=== PATIENT | female | born 1960 | race Caucasian/White ===

== ENCOUNTER 2016-11-14 12:28 | Observation (INO) | payer OTHER ==
[~2016-11-14] VITALS: Ht 165.1 cm; Wt 108.5 kg
[~2016-11-14 12:28] MED LIST: FLX10 PO; GABA-112 PO; IBUP-1050 PO; LISI-461 PO
[2016-11-14] MEDS ORDERED: ASPIRIN 324 MG CHEW PO STA (12:51)
[2016-11-14 13:15] LABS: BASO % 0.6 %; BASO ABS # 0.04 K/uL (0-0.2); COMPLETE YES; HEMATOCRIT 43.3 % (37-47); IG% 0.1 %; LYMPH ABS # 2.21 K/uL (1.2-3.4); MEAN CELL VOLUME 92.5 fL (80-100); MEAN CORPUSCULAR HEMOGLOBIN 29.5 pg (25-34); MEAN CORPUSCULAR HGB CONC 31.9 g/dl (32-36); MEAN PLATELET VOLUME 9.6 fL (7.4-10.4); MONO % 6.4 %; NEUT % 59.9 %; PLATELET COUNT 243 K/uL (130-400); RED BLOOD COUNT 4.68 M/uL (4.2-5.4); WHITE BLOOD COUNT 7.14 K/uL (4.8-10.8)
[2016-11-14] MEDS ORDERED: GABA600T PO (13:27)
[2016-11-14] MEDS ORDERED: GABA1CAP5 PO (13:27)
[2016-11-14 13:29] LABS: INR 0.9 (0.9-1.1); PROTHROMBIN TIME (PATIENT) 10.1 SECONDS (9.0-12.0)
[2016-11-14 13:31] LABS: POINT OF CARE TROPONIN I < 0.030 ng/ml (0-0.045)
[2016-11-14 13:32] LABS: BUN/CREATININE RATIO 10.1 (10-20); CALCIUM 8.6 mg/dl (8.5-10.1); CREATININE 0.78 mg/dl (0.60-1.20); MAGNESIUM 2.2 mg/dl (1.8-2.4); POTASSIUM 3.7 mmol/L (3.5-5.1)
[2016-11-14 13:43] LABS: CKMB/CK RATIO 3.5 (0-3.0); THYROID STIMULATING HORMONE 0.845 uIu/ml (0.300-4.500)
--- NOTE | 2016-11-14 13:56 | DIAGNOSTIC IMAGING REPORT ---
CHEST ONE VIEW PORTABLE CLINICAL HISTORY: 55 years-old Female presenting with Chest pain. TECHNIQUE: Portable upright AP view of the chest was obtained. COMPARISON: 12/05/2015. FINDINGS: Mild tortuosity of the descending thoracic aorta. Cardiac silhouette normal in size. Lungs and pleural spaces clear. Osseous structures normal. Upper abdomen normal. IMPRESSION: 1. No acute cardiopulmonary disease. Electronically signed by: Campbell Hand M.D. 11/14/2016 1:55 PM Dictated Date/Time: 11/14/2016 1:54 PM
[2016-11-14] MEDS ORDERED: OPTIRAY 320 IV PRN (14:15)
[2016-11-14 14:25] LABS: LYME DISEASE AB IGG NEG (NEG); LYME DISEASE AB IGM NEG (NEG)
--- NOTE | 2016-11-14 14:41 | DIAGNOSTIC IMAGING REPORT ---
(CHEST FOR PE) ANGIO WITH CLINICAL HISTORY: 55 years-old Female presenting with left anterior chest pain radiating to the back, shortness of breath, dizziness. TECHNIQUE: Multidetector CT angiography of the chest was performed after administration of intravenous contrast. 3-D volumetric and/or maximum intensity projection (MIP) images were subsequently reconstructed for review. IV contrast: 94 mL of Optiray 320. A dose lowering technique was used consistent with the principles of ALARA (as low as reasonably achievable). COMPARISON: Chest x-ray performed the same day. CT DOSE (mGy.cm): The estimated cumulative dose is 545.32 mGy.cm. 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 Pulmonary vasculature: The study is adequate for assessment of the pulmonary vascular tree. No filling defect within the pulmonary arteries to suggest embolus. Main pulmonary artery is top normal in size. No flattening of the interventricular septum. No intracardiac intracardiac filling defect. No reflux of contrast into the hepatic veins. Remaining chest: On soft tissue windows, normal thyroid and thoracic inlet. No axillary, supraclavicular, hilar, or mediastinal lymphadenopathy. Normal aorta. Normal heart size. No pericardial or pleural effusion. Upper abdomen normal. On lung windows, minimal dependent changes likely atelectasis. Airways patent. On bone windows, degenerative changes of the spine. IMPRESSION: 1. No evidence of pulmonary embolus. No acute intrathoracic pathology. 2. Minimal bibasilar atelectasis. Electronically signed by: Campbell Hand M.D. 11/14/2016 2:40 PM Dictated Date/Time: 11/14/2016 2:36 PM
[2016-11-14] MEDS ORDERED: LISINOPRIL 10 MG TAB PO STA (14:54)
[2016-11-14] MEDS ORDERED: NITROGLYCERIN 0.4 MG SL PER TAB CHARGE SL STA (15:03)
[2016-11-14] MEDS ORDERED: MoRPHine SULFATE 4 MG/ML 1 ML CARP\\VIAL IV STA (15:06)
[2016-11-14] MEDS ORDERED: GABAPENTIN 600 MG TAB PO STA (15:06)
[2016-11-14] MEDS ORDERED: GABAPENTIN 400 MG CAP PO STA (15:14)
[2016-11-14 16:00] VITALS: BP 148/96; PULSE 64; TEMP 36.7; O2SAT 95; Ht 165.1 cm; Wt 108.5 kg
[2016-11-14] MEDS ORDERED: IV FLUIDS COMPLETED PRN (16:00)
[2016-11-14] MEDS ORDERED: OMEP20TA PO (17:55)
[2016-11-14] MEDS ORDERED: ALBINS/ INH (17:55)
[2016-11-14] MEDS ORDERED: MELA1TAB5 PO (17:55)
[2016-11-14] MEDS ORDERED: ONDANSETRON INJ 2 MG/ML 2 ML VIAL IV PRN (18:00)
[2016-11-14] MEDS ORDERED: GI COCKTAIL PO PRN (18:00)
[2016-11-14] MEDS ORDERED: NITROGLYCERIN 0.4 MG SL PER TAB CHARGE SL PRN (18:00)
[2016-11-14] MEDS ORDERED: MoRPHine SULFATE 2 MG/ML CARP IV PRN (18:00)
[2016-11-14] MEDS ORDERED: POLYETHYLENE (MIRALAX) 17 GM PACK PO PRN (18:00)
--- NOTE | 2016-11-14 18:05 | History and Physical ---
History & Physical Date & Time of Service: Nov 14, 2016 at 17:57 Chief Complaint: Chest Pain Primary Care Physician: Rosa SWIFT M.D. History of Present Illness Source: patient, clinic records, hospital records 55 yo nonsmoker with no family h/o CAD and no prior h/o chest pain who presents with chest pain that began this morning while she was cleaning up from breakfast around 1000. She noticed some diaphoresis and palpitations with this pain and states that it was in her L anterior chest with radiation to her back. She reports that pushing on her breast and holding it against her chest helped the pain subside. She has had a headache for the past week nonstop and states that she has been just "living with it". She has a houseful of people including her son and his children because of his divorce. She reports taking her blood pressure at the local [facility] and has seen it go up and down. She took lisinopril in the ER and states that it made her feel better, however, she also had some morphine which helped her to relax and allowed the pain to subside. She took nitro and states that it made her headache worse and made her feel bad. She is not sure if it helped the pain because it was given simultaneously with the morphine and the lisinopril. She states that she still feels an underlying "pressure" but the pain has gone away. She does have a h/o palpitations in the past but denies any h/o chest pain. She has a h/o GERD which is controlled on Omeprazole. She did report some functional dyspepsia with respect to sometimes feeling discomfort in her stomach after eating. Past Medical/Surgical History Medical Problems: (1) GERD (gastroesophageal reflux disease) Status: Chronic (2) HTN (hypertension) Status: Chronic (3) Obesity Status: Chronic Surgical Problems: (1) H/O excision of lamina of lumbar vertebra for decompression of spinal cord Status: Chronic (2) History of tubal ligation Status: Chronic Family History FH: diabetes mellitus FH: hypertension FH: lung disease Social History Smoking Status: Never Smoker Smokeless Tobacco Use: No Alcohol Use: none Drug Use: none Marital Status: Occupational Status: employed Immunizations History of Influenza Vaccine: Yes Influenza Vaccine Date: Nov 29, 2015 History of Tetanus Vaccine?: Yes Tetanus Immunization Date: Jun 18, 2016 History of Pneumococcal: No History of Hepatitis B Vaccine: No Multi-Drug Resistant Organisms History of MDRO: No Allergies Coded Allergies: Sulfa Drugs (Verified Allergy, Unknown, 11/14/16) Home Medications Scheduled Gabapentin (Neurontin), 400 MG PO DAILY Gabapentin (Neurontin), 600 MG PO HS Lisinopril (Zestril), 10 MG PO QPM Melatonin (Kp Melatonin), 1 TAB PO HS Omeprazole (Omeprazole), 20 TAB PO DAILY Scheduled PRN Albuterol Sulf (Proventil 0.083% 2.5MG/3ML), 2.5 MG INH QID PRN for Shortness of Breath Review of Systems At least ten systems were reviewed and negative except as indicated in HPI. Physical Exam Vital Signs Date Time Temp Pulse Resp B/P (MAP) Pulse Ox O2 Delivery O2 Flow Rate FiO2 11/14/16 16:00 36.7 64 18 148/96 (113) 95 Room Air 11/14/16 16:00 36.7 64 18 148/96 95 Room Air 11/14/16 15:41 80 18 145/95 96 Room Air 11/14/16 15:13 74 18 149/96 95 Room Air 11/14/16 15:04 81 18 157/94 96 Room Air 11/14/16 14:30 75 18 134/100 97 Room Air 11/14/16 14:04 77 18 149/106 94 Room Air 11/14/16 13:30 79 18 140/90 95 Room Air 11/14/16 13:11 84 11/14/16 13:08 95 Room Air 11/14/16 13:07 95 Room Air 11/14/16 12:38 37.5 83 20 185/105 96 Room Air General Appearance: no apparent distress, + obese Head: normocephalic, atraumatic Eyes: normal inspection, sclerae normal ENT: normal ENT inspection Neck: supple, no JVD, trachea midline Respiratory/Chest: + pertinent finding (chest tenderness to palpation along L sternal border) Cardiovascular: regular rate, rhythm, no edema, no gallop, no JVD, no murmur, normal peripheral pulses Abdomen/GI: normal bowel sounds, non tender, soft Back: normal inspection Extremities/Musculoskelatal: normal inspection, no pedal edema Neurologic/Psych: superintendent construction II-XII nml as tested, no motor/sensory deficits, alert, normal mood/affect, oriented x 3 Skin: normal color Diagnostics Laboratory Results 11/14/16 13:00 Red Blood Count 4.68, Mean Corpuscular Volume 92.5, Mean Corpuscular Hemoglobin 29.5, Mean Corpuscular Hemoglobin Concent 31.9, Mean Platelet Volume 9.6, Neutrophils (%) (Auto) 59.9, Lymphocytes (%) (Auto) 31.0, Monocytes (%) (Auto) 6.4, Eosinophils (%) (Auto) 2.0, Basophils (%) (Auto) 0.6, Neutrophils # (Auto) 4.28, Lymphocytes # (Auto) 2.21, Monocytes # (Auto) 0.46, Eosinophils # (Auto) 0.14, Basophils # (Auto) 0.04 11/14/16 13:00 Test 11/14/16 13:00 11/14/16 13:12 11/14/16 15:40 11/14/16 18:56 White Blood Count 7.14 K/uL (4.8-10.8) Red Blood Count 4.68 M/uL (4.2-5.4) Hemoglobin 13.8 g/dL (12.0-16.0) Hematocrit 43.3 % (37-47) Mean Corpuscular Volume 92.5 fL (80-100) Mean Corpuscular Hemoglobin 29.5 pg (25-34) Mean Corpuscular Hemoglobin Concent 31.9 g/dl (32-36) Platelet Count 243 K/uL (130-400) Mean Platelet Volume 9.6 fL (7.4-10.4) Neutrophils (%) (Auto) 59.9 % Lymphocytes (%) (Auto) 31.0 % Monocytes (%) (Auto) 6.4 % Eosinophils (%) (Auto) 2.0 % Basophils (%) (Auto) 0.6 % Neutrophils # (Auto) 4.28 K/uL (1.4-6.5) Lymphocytes # (Auto) 2.21 K/uL (1.2-3.4) Monocytes # (Auto) 0.46 K/uL (0.11-0.59) Eosinophils # (Auto) 0.14 K/uL (0-0.5) Basophils # (Auto) 0.04 K/uL (0-0.2) RDW Standard Deviation 47.9 fL (36.4-46.3) RDW Coefficient of Variation 14.2 % (11.5-14.5) Immature Granulocyte % (Auto) 0.1 % Immature Granulocyte # (Auto) 0.01 K/uL (0.00-0.02) Prothrombin Time 10.1 SECONDS (9.0-12.0) Prothromb Time International Ratio 0.9 (0.9-1.1) Activated Partial Thromboplast Time 27.1 SECONDS (21.0-31.0) Partial Thromboplastin Ratio 1.0 Anion Gap 4.0 mmol/L (3-11) Est Creatinine Clear Calc Drug Dose 97.9 ml/min Estimated GFR () 97.8 Estimated GFR (Non- 84.4 BUN/Creatinine Ratio 10.1 (10-20) Calcium Level 8.6 mg/dl (8.5-10.1) Magnesium Level 2.2 mg/dl (1.8-2.4) Total Bilirubin 0.2 mg/dl (0.2-1) Aspartate Amino Transf (AST/SGOT) 11 U/L (15-37) Alanine Aminotransferase (ALT/SGPT) 19 U/L (12-78) Alkaline Phosphatase 92 U/L (45-117) Total Protein 6.9 gm/dl (6.4-8.2) Albumin 3.4 gm/dl (3.4-5.0) Globulin 3.5 gm/dl (2.5-4.0) Albumin/Globulin Ratio 1.0 (0.9-2) Thyroid Stimulating Hormone (TSH) 0.845 uIu/ml (0.300-4.500) Lyme Disease IgG Antibody NEG (NEG) Lyme Disease IgM Antibody NEG (NEG) Bedside D-Dimer > 450 ng/mlFEU (0-450) Bedside Troponin I < 0.030 ng/ml (0-0.045) Total Creatine Kinase 55 U/L (26-192) Creatine Kinase MB 1.7 ng/ml (0.5-3.6) Creatine Kinase MB Ratio 3.1 (0-3.0) Troponin I < 0.015 ng/ml (0-0.045) Test 11/14/16 21:00 Urine Color YELLOW Urine Appearance CLEAR (CLEAR) Urine pH 6.0 (4.5-7.5) Urine Specific [place] 1.035 (1.000-1.030) Urine Protein NEG (NEG) Urine Glucose (UA) NEG (NEG) Urine Ketones NEG (NEG) Urine Occult Blood NEG (NEG) Urine Nitrite NEG (NEG) Urine Bilirubin NEG (NEG) Urine Urobilinogen NEG (NEG) Urine Leukocyte Esterase NEG (NEG) Results Past 24 Hours Test 11/14/16 13:00 11/14/16 13:12 11/14/16 15:40 Range/Units White Blood Count 7.14 4.8-10.8 K/uL Red Blood Count 4.68 4.2-5.4 M/uL Hemoglobin 13.8 12.0-16.0 g/dL Hematocrit 43.3 37-47 % Mean Corpuscular Volume 92.5 80-100 fL Mean Corpuscular Hemoglobin 29.5 25-34 pg Mean Corpuscular Hemoglobin Concent 31.9 32-36 g/dl Platelet Count 243 130-400 K/uL Mean Platelet Volume 9.6 7.4-10.4 fL Neutrophils (%) (Auto) 59.9 % Lymphocytes (%) (Auto) 31.0 % Monocytes (%) (Auto) 6.4 % Eosinophils (%) (Auto) 2.0 % Basophils (%) (Auto) 0.6 % Neutrophils # (Auto) 4.28 1.4-6.5 K/uL Lymphocytes # (Auto) 2.21 1.2-3.4 K/uL Monocytes # (Auto) 0.46 0.11-0.59 K/uL Eosinophils # (Auto) 0.14 0-0.5 K/uL Basophils # (Auto) 0.04 0-0.2 K/uL RDW Standard Deviation 47.9 36.4-46.3 fL RDW Coefficient of Variation 14.2 11.5-14.5 % Immature Granulocyte % (Auto) 0.1 % Immature Granulocyte # (Auto) 0.01 0.00-0.02 K/uL Prothrombin Time 10.1 9.0-12.0 SECONDS Prothromb Time International Ratio 0.9 0.9-1.1 Activated Partial Thromboplast Time 27.1 21.0-31.0 SECONDS Partial Thromboplastin Ratio 1.0 Sodium Level 143 136-145 mmol/L Potassium Level 3.7 3.5-5.1 mmol/L Chloride Level 109 98-107 mmol/L Carbon Dioxide Level 30 21-32 mmol/L Anion Gap 4.0 3-11 mmol/L Blood Urea Nitrogen 8 7-18 mg/dl Creatinine 0.78 0.60-1.20 mg/dl Est Creatinine Clear Calc Drug Dose 97.9 ml/min Estimated GFR () 97.8 Estimated GFR (Non- 84.4 BUN/Creatinine Ratio 10.1 10-20 Random Glucose 98 70-99 mg/dl Calcium Level 8.6 8.5-10.1 mg/dl Magnesium Level 2.2 1.8-2.4 mg/dl Total Bilirubin 0.2 0.2-1 mg/dl Aspartate Amino Transf (AST/SGOT) 11 15-37 U/L Alanine Aminotransferase (ALT/SGPT) 19 12-78 U/L Alkaline Phosphatase 92 45-117 U/L Total Creatine Kinase 66 26-192 U/L Creatine Kinase MB 2.3 0.5-3.6 ng/ml Creatine Kinase MB Ratio 3.5 0-3.0 Total Protein 6.9 6.4-8.2 gm/dl Albumin 3.4 3.4-5.0 gm/dl Globulin 3.5 2.5-4.0 gm/dl Albumin/Globulin Ratio 1.0 0.9-2 Thyroid Stimulating Hormone (TSH) 0.845 0.300-4.500 uIu/ml Lyme Disease IgG Antibody NEG NEG Lyme Disease IgM Antibody NEG NEG Bedside D-Dimer > 450 0-450 ng/mlFEU Bedside Troponin I < 0.030 < 0.030 0-0.045 ng/ml Diagnostic Radiology (CHEST FOR PE) ANGIO WITH CLINICAL HISTORY: 55 years-old Female presenting with left anterior chest pain radiating to the back, shortness of breath, dizziness. TECHNIQUE: Multidetector CT angiography of the chest was performed after administration of intravenous contrast. 3-D volumetric and/or maximum intensity projection (MIP) images were subsequently reconstructed for review. IV contrast: 94 mL of Optiray 320. A dose lowering technique was used consistent with the principles of ALARA (as low as reasonably achievable). COMPARISON: Chest x-ray performed the same day. CT DOSE (mGy.cm): The estimated cumulative dose is 545.32 mGy.cm. FINDINGS: Book Editor topogram: Unremarkable. Pulmonary vasculature: The study is adequate for assessment of the pulmonary vascular tree. No filling defect within the pulmonary arteries to suggest embolus. Main pulmonary artery is top normal in size. No flattening of the interventricular septum. No intracardiac intracardiac filling defect. No reflux of contrast into the hepatic veins. Remaining chest: On soft tissue windows, normal thyroid and thoracic inlet. No axillary, supraclavicular, hilar, or mediastinal lymphadenopathy. Normal aorta. Normal heart size. No pericardial or pleural effusion. Upper abdomen normal. On lung windows, minimal dependent changes likely atelectasis. Airways patent. On bone windows, degenerative changes of the spine. IMPRESSION: 1. No evidence of pulmonary embolus. No acute intrathoracic pathology. 2. Minimal bibasilar atelectasis. CHEST ONE VIEW PORTABLE CLINICAL HISTORY: 55 years-old Female presenting with Chest pain. TECHNIQUE: Portable upright AP view of the chest was obtained. COMPARISON: 12/05/2015. FINDINGS: Mild tortuosity of the descending thoracic aorta. Cardiac silhouette normal in size. Lungs and pleural spaces clear. Osseous structures normal. Upper abdomen normal. IMPRESSION: 1. No acute cardiopulmonary disease. Normal EKG Impression Assessment and Plan 55 yo F presents to the ER with acute chest pain 1. Chest pain- risk factors for ACS include HTN and obesity. No h/o CAD or chest pain symptoms in the past. Does have stress with house full of people and does report some high BPs on occasion. Stated that she felt better after taking her regular afternoon dose of lisinopril today in the ER. She does have GERD which is controlled on PPI but does also mention some functional dyspepsia. Also has some anterior chest wall tenderness to palpation indicating a muscular component. Will rule out ACS with serial cardiac enzymes overnight and consult cardiology in the morning for assistance with risk stratification. GI cocktail ordered PRN as well as nitro and morphine. H pylori ordered. 2. Chronic back pain-managed with gabapentin 3. HTN-controlled, cont lisinopril 4. Insomnia-takes melatonin 5. Obesity DVT proph-Lovenox FULL CODE Dispo[facility]tele[facility] Level [facility] Care Telemetry Advanced Directives Existing Living Will: No Existing Power of Flight Readiness Technician: No Resuscitation Status FULL RESUSCITATION VTE Prophylaxis VTE Risk Assessment Done? Y/N: Yes Risk Level: Moderate Given or contraindicated: Enoxaparin (Lovenox)SQ
[2016-11-14] MEDS ORDERED: ALUMINUM/MAGNESIUM SUSP 72 ML, LIDOCAINE HCL 2% VISCOUS SOLN 24 ML, BARCODE IDENTIFIER ... PO PRN ×2 (18:15)
[2016-11-14] MEDS ORDERED: ATORVASTATIN 40 MG TAB PO ONE (18:30)
[2016-11-14] MEDS: ACETAMINOPHEN 325 MG TAB PO PRN (19:21)
[2016-11-14 19:30] LABS: CKMB/CK RATIO 3.1 (0-3.0)
[2016-11-14 19:40] VITALS: BP 156/98; PULSE 65; TEMP 36.5; O2SAT 97
[2016-11-14] MEDS ORDERED: ENOXAPARIN 40 MG/0.4 ML SYR SC SCH (21:00)
[2016-11-14] MEDS ORDERED: GABAPENTIN 600 MG TAB PO SCH (21:00)
[2016-11-14] MEDS ORDERED: LISINOPRIL 10 MG TAB PO SCH (21:00)
[2016-11-14] MEDS ORDERED: PANTOprazole SOD 40 MG TAB PO SCH (21:00)
--- NOTE | 2016-11-14 21:36 | EMERGENCY ROOM VISIT NOTE ---
History First contact with patient: 12:42 Chief Complaint: CHEST PAIN Stated Complaint: CHEST PAIN Nursing Triage Summary: Patient reports pain in left chest area with pressure in her back since this morning. Patient was cleaning in the kitchen when the pain started. Patient denies shortness of breath, patient also c/o intemittent dizziness today. Patient denies any cardiac history. History of Present Illness The patient is a 55 year old female who presents to the Emergency Room via private vehicle accompanied by male with complaints of "chest pain". The patient states that this morning around 10 AM, she was in the kitchen and developed pain in her left anterior chest that radiated to her back. She states that it also may have radiated up into her left neck. She is unsure if it is worse with exertion. She has never had this before. She notes that she initially held her breast impressed the area where it hurt and it helped alleviate the pain, but it persists. She denies any shortness of breath. She does have a history of unilateral leg edema, but notes this is normal on his been going on for many years. She denies any history of heart problems, lung blood clots, shortness of breath. She does have history of hypertension, and borderline high cholesterol. Review of Systems A complete 10-point Review of Systems was discussed with the patient, with pertinent positives and negatives listed in the History of Present Illness. All remaining Review of Systems questions can be considered negative unless otherwise specified. Past Medical/Surgical History Medical Problems: (1) Asthma, Unspecified (2) Chest pain (3) Diverticulosis Colon (W/O Ment Of Hemorrhage) (4) Hypertension Nos (5) Int Hemrrhoid W Comp Nec (6) Lumbago (7) Lumbar Disc Displacement (8) Morbid Obesity (9) Pneumonia (10) Restless Legs Syndrome Surgical Problems: (1) History of laminectomy (2) History of tubal ligation Family History FH: diabetes mellitus FH: hypertension FH: lung disease Social History Smoking Status: Never Smoker Alcohol Use: none Marital Status: Occupation Status: employed Current/Historical Medications Scheduled Gabapentin (Neurontin), 400 MG PO DAILY Gabapentin (Neurontin), 600 MG PO HS Lisinopril (Zestril), 10 MG PO QPM Melatonin (Kp Melatonin), 1 TAB PO HS Omeprazole (Omeprazole), 20 TAB PO DAILY Scheduled PRN Albuterol Sulf (Proventil 0.083% 2.5MG/3ML), 2.5 MG INH QID PRN for Shortness of Breath Physical Exam Vital Signs Date Time Temp Pulse Resp B/P (MAP) Pulse Ox O2 Delivery O2 Flow Rate FiO2 11/14/16 15:13 74 18 149/96 95 Room Air 11/14/16 15:04 81 18 157/94 96 Room Air 11/14/16 14:30 75 18 134/100 97 Room Air 11/14/16 14:04 77 18 149/106 94 Room Air 11/14/16 13:30 79 18 140/90 95 Room Air 11/14/16 13:11 84 11/14/16 13:08 95 Room Air 11/14/16 13:07 95 Room Air 11/14/16 12:38 37.5 83 20 185/105 96 Room Air Pain Rating (0-10): 2.0 Physical Exam VITAL SIGNS - Vital signs and nursing notes were reviewed. Borderline febrile, hypertensive at 185/105, non-tachycardic and is saturating well on room air at 96%. GENERAL -55-year-old female appearing her stated age who is in no acute distress. Communicates well with provider and answers questions appropriately. SKIN - Without rashes. Skin is unremarkable. No petechial rashes. HEAD - NC/AT. EYES - PERRL with EOMI bilaterally. Sclera anicteric. No hyphema. EARS - No deformities of external structures noted on gross examination bilaterally. NOSE - Midline and without cyanosis. No epistaxis or purulent drainage noted. MOUTH/OROPHARYNX - Without perioral cyanosis. LUNGS - Chest wall symmetric without accessory muscle use, intercostals retractions, or central cyanosis. Normal vesicular breath sounds CTA B/L. No wheezes, rales, or rhonchi appreciated. CARDIAC - RRR with S1/S2. No murmur, rubs, or gallops appreciated. EXTREMITIES - No clubbing or peripheral cyanosis. No pretibial edema present. +5 /5 strength noted in UE/LE bilaterally. NEUROLOGIC - Cranial nerves II through XII grossly intact. Sensory intact to light touch throughout. Medical Decision & Procedures ER Provider Diagnostic Interpretation: CHEST ONE VIEW PORTABLE CLINICAL HISTORY: 55 years-old Female presenting with Chest pain. TECHNIQUE: Portable upright AP view of the chest was obtained. COMPARISON: 12/05/2015. FINDINGS: Mild tortuosity of the descending thoracic aorta. Cardiac silhouette normal in size. Lungs and pleural spaces clear. Osseous structures normal. Upper abdomen normal. IMPRESSION: 1. No acute cardiopulmonary disease. Electronically signed by: Campbell Hand M.D. 11/14/2016 1:55 PM Dictated Date/Time: 11/14/2016 1:54 PM (CHEST FOR PE) ANGIO WITH CLINICAL HISTORY: 55 years-old Female presenting with left anterior chest pain radiating to the back, shortness of breath, dizziness. TECHNIQUE: Multidetector CT angiography of the chest was performed after administration of intravenous contrast. 3-D volumetric and/or maximum intensity projection (MIP) images were subsequently reconstructed for review. IV contrast: 94 mL of Optiray 320. A dose lowering technique was used consistent with the principles of ALARA (as low as reasonably achievable). COMPARISON: Chest x-ray performed the same day. CT DOSE (mGy.cm): The estimated cumulative dose is 545.32 mGy.cm. FINDINGS: Book Salesman topogram: Unremarkable. Pulmonary vasculature: The study is adequate for assessment of the pulmonary vascular tree. No filling defect within the pulmonary arteries to suggest embolus. Main pulmonary artery is top normal in size. No flattening of the interventricular septum. No intracardiac intracardiac filling defect. No reflux of contrast into the hepatic veins. Remaining chest: On soft tissue windows, normal thyroid and thoracic inlet. No axillary, supraclavicular, hilar, or mediastinal lymphadenopathy. Normal aorta. Normal heart size. No pericardial or pleural effusion. Upper abdomen normal. On lung windows, minimal dependent changes likely atelectasis. Airways patent. On bone windows, degenerative changes of the spine. IMPRESSION: 1. No evidence of pulmonary embolus. No acute intrathoracic pathology. 2. Minimal bibasilar atelectasis. Electronically signed by: Campbell Hand M.D. 11/14/2016 2:40 PM Dictated Date/Time: 11/14/2016 2:36 PM Laboratory Results 11/14/16 13:00 Red Blood Count 4.68, Mean Corpuscular Volume 92.5, Mean Corpuscular Hemoglobin 29.5, Mean Corpuscular Hemoglobin Concent 31.9, Mean Platelet Volume 9.6, Neutrophils (%) (Auto) 59.9, Lymphocytes (%) (Auto) 31.0, Monocytes (%) (Auto) 6.4, Eosinophils (%) (Auto) 2.0, Basophils (%) (Auto) 0.6, Neutrophils # (Auto) 4.28, Lymphocytes # (Auto) 2.21, Monocytes # (Auto) 0.46, Eosinophils # (Auto) 0.14, Basophils # (Auto) 0.04 11/14/16 13:00 Test 11/14/16 13:00 11/14/16 13:12 White Blood Count 7.14 K/uL (4.8-10.8) Red Blood Count 4.68 M/uL (4.2-5.4) Hemoglobin 13.8 g/dL (12.0-16.0) Hematocrit 43.3 % (37-47) Mean Corpuscular Volume 92.5 fL (80-100) Mean Corpuscular Hemoglobin 29.5 pg (25-34) Mean Corpuscular Hemoglobin Concent 31.9 g/dl (32-36) Platelet Count 243 K/uL (130-400) Mean Platelet Volume 9.6 fL (7.4-10.4) Neutrophils (%) (Auto) 59.9 % Lymphocytes (%) (Auto) 31.0 % Monocytes (%) (Auto) 6.4 % Eosinophils (%) (Auto) 2.0 % Basophils (%) (Auto) 0.6 % Neutrophils # (Auto) 4.28 K/uL (1.4-6.5) Lymphocytes # (Auto) 2.21 K/uL (1.2-3.4) Monocytes # (Auto) 0.46 K/uL (0.11-0.59) Eosinophils # (Auto) 0.14 K/uL (0-0.5) Basophils # (Auto) 0.04 K/uL (0-0.2) RDW Standard Deviation 47.9 fL (36.4-46.3) RDW Coefficient of Variation 14.2 % (11.5-14.5) Immature Granulocyte % (Auto) 0.1 % Immature Granulocyte # (Auto) 0.01 K/uL (0.00-0.02) Prothrombin Time 10.1 SECONDS (9.0-12.0) Prothromb Time International Ratio 0.9 (0.9-1.1) Activated Partial Thromboplast Time 27.1 SECONDS (21.0-31.0) Partial Thromboplastin Ratio 1.0 Anion Gap 4.0 mmol/L (3-11) Est Creatinine Clear Calc Drug Dose 97.9 ml/min Estimated GFR () 97.8 Estimated GFR (Non- 84.4 BUN/Creatinine Ratio 10.1 (10-20) Calcium Level 8.6 mg/dl (8.5-10.1) Magnesium Level 2.2 mg/dl (1.8-2.4) Total Bilirubin 0.2 mg/dl (0.2-1) Aspartate Amino Transf (AST/SGOT) 11 U/L (15-37) Alanine Aminotransferase (ALT/SGPT) 19 U/L (12-78) Alkaline Phosphatase 92 U/L (45-117) Total Protein 6.9 gm/dl (6.4-8.2) Albumin 3.4 gm/dl (3.4-5.0) Globulin 3.5 gm/dl (2.5-4.0) Albumin/Globulin Ratio 1.0 (0.9-2) Thyroid Stimulating Hormone (TSH) 0.845 uIu/ml (0.300-4.500) Lyme Disease IgG Antibody NEG (NEG) Lyme Disease IgM Antibody NEG (NEG) Bedside D-Dimer > 450 ng/mlFEU (0-450) Medications Administered Medications (Trade) Dose Ordered Sig/Gokul Route Start Time Stop Time Status Last Admin Dose Admin Aspirin (Aspirin Chew) 324 mg NOW STAT PO 11/14/16 12:51 11/14/16 12:53 DC 11/14/16 13:05 324 MG Lisinopril (Zestril Tab) 10 mg NOW STAT PO 11/14/16 14:54 11/14/16 14:55 DC 11/14/16 15:05 10 MG Nitroglycerin (Nitrostat Tab) 0.4 mg Q5M STAT SL 11/14/16 15:03 11/14/16 15:04 DC 11/14/16 15:08 0.4 MG Morphine Sulfate (MoRPHine SULFATE INJ) 4 mg NOW STAT IV 11/14/16 15:06 11/14/16 15:07 DC 11/14/16 15:13 4 MG Gabapentin (Neurontin Cap) 400 mg NOW STAT PO 11/14/16 15:14 11/14/16 15:15 DC 11/14/16 15:26 400 MG Medical Decision Patient was seen and evaluated as above. She presents to us today with chest pain. Bedside EKG reveals normal sinus rhythm, without ectopy or ischemic change. IV access was initiated, and the above workup was performed. She declined pain medication. She was given 324 milligram of chewable aspirin. Chest x-ray is obtained with results as above. No acute process. D-dimer was found to be elevated therefore CTA of the chest was obtained and found to be negative for pulmonary embolism. Troponin is also negative. CBC reveals no leukocytosis or anemia. Coags unremarkable. Metabolic panel reveals chloride slightly high at 109, creatinine is appropriate, no evidence of liver failure. TSH unremarkable. Lyme testing is negative. At this time because the patient' s underlying risk factors of hypertension, borderline cholesterol, age, the BMI , as well as her classic presenting symptoms of KS I believe that further evaluation and management in the inpatient setting is appropriate for further cardiac assessment. The case was discussed with the hospitalist, Dr. Aragon. Please refer to further documentation regarding the patient's stay. She was given nitroglycerin and morphine prior to admission. In the evaluation treatment this patient following differential diagnoses were entertained: KS, PE, endocarditis, pericarditis, costochondritis, muscle strain , GERD, dissection, among others. Impression Primary Impression: Chest pain Departure Information Dispostion Still a Patient Condition GOOD Referrals Rosa SWIFT M.D. (PCP) Forms Call Back Authorization, HOME CARE DOCUMENTATION FORM, IMPORTANT VISIT INFORMATION [facility] Instructions [facility]
[2016-11-14 22:20] LABS: URINE APPEARANCE CLEAR (CLEAR); URINE BILIRUBIN NEG (NEG); URINE COLOR YELLOW; URINE NITRITE NEG (NEG); URINE SPECIFIC GRAVITY 1.035 (1.000-1.030); UROBILINOGEN NEG (NEG); ZZUR CULT IF INDIC CLEAN CATCH NO
[2016-11-14 22:23] LABS: MANUAL MICROSCOPIC REQUIRED? NO; REVIEW REQ? NO
[2016-11-14 23:49] VITALS: BP 146/83; PULSE 60; TEMP 36.4; O2SAT 97
[2016-11-15 01:20] LABS: CKMB/CK RATIO 4.3 (0-3.0)
[2016-11-15 03:55] VITALS: BP 150/91; PULSE 63; TEMP 36.5; O2SAT 96
[2016-11-15 05:55] LABS: MEAN CELL VOLUME 93.3 fL (80-100); MEAN CORPUSCULAR HEMOGLOBIN 29.1 pg (25-34); MEAN CORPUSCULAR HGB CONC 31.2 g/dl (32-36); MEAN PLATELET VOLUME 9.8 fL (7.4-10.4); PLATELET COUNT 233 K/uL (130-400); RED BLOOD COUNT 4.61 M/uL (4.2-5.4); WHITE BLOOD COUNT 7.46 K/uL (4.8-10.8)
[2016-11-15 06:32] LABS: CALCIUM 8.9 mg/dl (8.5-10.1); CREATININE 0.85 mg/dl (0.60-1.20); POTASSIUM 4.1 mmol/L (3.5-5.1)
[2016-11-15 06:36] LABS: CHOLESTEROL/HDL RATIO 5.4
[2016-11-15 07:24] VITALS: BP 151/96; PULSE 61; TEMP 36.6; O2SAT 95
[2016-11-15] MEDS: ACETAMINOPHEN 325 MG TAB PO PRN (07:59)
[2016-11-15] MEDS ORDERED: ASPIRIN 81 MG ECTAB PO SCH (09:00)
[2016-11-15] MEDS ORDERED: GABAPENTIN 400 MG CAP PO SCH (09:00)
[2016-11-15 11:37] VITALS: BP 133/96; PULSE 71; TEMP 36.8; O2SAT 95
--- NOTE | 2016-11-15 11:51 | Progress Note ---
Internal Med Progress Note Date of Service: Nov 15, 2016. Provider Documentation: SUBJECTIVE: Seen and examined at bedside States chest pain is better still has some retrosternal discomfort Denies SOB, dizziness Headache is better Offers no other complaints OBJECTIVE: Vital Signs-as noted below Physical Exam: Vitals signs as noted above General Appearance:Obese, no apparent distress Head: normocephalic, Atraumatic Eyes: normal inspection, EOMI, PERRL Neck: supple, Trachea midline Respiratory/Chest: Normal breath sounds, CTA Cardiovascular: S1, S2, No murmur, tender on palpation Abdomen/GI:Soft, Non tender, Bowel sounds present Extremities/Musculoskelatal:normal inspection, no edema Neurologic/Psych:AAOX3, grossly no focal neurological deficits Skin: normal color, warm Lab data as noted below. ASSESSMENT & PLAN: Atypical Chest Pain: R/O ACS Risk factors: Obesity, HTN Troponin X 2:Negative EKG shows: CXR: Unremarkable Lipid panel: Borderline high Triglyceridemia Continue Aspirin Cardiology consulted Stress test:No symptoms suggestive of angina were induced. Chronic back pain: continue gabapentin Chronic Headache: Uncontrolled BP could be contributing Reports having it since years Denies change in vision, neck stiffness Follows with Neurology as outpatient for back pain Preferred to follow up with Neurology for headache as well Will give Ibuprofen for now Lisinopril increased for better BP control HTN: continue lisinopril as above Insomnia: Continue melatonin Obesity: BMI:39.8 GERD: continue PPI DVT Px: Lovenox SQ Code Status: FULL CODE Disposition: Plan to discharge home today Follow up with on 11/19/16 at 10:00 Am Follow up with your Neurologist for chronic headache as advised. Seek immediate medical attention if your symptoms reoccur or worsen Stress test: Stress echo results: STRESS STUDY: The stress echocardiogram was negative for evidence of resting or inducible ischemial. No symptoms suggestive of angina were induced. The BP response to exercise was hypertensive. The exercise tolerance was below average, however patient reached target HR. RESTING STUDY: There is mild concentric left ventricular hypertrophy. The LV Ejection Fraction = 60-65%. Grade I diastolic dysfunction, (abnormal relaxation pattern). There is no significant valvular heart disease. Vital Signs: Date Time Temp Pulse Resp B/P (MAP) Pulse Ox O2 Delivery O2 Flow Rate FiO2 11/15/16 16:00 96 Room Air 11/15/16 15:49 36.5 82 16 145/94 (111) 96 Room Air 11/15/16 12:15 Room Air 11/15/16 11:37 36.8 71 18 133/96 (108) 95 11/15/16 07:45 Room Air 11/15/16 07:24 36.6 61 18 151/96 (114) 95 11/15/16 04:00 Room Air 11/15/16 03:55 36.5 63 18 150/91 (110) 96 Room Air 11/15/16 00:00 Room Air 11/14/16 23:49 36.4 60 18 146/83 (104) 97 Room Air 11/14/16 20:00 Room Air 11/14/16 19:40 36.5 65 20 156/98 (117) 97 Room Air Lab Results: Results Past 24 Hours Test 11/14/16 18:56 11/14/16 21:00 11/15/16 00:34 11/15/16 05:31 Range/Units Total Creatine Kinase 55 51 26-192 U/L Creatine Kinase MB 1.7 2.2 0.5-3.6 ng/ml Creatine Kinase MB Ratio 3.1 4.3 0-3.0 Troponin I < 0.015 < 0.015 0-0.045 ng/ml Urine Color YELLOW Urine Appearance CLEAR CLEAR Urine pH 6.0 4.5-7.5 Urine Specific [place] 1.035 1.000-1.030 Urine Protein NEG NEG Urine Glucose (UA) NEG NEG Urine Ketones NEG NEG Urine Occult Blood NEG NEG Urine Nitrite NEG NEG Urine Bilirubin NEG NEG Urine Urobilinogen NEG NEG Urine Leukocyte Esterase NEG NEG White Blood Count 7.46 4.8-10.8 K/uL Red Blood Count 4.61 4.2-5.4 M/uL Hemoglobin 13.4 12.0-16.0 g/dL Hematocrit 43.0 37-47 % Mean Corpuscular Volume 93.3 80-100 fL Mean Corpuscular Hemoglobin 29.1 25-34 pg Mean Corpuscular Hemoglobin Concent 31.2 32-36 g/dl RDW Standard Deviation 48.5 36.4-46.3 fL RDW Coefficient of Variation 14.2 11.5-14.5 % Platelet Count 233 130-400 K/uL Mean Platelet Volume 9.8 7.4-10.4 fL Sodium Level 144 136-145 mmol/L Potassium Level 4.1 3.5-5.1 mmol/L Chloride Level 108 98-107 mmol/L Carbon Dioxide Level 32 21-32 mmol/L Anion Gap 4.0 3-11 mmol/L Blood Urea Nitrogen 9 7-18 mg/dl Creatinine 0.85 0.60-1.20 mg/dl Est Creatinine Clear Calc Drug Dose 89.9 ml/min Estimated GFR () 88.2 Estimated GFR (Non- 76.1 BUN/Creatinine Ratio 10.0 10-20 Random Glucose 91 70-99 mg/dl Calcium Level 8.9 8.5-10.1 mg/dl Triglycerides Level 198 0-150 mg/dl Cholesterol Level 168 0-200 mg/dl HDL Cholesterol 31 mg/dl LDL Cholesterol, Calculated 97 mg/dl VLDL Cholesterol, Calculated 40 mg/dl Cholesterol/HDL Ratio 5.4
--- NOTE | 2016-11-15 12:17 | Cardiology Consultation ---
Cardiology Consultation Date of Consultation: Nov 15, 2016 History of Present Illness Kathleen Jones is a 55 year old female seen in cardiology consultation per the request of Dr Aragon for the evaluation of chest discomfort. The patient's past medical history of medication-controlled hypertension for which she takes lisinopril. Yesterday at 10 AM, she noticed a sensation at the left sternal border at the upper part of her left breast. First it felt like it was a pain in her breast, and it seemed like it could be modified by adjusting the position of her left breast and squeezing it. It subsequently developed into more of a pressure sensation. She presented to the emergency department. Her blood pressures were a little bit above goal for her, but not extremely elevated so far. She also notes that she has had a headache for about the last week. She notes in the past she is to have recurrent headaches for many years that seemed to be worse with her menstrual cycle, but this is not been an issue recently. Her headache is currently a 3-4 intensity. This has not worsened or improved recently. She describes it there is a little bit of psychological stressors at home. She has extended family staying with her as her son goes through a divorce. Past Medical/Surgical History Problem List: Medical Problems: (1) Asthma, Unspecified (2) Chest pain (3) Diverticulosis Colon (W/O Ment Of Hemorrhage) (4) GERD (gastroesophageal reflux disease) (5) HTN (hypertension) (6) Hypertension Nos (7) Int Hemrrhoid W Comp Nec (8) Lumbago (9) Lumbar Disc Displacement (10) Morbid Obesity (11) Obesity (12) Pneumonia (13) Restless Legs Syndrome Surgical Problems: (1) H/O excision of lamina of lumbar vertebra for decompression of spinal cord (2) History of laminectomy (3) History of tubal ligation History Social History: She is a nonsmoker, denies alcohol use. Psychological stressors as noted above Family History: Mother age 79 due to complications of severe COPD and smoking. She also had hypertension Father is alive at age 82 with no known heart disease She notes no history of heart disease in her siblings. Review Of Systems See above for pertinent positives & negatives. A total of 10 systems reviewed and were otherwise negative. Allergies Coded Allergies: Sulfa Drugs (Verified Allergy, Unknown, 11/14/16) Medications Reported Home Medications Medications Dose Route/Sig Max Daily Dose Days Date Category Proventil 0.083% 2.5MG/3ML (Albuterol Sulf) 2.5 Mg/3 Ml Nebu 2.5 Mg INH QID PRN 11/14/16 Reported Kp Melatonin (Melatonin) 3 Mg Tab 1 Tab PO HS 11/14/16 Reported Omeprazole 20 Mg Tab 20 Tab PO DAILY 11/14/16 Reported Neurontin (Gabapentin) 600 Mg Tab 600 Mg PO HS 11/14/16 Reported Neurontin (Gabapentin) 400 Mg Cap 400 Mg PO DAILY 11/14/16 Reported Zestril (Lisinopril) 10 Mg Tab 10 Mg PO QPM 01/21/16 Reported Physical Exam Vital Signs (Last 8hrs): Last 8 Hrs Date Time Temp Pulse Resp B/P (MAP) Pulse Ox O2 Delivery O2 Flow Rate FiO2 11/15/16 11:37 36.8 71 18 133/96 (108) 95 11/15/16 07:45 Room Air 11/15/16 07:24 36.6 61 18 151/96 (114) 95 General Appearance: Alert and Oriented x3. NAD. Head: Normocephalic Atraumatic. Eyes: PERRLA, EOMI, conjunctiva and sclera clear Neck: Supple. No carotid bruits noted. No JVD. No HJD. Respiratory: Breath sounds clear to auscultation bilaterally. No w/r/r. Cardiovascular: Reg rate and rhythm. S1 and S2 noted. No murmurs, rubs, gallops. PMI non displace. Abdomen: Normal bowel sounds, soft nontender. no abdominal bruits. Extremities: No edema, no clubbing or cyanosis. distal pulses 2/4 bilaterally. Neuro: No focal deficits. Psychiatric: Normal affect. Data Last Resulted 11/15/16 05:31 Last Resulted 11/15/16 05:31 Past 24 Hours Test 11/14/16 13:00 11/14/16 18:56 11/15/16 00:34 Range/Units Creatine Kinase MB 2.3 1.7 2.2 0.5-3.6 ng/ml Creatine Kinase MB Ratio 3.5 H 3.1 H 4.3 H 0-3.0 Prothromb Time International Ratio 0.9 0.9-1.1 Prothrombin Time 10.1 9.0-12.0 SECONDS Total Creatine Kinase 66 55 51 26-192 U/L Troponin I < 0.015 < 0.015 0-0.045 ng/ml Serial EKGs reveal sinus rhythm sinus bradycardia without significant ST changes. Telemetry reveals stable sinus rhythm. Assessment & Plan Impression: 55-year-old female 1. Chest discomfort, somewhat atypical for angina, with discomfort that is partially reproducible on deep palpation in the left sternal border, and a separate pressure sensation. 2. Hypertension, unusually high for her, trending toward improvement 3. No significant dyslipidemia, LDL was 97 mg/dL Plan: Proceed with exercise stress echocardiogram. Further recommendations be forthcoming after the test. Continue lisinopril for now. May need additional evaluation of headache after stress test is completed. Shiraz Ortega DO, FACC, FACOI [employer] [facility] [place], [facility]
--- NOTE | 2016-11-15 15:34 | Cardiology Progress Note ---
Cardiology Progress Note Date of Service Nov 15, 2016. Cardiology Progress Note Stress echo results: STRESS STUDY: The stress echocardiogram was negative for evidence of resting or inducible ischemial. No symptoms suggestive of angina were induced. The BP response to exercise was hypertensive. The exercise tolerance was below average, however patient reached target HR. RESTING STUDY: There is mild concentric left ventricular hypertrophy. The LV Ejection Fraction = 60-65%. Grade I diastolic dysfunction, (abnormal relaxation pattern). There is no significant valvular heart disease. Non cardiac chest pain. Recommendations: Increase lisinopril to 20 mg daily. Recommend ongoing headache assessment/ treatment by hospitalist service.
--- NOTE | 2016-11-15 15:36 | EXERCISE STRESS ECHO ---
*NOTICE TO RECEIVING DEMOCRAT AGENCY This information is strictly Confidential and protected under [place] law. [place] law prohibits you from making any further disclosure of this information unless further disclosure is expressly permitted by the written consent of the person to whom it pertains or is authorized by law. A general authorization for the release of medical or other information is not sufficient for this purpose. Hospital accepts no responsibility if the information is made available to any other person, INCLUDING THE PATIENT. Interpretation Summary * Name: RANJANA HENDERSON Study Date: 11/15/2016 01:21 PM BP: 110/82 mmHg * Patient Location: [facility]\S\N284\S\1 HR: 66 * : 1960 (M/d/yyyy) Gender: Female Height: 65 in * Age: 55 yrs Ethnicity: [place] Weight: 239 lb * Ordering Physician: Shiraz Ortega * Referring Physician: Self, Referred * Performed By: Krystal Santiago RDCS * * Reason For Study: CHEST PAIN * BSA: 2.1 m2 * The study was technically adequate. * -- Conclusions -- * STRESS STUDY: * The stress echocardiogram was negative for evidence of resting or inducible ischemial. * No symptoms suggestive of angina were induced. * The BP response to exercise was hypertensive. * The exercise tolerance was below average, however patient reached target HR. * RESTING STUDY: * There is mild concentric left ventricular hypertrophy. * The LV Ejection Fraction = 60-65%. * Grade I diastolic dysfunction, (abnormal relaxation pattern). * There is no significant valvular heart disease. Procedure Details * A contrast injection of Definity was performed to improve assessment of LV function. * Contrast was injected into an intravenous site in the right arm. * One vial of Definity ultrasound contrast was diluted in normal saline to a total volume of 10 ml. A total of '4' ml of solution was administered during imaging. * Lot # [id number] of Definity utilized for procedure. * Expiration date DEC 15. * The attending nurse who injected the contrast agent was DAVE DOTSON RN. * ECHOEX, CPT #[id number] * ECHO DOPPLER, CPT #[id number] * ECHO COLOR FLOW, CPT #[id number] Left Ventricle * The left ventricle is normal in size. * There is mild concentric left ventricular hypertrophy. * Ejection Fraction = 60-65%. * Left ventricular systolic function is normal. * Resting wall motion: Normal. Stress wall motion: Appropriate increase in Left ventricular systolic function and decrease in cavity size. No stress induced segmental wall motion abnormalities. Right Ventricle * The right ventricle is normal in size and function. Atria * The left atrial size is normal. * Right atrial size is normal. * No ASD detected; PFO is not assessed. Mitral Valve * The mitral valve is normal. * There is no mitral valve stenosis. * There is trace mitral regurgitation. Tricuspid Valve * The tricuspid valve is normal. * There is no tricuspid stenosis. * There is trace tricuspid regurgitation. Aortic Valve * The aortic valve is trileaflet. * No hemodynamically significant valvular aortic stenosis. * No aortic regurgitation is present. Pulmonic Valve * The pulmonic valve is not well visualized. Great Vessels * The aortic root is normal size. Pericardium * There is no pericardial effusion. Stress Parameters * Normal baseline electrocardiogram. * The stress ECG response was normal * No arrhythmia were noted with stress. * The stress portion of this study was personally supervised by the undersigned interpreting physician. * Rest heart rate was '66' BPM. * Rest blood pressure was '110/82' * Maximum heart rate achieved was 146 bpm. * Maximum heart rate was 89 % of maximum age-predicted heart rate. * Maximum blood pressure was '179/106' * Total exercise time was '3:50' * Maximum exercise MET level achieved was '5.60' METS * Maximum treadmill speed was '2.50' miles per hour. * Maximum treadmill elevation was '12.00'% grade. * Exercise was terminated due to 'ACHIEVING TARGET HR' Left Ventricular Diastolic Function * Grade I diastolic dysfunction, (abnormal relaxation pattern). MMode 2D Measurements and Calculations IVSd 1.3 cm IVSs 1.9 cm LVIDd 3.9 cm LVIDs 2.7 cm LVPWd 1.2 cm LVPWs 1.7 cm IVS/LVPW 1.0 FS 30.8 % EDV(Teich) 67.5 ml ESV(Teich) 27.7 ml EF(Teich) 59.0 % EDV(cubed) 61.1 ml ESV(cubed) 20.3 ml EF(cubed) 66.8 % % IVS thick 41.4 % % LVPW thick 39.6 % LV mass(C)d 177.8 grams LV mass(C)dI 83.3 grams/m\S\2 LV mass(C)s 193.8 grams LV mass(C)sI 90.8 grams/m\S\2 SV(Teich) 39.8 ml SI(Teich) 18.6 ml/m\S\2 SV(cubed) 40.8 ml SI(cubed) 19.1 ml/m\S\2 Ao root diam 3.2 cm Ao root area 8.2 cm\S\2 LA dimension 3.4 cm LA/Ao 1.1 LVAd ap4 34.6 cm\S\2 LVLd ap4 8.0 cm EDV(MOD-sp4) 122.2 ml EDV(sp4-el) 126.0 ml LVAs ap4 19.0 cm\S\2 LVLs ap4 6.3 cm ESV(MOD-sp4) 48.1 ml ESV(sp4-el) 48.2 ml EF(MOD-sp4) 60.6 % EF(sp4-el) 61.8 % SV(MOD-sp4) 74.1 ml SI(MOD-sp4) 34.7 ml/m\S\2 SV(sp4-el) 77.8 ml SI(sp4-el) 36.5 ml/m\S\2 Doppler Measurements and Calculations MV E max jak 98.1 cm/sec MV A max jak 96.5 cm/sec MV E/A 1.0 MV dec time 0.26 sec Ao V2 max 146.6 cm/sec Ao max PG 8.6 mmHg Ao max PG (full) 4.1 mmHg LV V1 max PG 4.5 mmHg LV V1 max 106.6 cm/sec TR max jak 170.8 cm/sec
[2016-11-15 15:49] VITALS: BP 145/94; PULSE 82; TEMP 36.5; O2SAT 96
[2016-11-15 16:00] VITALS: O2SAT 96
[2016-11-15] MEDS ORDERED: SUMATRIPTAN SUCCINATE 25 MG TAB PO ONE (16:15)
[2016-11-15] MEDS ORDERED: IBUPROFEN 600 MG TAB PO ONE (16:30)
[2016-11-15] MEDS ORDERED: LSN20 PO (16:40)
--- NOTE | 2016-11-15 16:41 | Discharge Instructions ---
Discharge Instructions Date of Service Nov 15, 2016. Admission Reason for Admission: Chest Pain Discharge Discharge Diagnosis / Problem: Atypical chest pain Discharge Goals Goal(s): Decrease discomfort, Improve function Activity Recommendations Activity Limitations: resume your previous activity Exercise/Sports Limitations: as tolerated . Instructions / Follow-Up Instructions / Follow-Up Follow up with on 11/19/16 at 10:00 Am Follow up with your Neurologist for chronic headache as advised. Seek immediate medical attention if your symptoms reoccur or worsen Current Hospital Diet Patient's current hospital diet: Regular Diet Discharge Diet Recommended Diet: Regular Diet Pending Studies Studies pending at discharge: no Laboratory Results Lipid Panel Test 11/15/16 05:31 Range/Units Triglycerides Level 198 H 0-150 mg/dl Cholesterol Level 168 0-200 mg/dl HDL Cholesterol 31 mg/dl Cholesterol/HDL Ratio 5.4 LDL Cholesterol, Calculated 97 mg/dl Medical Emergencies . Who to Call and When: Medical Emergencies: If at any time you feel your situation is an emergency, please call 911 immediately. . Non-Emergent Contact Non-Emergency issues call your: Primary Care Provider, Medical Tech Call Non-Emergent contact if: you have a fever, your pain is not controlled, your pain is worsening, your pain is unusual for you, your pain is concerning you, you have any medication questions Seek immediate medical attention if your symptoms reoccur or worsen . . "Provider Documentation" section prepared by Gadiel Reddy. . VTE Core Measure Inpt VTE Proph given/why not?: Enoxaparin (Lovenox)SQ
--- NOTE | 2016-11-15 17:01 | Discharge Summary ---
Discharge Summary Date of Service Nov 15, 2016. Discharge Summary Admission Date: Nov 14, 2016 at 15:35 Discharge Date: Nov 15, 2016 Discharge Disposition: Home Principal Diagnosis: Atypical chest pain Procedures: CTA: 1. No evidence of pulmonary embolus. No acute intrathoracic pathology. 2. Minimal bibasilar atelectasis. STRESS STUDY: The stress echocardiogram was negative for evidence of resting or inducible ischemial. No symptoms suggestive of angina were induced. The BP response to exercise was hypertensive. The exercise tolerance was below average, however patient reached target HR. RESTING STUDY: There is mild concentric left ventricular hypertrophy. The LV Ejection Fraction = 60-65%. Grade I diastolic dysfunction, (abnormal relaxation pattern). There is no significant valvular heart disease. Pending Studies/Follow-Up: Follow up with on 11/19/16 at 10:00 Am Follow up with your Neurologist for chronic headache as advised. Seek immediate medical attention if your symptoms reoccur or worsen Medication Reconciliation New Medications: Lisinopril (Lisinopril) 20 Mg Tab 20 MG PO QAM for 30 Days, #30 TAB 1 Refill Continued Medications: Albuterol Sulf (Proventil 0.083% 2.5MG/3ML) 2.5 Mg/3 Ml Nebu 2.5 MG INH QID PRN for Shortness of Breath, EA Gabapentin (Neurontin) 400 Mg Cap 400 MG PO DAILY, CAP Gabapentin (Neurontin) 600 Mg Tab 600 MG PO HS, TAB Melatonin (Kp Melatonin) 3 Mg Tab 1 TAB PO HS Omeprazole (Omeprazole) 20 Mg Tab 20 TAB PO DAILY Discontinued Medications: Lisinopril (Zestril) 10 Mg Tab 10 MG PO QPM, TAB Admission Information HPI (per Admitting provider): 55 yo nonsmoker with no family h/o CAD and no prior h/o chest pain who presents with chest pain that began this morning while she was cleaning up from breakfast around 1000. She noticed some diaphoresis and palpitations with this pain and states that it was in her L anterior chest with radiation to her back. She reports that pushing on her breast and holding it against her chest helped the pain subside. She has had a headache for the past week nonstop and states that she has been just "living with it". She has a houseful of people including her son and his children because of his divorce. She reports taking her blood pressure at the local [facility] and has seen it go up and down. She took lisinopril in the ER and states that it made her feel better, however, she also had some morphine which helped her to relax and allowed the pain to subside. She took nitro and states that it made her headache worse and made her feel bad. She is not sure if it helped the pain because it was given simultaneously with the morphine and the lisinopril. She states that she still feels an underlying "pressure" but the pain has gone away. She does have a h/o palpitations in the past but denies any h/o chest pain. She has a h/o GERD which is controlled on Omeprazole. She did report some functional dyspepsia with respect to sometimes feeling discomfort in her stomach after eating. Physical Exam (per Admitting): General Appearance: no apparent distress, + obese Head: normocephalic, atraumatic Eyes: normal inspection, sclerae normal ENT: normal ENT inspection Neck: supple, no JVD, trachea midline Respiratory/Chest: + pertinent finding (chest tenderness to palpation along L sternal border) Cardiovascular: regular rate, rhythm, no edema, no gallop, no JVD, no murmur , normal peripheral pulses Abdomen/GI: normal bowel sounds, non tender, soft Back: normal inspection Extremities/Musculoskelatal: normal inspection, no pedal edema Neurologic/Psych: prestidigitator II-XII nml as tested, no motor/sensory deficits, alert , normal mood/affect, oriented x 3 Skin: normal color Hospital Course Atypical Chest Pain: R/O ACS Risk factors: Obesity, HTN Troponin X 2:Negative EKG shows: CXR: Unremarkable Lipid panel: Borderline high Triglyceridemia Continue Aspirin Cardiology consulted Stress test:No symptoms suggestive of angina were induced. Chronic back pain: continue gabapentin Chronic Headache: Uncontrolled BP could be contributing Reports having it since years Denies change in vision, neck stiffness Follows with Neurology as outpatient for back pain Preferred to follow up with Neurology for headache as well Will give Ibuprofen for now Lisinopril increased for better BP control HTN: continue lisinopril as above Insomnia: Continue melatonin Obesity: BMI:39.8 GERD: continue PPI DVT Px: Lovenox SQ Code Status: FULL CODE Disposition: Plan to discharge home today Follow up with on 11/19/16 at 10:00 Am Follow up with your Neurologist for chronic headache as advised. Seek immediate medical attention if your symptoms reoccur or worsen Stress test: Stress echo results: STRESS STUDY: The stress echocardiogram was negative for evidence of resting or inducible ischemial. No symptoms suggestive of angina were induced. The BP response to exercise was hypertensive. The exercise tolerance was below average, however patient reached target HR. RESTING STUDY: There is mild concentric left ventricular hypertrophy. The LV Ejection Fraction = 60-65%. Grade I diastolic dysfunction, (abnormal relaxation pattern). There is no significant valvular heart disease. Total time spent on discharge = This includes examination of the patient, discharge planning, medication reconciliation, and communication with other providers. Discharge Instructions Discharge Instructions Date of Service Nov 15, 2016. Admission Reason for Admission: Chest Pain Discharge Discharge Diagnosis / Problem: Atypical chest pain Discharge Goals Goal(s): Decrease discomfort, Improve function Activity Recommendations Activity Limitations: resume your previous activity Exercise/Sports Limitations: as tolerated . Instructions / Follow-Up Instructions / Follow-Up Follow up with on 11/19/16 at 10:00 Am Follow up with your Neurologist for chronic headache as advised. Seek immediate medical attention if your symptoms reoccur or worsen Current Hospital Diet Patient's current hospital diet: Regular Diet Discharge Diet Recommended Diet: Regular Diet Pending Studies Studies pending at discharge: no Laboratory Results Lipid Panel Test 11/15/16 05:31 Range/Units Triglycerides Level 198 H 0-150 mg/dl Cholesterol Level 168 0-200 mg/dl HDL Cholesterol 31 mg/dl Cholesterol/HDL Ratio 5.4 LDL Cholesterol, Calculated 97 mg/dl Medical Emergencies . Who to Call and When: Medical Emergencies: If at any time you feel your situation is an emergency, please call 911 immediately. . Non-Emergent Contact Non-Emergency issues call your: Primary Care Provider, Air Conditioning Installer Supervisor Call Non-Emergent contact if: you have a fever, your pain is not controlled, your pain is worsening, your pain is unusual for you, your pain is concerning you, you have any medication questions Seek immediate medical attention if your symptoms reoccur or worsen . . "Provider Documentation" section prepared by Gadiel Reddy. . VTE Core Measure Inpt VTE Proph given/why not?: Enoxaparin (Lovenox)SQ
[2016-11-15 17:29] VITALS: BP 145/94; PULSE 82; TEMP 36.5; O2SAT 96
[2016-11-16] MEDS ORDERED: LISINOPRIL 20 MG TAB PO SCH (09:00)
== END 2016-11-15 17:57 | disposition home or self-care (01) ==
LOC: C.EDB 12:29 → C.MED 15:35 → ENRESERV 15:44
PROVIDERS: ADMIT Hospitalist; ATTEND Internal Medicine
DX: R07.89 Other chest pain (principal); R51 Headache; I10 Essential (primary) hypertension; G47.00 Insomnia, unspecified; K21.9 Gastro-esophageal reflux disease without esophagitis; J45.909 Unspecified asthma, uncomplicated; E66.01 Morbid (severe) obesity due to excess calories; Z68.39 Body mass index [BMI] 39.0-39.9, adult; Z87.01 Personal history of pneumonia (recurrent); Z83.3 Family history of diabetes mellitus; Z82.49 Family history of ischemic heart disease and other diseases of the circulatory system; Z83.6 Family history of other diseases of the respiratory system

== ENCOUNTER 2018-05-11 06:44 | Inpatient (IN) ==
[2018-05-11] MEDS ORDERED: ACETAMINOPHEN 500 MG TAB PO STA (07:24)
[2018-05-11] MEDS ORDERED: SODIUM CHLORIDE 0.9% 1000ML 1,000 ML IV SCH (07:30)
--- NOTE | 2018-05-11 07:58 | XRay Report ---
XR chest 1V portable HISTORY: cough, fever, seizure COMPARISON: Chest 11/14/2016. FINDINGS: The heart is normal in size. No pleural effusions. No pneumothorax. The left lung is clear. Small patchy airspace opacities within the right upper lobe and right middle lobe. This is new from the prior study. IMPRESSION: Small patchy airspace opacities within the right upper lobe and right middle lobe. This is new from t he prior study and favors a pneumonia. One to 2 month chest x-ray follow-up is recommended to ensure resolution. Electronically signed by: Travis Kaiser M.D. 05/11/2018 7:56 AM
--- NOTE | 2018-05-11 08:04 | Emergency Department Note ---
ED Provider Note CHIEF COMPLAINT: Flu-like symptoms, possible seizure HISTORY OF PRESENTING ILLNESS: This is a 57-year-old female who presents to the emergency department via EMS with complaint of a possible seizure that occurred around 6 AM this morning. Patient's provides some of the history, noting that the patient woke him up around 5 AM complaining of chills and asked him to get a thermometer to check her temperature, he reports that she had a low-grade fever when he checked it. He states that she started to shake all over which lasted about a minute and afterwards she seemed confused and out of it, this occurred around 6 AM. He did not give her any medications for her fever. She was reportedly alert and oriented for EMS. She complains of generalized headache and body aches, and chills. She has also had a cough which started yesterday. She denies any vision changes, neck pain or stiffness, chest pain, shortness of breath, abdominal pain, back pain, nausea/vomiting, diarrhea, urinary symptoms, or unusual rash. REVIEW OF SYSTEMS: A complete 10 point review of systems was reviewed with the patient with pertinent positives and negatives as per history of present illness. All else were negative. PAST MEDICAL HISTORY: Hypertension, GERD, degenerative disc disease SOCIAL HISTORY: Lives at home with her , denies tobacco use ALLERGIES: Reviewed in chart PHYSICAL EXAM: CONSTITUTIONAL: Pleasant and cooperative. Nontoxic appearing and in no acute distress. Mildly dehydrated, but otherwise well appearing and well nourished. HEENT: Normocephalic, atraumatic. PERRL, EOMI. TMs normal bilaterally with no evidence of infection. Pharynx is not erythematous or enlarged, and there is no exudate. No trismus or uvular deviation. Tacky mucous membranes. NECK: Supple, full active range of motion without discomfort. No nuchal rigidity or meningismus. No cervical adenopathy. RESPIRATORY: Diminished in the bases bilaterally, no wheezing, crackles, rhonchi, or stridor. Equal expansion bilaterally. CARDIOVASCULAR: Regular rate and rhythm with no murmurs, rubs or gallops. Normal peripheral perfusion. No edema. GASTROINTESTINAL: Soft, nontender, nondistended. No palpable masses or HSM. Bowel sounds present in all quadrants. No CVA tenderness bilaterally. MUSCULOSKELETAL: Full range of motion of all joints without discomfort. INTEGUMENTARY: No rash or other significant dermatologic conditions noted. NEUROLOGIC: Alert and oriented X 4 with normal affect. Cranial nerves II-XII grossly intact, no facial droop. No pronator drift. No focal neurologic deficits noted. 5/5 strength in all 4 extremities. Sensation intact to light touch in all 4 extremities. [id number] testing normal. Normal speech. ED COURSE AND MEDICAL DECISION MAKING: CC: Patient presenting with complaint of flu-like symptoms, possible seizure DIFFERENTIAL DIAGNOSIS: Includes, but not limited to viral URI, bronchitis, pne umonia, influenza, seizure, syncope, rigors, UTI, bacteremia/sepsis, dehydration, among others. INTERPRETATION OF LABS: Leukocytosis with left shift, no anemia, normal platelets, no significant electrolyte abnormalities, normal renal function, normal liver enzymes. Lactic acid within normal limits. Pro-calcitonin negative. UA negative for infection. Influenza A/B negative. IMAGING: XR chest 1V portable HISTORY: cough, fever, seizure COMPARISON: Chest 11/14/2016. FINDINGS: The heart is normal in size. No pleural effusions. No pneumothorax. The left lung is clear. Small patchy airspace opacities within the right upper lobe and right middle lobe. This is new from the prior study. IMPRESSION: Small patchy airspace opacities within the right upper lobe and right middle lobe. This is new from the prior study and favors a pneumonia. One to 2 month chest x-ray follow-up is recommended to ensure resolution. EKG: Shows sinus tachycardia with a rate of 102 bpm, normal axis, normal intervals, no ST or T wave changes, no ectopy, no significant change when compared to previous EKG from 11/15/2016 by my interpretation. MEDICATION RECONCILIATION: I attest that I have personally reviewed the patient's current medication list. INITIAL VITAL SIGNS REVIEW: I reviewed the patient's initial vital signs and interpret them as follows: T: Febrile; BP: Hypertensive; HR: Within normal limits; RR: Within normal limits; Pulse Ox: Within normal limits on room air. Blood pressure screening: The patient was found to have an elevated blood pressure and was referred to the inpatient team for further management. MDM SUMMARY: Patient was evaluated at bedside, history and physical exam performed. Patient is alert, oriented x4, and answers questions appropriately. She is neur ologically intact with no focal deficits. She is nontoxic-appearing and in no acute distress, but complains of generalized body aches and is noted to be febrile on arrival. Lungs are diminished, but no focal findings on auscultation. EKG reviewed at bedside, noting sinus tachycardia with no acute ischemic changes. Orders were placed at bedside for labs, UA, influenza, lactic acid, blood cultures x2, IV fluid bolus for hydration, p.o. Tylenol for fever and body aches, chest x-ray to evaluate for cardiopulmonary disease. Patient discussed with Dr. Horn, who agrees with my assessment, plan, and disposition. Labs and imaging reviewed as above, labs notable for leukocytosis, otherwise unremarkable. Lactic acid is within normal limits. No UTI. Influenza A/B is negative. Chest x-ray shows evidence of multifocal pneumonia in the right upper and middle lobe. A pro-calcitonin was performed, which is negative, suggestive of a viral illness. However influenza is negative, and given her fevers and occasional hypoxia, will treat her with appropriate coverage for pneumonia, azithromycin and Rocephin were ordered. I spoke on the phone with Donya Guerrero PA-C with the [facility] talist team, who agrees to evaluate the patient for admission. Patient reassessed multiple times throughout ED stay, she has remained hemodynamically stable, has defervesced appropriately after Tylenol and reports her headache and body aches are improved. Patient and her were updated on all results and plan for admission, they verbalized understanding and were agreeable to this plan. The patient was stable at time of admission. The chart was completed utilizing [employer] Speech voice recognition software. Grammatical errors, random word insertions, pronoun errors, and incomplete sent ences are an occasional consequence of this system due to software limitations, ambient noise, and hardware issues. Any formal questions or concerns about the content, text, or information contained within the body of this dictation should be directly addressed to the nurse practitioner for clarification. 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 Other Information That Helps Us Care for You: No Feels Safe at Home: Yes Safety Concerns: Feels Safe At This Time Smoking Status: Never smoker Hx Alcohol Use: No Hx Substance Use: No Results & Data Vital Signs Vital Signs - 24 hr 05/11/18 06:37 05/11/18 06:45 05/11/18 06:47 Temperature 38.4 C H Temperature Source Oral Sepsis Recent Fever Within 48 Hours Yes Sepsis New/Unexplained Change in Mental Status Yes Sepsis Action Taken by Nursing No Action Required Pulse Rate 81 108 H Pulse Rate [Apical] Pulse Rate from SpO2 Sensor Respiratory Rate 18 17 Respiratory Effort / Characteristics Blood Pressure 174/107 H 174/107 H Blood Pressure [Right Radial Artery] Blood Pressure Mean 129 129 Blood Pressure Mean [Right Radial Artery] Blood Pressure Position [Right Radial Artery] Pulse Oximetry 96 92 Oxygen Delivery Method Room Air Room Air 05/11/18 06:59 05/11/18 07:00 05/11/18 07:10 Temperature Temperature Source Sepsis Recent Fever Within 48 Hours Sepsis New/Unexplained Change in Mental Status Sepsis Action Taken by Nursing Pulse Rate 109 H 111 H 110 H Pulse Rate [Apical] Pulse Rate from SpO2 Sensor Respiratory Rate 19 20 13 Respiratory Effort / Characteristics Blood Pressure Blood Pressure [Right Radial Artery] Blood Pressure Mean Blood Pressure Mean [Right Radial Artery] Blood Pressure Position [Right Radial Artery] Pulse Oximetry Oxygen Delivery Method 05/11/18 07:20 05/11/18 07:30 05/11/18 07:40 Temperature Temperature Source Sepsis Recent Fever Within 48 Hours Sepsis New/Unexplained Change in Mental Status Sepsis Action Taken by Nursing Pulse Rate 106 H 106 H 105 H Pulse Rate [Apical] Pulse Rate from SpO2 Sensor Respiratory Rate 23 18 17 Respiratory Effort / Characteristics Blood Pressure Blood Pressure [Right Radial Artery] Blood Pressure Mean Blood Pressure Mean [Right Radial Artery] Blood Pressure Position [Right Radial Artery] Pulse Oximetry Oxygen Delivery Method 05/11/18 07:50 05/11/18 08:00 05/11/18 08:10 Temperature Temperature Source Sepsis Recent Fever Within 48 Hours Sepsis New/Unexplained Change in Mental Status Sepsis Action Taken by Nursing Pulse Rate 101 H 105 H 96 H Pulse Rate [Apical] Pulse Rate from SpO2 Sensor Respiratory Rate 21 22 17 Respiratory Effort / Characteristics Blood Pressure Blood Pressure [Right Radial Artery] Blood Pressure Mean Blood Pressure Mean [Right Radial Artery] Blood Pressure Position [Right Radial Artery] Pulse Oximetry Oxygen Delivery Method 05/11/18 08:20 05/11/18 08:38 05/11/18 08:40 Temperature Temperature Source Sepsis Recent Fever Within 48 Hours Sepsis New/Unexplained Change in Mental Status Sepsis Action Taken by Nursing Pulse Rate 97 H 92 H 93 H Pulse Rate [Apical] Pulse Rate from SpO2 Sensor 92 H 94 H Respiratory Rate 20 17 22 Respiratory Effort / Characteristics Blood Pressure 157/98 H Blood Pressure [Right Radial Artery] Blood Pressure Mean 117 Blood Pressure Mean [Right Radial Artery] Blood Pressure Position [Right Radial Artery] Pulse Oximetry 95 94 Oxygen Delivery Method 05/11/18 08:50 05/11/18 09:00 05/11/18 09:10 Temperature Temperature Source Sepsis Recent Fever Within 48 Hours Sepsis New/Unexplained Change in Mental Status Sepsis Action Taken by Nursing Pulse Rate 90 85 93 H Pulse Rate [Apical] Pulse Rate from SpO2 Sensor 89 87 Respiratory Rate 16 16 17 Respiratory Effort / Characteristics Blood Pressure Blood Pressure [Right Radial Artery] Blood Pressure Mean Blood Pressure Mean [Right Radial Artery] Blood Pressure Position [Right Radial Artery] Pulse Oximetry 94 87 L Oxygen Delivery Method 05/11/18 09:20 05/11/18 09:30 05/11/18 09:40 Temperature Temperature Source Sepsis Recent Fever Within 48 Hours Sepsis New/Unexplained Change in Mental Status Sepsis Action Taken by Nursing Pulse Rate 92 H 84 81 Pulse Rate [Apical] Pulse Rate from SpO2 Sensor Respiratory Rate 15 17 15 Respiratory Effort / Characteristics Blood Pressure 147/93 H 146/91 H Blood Pressure [Right Radial Artery] Blood Pressure Mean 111 109 Blood Pressure Mean [Right Radial Artery] Blood Pressure Position [Right Radial Artery] Pulse Oximetry Oxygen Delivery Method 05/11/18 09:50 05/11/18 10:00 05/11/18 10:20 Temperature Temperature Source Sepsis Recent Fever Within 48 Hours Sepsis New/Unexplained Change in Mental Status Sepsis Action Taken by Nursing Pulse Rate 88 88 91 H Pulse Rate [Apical] Pulse Rate from SpO2 Sensor 91 H Respiratory Rate 15 16 24 Respiratory Effort / Characteristics Blood Pressure 142/85 H 150/88 H Blood Pressure [Right Radial Artery] Blood Pressure Mean 104 108 Blood Pressure Mean [Right Radial Artery] Blood Pressure Position [Right Radial Artery] Pulse Oximetry 95 Oxygen Delivery Method 05/11/18 10:30 05/11/18 10:40 05/11/18 10:50 Temperature Temperature Source Sepsis Recent Fever Within 48 Hours Sepsis New/Unexplained Change in Mental Status Sepsis Action Taken by Nursing Pulse Rate 87 88 86 Pulse Rate [Apical] Pulse Rate from SpO2 Sensor 89 87 87 Respiratory Rate 14 18 16 Respiratory Effort / Characteristics Blood Pressure 143/92 H Blood Pressure [Right Radial Artery] Blood Pressure Mean 109 Blood Pressure Mean [Right Radial Artery] Blood Pressure Position [Right Radial Artery] Pulse Oximetry 93 95 92 Oxygen Delivery Method 05/11/18 11:00 05/11/18 11:10 05/11/18 11:20 Temperature Temperature Source Sepsis Recent Fever Within 48 Hours Sepsis New/Unexplained Change in Mental Status Sepsis Action Taken by Nursing Pulse Rate 90 87 86 Pulse Rate [Apical] Pulse Rate from SpO2 Sensor 90 87 86 Respiratory Rate 14 13 21 Respiratory Effort / Characteristics Blood Pressure 167/93 H Blood Pressure [Right Radial Artery] Blood Pressure Mean 117 Blood Pressure Mean [Right Radial Artery] Blood Pressure Position [Right Radial Artery] Pulse Oximetry 94 94 94 Oxygen Delivery Method 05/11/18 11:30 05/11/18 11:40 05/11/18 11:50 Temperature Temperature Source Sepsis Recent Fever Within 48 Hours Sepsis New/Unexplained Change in Mental Status Sepsis Action Taken by Nursing Pulse Rate 87 85 85 Pulse Rate [Apical] Pulse Rate from SpO2 Sensor 81 85 85 Respiratory Rate 15 20 20 Respiratory Effort / Characteristics Blood Pressure 131/72 Blood Pressure [Right Radial Artery] Blood Pressure Mean 91 Blood Pressure Mean [Right Radial Artery] Blood Pressure Position [Right Radial Artery] Pulse Oximetry 91 96 96 Oxygen Delivery Method 05/11/18 12:00 05/11/18 12:10 05/11/18 12:20 Temperature Temperature Source Sepsis Recent Fever Within 48 Hours Sepsis New/Unexplained Change in Mental Status Sepsis Action Taken by Nursing Pulse Rate 80 87 87 Pulse Rate [Apical] Pulse Rate from SpO2 Sensor 80 88 86 Respiratory Rate 15 21 14 Respiratory Effort / Characteristics Blood Pressure 134/88 Blood Pressure [Right Radial Artery] Blood Pressure Mean 103 Blood Pressure Mean [Right Radial Artery] Blood Pressure Position [Right Radial Artery] Pulse Oximetry 93 94 95 Oxygen Delivery Method 05/11/18 12:33 05/11/18 12:57 05/11/18 13:50 Temperature 37.1 C 37 C Temperature Source Oral Oral Sepsis Recent Fever Within 48 Hours Sepsis New/Unexplained Change in Mental Status Sepsis Action Taken by Nursing Pulse Rate Pulse Rate [Apical] 90 80 Pulse Rate from SpO2 Sensor Respiratory Rate 20 Respiratory Effort / Characteristics SOB on Exertion Blood Pressure Blood Pressure [Right Radial Artery] 181/104 H 157/102 H Blood Pressure Mean Blood Pressure Mean [Right Radial Artery] 129 120 Blood Pressure Position [Right Radial Artery] Pulse Oximetry 93 Oxygen Delivery Method Room Air 05/11/18 15:35 Temperature 37.0 C Temperature Source Oral Sepsis Recent Fever Within 48 Hours Sepsis New/Unexplained Change in Mental Status Sepsis Action Taken by Nursing Pulse Rate Pulse Rate [Apical] 80 Pulse Rate from SpO2 Sensor Respiratory Rate 18 Respiratory Effort / Characteristics Blood Pressure Blood Pressure [Right Radial Artery] 162/102 H Blood Pressure Mean Blood Pressure Mean [Right Radial Artery] 122 Blood Pressure Position [Right Radial Artery] Lying Pulse Oximetry 96 Oxygen Delivery Method Room Air Laboratory Data Result diagrams: 05/11/18 07:53 05/11/18 07:40 Lab Results 05/11/18 05/11/18 05/11/18 Range/Units 07:35 07:40 07:40 WBC (4.8-10.8) K/uL RBC (4.2-5.4) M/uL Hgb (12.0-16.0) g/dL Hct (37-47) % MCV (80-100) fL MCH (25-34) pg MCHC (32-36) g/dL RDW Std Deviation (36.4-46.3) fL RDW Coeff of Richard (11.5-14.5) % Plt Count (130-400) K/uL MPV (7.4-10.4) fL Immature Gran % (Auto) % Neut % (Auto) % Lymph % (Auto) % [place] % (Auto) % Eos % (Auto) % Baso % (Auto) % Immature Gran # (Auto) (0.00-0.02) K/uL Neut # (Auto) (1.4-6.5) K/uL Lymph # (Auto) (1.2-3.4) K/uL [place] # (Auto) (0.11-0.59) K/uL Eos # (Auto) (0-0.5) K/uL Baso # (Auto) (0-0.2) K/uL PT (9.0-12.0) Seconds INR (0.9-1.1) Sodium 142 (136-145) mmol/L Potassium 4.4 (3.5-5.1) mmol/L Chloride 110 H (98-107) mmol/L Carbon Dioxide 28 (21-32) mmol/L Anion Gap 5.0 (3-11) BUN 12 (7-18) mg/dl Creatinine 0.85 (0.6-1.2) mg/dl Est Cr Clr Drug Dosing 90.7 ml/min Est GFR ( Amer) 86.9 Est GFR (Non-Af Amer) 75.0 BUN/Creatinine Ratio 14.1 (10-20) Glucose 103 H (70-99) mg/dl Lactate (0.4-2.0) mmol/L Calcium 8.7 (8.5-10.1) mg/dl Total Bilirubin 0.3 (0.2-1) mg/dl AST 22 (15-37) U/L ALT 30 (12-78) U/L Alkaline Phosphatase 95 (45-117) U/L Total Protein 7.4 (6.4-8.2) gm/dl Albumin 3.4 (3.4-5.0) gm/dl Globulin 4.0 (2.5-4.0) gm/dl Albumin/Globulin Ratio 0.9 (0.9-2) Procalcitonin < 0.05 (0-0.5) ng/ml Urine Color Urine Appearance (Clear) Urine pH (4.5-7.5) Ur Specific [place] (1.000-1.030) Urine Protein (Negative) Urine Glucose (UA) (Negative) Urine Ketones (Negative) Urine Blood (Negative) Urine Nitrite (Negative) Urine Bilirubin (Negative) Urine Urobilinogen (Negative) Ur Leukocyte Esterase (Negative) Influenza Type A Ag Neg for Influ A (Neg) Influenza Type B Ag Neg for Influ B (Neg) 05/11/18 05/11/18 05/11/18 Range/Units 07:45 07:53 10:15 WBC 14.27 H (4.8-10.8) K/uL RBC 4.87 (4.2-5.4) M/uL Hgb 14.5 (12.0-16.0) g/dL Hct 45.6 (37-47) % MCV 93.6 (80-100) fL MCH 29.8 (25-34) pg MCHC 31.8 L (32-36) g/dL RDW Std Deviation 50.3 H (36.4-46.3) fL RDW Coeff of Richard 14.7 H (11.5-14.5) % Plt Count 233 (130-400) K/uL MPV 10.5 H (7.4-10.4) fL Immature Gran % (Auto) 0.2 % Neut % (Auto) 83.3 % Lymph % (Auto) 11.6 % [place] % (Auto) 3.9 % Eos % (Auto) 0.8 % Baso % (Auto) 0.2 % Immature Gran # (Auto) 0.03 H (0.00-0.02) K/uL Neut # (Auto) 11.89 H (1.4-6.5) K/uL Lymph # (Auto) 1.65 (1.2-3.4) K/uL [place] # (Auto) 0.56 (0.11-0.59) K/uL Eos # (Auto) 0.11 (0-0.5) K/uL Baso # (Auto) 0.03 (0-0.2) K/uL PT (9.0-12.0) Seconds INR (0.9-1.1) Sodium (136-145) mmol/L Potassium (3.5-5.1) mmol/L Chloride (98-107) mmol/L Carbon Dioxide (21-32) mmol/L Anion Gap (3-11) BUN (7-18) mg/dl Creatinine (0.6-1.2) mg/dl Est Cr Clr Drug Dosing ml/min Est GFR ( Amer) Est GFR (Non-Af Amer) BUN/Creatinine Ratio (10-20) Glucose (70-99) mg/dl Lactate 1.4 (0.4-2.0) mmol/L Calcium (8.5-10.1) mg/dl Total Bilirubin (0.2-1) mg/dl AST (15-37) U/L ALT (12-78) U/L Alkaline Phosphatase (45-117) U/L Total Protein (6.4-8.2) gm/dl Albumin (3.4-5.0) gm/dl Globulin (2.5-4.0) gm/dl Albumin/Globulin Ratio (0.9-2) Procalcitonin (0-0.5) ng/ml Urine Color Yellow Urine Appearance Clear (Clear) Urine pH 7.5 (4.5-7.5) Ur Specific [place] 1.014 (1.000-1.030) Urine Protein Negative (Negative) Urine Glucose (UA) Negative (Negative) Urine Ketones Negative (Negative) Urine Blood Negative (Negative) Urine Nitrite Negative (Negative) Urine Bilirubin Negative (Negative) Urine Urobilinogen Negative (Negative) Ur Leukocyte Esterase Negative (Negative) Influenza Type A Ag (Neg) Influenza Type B Ag (Neg) 05/11/18 Range/Units 13:11 WBC (4.8-10.8) K/uL RBC (4.2-5.4) M/uL Hgb (12.0-16.0) g/dL Hct (37-47) % MCV (80-100) fL MCH (25-34) pg MCHC (32-36) g/dL RDW Std Deviation (36.4-46.3) fL RDW Coeff of Richard (11.5-14.5) % Plt Count (130-400) K/uL MPV (7.4-10.4) fL Immature Gran % (Auto) % Neut % (Auto) % Lymph % (Auto) % [place] % (Auto) % Eos % (Auto) % Baso % (Auto) % Immature Gran # (Auto) (0.00-0.02) K/uL Neut # (Auto) (1.4-6.5) K/uL Lymph # (Auto) (1.2-3.4) K/uL [place] # (Auto) (0.11-0.59) K/uL Eos # (Auto) (0-0.5) K/uL Baso # (Auto) (0-0.2) K/uL PT 10.3 (9.0-12.0) Seconds INR 1.0 (0.9-1.1) Sodium (136-145) mmol/L Potassium (3.5-5.1) mmol/L Chloride (98-107) mmol/L Carbon Dioxide (21-32) mmol/L Anion Gap (3-11) BUN (7-18) mg/dl Creatinine (0.6-1.2) mg/dl Est Cr Clr Drug Dosing ml/min Est GFR ( Amer) Est GFR (Non-Af Amer) BUN/Creatinine Ratio (10-20) Glucose (70-99) mg/dl Lactate (0.4-2.0) mmol/L Calcium (8.5-10.1) mg/dl Total Bilirubin (0.2-1) mg/dl AST (15-37) U/L ALT (12-78) U/L Alkaline Phosphatase (45-117) U/L Total Protein (6.4-8.2) gm/dl Albumin (3.4-5.0) gm/dl Globulin (2.5-4.0) gm/dl Albumin/Globulin Ratio (0.9-2) Procalcitonin (0-0.5) ng/ml Urine Color Urine Appearance (Clear) Urine pH (4.5-7.5) Ur Specific [place] (1.000-1.030) Urine Protein (Negative) Urine Glucose (UA) (Negative) Urine Ketones (Negative) Urine Blood (Negative) Urine Nitrite (Negative) Urine Bilirubin (Negative) Urine Urobilinogen (Negative) Ur Leukocyte Esterase (Negative) Influenza Type A Ag (Neg) Influenza Type B Ag (Neg) Administered Medications Enoxaparin Sodium (Lovenox) 40 mg SQ Q24H LINDA Stop: 06/10/18 13:59 Last Admin: 05/11/18 14:40 Dose: 40 mg Documented by: [id number] Sodium Chloride (Nss 1000ml) 1,000 mls @ 100 mls/hr IV .Q10H LINDA Stop: 06/10/18 12:56 Last Admin: 05/11/18 13:59 Dose: 100 mls/hr Documented by: [id number] Lisinopril (Zestril) 20 mg PO DAILY LINDA Stop: 06/10/18 12:56 Last Admin: 05/11/18 14:39 Dose: 20 mg Documented by: [id number] Discontinued Medications Acetaminophen (Tylenol) 1,000 mg PO NOW STA Stop: 05/11/18 07:25 Last Admin: 05/11/18 07:39 Dose: 1,000 mg Documented by: [id number] Sodium Chloride (Nss 1000ml) 1,000 mls @ 999 mls/hr IV .Q1H1M LINDA Stop: 05/11/18 08:30 Last Infusion: 05/11/18 09:29 Dose: 0 mls/hr Documented by: [id number] Admin: 05/11/18 08:16 Dose: 999 mls/hr Documented by: [id number] Azithromycin 500 mg/ Dextrose 255 mls @ 127.5 mls/hr IV NOW STA Stop: 05/11/18 12:13 Last Infusion: 05/11/18 14:07 Dose: 0 mls/hr Documented by: [id number] Admin: 05/11/18 11:59 Dose: 127.5 mls/hr Documented by: [id number] Ceftriaxone Sodium (Rocephin) 1,000 mg in 50 mls @ 100 mls/hr IV NOW STA Stop: 05/11/18 10:43 Last Infusion: 05/11/18 11:37 Dose: 0 mls/hr Documented by: [id number] Admin: 05/11/18 11:02 Dose: 100 mls/hr Documented by: [id number] Ketorolac Tromethamine (Toradol) 15 mg IV NOW STA Stop: 05/11/18 10:44 Last Admin: 05/11/18 11:02 Dose: 15 mg Documented by: [id number] Discharge Plan Visit Data *Final* Discharge Date/Time: 05/11/18 12:34 Chief Complaint: Seizure ED Provider: Keagan Horn ED Midlevel Provider: Kelley Vasquez Discharge Problem: Pneumonia, Seizure-like activity Patient Disposition: Admitted As Inpatient Condition: Good Discharge Instructions Interventions: ED Discharge Assessment Last Done: 05/11/18 12:34
[2018-05-11 08:05] LABS: Basophils # (auto) 0.03 K/uL (0-0.2); Basophils % (auto) 0.2 %; Eosinophils # (auto) 0.11 K/uL (0-0.5); Eosinophils % (auto) 0.8 %; Hematocrit (blood only) 45.6 % (37-47); Hemoglobin 14.5 g/dL (12.0-16.0); Immature Granulocytes # (auto) 0.03 K/uL (0.00-0.02); Immature Granulocytes % (auto) 0.2 %; Lymphocytes # (auto) 1.65 K/uL (1.2-3.4); Lymphocytes % (auto) 11.6 %; Mean Corpuscular Hgb Conc 31.8 g/dL (32-36); Mean Corpuscular Volume 93.6 fL (80-100); Mean Platelet Volume 10.5 fL (7.4-10.4); Monocytes # (auto) 0.56 K/uL (0.11-0.59); Monocytes % (auto) 3.9 %; Neutrophils # (auto) 11.89 K/uL (1.4-6.5); Neutrophils % (auto) 83.3 %; Platelet Count 233 K/uL (130-400); RDW Coefficient of Variation 14.7 % (11.5-14.5); RDW Standard Deviation 50.3 fL (36.4-46.3); Red Blood Count 4.87 M/uL (4.2-5.4); White Blood Count 14.27 K/uL (4.8-10.8)
[2018-05-11 08:22] LABS: Albumin Level 3.4 gm/dl (3.4-5.0); BUN Creatinine Ratio 14.1 (10-20); Calcium 8.7 mg/dl (8.5-10.1); Creatinine Clr Calc Pharmacy 90.7 ml/min; Est GFR (African American) 86.9; Potassium 4.4 mmol/L (3.5-5.1)
[2018-05-11 08:25] LABS: Albumin Globulin Ratio 0.9 (0.9-2); Bilirubin,Total 0.3 mg/dl (0.2-1); Total Protein 7.4 gm/dl (6.4-8.2)
--- NOTE | 2018-05-11 08:44 | CT Scan Report ---
CT head/brain wo con CLINICAL HISTORY: seizure, fever, [place] COMPARISON STUDY: No previous studies for comparison. TECHNIQUE: Axial CT of the brain is performed from the vertex to the skull base. IV contrast was not administered for this examination. A dose lowering technique was utilized adhering to the principles of ALARA. CT DOSE: 638.56 mGycm FINDINGS: No intra or extra-axial mass lesions are visualized. There is no CT evidence of acute cortical infarc tion. There is no evidence of midline shift. There is no acute hemorrhage. No calvarial fractures ar e visualized. There are minor white matter hypodensities likely on a small vessel basis. There is no evidence of pathologic ventricular dilatation. There is no evidence of acute sinusitis IMPRESSION: No acute intracranial findings Electronically signed by: Jeronimo Ocampo M.D. 05/11/2018 8:43 AM
[2018-05-11] MEDS ORDERED: AZITHROMYCIN 500 MG in DEXTROSE 5% 250 ML IV STA (10:14)
[2018-05-11] MEDS ORDERED: cefTRIAXone SODIUM 1,000 MG/50 ML BAG IV STA (10:14)
[2018-05-11 10:39] LABS: Appearance Urine Clear (Clear); Bilirubin Urine Negative (Negative); Blood Urine Negative (Negative); Color Urine Yellow; Glucose Urine UA Negative (Negative); Ketones Urine Negative (Negative); Leukocyte Esterase Urine Negative (Negative); Nitrite Urine Negative (Negative); Protein Urine Negative (Negative); Specific Gravity Urine 1.014 (1.000-1.030); Urobilinogen Urine Negative (Negative); pH Urine 7.5 (4.5-7.5)
[2018-05-11] MEDS ORDERED: KETOROLAC TROMETHAMINE 15 MG/ML VIAL IV STA (10:43)
--- NOTE | 2018-05-11 12:43 | History & Physical Report ---
Date of Service May 11, 2018 Assessment & Plan (1) Pneumonia: -Admit to telemetry -Patient presenting from home patient after developing chills, rigors, and seizure-like activity as observed by her this morning -In the ED, febrile at 38.4, WBC 14 K, CXR showing right upper and middle lobe pneumonia; noted normal lactate and stable BP -Negative rapid flu, will check PCR -Heart rate and fever improved after IVF and Tylenol -s/p azithromycin and ceftriaxone in the ED; will continue both for now (considered giving Levaquin given recent use of a azithromycin for outpatient treatment of pneumonia, however will hold for now as Levaquin can decrease the seizure threshold). If patient does not improve, could escalate antibiotics to Zosyn (noted that pneumonia is located in the right upper and middle lobes, however do not suspect susy aspiation. Patient does have a history of GERD.) -Continue supportive care with IVF, PRN antipyretics -PRN nebs (2) Seizure-like activity: -No history of seizures in the past, no tongue biting or loss of bowel or bladder function today -? If this was caused by acute illness -No further seizure-like activity since arriving to the ED -Maintain seizure precautions -Head CT negative for acute findings -will obtain EEG -Defer MRI and anticonvulsants to neurology, case discussed with Erna Crow PA-C (3) HTN (hypertension): -Continue lisinopril (4) GERD (gastroesophageal reflux disease): -Continue PPI (5) Neuropathy: -Continue Neurontin (6) DVT prophylaxis: -SQ Lovenox History of Present Illness Chief Complaint: Seizure activity Primary Care Provider: Rosa Day MD 57-year-old female who presents to the ED with seizure activity. Patient reports that last night she developed a mild cough. This morning, she awoke around 5 AM and reports she was very cold and having rigors. Her attempted to take her temperature however the thermometer was broken. She reports that the last one she remembers. Per 's report, patient developed generalized body shaking that lasted for about 1 minute. She was then confused and slow to respond for about 5 minutes. EMS was called. Patient reports she remembers getting up and walking for EMS. Patient did not bite her tongue, there was no vomiting, loss of bowel or bladder function. Denies slurred speech, facial droop, unilateral weakness, numbness, tingling. Patient reports cough is somewhat worsened today. She reports it is occasionally productive. She denies shortness of breath, chest pain, and palpitations. No lightheadedness, dizziness, diaphoresis, syncopal events. She denies abdominal pain, vomiting, nausea. She reports some mild diarrhea yesterday. She denies any urinary symptoms. In the ED, patient is febrile at 38.4, tachycardic HR in the low 100s, WBC 14 K. CXR shows pneumonia in the right upper and middle lobes. Of note, treated for pneumonia in February with a azithromycin. She reports she had completely recovered from the illness. Head CT is negative for acute findings. She was given IVF, IV ceftriaxone, IV azithromycin, IV Toradol, p.o. Tylenol. There has been no further seizure-like activity since arriving in ED. Allergies Allergy/AdvReac Type Severity Reaction Status Date / Time Sulfa (Sulfonamide Allergy Unknown Unknown Verified 05/11/18 07:06 Antibiotics) Home Medications Home Medications Medication Instructions Recorded Confirmed Type albuterol sulfate 2.5 mg INHALATION QID PRN 05/11/18 05/11/18 History fluticasone 2 spray INTRANASAL DAILY PRN 05/11/18 05/11/18 History gabapentin 400 mg PO QDL 05/11/18 05/11/18 History gabapentin 600 mg PO HS 05/11/18 05/11/18 History lisinopril 20 mg PO DAILY 05/11/18 05/11/18 History melatonin 3 mg PO HS 05/11/18 05/11/18 History omeprazole 20 mg PO HS 05/11/18 05/11/18 History Past Med/Surg History Medical History Neuropathy (Chronic) HTN (hypertension) (Chronic) GERD (gastroesophageal reflux disease) (Chronic) Obesity (Chronic) Surgical History S/P left knee arthroscopy (Chronic) H/O dilation and curettage (Chronic) History of tubal ligation (Chronic) History of laminectomy (Chronic) Family History Father Heart disease Social History Communication Ability: Effective Deck Molder Required: No Beliefs That Will Affect Care: None Current Living Situation: Spouse and Family 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 Other Information That Helps Us Care for You: No Feels Safe at Home: Yes Safety Concerns: Feels Safe At This Time Smoking Status: Never smoker Hx Alcohol Use: No Hx Substance Use: No Review of Systems ROS per HPI, all other systems reviewed and negative Physical Exam Vital Signs (Past 24 Hours): Last Vital Signs Temp 37.1 C 05/11/18 12:33 Pulse 87 05/11/18 12:20 Resp 14 05/11/18 12:20 BP 134/88 05/11/18 12:00 Pulse Ox 95 05/11/18 12:20 Constitutional: WD/WN, vitals as above Eyes: PERRL, conjunctivae normal, anicteric sclerae ENMT: external ear and nose normal, oropharynx normal Respiratory: normal respiratory effort, lungs clear to auscultation Cardiovascular: Rate/Rhythm: regular rate and regular rhythm Vessels: normal peripheral pulses Extremities: + edema (Trace edema BLE) Gastrointestinal (Abdomen): normal bowel sounds, soft, nontender, no hepatosplenomegaly Musculoskeletal: no cyanosis or clubbing, extremities motor strength 5/5 Skin: no rashes, warm and dry Neurologic: PERRL, EOMI, accommodation nl, no face palsy, no dysarthria Psychiatric: A+Ox3, euthymic affect Results & Data Laboratory Results Laboratory Last Values WBC 14.27 K/uL (4.8-10.8) H 05/11/18 07:53 RBC 4.87 M/uL (4.2-5.4) 05/11/18 07:53 Hgb 14.5 g/dL (12.0-16.0) 05/11/18 07:53 Hct 45.6 % (37-47) 05/11/18 07:53 MCV 93.6 fL (80-100) 05/11/18 07:53 MCH 29.8 pg (25-34) 05/11/18 07:53 MCHC 31.8 g/dL (32-36) L 05/11/18 07:53 RDW Std Deviation 50.3 fL (36.4-46.3) H 05/11/18 07:53 RDW Coeff of Richard 14.7 % (11.5-14.5) H 05/11/18 07:53 Plt Count 233 K/uL (130-400) 05/11/18 07:53 MPV 10.5 fL (7.4-10.4) H 05/11/18 07:53 Immature Gran % (Auto) 0.2 % 05/11/18 07:53 Neut % (Auto) 83.3 % 05/11/18 07:53 Lymph % (Auto) 11.6 % 05/11/18 07:53 [place] % (Auto) 3.9 % 05/11/18 07:53 Eos % (Auto) 0.8 % 05/11/18 07:53 Baso % (Auto) 0.2 % 05/11/18 07:53 Immature Gran # (Auto) 0.03 K/uL (0.00-0.02) H 05/11/18 07:53 Neut # (Auto) 11.89 K/uL (1.4-6.5) H 05/11/18 07:53 Lymph # (Auto) 1.65 K/uL (1.2-3.4) 05/11/18 07:53 [place] # (Auto) 0.56 K/uL (0.11-0.59) 05/11/18 07:53 Eos # (Auto) 0.11 K/uL (0-0.5) 05/11/18 07:53 Baso # (Auto) 0.03 K/uL (0-0.2) 05/11/18 07:53 Sodium 142 mmol/L (136-145) 05/11/18 07:40 Potassium 4.4 mmol/L (3.5-5.1) 05/11/18 07:40 Chloride 110 mmol/L (98-107) H 05/11/18 07:40 Carbon Dioxide 28 mmol/L (21-32) 05/11/18 07:40 Anion Gap 5.0 (3-11) 05/11/18 07:40 BUN 12 mg/dl (7-18) 05/11/18 07:40 Creatinine 0.85 mg/dl (0.6-1.2) 05/11/18 07:40 Est Cr Clr Drug Dosing 90.7 ml/min 05/11/18 07:40 Est GFR ( Amer) 86.9 05/11/18 07:40 Est GFR (Non-Af Amer) 75.0 05/11/18 07:40 BUN/Creatinine Ratio 14.1 (10-20) 05/11/18 07:40 Glucose 103 mg/dl (70-99) H 05/11/18 07:40 Lactate 1.4 mmol/L (0.4-2.0) 05/11/18 07:45 Calcium 8.7 mg/dl (8.5-10.1) 05/11/18 07:40 Total Bilirubin 0.3 mg/dl (0.2-1) 05/11/18 07:40 AST 22 U/L (15-37) 05/11/18 07:40 ALT 30 U/L (12-78) 05/11/18 07:40 Alkaline Phosphatase 95 U/L (45-117) 05/11/18 07:40 Total Protein 7.4 gm/dl (6.4-8.2) 05/11/18 07:40 Albumin 3.4 gm/dl (3.4-5.0) 05/11/18 07:40 Globulin 4.0 gm/dl (2.5-4.0) 05/11/18 07:40 Albumin/Globulin Ratio 0.9 (0.9-2) 05/11/18 07:40 Procalcitonin < 0.05 ng/ml (0-0.5) 05/11/18 07:40 Urine Color Yellow 05/11/18 10:15 Urine Appearance Clear (Clear) 05/11/18 10:15 Urine pH 7.5 (4.5-7.5) 05/11/18 10:15 Ur Specific [place] 1.014 (1.000-1.030) 05/11/18 10:15 Urine Protein Negative (Negative) 05/11/18 10:15 Urine Glucose (UA) Negative (Negative) 05/11/18 10:15 Urine Ketones Negative (Negative) 05/11/18 10:15 Urine Blood Negative (Negative) 05/11/18 10:15 Urine Nitrite Negative (Negative) 05/11/18 10:15 Urine Bilirubin Negative (Negative) 05/11/18 10:15 Urine Urobilinogen Negative (Negative) 05/11/18 10:15 Ur Leukocyte Esterase Negative (Negative) 05/11/18 10:15 Influenza Type A Ag Neg for Influ A (Neg) 05/11/18 07:35 Influenza Type B Ag Neg for Influ B (Neg) 05/11/18 07:[address] IMPRESSION: No acute intracranial findings CXR IMPRESSION: Small patchy airspace opacities within the right upper lobe and right middle lobe. This is new from the prior study and favors a pneumonia. One to 2 month chest x-ray follow-up is recommended to ensure resolution. Code Status & VTE Plan VTE Prophylaxis Plan VTE Prophylaxis will be ordered: Yes Supervising Physician Co-Signing Physician Notes Care coordinated with Jenelle WADE. Agree with above note. Patient seen and examined. Please refer to her notes for full details. Vital signs reviewed. Physical exam: General exam: Alert and oriented. Not in acute distress. CVS: S1 and S2 heard, regular rate and rhythm, no murmurs. RS: Clear to auscultation, no wheezing or crackles. ABD: Soft, bowel sounds present, nontender, no distention. 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 EXT: No edema, no erythema. Labs: Reviewed. Assessment and plan:57F who was recently treated for pneumonia with azithromycin presents with sob, cough and seizure like activity. Since last night having cough. Today mnrning she was having rigors and seizure like activity as witnessed by the for short duration. No Biting of tounge or incontiunenece. Currently resting comfortably and hemodynamically stable. Pneumonia Right upper and middle lobe started on rocephin and azitrhromycin follow the response Seizure like activity? Mostly from from above follow eeg Close monitor Neuro consulted. Other diagnosis and plan of care as per []. Jd teixeira MD.
[2018-05-11] MEDS ORDERED: LISINOPRIL 20 MG TAB PO SCH (12:57)
[2018-05-11] MEDS ORDERED: ALBUT/IPRATROP 3MG/0.5MG NEB 3 ML VIAL NEB PRN (12:57)
[2018-05-11 13:35] LABS: Prothrombin Time 10.3 Seconds (9.0-12.0)
[2018-05-11] MEDS: SODIUM CHLORIDE 0.9% 1000ML 1,000 ML IV SCH ×2 (13:59→23:50)
[2018-05-11] MEDS: ENOXAPARIN INJ 40 MG/0.4 ML SYR SQ SCH (14:40)
--- NOTE | 2018-05-11 14:48 | Neurology Consultation ---
Date of Consultation May 11, 2018 Assessment & Plan (1) Pneumonia: 1. seizure like activty likely rigors from pneumonia infection 2. Ceftriaxone and azithromycin currently being given 3. loss of awareness her license will need to be reported to the state, in this situation will report as an isolated event and infection causing symptoms 4. EEG ordered 5. CXR confirms pneumonia 6. no anti seizure medication at this time 7. will follow up in neurology 4-6 weeks after discharge, Erna Crow PAC schedule Supervising Physician Co-Signing Physician Notes I have seen and discussed above patient with Dr Konrad Huerta, neurology I have seen Mrs. Jones, examined her, obtained her history, reviewed her chart from discussed her case with Erna Crow PA-C. 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 Currently she is awake alert oriented 3 spheres with absolutely nonfocal neurologic examination but has no recall of the events that transpired in about 6 in the morning and were witnessed by her . She does recall the blown film extrusion operator arriving on scene, being a little confused and then after that has pretty intact memory for everything transpired. He does have a pneumonitis is on antibiotics has leukocytosis and was probably septic on admission and may well been hypotensive as a precipitant for the seizure-like activity and altered consciousness. She has appropriately not been treated with anticonvulsants, and EEG has been ordered, we will interpreted the study but the present unless she has events that are clear-cut seizures I am in favor of nontreatment and calling this event "seizure-like activity related to infection rather than epilepsy. Unfortunately she did have an observed period of altered consciousness and because of this will not be able to operate a motor vehicle in the [facility] for finite period of time. My suspicions are that we can have this foreshortened by appropriate documentation the absence of electroencephalographic abnormalities and the fact that the event occurred with a toxic exposure. Dr. Ace will be assuming her care tomorrow and will interpret the EEG. Konrad Huerta MD History of Present Illness Reason for Consultation: seizure like activity Requesting Physician: Rosa Day MD Attending Physician: Rosa Day MD History of Present Illness Kathleen is a 57 year old female who presents to the ED with seizure activity. The night before admission she developed a mild cough. She then awoke around 5 AM and reports she was very cold and having rigors. Her attempted to take her temperature however the thermometer was broken. She reports that the last one she remembers. She then developed generalized body shaking that lasted for about 1 minute. She was then confused and slow to respond for about 5 minutes. EMS was called. She didn't remember the police being there but does remember getting up and walking for EMS. She didn't bite her tongue,or loose continence, no vomiting. Her cough is somewhat worsened today. She did have some mild diarrhea yesterday. she was febrile at 38.4, tachycardic HR in the low 100s, WBC 14 K. CXR shows pneumonia in the right upper and middle lobes. She was also treated in February for pneumonia with a azithromycin. She reports she had completely recovered from the illness. There was no further seizure-like activity since arriving in ED. she has no history of seizure disorder. denies CP, SOB, abdominal pain, N, V. she does have a decreased appetite and fatigue. Allergies Allergy/AdvReac Type Severity Reaction Status Date / Time Sulfa (Sulfonamide Allergy Unknown Unknown Verified 05/11/18 07:06 Antibiotics) Home Medications Home Medications Medication Instructions Recorded Confirmed Type albuterol sulfate 2.5 mg INHALATION QID PRN 05/11/18 05/11/18 History fluticasone 2 spray INTRANASAL DAILY PRN 05/11/18 05/11/18 History gabapentin 400 mg PO QDL 05/11/18 05/11/18 History gabapentin 600 mg PO HS 05/11/18 05/11/18 History lisinopril 20 mg PO DAILY 05/11/18 05/11/18 History melatonin 3 mg PO HS 05/11/18 05/11/18 History omeprazole 20 mg PO HS 05/11/18 05/11/18 History Patient History Medical History Neuropathy (Chronic) HTN (hypertension) (Chronic) GERD (gastroesophageal reflux disease) (Chronic) Obesity (Chronic) Surgical History S/P left knee arthroscopy (Chronic) H/O dilation and curettage (Chronic) History of tubal ligation (Chronic) History of laminectomy (Chronic) Family History Father Heart disease Social History Communication Ability: Effective 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 Farm 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: No Beliefs That Will Affect Care: None Current Living Situation: Spouse and Family 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 Other Information That Helps Us Care for You: No Feels Safe at Home: Yes Safety Concerns: Feels Safe At This Time Smoking Status: Never smoker Hx Alcohol Use: No Hx Substance Use: No Physical Exam Vital Signs (Past 24 Hours): Last Vital Signs Temp 37 C 05/11/18 12:57 Pulse 80 05/11/18 13:50 Resp 20 05/11/18 12:57 BP 157/102 H 05/11/18 13:50 Pulse Ox 93 05/11/18 12:57 Physical Exam: Constitutional: appearance over nourished Ears, Nose, Mouth and Throat: mucous membranes moist, no injection and skin normal, eyes normal Cardiovascular: normal S-1 and S-2 and regular rate and rhythm Respiratory: course breath sounds Musculoskeletal: no peripheral edema and good distal pulses, neck is supple Skin: no stigmata of neurocutaneous disease noted and normal and intact Eyes: extraocular muscles intact (EOMI) and pupils equal, round and reactive to light (PERRL) NEUROLOGIC EXAMINATION: Mental status: Alert and interactive Oriented to full date and location Oriented to person Speech fluent with no evidence of aphasia Cranial Nerves smile eye brow raise symmetric, tongue midline Reflexes: Deep tendon reflexes were symmetrical and graded 2/5. Sensory: sensation decrease with light touch left lateral aspect left leg, vibration and cool touch intact Coordination: finger to nose with no bi pass Gait/Stance: Posture sitting up in bed Motor: Negative for pronator drift of out stretched arms with eyes closed. Strength: biceps triceps hand tube bender hand 5/5 bilaterally hip flex patellar/extension bilaterally 5/5 Results & Data Laboratory Results Abnormal lab results 05/11/18 05/11/18 Range/Units 07:40 07:53 WBC 14.27 H (4.8-10.8) K/uL MCHC 31.8 L (32-36) g/dL RDW Std Deviation 50.3 H (36.4-46.3) fL RDW Coeff of Richard 14.7 H (11.5-14.5) % MPV 10.5 H (7.4-10.4) fL Immature Gran # (Auto) 0.03 H (0.00-0.02) K/uL Neut # (Auto) 11.89 H (1.4-6.5) K/uL Chloride 110 H (98-107) mmol/L Glucose 103 H (70-99) mg/dl Diagnostic Findings CXR-Small patchy airspace opacities within the right upper lobe and right middle lobe. This is new from the prior study and favors a pneumonia. One to 2 month chest x-ray follow-up is recommended to ensure resolution.
[2018-05-11 16:40] LABS: Influenza A virus by PCR Neg for Influ A (Neg); Influenza B virus by PCR Neg for Influ B (Neg)
[2018-05-11] MEDS ORDERED: LISINOPRIL 20 MG TAB PO STA (19:50)
[2018-05-11] MEDS: GABAPENTIN 600 MG TAB PO SCH (20:07)
[2018-05-11] MEDS: PANTOprazole 40 MG TAB PO SCH (20:07)
[2018-05-11] MEDS: ACETAMINOPHEN 325 MG TAB PO PRN (20:07)
[2018-05-11] MEDS ORDERED: SODIUM CHLORIDE 0.9% 1000ML 1,000 ML IV ONE (23:51)
[2018-05-12] MEDS: LISINOPRIL 40 MG TAB PO SCH (01:48)
[2018-05-12 08:12] LABS: Hematocrit (blood only) 41.9 % (37-47); Hemoglobin 13.5 g/dL (12.0-16.0); Mean Corpuscular Hgb Conc 32.2 g/dL (32-36); Mean Corpuscular Volume 92.5 fL (80-100); Mean Platelet Volume 10.3 fL (7.4-10.4); Platelet Count 220 K/uL (130-400); RDW Coefficient of Variation 14.7 % (11.5-14.5); Red Blood Count 4.53 M/uL (4.2-5.4); White Blood Count 6.99 K/uL (4.8-10.8)
[2018-05-12 08:39] LABS: BUN Creatinine Ratio 11.8 (10-20); Calcium 8.6 mg/dl (8.5-10.1); Creatinine Clr Calc Pharmacy 108.2 ml/min; Est GFR (African American) 108.1; Est GFR (Non-African American) 93.2; Potassium 4.1 mmol/L (3.5-5.1)
[2018-05-12] MEDS ORDERED: LISINOPRIL 40 MG TAB PO SCH (09:00)
[2018-05-12] MEDS ORDERED: HydrALAZINE HCL 20 MG/ML VIAL IV PRN (10:49)
[2018-05-12] MEDS: GABAPENTIN 400 MG CAP PO SCH (11:26)
[2018-05-12] MEDS: cefTRIAXone SODIUM 1,000 MG in DEXTROSE 5% 50 ML IV SCH (11:26)
[2018-05-12] MEDS: AZITHROMYCIN 500 MG in DEXTROSE 5% 250 ML IV SCH (12:12)
--- NOTE | 2018-05-12 13:28 | Hospitalist Progress Note ---
Date of Service May 12, 2018 Assessment & Plan (1) Pneumonia: Present on admission with fever chills, rigors and seizure like activity CXR showing right upper and middle lobe pneumonia Influenza PCR negative On IV Rocephin and zithromax Blood cx pending Continue monitor (2) Seizure-like activity: No history of seizures in the past CT head showed no acute finding Neurology on board, recommended no seizure medication for now No driving for now until clear by neurology Seizure precaution Follow up EEG Follow up with neurology 4-6 weeks after discharge, Erna Crow PAC schedule (3) HTN (hypertension): BP elevated possible related to hospital setting On lisinopril Continue monitor BP (4) GERD (gastroesophageal reflux disease): Continue PPI (5) Neuropathy: Continue Neurontin (6) DVT prophylaxis: SQ Lovenox CODE STATUS FULL CODE Disposition Will discharge home in am if medically stable Subjective Pt was seen and examined Sitting in bed with no distress Pt said that she feels fine No seizure activity noted since admitted Denies any chest pain, palpitation and SOB Physical Exam Vital Signs (Past 24 Hours): Last Vital Signs Temp 36.8 C 05/12/18 11:37 Pulse 77 05/12/18 11:37 Resp 18 05/12/18 11:37 BP 163/119 H 05/12/18 11:37 Pulse Ox 97 05/12/18 11:37 Physical Exam: General- No acute distress Head- atraumatic Eyes- PERRL, EOMI, ENT- oropharynx clear Neck- supple, no JVD Lungs- clear to auscultation Heart- regular rhythm; no murmur Abdomen- normal bowel sounds, soft, nontender Extremities- no calf tenderness Neuro- alert, oriented x 3; PERRL, EOMI; no facial palsy; no dysarthria Skin- warm & dry
--- NOTE | 2018-05-12 14:09 | Neurology Progress Note ---
Date of Service May 12, 2018 Assessment & Plan (1) Pneumonia: 1. seizure like activity likely rigors from pneumonia infection 2. Ceftriaxone and azithromycin currently being given 3. loss of awareness her license will need to be reported to the state, in this situation will report as an isolated event and infection causing symptoms 4. EEG ordered pending read 5. CXR confirms pneumonia 6. no anti seizure medication at this time 7. will follow up in neurology 4-6 weeks after discharge, Erna Crow PAC schedule will sign off for now call with questions concerns. Supervising Physician Co-Signing Physician Notes I have seen and discussed above patient with Dr Ankush Ace. Patient was seen and examined. Agree with Erna Crow PA-C as noted below. Father at bedside. Patient doing well. Denies any new complaints or concerns. No history of seizures. Amnestic to the event. Reportedly noted to be tonic with shaking activity. On Abx for pneumonia. Blood cultures pending. Blood pressures elevated. EEG is Normal awake and drowsy. No epileptiform activity. Unclear etiology of spell. Possible symptomatic seizure Vs non epileptic spell. She is awake and alert. Comprehension intact. No ataxia. Tongue midline no abrasion. Pupils equal and reactive. Face symmetrixc. No clonus. Will defer on starting AED at this time. Agree with treating pneumonia. Will defer to medicine for treatment of her accelerated hypertension. Patient can follow up in out clinic as outpatient. Patient agreed to plan of care and had no further questions. Kayli Wang is a 57 year old female who presents to the ED with seizure activity. The night before admission she developed a mild cough. She then awoke around 5 AM and reports she was very cold and having rigors. Her attempted to take her temperature however the thermometer was broken. She reports that the last one she remembers. She then developed generalized body shaking that lasted for about 1 minute. She was then confused and slow to respond for about 5 minutes. EMS was called. She didn't remember the police being there but does remember getting up and walking for EMS. She didn't bite her tongue,or loose continence, no vomiting. Her cough is somewhat worsened today. She did have some mild diarrhea yesterday. she was febrile at 38.4, tachycardic HR in the low 100s, WBC 14 K. CXR shows pneumonia in the right upper and middle lobes. She was also treated in February for pneumonia with a azithromycin. She reports she had completely recovered from the illness. There was no further seizure-like activity since arriving in ED. she has no history of seizure disorder. She is feeling a little better today. she has been out of bed and walking to the bathroom. Blood cultures are still pending and her blood pressure is still a bit high so she will likely be here another day. denies CP, SOB, abdominal pain, N, V. she does have a decreased appetite and fatigue. Physical Exam Vital Signs (Past 24 Hours): Last Vital Signs Temp 36.8 C 05/12/18 11:37 Pulse 77 05/12/18 11:37 Resp 18 05/12/18 11:37 BP 163/119 H 05/12/18 11:37 Pulse Ox 97 05/12/18 11:37 Gen: alert NAD Lungs course breath sounds CV RRR no pronator drift strength hand supervisor communications and signals bicept triceps 5/5 bilaterally sensation in tact with light and cool touch Results & Data Laboratory Results Abnormal lab results 05/12/18 05/12/18 Range/Units 07:36 07:36 RDW Std Deviation 50.0 H (36.4-46.3) fL RDW Coeff of Richard 14.7 H (11.5-14.5) % Chloride 113 H (98-107) mmol/L Diagnostic Findings no new imaging
--- NOTE | 2018-05-12 15:00 | Procedure Note ---
EEG Procedure Note Date of Service May 12, 2018 Start / End Times Start Time: 05:26 End Time: 05:[address] Jeferson Barraza History A 57 year old woman admitted with pneumonia and spell of seizure like activity. EEG performed for evaluation of epileptiform activity. Home Medication List Home Medications Medication Instructions Recorded Confirmed Type albuterol sulfate 2.5 mg INHALATION QID PRN 05/11/18 05/11/18 History fluticasone 2 spray INTRANASAL DAILY PRN 05/11/18 05/11/18 History gabapentin 400 mg PO QDL 05/11/18 05/11/18 History gabapentin 600 mg PO HS 05/11/18 05/11/18 History lisinopril 20 mg PO DAILY 05/11/18 05/11/18 History melatonin 3 mg PO HS 05/11/18 05/11/18 History omeprazole 20 mg PO HS 05/11/18 05/11/18 History Inpatient Medication List Acetaminophen (Tylenol) 650 mg PO Q4H PRN PRN Reason: Pain or Fever Stop: 06/10/18 12:56 Last Admin: 05/11/18 20:07 Dose: 650 mg Documented by: [id number] Enoxaparin Sodium (Lovenox) 40 mg SQ Q24H LINDA Stop: 06/10/18 13:59 Last Admin: 05/11/18 14:40 Dose: 40 mg Documented by: [id number] Gabapentin (Neurontin) 400 mg PO QDL [facility] Stop: 06/11/18 11:29 Last Admin: 05/12/18 11:26 Dose: 400 mg Documented by: [id number] Gabapentin (Neurontin) 600 mg PO [facility] Stop: 06/10/18 20:59 Last Admin: 05/11/18 20:07 Dose: 600 mg Documented by: [id number] Azithromycin 500 mg/ Dextrose 255 mls @ 125 mls/hr IV Q24H LINDA; Protocol Stop: 05/18/18 11:59 Last Infusion: 05/12/18 14:19 Dose: 0 mls/hr Documented by: [id number] Admin: 05/12/18 12:12 Dose: 125 mls/hr Documented by: [id number] Ceftriaxone Sodium 1,000 mg/ (Dextrose) 50 mls @ 100 mls/hr IV Q24H LINDA; Protocol Stop: 05/18/18 10:59 Last Infusion: 05/12/18 12:09 Dose: 0 mls/hr Documented by: [id number] Admin: 05/12/18 11:26 Dose: 100 mls/hr Documented by: [id number] Sodium Chloride (Nss 1000ml) 1,000 mls @ 60 mls/hr IV .[id number] ONE Stop: 05/12/18 16:30 Last Admin: 05/12/18 00:04 Dose: 60 mls/hr Documented by: [id number] Lisinopril (Zestril) 40 mg PO QAM LINDA Stop: 06/11/18 01:29 Last Admin: 05/12/18 01:48 Dose: 40 mg Documented by: [id number] Pantoprazole Sodium (Protonix) 40 mg PO HS LINDA Stop: 06/10/18 20:59 Last Admin: 05/11/18 20:07 Dose: 40 mg Documented by: [id number] Discontinued Medications Acetaminophen (Tylenol) 1,000 mg PO NOW STA Stop: 05/11/18 07:25 Last Admin: 05/11/18 07:39 Dose: 1,000 mg Documented by: [id number] Sodium Chloride (Nss 1000ml) 1,000 mls @ 999 mls/hr IV .Q1H1M LINDA Stop: 05/11/18 08:30 Last Infusion: 05/11/18 09:29 Dose: 0 mls/hr Documented by: [id number] Admin: 05/11/18 08:16 Dose: 999 mls/hr Documented by: [id number] Azithromycin 500 mg/ Dextrose 255 mls @ 127.5 mls/hr IV NOW STA Stop: 05/11/18 12:13 Last Infusion: 05/11/18 14:07 Dose: 0 mls/hr Documented by: [id number] Admin: 05/11/18 11:59 Dose: 127.5 mls/hr Documented by: [id number] Ceftriaxone Sodium (Rocephin) 1,000 mg in 50 mls @ 100 mls/hr IV NOW STA Stop: 05/11/18 10:43 Last Infusion: 05/11/18 11:37 Dose: 0 mls/hr Documented by: [id number] Admin: 05/11/18 11:02 Dose: 100 mls/hr Documented by: [id number] Sodium Chloride (Nss 1000ml) 1,000 mls @ 100 mls/hr IV .Q10H LINDA Stop: 06/10/18 12:56 Last Infusion: 05/11/18 23:57 Dose: 0 mls/hr Documented by: [id number] Admin: 05/11/18 23:50 Dose: Not Given Documented by: [id number] Admin: 05/11/18 13:59 Dose: 100 mls/hr Documented by: [id number] Ketorolac Tromethamine (Toradol) 15 mg IV NOW STA Stop: 05/11/18 10:44 Last Admin: 05/11/18 11:02 Dose: 15 mg Documented by: [id number] Lisinopril (Zestril) 20 mg PO DAILY LINDA Stop: 06/10/18 12:56 Last Admin: 05/11/18 14:39 Dose: 20 mg Documented by: [id number] Lisinopril (Zestril) 20 mg PO NOW STA Stop: 05/11/18 19:51 Last Admin: 05/11/18 20:08 Dose: 20 mg Documented by: [id number] Description REPORT: This is a 21 electrode EEG with a single channel dedicated to limited EKG. The electrodes were placed in accordance with the International 10-20 system. At the onset of the EEG the patient is awake. The posterior dominant rhythm is 9-10 Hz. Anteriorly it consistent of low amplitude beta range frequencies. Photic stimulation is performed and does not illicit any abnormalities. Interpretation: This is a normal awake and drowsy EEG. There is no evidence of epileptiform activity.
[2018-05-12] MEDS: ENOXAPARIN INJ 40 MG/0.4 ML SYR SQ SCH (15:22)
[2018-05-12] MEDS: ACETAMINOPHEN 325 MG TAB PO PRN (20:52)
[2018-05-12] MEDS: GABAPENTIN 600 MG TAB PO SCH (20:52)
[2018-05-12] MEDS: PANTOprazole 40 MG TAB PO SCH (20:52)
[2018-05-12] MEDS: METOPROLOL TARTRATE 25 MG TAB PO SCH (22:55)
[2018-05-12 23:11] LABS: BUN Creatinine Ratio 13.5 (10-20); Calcium 8.9 mg/dl (8.5-10.1); Creatinine Clr Calc Pharmacy 97.3 ml/min; Est GFR (Non-African American) 81.9; Magnesium 2.1 mg/dl (1.8-2.4); Potassium 3.5 mmol/L (3.5-5.1)
--- NOTE | 2018-05-12 23:14 | Hospitalist Progress Note ---
Date of Service May 12, 2018 Subjective Made aware by RN of episodic bursts of bigeminy on the monitor. Patient asymptomatic. AP Ventricular bigeminy Supplement electrolytes Initiate beta-gerardo the suppress ectopy. Will relay to AM provider. Physical Exam Vital Signs (Past 24 Hours): Last Vital Signs Temp 36.8 C 05/12/18 22:24 Pulse 90 05/12/18 22:24 Resp 18 05/12/18 22:24 BP 123/85 05/12/18 22:24 Pulse Ox 94 05/12/18 22:24
[2018-05-12] MEDS ORDERED: POTASSIUM CHLORIDE 10 MEQ TABCR PO ONE (23:45)
[2018-05-13] MEDS: METOPROLOL TARTRATE 25 MG TAB PO SCH (08:49)
[2018-05-13] MEDS: LISINOPRIL 40 MG TAB PO SCH (08:49)
[2018-05-13] MEDS: cefTRIAXone SODIUM 1,000 MG in DEXTROSE 5% 50 ML IV SCH (11:18)
[2018-05-13] MEDS: GABAPENTIN 400 MG CAP PO SCH (11:19)
[2018-05-13] MEDS: AZITHROMYCIN 500 MG in DEXTROSE 5% 250 ML IV SCH (12:14)
--- NOTE | 2018-05-13 13:55 | Hospitalist Progress Note ---
Date of Service May 13, 2018 Assessment & Plan (1) Pneumonia: Present on admission with fever chills, rigors and seizure like activity CXR showing right upper and middle lobe pneumonia Influenza PCR negative On IV Rocephin and zithromax Will continue Zithromax on discharge Blood cx pending Continue monitor (2) Seizure-like activity: No history of seizures in the past CT head showed no acute finding Neurology on board, recommended no seizure medication for now No driving for now until clear by neurology Seizure precaution EEG showed no evidence of epileptiform activity. Follow up with neurology 4-6 weeks after discharge, Erna Crow PAC schedule No swimming or bathing alone No driving for now until clears by neurology Avoid any activity at high level Monitor your blood pressure (3) HTN (hypertension): BP elevated possible related to hospital setting Continue lisinopril. Metoprolol adding Continue monitor BP (4) GERD (gastroesophageal reflux disease): Continue PPI (5) Neuropathy: Continue Neurontin Bigeminy Seen on telemonitor Asymptomatic Continue Metoprolol 12.5 BID No further episode (6) DVT prophylaxis: SQ Lovenox CODE STATUS FULL CODE Disposition Will discharge home today Follow up with neurology in 4-6 weeks Follow up with PCP Subjective Pt was seen and examined Lying in bed with no distress Last night she had an episode of bigeminy that was seen on tele monitor She was asymptomatic during the episode She is very anxious to go home today She said that she has not been coughing Denies any chest pain, palpitation, dizziness and SOB Physical Exam Vital Signs (Past 24 Hours): Last Vital Signs Temp 36.7 C 05/13/18 11:34 Pulse 68 05/13/18 11:34 Resp 18 05/13/18 11:34 BP 139/96 05/13/18 11:34 Pulse Ox 95 05/13/18 11:34 Physical Exam: General- No acute distress Head- atraumatic Eyes- PERRL, EOMI, ENT- oropharynx clear Neck- supple, no JVD Lungs- clear to auscultation Heart- regular rhythm; no murmur Abdomen- normal bowel sounds, soft, nontender Extremities- no calf tenderness Neuro- alert, oriented x 3; PERRL, EOMI; no facial palsy; no dysarthria Skin- warm & dry
[2018-05-13] MEDS: ENOXAPARIN INJ 40 MG/0.4 ML SYR SQ SCH (14:06)
--- NOTE | 2018-05-15 09:32 | Discharge Summary ---
Date of Service May 13, 2018 Admission HPI Per Admitting Provider 57-year-old female who presents to the ED with seizure activity. Patient reports that last night she developed a mild cough. This morning, she awoke around 5 AM and reports she was very cold and having rigors. Her attempted to take her temperature however the thermometer was broken. She reports that the last one she remembers. Per 's report, patient developed generalized body shaking that lasted for about 1 minute. She was then confused and slow to respond for about 5 minutes. EMS was called. Patient reports she remembers getting up and walking for EMS. Patient did not bite her tongue, there was no vomiting, loss of bowel or bladder function. Denies slurred speech, facial droop, unilateral weakness, numbness, tingling. Patient reports cough is somewhat worsened today. She reports it is occasionally productive. She denies shortness of breath, chest pain, and palpitations. No lightheadedness, dizziness, diaphoresis, syncopal events. She denies abdominal pain, vomiting, nausea. She reports some mild diarrhea yesterday. She denies any urinary symptoms. In the ED, patient is febrile at 38.4, tachycardic HR in the low 100s, WBC 14 K. CXR shows pneumonia in the right upper and middle lobes. Of note, treated for pneumonia in February with a azithromycin. She reports she had completely recovered from the illness. Head CT is negative for acute findings. She was given IVF, IV ceftriaxone, IV azithromycin, IV Toradol, p.o. Tylenol. There has been no further seizure-like activity since arriving in ED. Admission Exam Per Admitting Provider Constitutional: WD/WN, vitals as above Eyes: PERRL, conjunctivae normal, anicteric sclerae ENMT: external ear and nose normal, oropharynx normal Respiratory: normal respiratory effort, lungs clear to auscultation Cardiovascular: Rate/Rhythm: regular rate and regular rhythm Vessels: normal peripheral pulses Extremities: + edema (Trace edema BLE) Gastrointestinal normal bowel sounds, soft, nontender, no hepatosplenomegaly Musculoskeletal: no cyanosis or clubbing, extremities motor strength 5/5 Skin: no rashes, warm and dry Neurologic: PERRL, EOMI, accommodation nl, no face palsy, no dysarthria Psychiatric: A+Ox3, euthymic affect Principal Diagnosis Pneumonia Seizure Like activity Discharge Exam General- No acute distress Head- atraumatic Eyes- PERRL, EOMI, ENT- oropharynx clear Neck- supple, no JVD Lungs- clear to auscultation Heart- regular rhythm; no murmur Abdomen- normal bowel sounds, soft, nontender Extremities- no calf tenderness Neuro- alert, oriented x 3; PERRL, EOMI; no facial palsy; no dysarthria Skin- warm & dry Discharge Data Allergies Allergy/AdvReac Type Severity Reaction Status Date / Time Sulfa (Sulfonamide Allergy Unknown Unknown Verified 05/11/18 07:06 Antibiotics) Consultations 05/11/18 11:04 ED Decision to Admit Stat 05/11/18 12:57 Consult Neurology Routine Ordered Studies 05/11/18 07:24 CT head/brain wo con Stat XR chest 1V portable HISTORY: cough, fever, seizure COMPARISON: Chest 11/14/2016. FINDINGS: The heart is normal in size. No pleural effusions. No pneumothorax. The left lung is clear. Small patchy airspace opacities within the right upper lobe and right middle lobe. This is new from the prior study. IMPRESSION: Small patchy airspace opacities within the right upper lobe and right middle lobe. This is new from the prior study and favors a pneumonia. One to 2 month chest x-ray follow-up is recommended to ensure resolution. Electronically signed by: Travis Kaiser M.D. 05/11/2018 7:56 AM Dictated: 05/11/18 0755 Transcribed: 05/11/[address] head/brain wo con CLINICAL HISTORY: seizure, fever, [place] COMPARISON STUDY: No previous studies for comparison. TECHNIQUE: Axial CT of the brain is performed from the vertex to the skull base. IV contrast was not administered for this examination. A dose lowering technique was utilized adhering to the principles of ALARA. CT DOSE: 638.56 mGycm FINDINGS: No intra or extra-axial mass lesions are visualized. There is no CT evidence of acute cortical infarction. There is no evidence of midline shift. There is no acute hemorrhage. No calvarial fractures are visualized. There are minor white matter hypodensities likely on a small vessel basis. There is no evidence of pathologic ventricular dilatation. There is no evidence of acute sinusitis IMPRESSION: No acute intracranial findings Electronically signed by: Jeronimo Ocampo M.D. 05/11/2018 8:43 AM Dictated: 05/11/1842 Transcribed: 05/11/18841 Hospital Course (1) Pneumonia: Present on admission with fever chills, rigors and seizure like activity CXR showing right upper and middle lobe pneumonia Influenza PCR negative On IV Rocephin and zithromax Will continue Zithromax on discharge Blood cx pending Continue monitor (2) Seizure-like activity: No history of seizures in the past CT head showed no acute finding Neurology on board, recommended no seizure medication for now No driving for now until clear by neurology Seizure precaution EEG showed no evidence of epileptiform activity. Follow up with neurology 4-6 weeks after discharge, Erna Crow PAC schedule No swimming or bathing alone No driving for now until clears by neurology Avoid any activity at high level Monitor your blood pressure (3) HTN (hypertension): BP elevated possible related to hospital setting Continue lisinopril. Metoprolol adding Continue monitor BP (4) GERD (gastroesophageal reflux disease): Continue PPI (5) Neuropathy: Continue Neurontin Bigeminy Seen on telemonitor Asymptomatic Continue Metoprolol 12.5 BID No further episode (6) DVT prophylaxis: SQ Lovenox CODE STATUS FULL CODE Disposition Will discharge home today Follow up with neurology in 4-6 weeks Follow up with PCP Total Time Total Time Spent Total Time Spent (In Minutes): 35 minutes Total Time Includes: Examination of the Patient, Discharge Planning, Medication Reconciliation, Communication With Other Providers and Other Discharge Plan Discharge Items Patient Disposition: Home - Self-Care Reason For Visit: PNEUMONIA Discharge Diagnosis: Pneumonia Seizure Like activity Condition: Good Discharge Goals: Decrease discomfort, Improve disease control, Improve function and Increase independence Activity: Resume your previous activity Activity Comment: as tolerated Non-emergency contact: Primary Care Provider and Neurologist Call non-emergency contact if: you have any medication questions and your temperature is above 101 Follow-up/Referrals: Rosa Day MD [Primary Care Provider] - Diet: Heart Healthy Addtl Provider Instructions: Follow up with your primary care provider05/19 @ 10:00 [facility] Follow up with neurology in 4-6 week (Neurology office will contact you for the appointment) Seizure precaution No swimming or bathing alone No driving for now until clears by neurology Avoid any activity at high level Monitor your blood pressure Complete the course of the antibiotic Prescriptions: New metoprolol tartrate 25 mg Tablet 12.5 mg PO BID 30 Days Qty: 30 RF: 0 azithromycin [Zithromax] 500 mg tablet 500 mg PO DAILY 3 Days Qty: 3 RF: 0 lisinopril [Zestril] 40 mg Tablet 40 mg PO QAM 30 Days Qty: 30 RF: 0 Continued gabapentin 600 mg Tablet 600 mg PO HS RF: 0 albuterol sulfate 2.5 mg /3 mL (0.083 %) Solution For Nebulization 2.5 mg INHALATION QID PRN (Reason: Shortness Of Breath) RF: 0 gabapentin 400 mg Capsule 400 mg PO QDL RF: 0 omeprazole 20 mg Tablet,Delayed Release (Dr/Ec) 20 mg PO HS RF: 0 fluticasone propionate 50 mcg/actuation [place],Suspension 2 spray INTRANASAL DAILY PRN (Reason: Nasal Congestion) RF: 0 melatonin 3 mg Tablet Extended Release 3 mg PO HS RF: 0 Discontinued lisinopril 20 mg Tablet 20 mg PO DAILY RF: 0 Stand-Alone Forms: [facility] Discharge Orders: Discharge Order (Routine); Ordered 05/13/18 Ordered By: Jeferson Barraza Admission Data Admit Date/Time: 05/11/18 12:02 Attending Provider: Jeferson Barraza Admit Provider: Jd Boyce Primary Care Provider: Rosa Day Other Providers: Konrad Huerta ; Rosa Day ; Jd Boyce Service: Telemetry Other Interventions: Discharge Summary Assessment (RN) Last Done: 05/13/18 14:51 DC Date/Time DO NOT enter until pt leaves facility: 05/13/18 15:30
== END 2018-05-13 15:30 | disposition home or self-care (01) | DRG 194 ==
LOC: ED 06:44 → SUATTDRO 12:02 → 2S 12:02

== ENCOUNTER 2022-12-31 08:46 | Inpatient (IN) ==
--- NOTE | 2022-12-31 08:53 | Emergency Department Note ---
History of Present Illness General Chief complaint: Back Injury/Pain Time Seen by Provider: 12/31/22 08:52 History of Present Illness This is a 62-year-old female that presents to the emergency department via EMS with complaints of "back pain". The patient notes that a few days ago she began with low back pain that radiated down the left leg. This seemed to start Tuesday evening. No known trauma or injury. She has a history of laminectomy she believes [address] Lowry. She states that she feels like she is now limping on the left leg. She does note left leg weakness at baseline but this has increased. She did have some urinary incontinence this morning but questions if that is secondary to pain. No numbness or tingling in the genital region. The patient denies any abdominal pain. No fevers or chills. No chest pain or shortness of breath. Home Medications Medication Instructions Recorded Confirmed Type albuterol sulfate 2.5 mg/3 mL 2.5 mg inhalation QID PRN 05/11/18 12/31/22 History (0.083 %) solution for nebulization Shortness Of Breath omeprazole 20 mg tablet,delayed 40 mg PO HS 05/11/18 12/31/22 History release albuterol sulfate 90 mcg/actuation 2 puff inhalation Q4H PRN 12/31/22 12/31/22 History aerosol inhaler Shortness Of Breath Or Wheezing gabapentin 100 mg capsule 200 mg PO HS 12/31/22 12/31/22 History gabapentin 400 mg capsule 400 mg PO HS 12/31/22 12/31/22 History gabapentin 400 mg capsule 400 mg PO UD 12/31/22 12/31/22 History lisinopril 20 0.5 tab PO QAM 12/31/22 12/31/22 History mg-hydrochlorothiazide 25 mg tablet melatonin 3 mg tablet 3 mg PO HS 12/31/22 12/31/22 History metoprolol succinate 25 mg 25 mg PO HS 12/31/22 12/31/22 History tablet,extended release 24 hr Allergies Allergy/AdvReac Type Severity Reaction Status Date / Time Sulfa (Sulfonamide Allergy Unknown Unknown Verified 05/11/18 07:06 Antibiotics) Past Med/Surg History Medical History Reactive airway disease Neuropathy Obesity GERD (gastroesophageal reflux disease) HTN (hypertension) Surgical History S/P left knee arthroscopy H/O dilation and curettage History of laminectomy History of tubal ligation Family History Father Heart disease Social History Smoking Status: Never smoker Hx Alcohol Use: No Hx Substance Use: No Preferred Language: Mohawk Communication Ability: Effective Supervisor Toy Assembly Required: No Beliefs That Will Affect Care: None Current Living Situation: Spouse and Family 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 Feels Safe at Home: Yes Assistive Devices: None Review of Systems A total of 10 systems reviewed and were otherwise negative Physical Exam Vital Signs Vital Signs - 24 hr 12/31/22 08:56 12/31/22 09:25 12/31/22 09:50 Temperature 37.0 C Temperature Source Temporal Artery Scan Pulse Rate 66 Pulse Rate [Apical] 62 Pulse Rhythm [Apical] Pulse Strength [Apical] Respiratory Rate 19 Respiratory Effort / Characteristics Non-Labored Respiratory Depth Normal Respiratory Pattern Blood Pressure 174/106 H Blood Pressure [Right Arm] Blood Pressure Mean 128 Blood Pressure Mean [Right Arm] Blood Pressure Position [Right Arm] Pulse Oximetry 99 94 86 L Oxygen Delivery Method Room Air Room Air Room Air Oxygen Flow Rate Sepsis Recent Fever Within 48 Hours No Sepsis New/Unexplained Change in Mental Status No Sepsis Action Taken by Nursing No Action Required 12/31/22 10:00 12/31/22 12:00 12/31/22 13:51 Temperature 37.3 C Temperature Source Oral Pulse Rate Pulse Rate [Apical] 64 68 Pulse Rhythm [Apical] Regular Regular Pulse Strength [Apical] Normal Normal Respiratory Rate 14 18 Respiratory Effort / Characteristics Non-Labored Spontaneous Non-Labored Spontaneous Respiratory Depth Normal Normal Respiratory Pattern Regular Regular Blood Pressure Blood Pressure [Right Arm] 139/87 178/105 H Blood Pressure Mean Blood Pressure Mean [Right Arm] 104 129 Blood Pressure Position [Right Arm] Lying Lying Pulse Oximetry 93 96 94 Oxygen Delivery Method Nasal Cannula Room Air Nasal Cannula Oxygen Flow Rate 2 1 Sepsis Recent Fever Within 48 Hours Sepsis New/Unexplained Change in Mental Status Sepsis Action Taken by Nursing VITAL SIGNS - Vital signs and nursing notes were reviewed. Stable and afebrile. GENERAL -62-year-old female appearing her stated age who is supine and appears to be in pain. She is holding the left low back region with her left hand. Communicates well with provider and answers questions appropriately. SKIN - Without rashes. No meningeal or petechial rash. HEAD - NC/AT. EYES - Sclera anicteric. MOUTH/OROPHARYNX - Without perioral cyanosis. NECK - No nuchal rigidity. LUNGS -clear to auscultation CARDIAC - RRR ABDOMEN - Abdominal contour normal without pulsations or visible masses. BS normoactive all four quadrants. No tenderness, palpable masses, hepatosplenomegaly, or ascites noted. EXTREMITIES - No clubbing or peripheral cyanosis. No pretibial edema present. There is decreased ability to straight leg raise on the left compared to the right. Patient with intact ability to plantarflex and dorsiflex feet/ankles. NEUROLOGIC - Cranial nerves II through XII grossly intact. Sensory intact throughout the left and right lower extremity. No deficits. MUSCULOSKELETALthere is reproducible tenderness to palpation overlying the left low back region. PSYCH - A&O, and cooperates fully with examiner. Pt is very pleasant and interacts well with examiner. Course Administered Medications Acetaminophen (Acetaminophen 500 Mg Tab) 1,000 mg PO Q8H LINDA Stop: 01/30/23 16:59 Last Admin: 12/31/22 17:07 Dose: 1,000 mg Documented By: OLMAN Oxycodone HCl (Oxycodone Hcl Ir 5 Mg Tab (Immediate Release)) 5 mg PO Q6H PRN PRN Reason: Moderate Pain (Scale 4, 5, 6) Stop: 01/14/23 16:52 Last Admin: 12/31/22 17:07 Dose: 5 mg Documented By: OLMAN Discontinued Medications Dexamethasone Sodium Phosphate (DexamethasonePf 10 Mg/Ml Vial) 10 mg IV NOW ONE Stop: 12/31/22 09:12 Last Admin: 12/31/22 09:21 Dose: 10 mg Documented By: DAYNE Lidocaine (Lidocaine 5% 1 Patch) 1 patch TD NOW STA Stop: 12/31/22 09:12 Last Admin: 12/31/22 09:21 Dose: 1 patch Documented By: DAYNE Morphine Sulfate (Morphine Sulfate 4 Mg/Ml 1 Ml Carp\\Vial) 4 mg IV NOW STA Stop: 12/31/22 09:12 Last Admin: 12/31/22 09:21 Dose: 4 mg Documented By: DAYNE Morphine Sulfate (Morphine Sulfate 4 Mg/Ml 1 Ml Carp\\Vial) 4 mg IV NOW STA Stop: 12/31/22 11:44 Last Admin: 12/31/22 12:03 Dose: 4 mg Documented By: [employer] Ondansetron HCl (Ondansetron Inj 2 Mg/Ml 2 Ml Vial) 4 mg IV NOW STA Stop: 12/31/22 09:12 Last Admin: 12/31/22 09:21 Dose: 4 mg Documented By: DAYNE Medical Decision Making Laboratory Data 12/31/22 09:20 12/31/22 09:20 Lab Results 12/31/22 Range/Units 09:20 WBC 10.42 (4.8-10.8) K/ul RBC 4.13 L (4.20-5.40) M/uL Hgb 12.2 (12.0-16.0) g/dl Hct 38.4 (37.0-47.0) % MCV 93.0 (80.0-100.0) fL MCH 29.5 (25.0-34.0) pg MCHC 31.8 L (32.0-36.0) g/dL RDW Std Deviation 46.6 H (36.4-46.3) fL RDW Coeff of Richard 13.7 (11.5-14.5) % Plt Count 230 (130-400) K/uL MPV 10.3 (9.4-12.4) fL Immature Gran % (Auto) 0.3 % Neut % (Auto) 76.2 % Lymph % (Auto) 15.5 % [place] % (Auto) 5.9 % Eos % (Auto) 1.8 % Baso % (Auto) 0.3 % Neut # (Auto) 7.95 H (1.40-6.50) K/uL Lymph # (Auto) 1.61 (1.20-3.40) K/uL [place] # (Auto) 0.61 H (0.11-0.59) K/uL Eos # (Auto) 0.19 (0.00-0.50) K/uL Baso # (Auto) 0.03 (0.00-0.20) K/uL Immature Gran # (Auto) 0.03 (0.01-0.20) K/uL Sodium 140 (136-145) mmol/L Potassium 3.7 (3.5-5.1) mmol/L Chloride 107 (98-107) mmol/L Carbon Dioxide 28 (21-32) mmol/L Anion Gap 5 (3-11) BUN 13 (6-23) mg/dl Creatinine 0.86 (0.6-1.2) mg/dl Est Cr Clr Drug Dosing 82.0 ml/min Est GFR ( Amer) 82.7 ml/min Est GFR (Non-Af Amer) 71.4 ml/min BUN/Creatinine Ratio 15.1 (10-20) Glucose 99 (70-99(Fasting)) mg/dl Calcium 9.2 (8.6-10.3) mg/dl Total Bilirubin 0.3 (0.2-1.0) mg/dl AST 15 (13-39) U/L ALT 12 (7-52) U/L Alkaline Phosphatase 68 (34-104) U/L Total Protein 6.6 (6.0-8.3) gm/dl Albumin 3.7 (3.4-5.0) gm/dl Globulin 2.9 (2.5-4.0) gm/dl Albumin/Globulin Ratio 1.3 (0.9-2) Imaging Data Radiologist's Impression: Lumbar Spine X-Ray 12/31/22 09:11 XR lumbar spine min 4V routine CLINICAL HISTORY: low back pain, radiating down l leg COMPARISON STUDY: Lumbar spine radiographs November 02, 2013. Lumbar spine MRI November 08, 2013. FINDINGS: No lumbar spine fracture is present. There is slight anterolisthesis of L4 on L5. There is mild to moderate multilevel disc space narrowing and osteophytosis. There is moderate multilevel facet arthrosis within the lumbar spine. IMPRESSION: 1. No lumbar spine fracture. 2. Moderate multilevel degenerative changes within the lumbar spine. ACT 112: Negative or not required by law. Electronically signed by: Kenneth Lakhani M.D. 12/31/2022 9:56 AM Lumbar Spine MRI 12/31/22 09:47 LUMBAR SPINE MRI HISTORY: hx laminectomy, low back pain, L leg weakness TECHNIQUE: Multiplanar multisequence MRI of the lumbar spine was performed without the use of contrast. COMPARISON: Lumbar spine radiograph 12/31/2022. Lumbar spine MRI 11/08/2013. FINDINGS: For the purpose of the report the L5-S1 disc space will be located on axial image 25 of 27. Motion artifact. There is mild levoscoliosis. There is 3 mm of retrolisthesis of L5 on S1. This remains unchanged. There is moderate disc space narrowing within the lower thoracic spine. There is mild disc space narrowing at L1-L2, L2-L3, and L4-5. There is moderate disc space narrowing at L5-S1. [id number] facet degenerative changes seen within the lumbar spine. The visualized sacrum is intact. No acute fractures identified. Lumbar subcutaneous edema is noted. The conus terminates at the L1-L2 disc space level. Paravertebral soft tissues appear unremarkable. Small broad-based posterior disc bulges within the lower thoracic spine resulting in mild central canal narrowing. L1-L2: Broad-based posterior disc bulge with ligamentum and facet hypertrophy resulting in mild central canal and mild right neural foraminal narrowing. There is moderate to severe left-sided neural foraminal narrowing due to the disc bulge and facet hypertrophy. L2-L3: Broad-based posterior disc bulge with ligamentum and facet hypertrophy resulting in [id number] central canal and neural foraminal narrowing. The AP diameter of the central canal is approximately 8 mm. L3-L4: Broad-based posterior disc bulge with ligamentum and facet hypertrophy resulting in [id number] central canal narrowing with an AP diameter of 8 mm. There is severe stenosis of the lateral recesses due to the disc bulge and facet hypertrophy. There is moderate to severe bilateral neural foraminal narrowing. Small annular tear is noted at the posterior disc bulge. L4-L5: Broad-based posterior disc bulge asymmetric to the right with ligamentum and facet hypertrophy resulting in mild central canal narrowing. There is moderate left and moderate to severe right neural foraminal narrowing. L5-S1: Broad-based posterior disc bulge with a left paracentral focal disc protrusion measuring 5 mm. This abuts and displaces the transiting left S1 nerve root and results in mild to moderate left-sided central canal narrowing and moderate to severe left-sided neural foraminal narrowing. There is mild right- sided neural foraminal narrowing. IMPRESSION: 1. A 5 mm left paracentral focal disc protrusion at L5-S1 which abuts and displaces the transiting left S1 nerve roots. 2. Additional multilevel degenerative changes within the lumbar spine with associated central canal and neural foraminal narrowing as described above. 3. No acute fractures. 4. Mild levoscoliosis. ACT 112: Negative or not required by law. Electronically signed by: Travis Kaiser M.D. 12/31/2022 11:54 AM MDM Narrative Patient was seen and evaluated as above in room C11. Review was performed of nursing notes and vital signs. After obtaining a thorough history and physical examination the above work up was performed. Patient presents to us today for evaluation of left low back pain that radiates down the left leg. This is consistent with lumbar radiculopathy. She is clinically well-appearing and nontoxic on examination but appears to be in pain. She did comment on some brief urinary incontinence earlier but thought that was secondary to pain. Bladder scan was performed and there is no retention. There is chronic left leg weakness and perhaps a little bit worse compared to baseline. There is no numbness or tingling in the genital region. Options of care were discussed with the patient. IV access was established. Labs were drawn. No leukocytosis or concerning anemia. No emergent metabolic disturbance. Urinalysis is negative. X-ray was obtained. Noting the patient's history of L-spine surgery and symptoms above, an MRI of the L-spine was felt to be warranted. Patient did require several rounds of IV pain medication here with continued discomfort. Even after the MRI resulted and she received additional IV narcotic medication I tried to stand the patient at bedside and this resulted in significant 10/10 discomfort and significant discomfort in attempting to ambulate. MRI does reveal a 5 mm left paracentral focal disc protrusion at L5-S1 which abuts and displaces the transiting left S1 nerve root which I believe is causing her pain today. There are additional findings within the MRI. I do believe that further evaluation and management in the inpatient setting is warranted. I did discuss the findings with the patient's previous spine surgeon, Dr. Lowry at 1:30 PM and his service will be consulted and they will see the patient during her time here in the hospital. Case also discussed with the hospitalist service. Please refer to further documentation regarding her stay. In the evaluation and treatment of this patient the following differential diagnosis entertained: Fracture, dislocation, subluxation, cauda equina syndrome, AAA, diverticulitis, appendicitis, torsion, osteomyelitis, piriformis syndrome, strain, sprain, among others. Impression & Plan Lumbar back pain with radiculopathy affecting left lower extremity, Abnormal magnetic resonance imaging of lumbar spine Discharge Plan Visit Data Chief Complaint: Back Injury/Pain ED Provider: Jason Garcia ED Midlevel Provider: Buddy Ag Discharge Problem: Lumbar back pain with radiculopathy affecting left lower extremity, Abnormal magnetic resonance imaging of lumbar spine Patient Disposition: Admitted As Inpatient Condition: Good Discharge Instructions Interventions: ED Discharge Assessment Last Done: 12/31/22 16:05
[2022-12-31] MEDS ORDERED: dexAMETHasone**PF** 10 MG/ML VIAL IV ONE (09:11)
[2022-12-31] MEDS ORDERED: MoRPHine SULFATE 4 MG/ML 1 ML CARP\\VIAL IV STA ×2 (09:11→11:43)
[2022-12-31] MEDS ORDERED: ONDANSETRON INJ 2 MG/ML 2 ML VIAL IV STA (09:11)
[2022-12-31] MEDS ORDERED: LIDOCAINE 5% 1 PATCH TD STA (09:11)
--- NOTE | 2022-12-31 09:57 | XRay Report ---
XR lumbar spine min 4V routine CLINICAL HISTORY: low back pain, radiating down l leg COMPARISON STUDY: Lumbar spine radiographs November 02, 2013. Lumbar spine MRI November 08, 2013. FINDINGS: No lumbar spine fracture is present. There is slight anterolisthesis of L4 on L5. There is mild to moderate multilevel disc space narrowing and osteophytosis. There is moderate multilevel face t arthrosis within the lumbar spine. IMPRESSION: 1. No lumbar spine fracture. 2. Moderate multilevel degenerative changes within the lumbar spine. ACT 112: Negative or not required by law. Electronically signed by: Kenneth Lakhani M.D. 12/31/2022 9:56 AM
[2022-12-31 10:04] LABS: Basophils # (auto) 0.03 K/uL (0.00-0.20); Basophils % (auto) 0.3 %; Eosinophils # (auto) 0.19 K/uL (0.00-0.50); Eosinophils % (auto) 1.8 %; Hematocrit (blood only) 38.4 % (37.0-47.0); Hemoglobin 12.2 g/dl (12.0-16.0); Immature Granulocytes # (auto) 0.03 K/uL (0.01-0.20); Immature Granulocytes % (auto) 0.3 %; Lymphocytes # (auto) 1.61 K/uL (1.20-3.40); Lymphocytes % (auto) 15.5 %; Mean Corpuscular Hemoglobin 29.5 pg (25.0-34.0); Mean Corpuscular Hgb Conc 31.8 g/dL (32.0-36.0); Mean Platelet Volume 10.3 fL (9.4-12.4); Monocytes # (auto) 0.61 K/uL (0.11-0.59); Monocytes % (auto) 5.9 %; Neutrophils # (auto) 7.95 K/uL (1.40-6.50); Neutrophils % (auto) 76.2 %; Platelet Count 230 K/uL (130-400); RDW Coefficient of Variation 13.7 % (11.5-14.5); RDW Standard Deviation 46.6 fL (36.4-46.3); Red Blood Count 4.13 M/uL (4.20-5.40); White Blood Count 10.42 K/ul (4.8-10.8)
[2022-12-31 10:23] LABS: Albumin Globulin Ratio 1.3 (0.9-2); Albumin Level 3.7 gm/dl (3.4-5.0); BUN Creatinine Ratio 15.1 (10-20); Bilirubin,Total 0.3 mg/dl (0.2-1.0); Calcium 9.2 mg/dl (8.6-10.3); Est GFR (African American) 82.7 ml/min; Est GFR (Non-African American) 71.4 ml/min; Globulin 2.9 gm/dl (2.5-4.0); Potassium 3.7 mmol/L (3.5-5.1); Total Protein 6.6 gm/dl (6.0-8.3)
--- NOTE | 2022-12-31 11:56 | Magnetic Resonance Report ---
LUMBAR SPINE MRI HISTORY: hx laminectomy, low back pain, L leg weakness TECHNIQUE: Multiplanar multisequence MRI of the lumbar spine was performed without the use of contras t. COMPARISON: Lumbar spine radiograph 12/31/2022. Lumbar spine MRI 11/08/2013. FINDINGS: For the purpose of the report the L5-S1 disc space will be located on axial image 25 of 27. Motion artifact. There is mild levoscoliosis. There is 3 mm of retrolisthesis of L5 on S1. This remai ns unchanged. There is moderate disc space narrowing within the lower thoracic spine. There is mild d isc space narrowing at L1-L2, L2-L3, and L4-5. There is moderate disc space narrowing at L5-S1. Mild- to-moderate facet degenerative changes seen within the lumbar spine. The visualized sacrum is intact. No acute fractures identified. Lumbar subcutaneous edema is noted. The conus terminates at the L1-L2 disc space level. Paravertebral soft tissues appear unremarkable. Small broad-based posterior disc b ulges within the lower thoracic spine resulting in mild central canal narrowing. L1-L2: Broad-based posterior disc bulge with ligamentum and facet hypertrophy resulting in mild centr al canal and mild right neural foraminal narrowing. There is moderate to severe left-sided neural for aminal narrowing due to the disc bulge and facet hypertrophy. L2-L3: Broad-based posterior disc bulge with ligamentum and facet hypertrophy resulting in mild-to-mo derate central canal and neural foraminal narrowing. The AP diameter of the central canal is approxim ately 8 mm. L3-L4: Broad-based posterior disc bulge with ligamentum and facet hypertrophy resulting in mild-to-mo derate central canal narrowing with an AP diameter of 8 mm. There is severe stenosis of the lateral r ecesses due to the disc bulge and facet hypertrophy. There is moderate to severe bilateral neural for aminal narrowing. Small annular tear is noted at the posterior disc bulge. L4-L5: Broad-based posterior disc bulge asymmetric to the right with ligamentum and facet hypertrophy resulting in mild central canal narrowing. There is moderate left and moderate to severe right neura l foraminal narrowing. L5-S1: Broad-based posterior disc bulge with a left paracentral focal disc protrusion measuring 5 mm. This abuts and displaces the transiting left S1 nerve root and results in mild to moderate left-side d central canal narrowing and moderate to severe left-sided neural foraminal narrowing. There is mild right-sided neural foraminal narrowing. IMPRESSION: 1. A 5 mm left paracentral focal disc protrusion at L5-S1 which abuts and displaces the transiting le ft S1 nerve roots. 2. Additional multilevel degenerative changes within the lumbar spine with associated central canal a nd neural foraminal narrowing as described above. 3. No acute fractures. 4. Mild levoscoliosis. ACT 112: Negative or not required by law. Electronically signed by: Travis Kaiser M.D. 12/31/2022 11:54 AM
--- NOTE | 2022-12-31 12:51 | History & Physical Report ---
Date of Service December 31, 2022 Assessment & Plan (1) Lumbar back pain with radiculopathy affecting left lower extremity: Plan: Patient is 62 y/o F with PMH HTN, prediabetes, GERD, obesity, reactive airway presented to ER with c/o low back pain and left leg pain x2 days. History lumbar surgery in past. Lumbar xray: No lumbar spine fracture. Moderate multilevel degenerative changes within the lumbar spine. Lumbar spine MRI: 1. A 5 mm left paracentral focal disc protrusion at L5-S1 which abuts and displaces the transiting left S1 nerve roots. 2. Additional multilevel degenerative changes within the lumbar spine with associated central canal and neural foraminal narrowing as described above. 3. No acute fractures. 4. Mild levoscoliosis. In ER given dexamethasone 10mg IV, morphine total 8mg IV, lidocaine patch In ER bladder scan without signs of retention Difficulty ambulating in ER secondary to LLE pain Fall precautions Continue home gabapentin Scheduled Tylenol, lidocaine patch. oxycodone, IV morphine prn moderate-severe pain Consult ortho spine. Dr Lowry aware CBC, BMP in am (2) HTN (hypertension): Plan: In ER hypertensive then normalizes with pain control Pain control as above Continue home lisinopril/HCTZ, metoprolol (3) Prediabetes: Plan: A1c: 5.8 on 06/25/22 Diet controlled Monitor AM glucose labs (4) Reactive airway disease: Plan: No signs acute exacerbation Continue albuterol as needed (5) GERD (gastroesophageal reflux disease): Plan: Continue PPI DVT Prophylaxis SCDs for now Full Code as per discussion with pt Follows with Dr Reddy for routine care Pt was seen and care coordinated with Dr Rodriguez. See addendum History of Present Illness Chief Complaint: Back pain Primary Care Provider: Shelley Reddy MD Patient is 62 y/o F with PMH HTN, prediabetes, GERD, obesity, reactive airway presented to ER with c/o low back pain and left leg pain x2 days. History obtained from patient and outpatient chart review. Patient reports history of lumbar surgery [address] Lowry. States has had chronic low back pain since that time rates chronically 1 out of 10 on pain scale. She reports has chronic numbness left lateral lower leg. States 2 weeks ago stood up and left leg gave out causing her to fall. Initially did not notice any increased back pain or any leg pain however 2 days ago started with left posterior leg pain that radiates to left foot and left low back pain. Over the past 2 days pain has increased and now notes difficulty ambulating and bearing weight to left leg secondary to severe pain that she rates 10 out of 10 on pain scale with attempting ambulation. She feels that left leg is now weak as well. Denies loss control of bowel or bladder. Reports feels like is emptying bladder normally. Takes gabapentin chronically and usually uses Tylenol or ibuprofen once a day at bedtime for chronic pain. Has been using Tylenol and ibuprofen throughout the day over the past 2 days without relief of pain. Denies fever/chills, diaphoresis, N/V/D/C, BONILLA, dizziness, syncope, vision changes, neck pain, CP, SOB, cough, sore throat, rhinorrhea, abdominal pain, extremity edema, rashes, urinary symptoms. Allergies Allergy/AdvReac Type Severity Reaction Status Date / Time Sulfa (Sulfonamide Allergy Unknown Unknown Verified 05/11/18 07:06 Antibiotics) Home Medications Medication Instructions Recorded Confirmed Type albuterol sulfate 2.5 mg/3 mL 2.5 mg inhalation QID PRN 05/11/18 12/31/22 History (0.083 %) solution for nebulization Shortness Of Breath omeprazole 20 mg tablet,delayed 40 mg PO HS 05/11/18 12/31/22 History release albuterol sulfate 90 mcg/actuation 2 puff inhalation Q4H PRN 12/31/22 12/31/22 History aerosol inhaler Shortness Of Breath Or Wheezing gabapentin 100 mg capsule 200 mg PO HS 12/31/22 12/31/22 History gabapentin 400 mg capsule 400 mg PO HS 12/31/22 12/31/22 History gabapentin 400 mg capsule 400 mg PO UD 12/31/22 12/31/22 History lisinopril 20 0.5 tab PO QAM 12/31/22 12/31/22 History mg-hydrochlorothiazide 25 mg tablet melatonin 3 mg tablet 3 mg PO HS 12/31/22 12/31/22 History metoprolol succinate 25 mg 25 mg PO HS 12/31/22 12/31/22 History tablet,extended release 24 hr Past Med/Surg History Medical History (Updated 12/31/22 @ 14:23 by Valerie Guerrero PA-C) Reactive airway disease Neuropathy Obesity GERD (gastroesophageal reflux disease) HTN (hypertension) Surgical History S/P left knee arthroscopy H/O dilation and curettage History of laminectomy History of tubal ligation Family History Father Heart disease Social History Smoking Status: Never smoker Hx Alcohol Use: No Hx Substance Use: No Preferred Language: Moldovan Communication Ability: Effective Animal Cruelty Investigator Required: No Beliefs That Will Affect Care: None Current Living Situation: Spouse and Family 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 Feels Safe at Home: Yes Assistive Devices: None Review of Systems Review of Systems: All systems reviewed & are unremarkable except as noted in HPI & below Physical Exam Physical Exam: General: +distress, unable to get comfortable in bed secondary to low back pain and left leg pain, obese Head: normocephalic, atraumatic Eyes: conjunctiva non-injected, anicteric ENT: normal inspection external ears, nose, mucous membranes moist Neck: supple, trachea midline Lungs: clear, no respiratory distress, no wheezing/rhonchi/rales CV: RRR, no murmur, no pretibial edema Abd: normal BS, soft, non-tender Back: +tenderness left lower back Ext: no cyanosis, no calf tenderness; +left leg raise to approx 20 degress, +decreased sensation to light touch reported left lateral and medial lower leg compared to RLE, +decreased strength left foot with pedal pushes and pulls noted compared to right side Neuro: A&O x 3, no focal deficits noted, normal affect Skin: warm, dry Results & Data Results & Data Vital Signs (Past 12 Hours) Vital Signs Temp Pulse Pulse Resp BP BP Pulse Ox 12/31/22 12:00 64 14 139/87 96 12/31/22 10:00 93 12/31/22 09:50 62 86 L 12/31/22 09:25 94 12/31/22 08:56 37.0 C 66 19 174/106 H 99 O2 Del Method O2 Flow Rate 12/31/22 12:00 Room Air 12/31/22 10:00 Nasal Cannula 2 12/31/22 09:50 Room Air 12/31/22 09:25 Room Air 12/31/22 08:56 Room Air Laboratory Results Short CBC 12/31/22 Range/Units 09:20 WBC 10.42 (4.8-10.8) K/ul Hgb 12.2 (12.0-16.0) g/dl Hct 38.4 (37.0-47.0) % Plt Count 230 (130-400) K/uL BMP 12/31/22 09:20 Sodium 140 Potassium 3.7 Chloride 107 Carbon Dioxide 28 BUN 13 Creatinine 0.86 Glucose 99 Calcium 9.2 Liver Function 12/31/22 Range/Units 09:20 Total Bilirubin 0.3 (0.2-1.0) mg/dl AST 15 (13-39) U/L ALT 12 (7-52) U/L Alkaline Phosphatase 68 (34-104) U/L Albumin 3.7 (3.4-5.0) gm/dl Urine 12/31/22 Range/Units Unknown Urine Color Yellow Urine Appearance Clear (Clear) Urine pH 7.5 (4.5-7.5) Ur Specific [place] 1.010 (1.000-1.030) Urine Protein Negative (Negative) Urine Glucose (UA) Negative (Negative) Diagnostic Findings Lumbar Spine X-Ray 12/31/22 09:11 XR lumbar spine min 4V routine CLINICAL HISTORY: low back pain, radiating down l leg COMPARISON STUDY: Lumbar spine radiographs November 02, 2013. Lumbar spine MRI November 08, 2013. FINDINGS: No lumbar spine fracture is present. There is slight anterolisthesis of L4 on L5. There is mild to moderate multilevel disc space narrowing and osteophytosis. There is moderate multilevel facet arthrosis within the lumbar spine. IMPRESSION: 1. No lumbar spine fracture. 2. Moderate multilevel degenerative changes within the lumbar spine. ACT 112: Negative or not required by law. Electronically signed by: Kenneth Lakhani M.D. 12/31/2022 9:56 AM Lumbar Spine MRI 12/31/22 09:47 LUMBAR SPINE MRI HISTORY: hx laminectomy, low back pain, L leg weakness TECHNIQUE: Multiplanar multisequence MRI of the lumbar spine was performed without the use of contrast. COMPARISON: Lumbar spine radiograph 12/31/2022. Lumbar spine MRI 11/08/2013. FINDINGS: For the purpose of the report the L5-S1 disc space will be located on axial image 25 of 27. Motion artifact. There is mild levoscoliosis. There is 3 mm of retrolisthesis of L5 on S1. This remains unchanged. There is moderate disc space narrowing within the lower thoracic spine. There is mild disc space narrowing at L1-L2, L2-L3, and L4-5. There is moderate disc space narrowing at L5-S1. [id number] facet degenerative changes seen within the lumbar spine. The visualized sacrum is intact. No acute fractures identified. Lumbar subcutaneous edema is noted. The conus terminates at the L1-L2 disc space level. Paravertebral soft tissues appear unremarkable. Small broad-based posterior disc bulges within the lower thoracic spine resulting in mild central canal narrowing. L1-L2: Broad-based posterior disc bulge with ligamentum and facet hypertrophy resulting in mild central canal and mild right neural foraminal narrowing. There is moderate to severe left-sided neural foraminal narrowing due to the disc bulge and facet hypertrophy. L2-L3: Broad-based posterior disc bulge with ligamentum and facet hypertrophy resulting in [id number] central canal and neural foraminal narrowing. The AP diameter of the central canal is approximately 8 mm. L3-L4: Broad-based posterior disc bulge with ligamentum and facet hypertrophy resulting in [id number] central canal narrowing with an AP diameter of 8 mm. There is severe stenosis of the lateral recesses due to the disc bulge and facet hypertrophy. There is moderate to severe bilateral neural foraminal narrowing. Small annular tear is noted at the posterior disc bulge. L4-L5: Broad-based posterior disc bulge asymmetric to the right with ligamentum and facet hypertrophy resulting in mild central canal narrowing. There is moderate left and moderate to severe right neural foraminal narrowing. L5-S1: Broad-based posterior disc bulge with a left paracentral focal disc protrusion measuring 5 mm. This abuts and displaces the transiting left S1 nerve root and results in mild to moderate left-sided central canal narrowing and moderate to severe left-sided neural foraminal narrowing. There is mild right- sided neural foraminal narrowing. IMPRESSION: 1. A 5 mm left paracentral focal disc protrusion at L5-S1 which abuts and displaces the transiting left S1 nerve roots. 2. Additional multilevel degenerative changes within the lumbar spine with associated central canal and neural foraminal narrowing as described above. 3. No acute fractures. 4. Mild levoscoliosis. ACT 112: Negative or not required by law. Electronically signed by: Travis Kaiser M.D. 12/31/2022 11:54 AM Supervising Physician Co-Signing Physician Notes Patient was seen and examined at bedside for left lower back pain with radiation to RLE that started about 2 days ago and progressively worsened. Of note, about 2 weeks ago while dressing patient's LLE gave out and patient fell. Blood pressure noted to be on the higher side likely secondary to pain. Patient with no issues with bowel or bladder control. Admitting labs and MRI L- spine noted. Continue home blood pressure medication, as needed blood pressure medication. Pain management, orthospine consult, await further recommendation. Bowel regimen. on Exam GENERAL: Alert and oriented x3. mild distress due to pain, on RA. HEENT: No pallor, no icterus. Pupils equal, round and reactive to light. Oral mucosa moist. NECK: No JVD, no neck masses. HEART: S1 and S2 heard. Regular rate and rhythm. No murmur, no gallop. RESPIRATORY SYSTEM: Normal AP diameter. No accessory muscle use. No wheezing, no crackles. ABDOMEN: Soft, bowel sounds present, nontender, no distention. CENTRAL NERVOUS SYSTEM: No facial droop. Speech is clear. Obeys simple commands. Moves extremities. EXTREMITIES: No edema. Patient lying on right lateral side, in pain w/ movement, unable to perform SLR T. I have seen and examined the patient and have discussed the case with the provider above. I agree with the assessment and plan as stated.
[2022-12-31 13:46] LABS: Appearance Urine Clear (Clear); Bilirubin Urine Negative (Negative); Blood Urine Negative (Negative); Color Urine Yellow; Glucose Urine UA Negative (Negative); Ketones Urine Negative (Negative); Leukocyte Esterase Urine Negative (Negative); Nitrite Urine Negative (Negative); Protein Urine Negative (Negative); Urobilinogen Urine Negative (Negative); pH Urine 7.5 (4.5-7.5)
[2022-12-31] MEDS ORDERED: ONDANSETRON INJ 2 MG/ML 2 ML VIAL IV PRN (16:53)
[2022-12-31] MEDS ORDERED: MAGNESIUM HYDROXIDE SUSP 30 ML UDC PO PRN (16:53)
[2022-12-31] MEDS ORDERED: ALBUTEROL HFA 8 GM INHALER INH PRN (16:53)
[2022-12-31] MEDS ORDERED: MoRPHine SULFATE 4 MG/ML 1 ML CARP\\VIAL IV PRN (16:53)
[2022-12-31] MEDS: oxyCODONE HCL IR 5 MG TAB (IMMEDIATE RELEASE) PO PRN ×2 (17:07→23:16)
[2022-12-31] MEDS: ACETAMINOPHEN 500 MG TAB PO SCH (17:07)
[2022-12-31] MEDS: MELATONIN 3 MG TAB PO SCH (20:29)
[2022-12-31] MEDS: METOPROLOL SUCC 25MG EXT REL TAB PO SCH (20:29)
[2022-12-31] MEDS: PANTOprazole 40 MG TAB PO SCH (20:29)
[2022-12-31] MEDS: GABAPENTIN 600 MG TAB PO SCH (20:29)
[2022-12-31] MEDS ORDERED: GABAPENTIN 100 MG CAP PO SCH (21:00)
[2023-01-01] MEDS: ACETAMINOPHEN 500 MG TAB PO SCH ×3 (00:24→17:21)
[2023-01-01] MEDS ORDERED: KETOROLAC TROMETHAMINE 15 MG/ML VIAL IV ONE (03:16)
[2023-01-01] MEDS ORDERED: POTASSIUM CHLORIDE CRTAB 20 MEQ TABCR PO STA (03:17)
[2023-01-01 07:28] LABS: Hematocrit (blood only) 38.1 % (37.0-47.0); Hemoglobin 12.2 g/dl (12.0-16.0); Mean Corpuscular Hemoglobin 30.1 pg (25.0-34.0); Mean Corpuscular Volume 94.1 fL (80.0-100.0); Mean Platelet Volume 10.2 fL (9.4-12.4); Platelet Count 253 K/uL (130-400); RDW Coefficient of Variation 13.6 % (11.5-14.5); RDW Standard Deviation 47.2 fL (36.4-46.3); Red Blood Count 4.05 M/uL (4.20-5.40); White Blood Count 12.42 K/ul (4.8-10.8)
[2023-01-01 08:01] LABS: BUN Creatinine Ratio 16.3 (10-20); Calcium 9.2 mg/dl (8.6-10.3); Creatinine Clr Calc Pharmacy 71.9 ml/min; Est GFR (African American) 70.7 ml/min; Potassium 4.2 mmol/L (3.5-5.1)
[2023-01-01] MEDS: LISINOPRIL/HCTZ 20/25MG 1 TAB PO SCH (08:27)
[2023-01-01] MEDS: LIDOCAINE 5% 1 PATCH TD SCH (08:28)
[2023-01-01] MEDS: oxyCODONE HCL IR 5 MG TAB (IMMEDIATE RELEASE) PO PRN ×3 (08:28→23:18)
--- NOTE | 2023-01-01 09:03 | Hospitalist Progress Note ---
Date of Service January 01, 2023 Assessment & Plan (1) Lumbar back pain with radiculopathy affecting left lower extremity: (2) HTN (hypertension): (3) Prediabetes: (4) Reactive airway disease: (5) GERD (gastroesophageal reflux disease): Plan Patient is 62 y/o F with PMH significant for HTN, prediabetes, GERD, obesity, reactive airway disease admitted with intractable back and left leg pain x2 days. History of lumbar surgery in the past. Lumbar back pain with radiculopathy affecting left lower extremity: Lumbar xray: No lumbar spine fracture. Moderate multilevel degenerative changes within the lumbar spine. Lumbar spine MRI noted disc protrusion at L5-S1 which abuts and displaces the transiting left S1 nerve roots as well as central canal and neural foraminal narrowing. In ER given dexamethasone 10mg IV, morphine total 8mg IV, lidocaine patch Bladder scan also without signs of retention Difficulty ambulating in ER secondary to LLE pain Fall precautions Continue home gabapentin Scheduled Tylenol and lidocaine patch. PRN oxycodone, IV morphine for moderate-severe pain Consult ortho spine-appreciate recs -manage conservatively at this time, would like to avoid surgical intervention -Recommending evaluation with interventional pain management for trial of epidural injections -if these are not effective or she fails to improve surgery would be considered- would be revision decompression, possible fusion L5-S1. HTN (hypertension): In ER hypertensive but it got better with pain control Pain control as above Continue home lisinopril/HCTZ, metoprolol Currently wnl Prediabetes A1c: 5.8 on 06/25/22 Diet controlled Monitor AM glucose labs Reactive airway disease: No signs acute exacerbation Continue albuterol as needed GERD (gastroesophageal reflux disease): Continue PPI Diet: Regular DVT Prophylaxis: SCDs for now Full Code as per admission discussion with pt Dispo: consider pt/ot once more stable Admission and Anticipated Discharge Date Admission Date: December 31, 2022 Subjective Pt seen in the AM. States that she is having pain with movements. Was just seen by the ortho spine surgeon. Later notified that pt had noted that her left foot was in an inverted position. Otherwise denied chest pain, SOB, abd pain, N/V. Review of Systems Review of Systems: All systems reviewed & are unremarkable except as noted in Subjective Physical Exam Physical Exam: General: Alert, oriented. Skin: No noted rashes or bruises Psych: Appropriate mood and affect Neuro: Painful to move her lower extremities HEENT: NC/AT Chest: Nontender to palpation. CV: RRR Resp: Breath sounds clear bilaterally, no increased effort of breathing. Abdomen: Soft, nontender, nondistended. Extremities: No edema in lower extremities bilaterally, difficulty with moving the left leg. Results & Data Results & Data Vital Signs (Past 12 Hours) Vital Signs Temp Pulse Resp BP Pulse Ox O2 Del Method 01/01/23 07:33 36.8 C 63 18 131/76 93 Room Air 12/31/22 21:46 37.0 C 67 18 134/86 96 Room Air
[2023-01-01] MEDS: POLYETHYLENE (MIRALAX) 17 GM PACK PO PRN (10:47)
--- NOTE | 2023-01-01 11:44 | Orthopedic Consultation ---
Date of Consultation January 01, 2023 Assessment & Plan (1) Lumbar back pain with radiculopathy affecting left lower extremity: Assessment recurrent lumbar disc herniation L5-S1 left. Plan at this time discussed today with the patient review MRI findings and recommendations. She does have evidence of multilevel spinal stenosis centrally at L2-L3 and L3-L4 with marked appear to be L4-5 on the right. There is signs of anterolisthesis L4-5. L5-S1 there is evidence of recurrent disc herniation on the left with subarticular extension. There is clearly compression traversing S1 nerve root. This is consistent with her clinical presentation. Plan at this point we would like to avoid surgical invention. I will ask her to undergo evaluation with interventional pain management for trial of epidural injections. Clearly if these are not effective or she fails to improve we may have to consider surgery. In her case it would require revision decompression and most likely fusion L5- S1. History of Present Illness Reason for Consultation: Left leg radiculopathy Attending Physician: Amberly Garcia MD History of Present Illness This very pleasant 62-year-old female that states she came emergency room yesterday with resting left leg pain. She states the symptoms began last Tuesday. She denies any specific trauma fall or event. 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 The symptoms of her left buttock posterior lateral thigh into the bottom of her foot. She has a history of undergoing a laminotomy L5-S1 left 18 years ago and has some modest residual numbness to the lateral aspect of her left foot. Right lower extremity symptomatic. Ambulation is quite challenging secondary to pain. Allergies Allergy/AdvReac Type Severity Reaction Status Date / Time Sulfa (Sulfonamide Allergy Unknown Unknown Verified 05/11/18 07:06 Antibiotics) Home Medications Medication Instructions Recorded Confirmed Type albuterol sulfate 2.5 mg/3 mL 2.5 mg inhalation QID PRN 05/11/18 12/31/22 History (0.083 %) solution for nebulization Shortness Of Breath omeprazole 20 mg tablet,delayed 40 mg PO HS 05/11/18 12/31/22 History release albuterol sulfate 90 mcg/actuation 2 puff inhalation Q4H PRN 12/31/22 12/31/22 History aerosol inhaler Shortness Of Breath Or Wheezing gabapentin 100 mg capsule 200 mg PO HS 12/31/22 12/31/22 History gabapentin 400 mg capsule 400 mg PO HS 12/31/22 12/31/22 History gabapentin 400 mg capsule 400 mg PO UD 12/31/22 12/31/22 History lisinopril 20 0.5 tab PO QAM 12/31/22 12/31/22 History mg-hydrochlorothiazide 25 mg tablet melatonin 3 mg tablet 3 mg PO HS 12/31/22 12/31/22 History metoprolol succinate 25 mg 25 mg PO HS 12/31/22 12/31/22 History tablet,extended release 24 hr Patient History Medical History Reactive airway disease Neuropathy Obesity GERD (gastroesophageal reflux disease) HTN (hypertension) Surgical History S/P left knee arthroscopy H/O dilation and curettage History of laminectomy History of tubal ligation Family History Father Heart disease Social History Smoking Status: Never smoker Hx Alcohol Use: No Hx Substance Use: No Preferred Language: Bolivian Communication Ability: Effective Cylinder Checker Required: No Beliefs That Will Affect Care: None Current Living Situation: Spouse and Family Current Living Situation Comment: Son 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 Left there is deficits to the dorsiflexion. She has tension signs in left compared to right. Sensory is diminished on the left. Results & Data Vital Signs (Past 12 Hours) Vital Signs Temp Pulse Resp BP Pulse Ox O2 Del Method 01/01/23 07:33 36.8 C 63 18 131/76 93 Room Air
[2023-01-01] MEDS: GABAPENTIN 400 MG CAP PO SCH (14:16)
[2023-01-01] MEDS: MELATONIN 3 MG TAB PO SCH (20:12)
[2023-01-01] MEDS: GABAPENTIN 600 MG TAB PO SCH (20:12)
[2023-01-01] MEDS: PANTOprazole 40 MG TAB PO SCH (20:12)
[2023-01-01] MEDS: METOPROLOL SUCC 25MG EXT REL TAB PO SCH (20:13)
[2023-01-01] MEDS: MoRPHine SULFATE 4 MG/ML 1 ML CARP\\VIAL IV PRN (21:21)
[2023-01-02] MEDS: ACETAMINOPHEN 500 MG TAB PO SCH ×3 (01:33→17:31)
[2023-01-02 06:22] LABS: Basophils # (auto) 0.05 K/uL (0.00-0.20); Basophils % (auto) 0.4 %; Eosinophils # (auto) 0.22 K/uL (0.00-0.50); Eosinophils % (auto) 1.8 %; Hematocrit (blood only) 37.6 % (37.0-47.0); Hemoglobin 11.9 g/dl (12.0-16.0); Immature Granulocytes # (auto) 0.04 K/uL (0.01-0.20); Immature Granulocytes % (auto) 0.3 %; Lymphocytes # (auto) 2.91 K/uL (1.20-3.40); Lymphocytes % (auto) 23.4 %; Mean Corpuscular Hgb Conc 31.6 g/dL (32.0-36.0); Mean Corpuscular Volume 94.7 fL (80.0-100.0); Mean Platelet Volume 10.2 fL (9.4-12.4); Monocytes # (auto) 0.84 K/uL (0.11-0.59); Monocytes % (auto) 6.8 %; Neutrophils # (auto) 8.35 K/uL (1.40-6.50); Neutrophils % (auto) 67.3 %; Platelet Count 228 K/uL (130-400); RDW Coefficient of Variation 13.7 % (11.5-14.5); RDW Standard Deviation 47.7 fL (36.4-46.3); Red Blood Count 3.97 M/uL (4.20-5.40); White Blood Count 12.41 K/ul (4.8-10.8)
[2023-01-02 06:56] LABS: BUN Creatinine Ratio 16.7 (10-20); Creatinine Clr Calc Pharmacy 78.3 ml/min; Est GFR (African American) 78.3 ml/min; Est GFR (Non-African American) 67.6 ml/min; Phosphorus 3.7 mg/dl (2.5-4.9); Potassium 4.3 mmol/L (3.5-5.1)
[2023-01-02] MEDS: POLYETHYLENE (MIRALAX) 17 GM PACK PO PRN (08:02)
[2023-01-02] MEDS: oxyCODONE HCL IR 5 MG TAB (IMMEDIATE RELEASE) PO PRN ×2 (08:02→17:34)
[2023-01-02] MEDS: LIDOCAINE 5% 1 PATCH TD SCH (08:03)
[2023-01-02] MEDS: LISINOPRIL/HCTZ 20/25MG 1 TAB PO SCH (08:03)
--- NOTE | 2023-01-02 12:01 | Hospitalist Progress Note ---
Date of Service January 02, 2023 Assessment & Plan (1) Lumbar back pain with radiculopathy affecting left lower extremity: (2) HTN (hypertension): (3) Prediabetes: (4) Reactive airway disease: (5) GERD (gastroesophageal reflux disease): Plan Patient is 62 y/o F with PMH significant for HTN, prediabetes, GERD, obesity, reactive airway disease admitted with intractable back and left leg pain x2 days. History of lumbar surgery in the past. Lumbar back pain with radiculopathy affecting left lower extremity: Lumbar xray: No lumbar spine fracture. Moderate multilevel degenerative changes within the lumbar spine. Lumbar spine MRI noted disc protrusion at L5-S1 which abuts and displaces the transiting left S1 nerve roots as well as central canal and neural foraminal narrowing. In ER given dexamethasone 10mg IV, morphine total 8mg IV, lidocaine patch Bladder scan also without signs of retention Difficulty ambulating in ER secondary to LLE pain Fall precautions Continue home gabapentin Scheduled Tylenol and lidocaine patch. PRN oxycodone, IV morphine for moderate-severe pain Consult ortho spine-appreciate recs -manage conservatively at this time, would like to avoid surgical intervention -Recommending evaluation with interventional pain management for trial of epidural injections -if these are not effective or she fails to improve surgery would be considered- would be revision decompression, possible fusion L5-S1. 01/02- steroids added by ortho, made NPO after midnight in case procedure needed, flexeril 10mg TID prn added as well. HTN (hypertension): In ER hypertensive but it got better with pain control Pain control as above Continue home lisinopril/HCTZ, metoprolol Currently wnl Prediabetes A1c: 5.8 on 06/25/22 Diet controlled Monitor AM glucose labs Reactive airway disease: No signs acute exacerbation Continue albuterol as needed GERD (gastroesophageal reflux disease): Continue PPI Diet: Regular DVT Prophylaxis: SCDs for now Full Code as per admission discussion with pt Dispo: consider pt/ot once more stable Admission and Anticipated Discharge Date Admission Date: December 31, 2022 Subjective Pt seen in the AM. States that she is still having pain. Mostly with movement. Later notified that pt was not comfortable, oxycodone helps temporarily. Review of Systems Review of Systems: All systems reviewed & are unremarkable except as noted in Subjective Physical Exam Physical Exam: General: Alert, oriented. Occasionally twitching in pain Skin: No noted rashes or bruises Psych: Appropriate mood and affect Neuro: Painful to move her lower extremities HEENT: NC/AT Chest: Nontender to palpation. CV: RRR Resp: Breath sounds clear bilaterally, no increased effort of breathing. Abdomen: Soft, nontender, nondistended. Extremities: No edema in lower extremities bilaterally, difficulty with moving the left leg. Results & Data Results & Data Vital Signs (Past 12 Hours) Vital Signs Temp Pulse Resp BP Pulse Ox O2 Del Method 01/02/23 07:33 36.9 C 73 18 159/95 H 93 Room Air
[2023-01-02] MEDS: GABAPENTIN 400 MG CAP PO SCH (12:31)
[2023-01-02] MEDS: MoRPHine SULFATE 4 MG/ML 1 ML CARP\\VIAL IV PRN (12:31)
[2023-01-02] MEDS ORDERED: CYCLOBENZAPRINE HCL 10 MG TAB PO STA (12:47)
[2023-01-02] MEDS: dexAMETHasone 4 MG TAB PO SCH ×2 (15:17→21:35)
--- NOTE | 2023-01-02 17:37 | Electrocardiogram Report ---
Test Reason : Blood Pressure : / mmHG Vent. Rate : 065 BPM Atrial Rate : 065 BPM P-R Int : 178 ms QRS Dur : 096 ms QT Int : 410 ms P-R-T Axes : 020 029 046 degrees QTc Int : 426 ms Normal sinus rhythm Normal ECG When compared with ECG of 15-OCT-2022 03:56, No significant change was found Confirmed by Elkin Kennedy ([id number]) on 01/02/2023 5:37:33 PM Referred By: REFERRED SELF Confirmed By:Elkin Kennedy
[2023-01-02] MEDS: METOPROLOL SUCC 25MG EXT REL TAB PO SCH (21:35)
[2023-01-02] MEDS: CYCLOBENZAPRINE HCL 10 MG TAB PO PRN (21:35)
[2023-01-02] MEDS: GABAPENTIN 600 MG TAB PO SCH (21:35)
[2023-01-02] MEDS: MELATONIN 3 MG TAB PO SCH (21:35)
[2023-01-02] MEDS: PANTOprazole 40 MG TAB PO SCH (21:36)
[2023-01-03] MEDS: ACETAMINOPHEN 500 MG TAB PO SCH ×3 (00:42→18:29)
[2023-01-03] MEDS: dexAMETHasone 4 MG TAB PO SCH ×3 (06:07→20:53)
[2023-01-03 06:49] LABS: Hematocrit (blood only) 44.2 % (37.0-47.0); Hemoglobin 14.5 g/dl (12.0-16.0); Mean Corpuscular Hemoglobin 29.7 pg (25.0-34.0); Mean Corpuscular Hgb Conc 32.8 g/dL (32.0-36.0); Mean Corpuscular Volume 90.6 fL (80.0-100.0); Mean Platelet Volume 9.6 fL (9.4-12.4); Platelet Count 295 K/uL (130-400); RDW Coefficient of Variation 13.2 % (11.5-14.5); RDW Standard Deviation 43.5 fL (36.4-46.3); Red Blood Count 4.88 M/uL (4.20-5.40); White Blood Count 10.22 K/ul (4.8-10.8)
[2023-01-03 07:13] LABS: BUN Creatinine Ratio 19.5 (10-20); Calcium 9.5 mg/dl (8.6-10.3); Est GFR (African American) 87.6 ml/min; Est GFR (Non-African American) 75.6 ml/min; Magnesium 2.2 mg/dl (1.7-2.4); Phosphorus 3.5 mg/dl (2.5-4.9); Potassium 3.9 mmol/L (3.5-5.1)
[2023-01-03 07:19] LABS: Basophils # (auto) 0.01 K/uL (0.00-0.20); Basophils % (auto) 0.1 %; Immature Granulocytes # (auto) 0.04 K/uL (0.01-0.20); Immature Granulocytes % (auto) 0.4 %; Lymphocytes # (auto) 0.73 K/uL (1.20-3.40); Lymphocytes % (auto) 7.1 %; Monocytes # (auto) 0.14 K/uL (0.11-0.59); Monocytes % (auto) 1.4 %
[2023-01-03] MEDS: LIDOCAINE 5% 1 PATCH TD SCH (07:51)
[2023-01-03] MEDS: LISINOPRIL/HCTZ 20/25MG 1 TAB PO SCH (07:52)
--- NOTE | 2023-01-03 11:08 | Pain Management Consultation ---
Date of Consultation January 03, 2023 Assessment & Plan (1) Lumbar disc herniation with radiculopathy: Plan 1. Discussed left L5-S1 transforaminal epidural steroid injection with the patient. We discussed the risk, benefits, expectations. Patient wishes to defer interventional pain management at this time and opts for surgery. Given degree of EHL weakness and inability to ambulate agree with this plan. Spoke with Dr. Ayden Lowry who is already consulted on the case for surgical plans. 2. Continue with current pain medications at this time. 3. Would be happy to see the patient as an outpatient should she desire further pain management consultation. 4. Please call with any questions, will sign off at this time. History of Present Illness Attending Physician: Ramon Sofia MD History of Present Illness 62-year-old female with 20-year history of low back pain and left-sided radicular symptoms (more symptomatic than axial pain at this time). She reports [address] Lowry performed a left L5-S1 hemilaminectomy with resolution of her pain until recent. She reports no injury but presented to the [facility] emergency room on 12/31/2022 with recurrence of pain for 2 days. She reports that prior to her hemilaminectomy Dr. Monroy performed 2 epidural steroid injections with out benefit prompting surgical intervention. She reports 5 to [address] Francis performed a caudal epidural steroid injection with out benefit. She reports that her pain ranges between 6-10 out of 10 currently 8 out of 10. She reports increasing weakness over her left lower extremity since her arrival. She denies bowel or bladder incontinence but reports inability to ambulate secondary to pain and motor weakness. She denies saddle anesthesia fever chills or night sweats at this time. Pain is characterized as sharp shooting electric in character and has only had minimal benefit from interventions performed thus far this hospitalization. She denies right-sided pain at this time. Pain Assessment Full Body Front + Back: 2 1. 2. 3. [facility] Combined Pain Scale: 8-Debilitating - Impairs activity. Can't maintain a conversation. Pain scale - at its best (0-10): 6 Pain scale - at its worst (0-10): 10 Allergies Allergy/AdvReac Type Severity Reaction Status Date / Time Sulfa (Sulfonamide Allergy Unknown Unknown Verified 05/11/18 07:06 Antibiotics) Home Medications Medication Instructions Recorded Confirmed Type albuterol sulfate 2.5 mg/3 mL 2.5 mg inhalation QID PRN 05/11/18 12/31/22 History (0.083 %) solution for nebulization Shortness Of Breath omeprazole 20 mg tablet,delayed 40 mg PO HS 05/11/18 12/31/22 History release albuterol sulfate 90 mcg/actuation 2 puff inhalation Q4H PRN 12/31/22 12/31/22 History aerosol inhaler Shortness Of Breath Or Wheezing gabapentin 100 mg capsule 200 mg PO HS 12/31/22 12/31/22 History gabapentin 400 mg capsule 400 mg PO HS 12/31/22 12/31/22 History gabapentin 400 mg capsule 400 mg PO UD 12/31/22 12/31/22 History lisinopril 20 0.5 tab PO QAM 12/31/22 12/31/22 History mg-hydrochlorothiazide 25 mg tablet melatonin 3 mg tablet 3 mg PO HS 12/31/22 12/31/22 History metoprolol succinate 25 mg 25 mg PO HS 12/31/22 12/31/22 History tablet,extended release 24 hr Pain History Pain Intensity Pain scale - at its best (0-10): 6 Pain scale - at its worst (0-10): 10 Patient History Medical History (Updated 01/03/23 @ 11:05 by Ana Bright DO) Lumbar disc herniation with radiculopathy Left L5-S1 Reactive airway disease Neuropathy Obesity GERD (gastroesophageal reflux disease) HTN (hypertension) Surgical History (Updated 01/03/23 @ 11:05 by Ana Bright DO) S/P left knee arthroscopy H/O dilation and curettage History of laminectomy Left L5-S1 History of tubal ligation Family History Father Heart disease Social History Smoking Status: Never smoker Hx Alcohol Use: No Hx Substance Use: No Preferred Language: Serbian Communication Ability: Effective Programmer Required: No Beliefs That Will Affect Care: None Current Living Situation: Spouse and Family Current Living Situation Comment: Son 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 Recent memory appears grossly intact Eyes: Pupils are equally round and reactive to light with normal size pupils, eyelids appear normal Ear, nose, mouth, and throat: Moist nasal and oral membranes, lips and tongues appear normal, no external ear abnormalities are noted Neck: The trachea is midline without deviation and no thyromegaly is noted Respiratory: Normal respiratory effort without distress, no audible wheezes or rhonchi CV: Normal S1 and S2, 2+ dorsalis pedis and posterior tibial pulses bilaterally Chest: Deferred Musculoskeletal: Head is normocephalic and atraumatic, gait not observed, patient has difficulty logrolling in bed Cervical: Lordotic curve: Normal Range of motion is normal with extension, flexion, side-bending, rotation Strength: Strength is grossly equal bilaterally with 5 out of 5 strength in all planes Lumbar: Lordotic curve: Loss of typical lumbar lordosis with a well-healed surgical incision Range of motion is decreased in all planes Tenderness: Moderately tender over the axial midline left greater than right Facet provocation: Negative bilaterally Straight leg raise: Positive on the left negative on the right Step-off injuries: None Strength: Strength is equal in all planes with 5 out of 5 strength on the right side. Left side 4+ out of 5 quadriceps, anterior tibialis, gastroc, 3 out of 5 EHL Sensation of lower extremities: Intact bilaterally Deep tendon reflexes: Rated at 1+ in right-sided L4 and S1. 1+ left-sided L4 no elicited reflex left S1 Myofascial spasm: Moderate lumbar paraspinal musculature spasm. A few scattered discrete trigger points noted Greater trochanters: Nontender bilaterally Sacroiliac joints: Nontender bilaterally Pathologic reflexes noted: None Skin: No rashes, lesions, ulcers, or induration noted Neuro: No nystagmus noted, the tongue is midline, the patient is able to rotate their head bilaterally : Deferred Results (Pain Clinic) Diagnostic Review MRI: enhanced, reports reviewed, images reviewed and findings discussed with patient MRI Findings: 12/31/22 LUMBAR SPINE MRI HISTORY: hx laminectomy, low back pain, L leg weakness TECHNIQUE: Multiplanar multisequence MRI of the lumbar spine was performed without the use of contrast. COMPARISON: Lumbar spine radiograph 12/31/2022. Lumbar spine MRI 11/08/2013. FINDINGS: For the purpose of the report the L5-S1 disc space will be located on axial image 25 of 27. Motion artifact. There is mild levoscoliosis. There is 3 mm of retrolisthesis of L5 on S1. This remains unchanged. There is moderate disc space narrowing within the lower thoracic spine. There is mild disc space narrowing at L1-L2, L2-L3, and L4-5. There is moderate disc space narrowing at L5-S1. [id number] facet degenerative changes seen within the lumbar spine. The visualized sacrum is intact. No acute fractures identified. Lumbar subcutaneous edema is noted. The conus terminates at the L1-L2 disc space level. Paravertebral soft tissues appear unremarkable. Small broad-based posterior disc bulges within the lower thoracic spine resulting in mild central canal narrowing. L1-L2: Broad-based posterior disc bulge with ligamentum and facet hypertrophy resulting in mild central canal and mild right neural foraminal narrowing. There is moderate to severe left-sided neural foraminal narrowing due to the disc bulge and facet hypertrophy. L2-L3: Broad-based posterior disc bulge with ligamentum and facet hypertrophy resulting in [id number] central canal and neural foraminal narrowing. The AP diameter of the central canal is approximately 8 mm. L3-L4: Broad-based posterior disc bulge with ligamentum and facet hypertrophy resulting in itaz-[id number] central canal narrowing with an AP diameter of 8 mm. There is severe stenosis of the lateral recesses due to the disc bulge and facet hypertrophy. There is moderate to severe bilateral neural foraminal narrowing. Small annular tear is noted at the posterior disc bulge. L4-L5: Broad-based posterior disc bulge asymmetric to the right with ligamentum and facet hypertrophy resulting in mild central canal narrowing. There is moderate left and moderate to severe right neural foraminal narrowing. L5-S1: Broad-based posterior disc bulge with a left paracentral focal disc protrusion measuring 5 mm. This abuts and displaces the transiting left S1 nerve root and results in mild to moderate left-sided central canal narrowing and moderate to severe left-sided neural foraminal narrowing. There is mild right- sided neural foraminal narrowing. IMPRESSION: 1. A 5 mm left paracentral focal disc protrusion at L5-S1 which abuts and displaces the transiting left S1 nerve roots. 2. Additional multilevel degenerative changes within the lumbar spine with associated central canal and neural foraminal narrowing as described above. 3. No acute fractures. 4. Mild levoscoliosis.
--- NOTE | 2023-01-03 12:43 | Orthopedic Progress Note ---
Date of Service January 03, 2023 Assessment & Plan (1) Lumbar disc herniation with radiculopathy: Plan: Assessment recurrent lumbar disc herniation L5-S1 left. Plan at this time she has not responded to bedrest and medication. She has progressive neurodeficit has considered epidural injections but after discussion feels this will not provide reasonable relief or reverse her neural decline and would like pursue surgical intervention. This is completely reasonable in light of her presentation. Would require a decompression fusion L5-S1. She is had a previous discectomy at this level and would require aggressive facetectomy and complete discectomy to adequately decompress the nerve root avoid the risk of recurrent disc herniation. We did discuss her spinal stenosis and facet hypertrophy at the remaining levels of the lumbar spine. We both agree that continued observation is warranted as this is not contributing to her symptom complex. Risk benefits pros cons alternatives were outlined in detail and will be made n.p.o. after midnight plan for surgery tomorrow. Admission and Anticipated Discharge Date Admission Date: January 02, 2023 Subjective Patient continues with severe left leg pain as have marked inability to ambulate without two-person assist. She is noting progressive weakness. The pain is not controlled despite IV narcotics and steroids. The right lower extremity is asymptomatic. Physical Exam Physical Exam: On exam she is currently in bed with her legs propped up. She is in obvious discomfort and tearful secondary to her pain. She continues demonstrate tension signs straight leg raising on the left and deficits to dorsiflexion/houses longus on the left. Results & Data Vital Signs (Past 12 Hours) Vital Signs Temp Pulse Resp BP Pulse Ox O2 Del Method 01/03/23 07:19 36.8 C 63 18 125/75 93 Room Air
[2023-01-03] MEDS: GABAPENTIN 400 MG CAP PO SCH (12:51)
[2023-01-03] MEDS: CYCLOBENZAPRINE HCL 10 MG TAB PO PRN ×2 (12:58→20:54)
[2023-01-03] MEDS: MoRPHine SULFATE 4 MG/ML 1 ML CARP\\VIAL IV PRN (12:58)
--- NOTE | 2023-01-03 18:11 | Hospitalist Progress Note ---
Date of Service January 03, 2023 Assessment & Plan (1) Lumbar back pain with radiculopathy affecting left lower extremity: (2) HTN (hypertension): (3) Prediabetes: (4) Reactive airway disease: (5) GERD (gastroesophageal reflux disease): Plan Patient is 62 y/o F with PMH significant for HTN, prediabetes, GERD, obesity, reactive airway disease admitted with intractable back and left leg pain x2 days. History of lumbar surgery in the past. Lumbar back pain with radiculopathy affecting left lower extremity: Lumbar xray: No lumbar spine fracture. Moderate multilevel degenerative changes within the lumbar spine. Lumbar spine MRI noted disc protrusion at L5-S1 which abuts and displaces the transiting left S1 nerve roots as well as central canal and neural foraminal narrowing. In ER given dexamethasone 10mg IV, morphine total 8mg IV, lidocaine patch Bladder scan also without signs of retention Difficulty ambulating in ER secondary to LLE pain Fall precautions Continue home gabapentin Scheduled Tylenol and lidocaine patch. PRN oxycodone, IV morphine for moderate-severe pain Consult ortho spine-appreciate recs -manage conservatively at this time, would like to avoid surgical intervention -Recommending evaluation with interventional pain management for trial of epidural injections -if these are not effective or she fails to improve surgery would be considered- would be revision decompression, possible fusion L5-S1. 01/02- steroids added by ortho, made NPO after midnight in case procedure needed, flexeril 10mg TID prn added as well. 01/03-still remains in pain at the back with radiation to the left leg Appreciate pain therapist input and recommendation She wanted to go for surgery and appreciate orthospine input and recommendation for surgery tomorrow HTN (hypertension): In ER hypertensive but it got better with pain control Pain control as above Continue home lisinopril/HCTZ, metoprolol Blood pressure remains on the upper side at 149/83 Prediabetes A1c: 5.8 on 06/25/22 Diet controlled Monitor AM glucose labs Reactive airway disease: No signs acute exacerbation Continue albuterol as needed No wheezing and/or shortness of breath at rest-we will continue current medication GERD (gastroesophageal reflux disease): Continue PPI Diet: Regular DVT Prophylaxis: SCDs for now Full Code as per admission discussion with pt Dispo: consider pt/ot once more stable Admission and Anticipated Discharge Date Admission Date: January 02, 2023 Subjective 01/03/2023 The patient was seen and examined in medical floor She complains to back pain with radiation to the left leg She was seen by pain therapist and denied to have any injection as was planned before She wants to go for surgery Review of Systems Review of Systems: All systems reviewed and are unremarkable except as noted below Physical Exam Physical Exam: Lying in bed with some distress at the lower back with pain Constitutional: well developed, well nourished, + ill appearing and + obese Eyes: PERRL, conjunctivae normal, anicteric sclerae ENMT: external ear and nose normal, oropharynx normal Neck: trachea midline, no thyromegaly Respiratory: no respiratory distress Auscultation: lungs clear to auscultation bilaterally Cardiovascular: Rate/Rhythm: regular rate and regular rhythm; not tachycardic Heart Sounds: normal S1 and normal S2; no murmur Extremities: + edema (Trace edema bilaterally) Gastrointestinal (Abdomen): Inspection/Auscultation: normal bowel sounds; abdomen not distended Percussion/Palpation: abdomen soft; abdomen nontender Musculoskeletal: No acute arthritis involving any of the joint Neurologic: normal touch/pain/proprioception and moves all extremities; no focal motor deficits Psychiatric: A+Ox3, euthymic affect Lymphatic: no cervical or axillary lymphadenopathy Results & Data Results & Data Vital Signs (Past 12 Hours) Vital Signs Temp Pulse Resp BP BP Pulse Ox O2 Del Method 01/03/23 16:05 36.9 C 92 H 24 149/83 H 93 Room Air 01/03/23 15:21 36.8 C 88 18 117/53 L 92 Room Air 01/03/23 07:19 36.8 C 63 18 125/75 93 Room Air Laboratory Results Short CBC 01/03/23 Range/Units 06:25 WBC 10.22 (4.8-10.8) K/ul Hgb 14.5 (12.0-16.0) g/dl Hct 44.2 (37.0-47.0) % Plt Count 295 (130-400) K/uL BMP 01/03/23 06:25 Sodium 138 Potassium 3.9 Chloride 104 Carbon Dioxide 28 BUN 16 Creatinine 0.82 Glucose 137 H Calcium 9.5 Medications Administered Current Inpatient Medications Acetaminophen (Acetaminophen 500 Mg Tab) 1,000 mg PO Q8H LINDA Stop: 01/30/23 16:59 Last Admin: 01/03/23 07:51 Dose: 1,000 mg Albuterol (Albuterol Hfa 8 Gm Inhaler) 2 puffs INH Q4H PRN PRN Reason: Shortness Of Breath Or Wheezing Stop: 01/30/23 16:52 Cyclobenzaprine HCl (Cyclobenzaprine Hcl 10 Mg Tab) 10 mg PO TID PRN PRN Reason: Muscle Spasm Stop: 02/01/23 20:59 Last Admin: 01/03/23 12:58 Dose: 10 mg Dexamethasone (Dexamethasone 4 Mg Tab) 8 mg PO Q8H [facility] Stop: 02/01/23 14:59 Last Admin: 01/03/23 15:02 Dose: 8 mg Gabapentin (Gabapentin 400 Mg Cap) 400 mg PO DAILY@1200 [facility] Stop: 01/31/23 11:59 Last Admin: 01/03/23 12:51 Dose: 400 mg Gabapentin (Gabapentin 600 Mg Tab) 600 mg PO [facility] Stop: 01/30/23 20:59 Last Admin: 01/02/23 21:35 Dose: 600 mg Lisinopril/HCTZ (Lisinopril/Hctz 20/25mg 1 Tab) 0.5 tab PO QAM [facility] Stop: 01/31/23 08:59 Last Admin: 01/03/23 07:52 Dose: 0.5 tab Lidocaine (Lidocaine 5% 1 Patch) [facility] [place]: 01/31/23 08:59 Last Admin: 01/03/23 07:51 Dose: 1 patch Magnesium Hydroxide (Magnesium Hydroxide Susp 30 Ml Udc) 30 ml PO Q6H PRN PRN Reason: Constipation Stop: 01/30/23 16:52 Melatonin (Melatonin 3 Mg Tab) 3 mg PO [facility] Stop: 01/30/23 20:59 Last Admin: 01/02/23 21:35 Dose: 3 mg Metoprolol Succinate (Metoprolol Succ 25mg Ext Rel Tab) 25 mg PO [facility] Stop: 01/30/23 20:59 Last Admin: 01/02/23 21:35 Dose: 25 mg Miscellaneous (Remove Lidoderm Patch) 1 each N/A DAILY@2100 [facility] Stop: 01/30/23 20:59 Last Admin: 01/02/23 21:36 Dose: 1 each Morphine Sulfate (Morphine Sulfate 4 Mg/Ml 1 Ml Carp\Vial) 4 mg IV Q4H PRN PRN Reason: Pain Stop: 01/15/23 03:16 Last Admin: 01/03/23 12:58 Dose: 4 mg Ondansetron HCl (Ondansetron Inj 2 Mg/Ml 2 Ml Vial) 4 mg IV Q6H PRN PRN Reason: Nausea Stop: 01/30/23 16:52 Oxycodone HCl (Oxycodone Hcl Ir 5 Mg Tab (Immediate Release)) 5 - 10 mg PO QID PRN PRN Reason: Pain Stop: 01/15/23 03:15 Last Admin: 01/02/23 17:34 Dose: 10 mg Pantoprazole Sodium (Pantoprazole 40 Mg Tab) 40 mg PO HS [facility]DA Stop: 01/30/23 20:59 Last Admin: 01/02/23 21:36 Dose: 40 mg Polyethylene Glycol (Polyethylene (Miralax) 17 Gm Pack) 17 gm PO DAILY PRN PRN Reason: Constipation Stop: 01/30/23 16:52 Last Admin: 01/02/23 08:02 Dose: 17 gm
[2023-01-03] MEDS: METOPROLOL SUCC 25MG EXT REL TAB PO SCH (20:53)
[2023-01-03] MEDS: PANTOprazole 40 MG TAB PO SCH (20:53)
[2023-01-03] MEDS: GABAPENTIN 600 MG TAB PO SCH (20:53)
[2023-01-03] MEDS: MELATONIN 3 MG TAB PO SCH (20:54)
[2023-01-03] MEDS: POLYETHYLENE (MIRALAX) 17 GM PACK PO PRN (20:57)
[2023-01-03] MEDS: oxyCODONE HCL IR 5 MG TAB (IMMEDIATE RELEASE) PO PRN (23:12)
[2023-01-04] MEDS: ACETAMINOPHEN 500 MG TAB PO SCH ×3 (00:31→20:22)
[2023-01-04] MEDS: dexAMETHasone 4 MG TAB PO SCH ×2 (06:05→17:13)
[2023-01-04 07:09] LABS: Basophils # (auto) 0.03 K/uL (0.00-0.20); Basophils % (auto) 0.2 %; Hematocrit (blood only) 43.3 % (37.0-47.0); Hemoglobin 14.4 g/dl (12.0-16.0); Immature Granulocytes # (auto) 0.09 K/uL (0.01-0.20); Immature Granulocytes % (auto) 0.5 %; Lymphocytes # (auto) 1.38 K/uL (1.20-3.40); Lymphocytes % (auto) 7.6 %; Mean Corpuscular Hemoglobin 29.7 pg (25.0-34.0); Mean Corpuscular Hgb Conc 33.3 g/dL (32.0-36.0); Mean Corpuscular Volume 89.3 fL (80.0-100.0); Mean Platelet Volume 9.7 fL (9.4-12.4); Monocytes # (auto) 0.56 K/uL (0.11-0.59); Monocytes % (auto) 3.1 %; Neutrophils # (auto) 16.08 K/uL (1.40-6.50); Neutrophils % (auto) 88.6 %; Platelet Count 317 K/uL (130-400); RDW Coefficient of Variation 13.5 % (11.5-14.5); RDW Standard Deviation 44.2 fL (36.4-46.3); Red Blood Count 4.85 M/uL (4.20-5.40); White Blood Count 18.14 K/ul (4.8-10.8)
[2023-01-04 07:46] LABS: BUN Creatinine Ratio 28.2 (10-20); Calcium 9.6 mg/dl (8.6-10.3); Creatinine Clr Calc Pharmacy 90.4 ml/min; Est GFR (African American) 93.1 ml/min; Est GFR (Non-African American) 80.3 ml/min; Magnesium 2.3 mg/dl (1.7-2.4); Phosphorus 3.7 mg/dl (2.5-4.9); Potassium 4.3 mmol/L (3.5-5.1)
[2023-01-04] MEDS: LISINOPRIL/HCTZ 20/25MG 1 TAB PO SCH (09:52)
[2023-01-04] MEDS: LIDOCAINE 5% 1 PATCH TD SCH ×3 (09:53→21:52)
[2023-01-04] MEDS: GABAPENTIN 400 MG CAP PO SCH (12:00)
--- NOTE | 2023-01-04 14:13 | Anesthesiology Consultation ---
Date of Service January 04, 2023 Assessment & Plan Chart Review Chart Review: Acceptable Risk for Surgery and Patient NOT seen in Pre Admission Testing Consults Requested none ASA ASA3 Proposed Anesthesia Anesthesia Type: General History Surgery Operation Date: 01/04/23 13:35 Proposed Procedures p L5-S1 Lumbar Decompression Fusion - Haresh Lowry DO Height/Weight Height: 5 ft 5 in Weight: 110.9 kg Allergies Allergy/AdvReac Type Severity Reaction Status Date / Time Sulfa (Sulfonamide Allergy Unknown Unknown Verified 05/11/18 07:06 Antibiotics) Medications Home Medications Medication Instructions Recorded Confirmed Last Taken albuterol sulfate 2.5 mg/3 mL 2.5 mg inhalation QID PRN 05/11/18 12/31/22 Unknown (0.083 %) solution for nebulization Shortness Of Breath omeprazole 20 mg tablet,delayed 40 mg PO HS 05/11/18 12/31/22 12/30/22 release albuterol sulfate 90 mcg/actuation 2 puff inhalation Q4H PRN 12/31/22 12/31/22 Unknown aerosol inhaler Shortness Of Breath Or Wheezing gabapentin 100 mg capsule 200 mg PO 12/31/22 12/31/22 12/30/22 gabapentin 400 mg capsule 400 mg PO HS 12/31/22 12/31/22 12/30/22 gabapentin 400 mg capsule 400 mg PO UD 12/31/22 12/31/22 12/30/22 lisinopril 20 0.5 tab PO QAM 12/31/22 12/31/22 12/30/22 mg-hydrochlorothiazide 25 mg tablet melatonin 3 mg tablet 3 mg PO 12/31/22 12/31/22 12/30/22 metoprolol succinate 25 mg 25 mg PO 12/31/22 12/31/22 12/30/22 tablet,extended release 24 hr Active Medications Generic Name Dose Route Start Last Admin Trade Name Freq PRN Reason Stop Dose Admin Acetaminophen 1,000 mg 12/31/22 17:00 01/04/23 09:51 Acetaminophen 500 Mg Tab PO 01/30/23 16:59 1,000 mg Q8H LINDA Administration Cyclobenzaprine HCl 10 mg 01/02/23 15:41 01/03/23 20:54 Cyclobenzaprine Hcl 10 Mg Tab PO 02/01/23 20:59 10 mg TID PRN Administration Muscle Spasm Dexamethasone 8 mg 01/02/23 15:00 01/04/23 06:05 Dexamethasone 4 Mg Tab PO 02/01/23 14:59 8 mg Q8H LINDA Administration Gabapentin 400 mg 01/01/23 12:00 01/04/23 12:00 Gabapentin 400 Mg Cap PO 01/31/23 11:59 400 mg DAILY@1200 LINDA Administration Gabapentin 600 mg 12/31/22 21:00 01/03/23 20:53 Gabapentin 600 Mg Tab PO 01/30/23 20:59 600 mg HS LINDA Administration Lisinopril/HCTZ 0.5 tab 01/01/23 09:00 01/04/23 09:52 Lisinopril/Hctz 20/25mg 1 Tab PO 01/31/23 08:59 0.5 tab QAM LINDA Administration Melatonin 3 mg 12/31/22 21:00 01/03/23 20:54 Melatonin 3 Mg Tab PO 01/30/23 20:59 3 mg HS LINDA Administration Metoprolol Succinate 25 mg 12/31/22 21:00 01/03/23 20:53 Metoprolol Succ 25mg Ext Rel Tab PO 01/30/23 20:59 25 mg HS LINDA Administration Morphine Sulfate 4 mg 01/01/23 03:17 01/03/23 12:58 Morphine Sulfate 4 Mg/Ml 1 Ml Carp\Vial IV 01/15/23 03:16 4 mg Q4H PRN Administration Pain Oxycodone HCl 5 - 10 mg 01/01/23 03:16 01/03/23 23:12 Oxycodone Hcl Ir 5 Mg Tab (Immediate Release) PO 01/15/23 03:15 10 mg QID PRN Administration Pain Pantoprazole Sodium 40 mg 12/31/22 21:00 01/03/23 20:53 Pantoprazole 40 Mg Tab PO 01/30/23 20:59 40 mg HS LINDA Administration Polyethylene Glycol 17 gm 12/31/22 16:53 01/03/23 20:57 Polyethylene (Miralax) 17 Gm Pack PO 01/30/23 16:52 17 gm DAILY PRN Administration Constipation Past Medical History Medical History Lumbar disc herniation with radiculopathy Left L5-S1 Reactive airway disease Neuropathy Obesity GERD (gastroesophageal reflux disease) HTN (hypertension) ASCVD Ao HLD + Tobacco Morbid obesity Exercise / Class Metabolic Activity III < 4 Walking/Shop/Light housework Past Family History Family History Father Heart disease Past Surgical History Surgical History S/P left knee arthroscopy H/O dilation and curettage History of laminectomy Left L5-S1 History of tubal ligation Past Anesthesia History No Hx of Anesthesia Complications and No Family Hx of Anesthesia Complications History of PONV No Hx of PONV and No Hx of Motion Sickness Social History Smoking Status: Former smoker Hx Alcohol Use: No Hx Substance Use: No Physical Exam Vital Signs Last Vital Signs Temp 36.7 C 01/04/23 12:52 Pulse 66 01/04/23 12:52 Resp 16 01/04/23 12:52 BP 157/96 H 01/04/23 12:52 Pulse Ox 93 01/04/23 12:52 O2 Del Method Room Air 01/04/23 12:52 O2 Flow Rate 0 12/31/22 13:52 Testing Laboratory Results 01/04/23 06:51 01/04/23 06:51 Urine Color Yellow 12/31/22 Unknown Urine Appearance Clear (Clear) 12/31/22 Unknown Urine pH 7.5 (4.5-7.5) 12/31/22 Unknown Ur Specific [place] 1.010 (1.000-1.030) 12/31/22 Unknown Urine Protein Negative (Negative) 12/31/22 Unknown Urine Glucose (UA) Negative (Negative) 12/31/22 Unknown Urine Ketones Negative (Negative) 12/31/22 Unknown Urine Nitrite Negative (Negative) 12/31/22 Unknown Ur Leukocyte Esterase Negative (Negative) 12/31/22 Unknown Blood Type A Positive 01/03/23 17:42 Antibody Screen NEGATIVE 01/03/23 17:42 Electrocardiogram Date: 12/31/22 Findings: + NSR @ (@ 63) Stress Test Date: 11/15/16 Type: exercise Findings: + WNL Resting EF: 60% Resting LV Function: normal Resting RWMA: + none Valvular Disease: no significant valvular disease Grade 1 DD LVH-Mild
[2023-01-04] MEDS: LACTATED RINGER'S 1,000 ML IV SCH (14:43)
[2023-01-04] MEDS ORDERED: ATROPINE SULFATE 0.1 MG/ML 10ML SYR IV PRN (14:46)
[2023-01-04] MEDS ORDERED: NALOXONE HCL 0.4 MG/1 ML VIAL/CARP IV PRN ×2 (14:46→19:44)
[2023-01-04] MEDS ORDERED: FLUMAZENIL 0.1 MG/1 ML 10 ML VIAL IV PRN (14:46)
[2023-01-04] MEDS ORDERED: PROMETHAZINE HCL 12.5 MG in SODIUM CHLORIDE 0.9% 50 ML IV PRN ×2 (14:46→19:44)
[2023-01-04] MEDS ORDERED: LABETALOL HCL IV 5 MG/ML 20ML IV PRN (14:46)
[2023-01-04] MEDS ORDERED: ONDANSETRON INJ 2 MG/ML 2 ML VIAL IV PRN ×2 (14:46→19:44)
[2023-01-04] MEDS ORDERED: ePHEDrine sulfate 50 MG/ML AMP IV PRN (14:46)
--- NOTE | 2023-01-04 15:23 | Hospitalist Progress Note ---
Date of Service January 04, 2023 Assessment & Plan (1) Lumbar back pain with radiculopathy affecting left lower extremity: (2) HTN (hypertension): (3) Prediabetes: (4) Reactive airway disease: (5) GERD (gastroesophageal reflux disease): Plan Patient is 62 y/o F with PMH significant for HTN, prediabetes, GERD, obesity, reactive airway disease admitted with intractable back and left leg pain x2 days. History of lumbar surgery in the past. Lumbar back pain with radiculopathy affecting left lower extremity: Lumbar xray: No lumbar spine fracture. Moderate multilevel degenerative changes within the lumbar spine. Lumbar spine MRI noted disc protrusion at L5-S1 which abuts and displaces the transiting left S1 nerve roots as well as central canal and neural foraminal narrowing. In ER given dexamethasone 10mg IV, morphine total 8mg IV, lidocaine patch Bladder scan also without signs of retention Difficulty ambulating in ER secondary to LLE pain Fall precautions Continue home gabapentin Scheduled Tylenol and lidocaine patch. PRN oxycodone, IV morphine for moderate-severe pain Consult ortho spine-appreciate recs -manage conservatively at this time, would like to avoid surgical intervention -Recommending evaluation with interventional pain management for trial of epidural injections -if these are not effective or she fails to improve surgery would be considered- would be revision decompression, possible fusion L5-S1. 01/02- steroids added by ortho, made NPO after midnight in case procedure needed, flexeril 10mg TID prn added as well. 01/03-still remains in pain at the back with radiation to the left leg Appreciate pain therapist input and recommendation She wanted to go for surgery and appreciate orthospine input and recommendation for surgery tomorrow She continues to have back pain with radiculopathy and waiting for lumbar decompression and fusion this afternoon HTN (hypertension): In ER hypertensive but it got better with pain control Pain control as above Continue home lisinopril/HCTZ, metoprolol Blood pressure remains on the upper side at 149/83 Her blood pressure is controlled at 137/93 Prediabetes A1c: 5.8 on 06/25/22 Diet controlled Monitor AM glucose labs To monitor glucose following surgery Reactive airway disease: No signs acute exacerbation Continue albuterol as needed No wheezing and/or shortness of breath at rest-we will continue current medication No acute symptoms GERD (gastroesophageal reflux disease): Continue PPI Diet: Regular DVT Prophylaxis: SCDs for now Full Code as per admission discussion with pt Dispo: consider pt/ot once more stable Admission and Anticipated Discharge Date Admission Date: January 02, 2023 Subjective 01/03/2023 The patient was seen and examined in medical floor She complains to back pain with radiation to the left leg She was seen by pain therapist and denied to have any injection as was planned before She wants to go for surgery 01/04/2023 The patient was seen and examined in medical floor She still continues to have back pain with radiation to the legs She is waiting to go for surgery this afternoon Review of Systems Review of Systems: All systems reviewed and are unremarkable except as noted below Physical Exam Physical Exam: Lying in bed with some distress at the lower back with pain Constitutional: well developed, well nourished, + ill appearing and + obese Eyes: PERRL, conjunctivae normal, anicteric sclerae ENMT: external ear and nose normal, oropharynx normal Neck: trachea midline, no thyromegaly Respiratory: no respiratory distress Auscultation: lungs clear to auscultation bilaterally Cardiovascular: Rate/Rhythm: regular rate and regular rhythm; not tachycardic Heart Sounds: normal S1 and normal S2; no murmur Extremities: + edema (Trace edema bilaterally) Gastrointestinal (Abdomen): Inspection/Auscultation: normal bowel sounds; abdomen not distended Percussion/Palpation: abdomen soft; abdomen nontender Neurologic: normal touch/pain/proprioception and moves all extremities; no focal motor deficits Psychiatric: A+Ox3, euthymic affect Lymphatic: no cervical or axillary lymphadenopathy Results & Data Results & Data Vital Signs (Past 12 Hours) Vital Signs Temp Pulse Pulse Resp BP BP Pulse Ox 01/04/23 14:34 37.1 C 71 18 137/93 96 01/04/23 12:52 36.7 C 66 16 157/96 H 93 01/04/23 11:16 36.8 C 60 14 153/88 H 95 01/04/23 07:23 36.7 C 63 14 151/83 H 96 O2 Del Method 01/04/23 14:34 Room Air 01/04/23 12:52 Room Air 01/04/23 11:16 Room Air 01/04/23 07:23 Room Air Laboratory Results Short CBC 01/04/23 Range/Units 06:51 WBC 18.14 H (4.8-10.8) K/ul Hgb 14.4 (12.0-16.0) g/dl Hct 43.3 (37.0-47.0) % Plt Count 317 (130-400) K/uL [facility] 01/04/23 06:51 Sodium 138 Potassium 4.3 Chloride 104 Carbon Dioxide 29 BUN 22 Creatinine 0.78 Glucose 133 H Calcium 9.6 Medications Administered Current Inpatient Medications Acetaminophen (Acetaminophen 500 Mg Tab) 1,000 mg PO Q8H [facility] Stop: 01/30/23 16:59 Last Admin: 01/04/23 09:51 Dose: 1,000 mg Albuterol (Albuterol Hfa 8 Gm Inhaler) 2 puffs INH Q4H PRN PRN Reason: Shortness Of Breath Or Wheezing Stop: 01/30/23 16:52 Atropine Sulfate (Atropine Sulfate 0.1 Mg/Ml 10ml Syr) 0.5 mg IV Q1M PRN PRN Reason: PACU Use-HR<40 &/or Bradycardi Stop: 01/04/23 22:46 Cyclobenzaprine HCl (Cyclobenzaprine Hcl 10 Mg Tab) 10 mg PO TID PRN PRN Reason: Muscle Spasm Stop: 02/01/23 20:59 Last Admin: 01/03/23 20:54 Dose: 10 mg Dexamethasone (Dexamethasone 4 Mg Tab) 8 mg PO Q8H [facility] Stop: 02/01/23 14:59 Last Admin: 01/04/23 06:05 Dose: 8 mg Ephedrine Sulfate (Ephedrine Sulfate 50 Mg/Ml Amp) 5 mg IV Q5M PRN PRN Reason: PACU Use Only-SBP<90 mmHg Stop: 01/04/23 22:46 Fentanyl Citrate (Fentanyl Citrate Pf 100 Mcg/2 Ml Vial) 25 mcg IV Q5M PRN PRN Reason: PACU Use Only-Pain Stop: 01/04/23 22:46 Flumazenil (Flumazenil 0.1 Mg/1 Ml 10 Ml Vial) 0.2 mg IV Q2M PRN PRN Reason: PACU Use Only-Benzo Reversal Stop: 01/04/23 22:47 Gabapentin (Gabapentin 400 Mg Cap) 400 mg PO DAILY@1200 [facility] Stop: 01/31/23 11:59 Last Admin: 01/04/23 12:00 Dose: 400 mg Gabapentin (Gabapentin 600 Mg Tab) 600 mg PO [facility] Stop: 01/30/23 20:59 Last Admin: 01/03/23 20:53 Dose: 600 mg Lisinopril/HCTZ (Lisinopril/Hctz 20/25mg 1 Tab) 0.5 tab PO QAM [facility] Stop: 01/31/23 08:59 Last Admin: 01/04/23 09:52 Dose: 0.5 tab Hydromorphone HCl (Hydromorphone Inj 1 Mg/Ml Syringe) 0.25 mg IV Q5M PRN PRN Reason: PACU Use Only-Pain Stop: 01/04/23 22:47 Lactated Ringer's (Lr) 1,000 mls @ 15 mls/hr IV .Q24H [facility] Stop: 02/03/23 14:44 Last Admin: 01/04/23 14:43 Dose: 15 mls/hr Promethazine HCl 12.5 mg/ (Sodium Chloride) 50.5 mls @ 204 mls/hr IV ONCE PRN PRN Reason: PACU Use Only-Nausea/Vomiting Stop: 01/04/23 22:47 Labetalol HCl (Labetalol Hcl Iv 5 Mg/Ml 20ml) 5 mg IV Q5M PRN PRN Reason: PACU Use-SBP>160 or DBP>100 Stop: 01/04/23 22:47 Lidocaine (Lidocaine 5% 1 Patch) 1 patch TD [facility] Stop: 02/03/23 20:59 Magnesium Hydroxide (Magnesium Hydroxide Susp 30 Ml Udc) 30 ml PO Q6H PRN PRN Reason: Constipation Stop: 01/30/23 16:52 Melatonin (Melatonin 3 Mg Tab) 3 mg PO [facility] Stop: 01/30/23 20:59 Last Admin: 01/03/23 20:54 Dose: 3 mg Metoprolol Succinate (Metoprolol Succ 25mg Ext Rel Tab) 25 mg PO [facility] Stop: 01/30/23 20:59 Last Admin: 01/03/23 20:53 Dose: 25 mg Miscellaneous (Remove Lidoderm Patch) [facility] Stop: 02/04/23 08:59 Morphine Sulfate (Morphine Sulfate 4 Mg/Ml 1 Ml Carp\Vial) 4 mg IV Q4H PRN PRN Reason: Pain Stop: 01/15/23 03:16 Last Admin: 01/03/23 12:58 Dose: 4 mg Naloxone HCl (Naloxone Hcl 0.4 Mg/1 Ml Vial/Carp) 0.2 mg IV Q2M PRN PRN Reason: PACU Use Only-Opiate Reversal Stop: 01/04/23 22:47 Ondansetron HCl (Ondansetron Inj 2 Mg/Ml 2 Ml Vial) 4 mg IV Q6H PRN PRN Reason: Nausea Stop: 01/30/23 16:52 Ondansetron HCl (Ondansetron Inj 2 Mg/Ml 2 Ml Vial) 4 mg IV ONCE PRN PRN Reason: PACU Use Only-Nausea/Vomiting Stop: 01/04/23 22:47 Oxycodone HCl (Oxycodone Hcl Ir 5 Mg Tab (Immediate Release)) 5 - 10 mg PO QID PRN PRN Reason: Pain Stop: 01/15/23 03:15 Last Admin: 01/03/23 23:12 Dose: 10 mg Pantoprazole Sodium (Pantoprazole 40 Mg Tab) 40 mg PO HS [facility] Stop: 01/30/23 20:59 Last Admin: 01/03/23 20:53 Dose: 40 mg Polyethylene Glycol (Polyethylene (Miralax) 17 Gm Pack) 17 gm PO DAILY PRN PRN Reason: Constipation Stop: 01/30/23 16:52 Last Admin: 01/03/23 20:57 Dose: 17 gm
[2023-01-04] MEDS ORDERED: DEXAMETHASONE SOD INJ 4 MG/ML VIAL ONE (15:24)
[2023-01-04] MEDS ORDERED: MIDAZOLAM HCL 1 MG/ML 2ML VIAL ONE (15:24)
[2023-01-04] MEDS ORDERED: ROCURONIUM BROMIDE 10 MG/ML 5 ML VIAL IV ONE (15:24)
[2023-01-04] MEDS ORDERED: ONDANSETRON INJ 2 MG/ML 2 ML VIAL ONE (15:24)
[2023-01-04] MEDS ORDERED: PROPOFOL IV EMULSION 10 MG/ML 20 ML VIAL IV ONE (15:24)
[2023-01-04] MEDS ORDERED: fentaNYL citrate PF 100 MCG/2 ML VIAL ONE ×2 (15:24→16:49)
[2023-01-04] MEDS ORDERED: LIDOCAINE 2% 2 ML VIAL/AMP(20MG/ML) INFIL ONE (15:24)
[2023-01-04] MEDS ORDERED: SUGAMMADEX SODIUM 200 MG/2 ML VIAL IV ONE ×2 (15:32→18:17)
--- NOTE | 2023-01-04 15:42 | History & Physical Bridge Note ---
Date of Service January 04, 2023 History & Physical Bridge Note I have examined the patient, reviewed the History & Physical and in the interval since the performance of the History & Physical I have noted the following changes of clinical significance: no changes noted Decompression and fusion L5-S1
[2023-01-04] MEDS ORDERED: ceFAZolin 3000MG/72.5 ML BAG IV ONE (15:55)
[2023-01-04] MEDS ORDERED: BUPIVACAINE/EPINEPHRINE 0.25% 1:200,000 30 ML VIAL ONE (16:19)
[2023-01-04] MEDS ORDERED: ceFAZolin 330 MG/ML 1 GM VIAL ONE (16:19)
[2023-01-04] MEDS ORDERED: FLOSEAL HEMOSTATIC MATRIX 10ML TOP ONE (17:09)
--- NOTE | 2023-01-04 18:28 | Operative Report ---
Post Operative Report Pre & Post Diagnosis Operation Date: 01/04/23 13:35 Pre-Op Diagnosis: Recurrent lumbar disc herniation with radiculopathy Post-Op Diagnosis: Same I identified the patient and participated in the time-out.: Yes Procedure Operation Date: 01/04/23 13:35 Actual Procedures #1 revision decompression bilaterally facetectomies and foraminotomies L4-L5 L5- S1. #2 posterior spinal fusion L5-S1. #3 placement posterior instrumentation L5-S1. #4 interbody fusion L5-S1. #5 placement spiral 13 x 26 mm x 2 at L5-S1. #6 placement locally harvested morselized autograft in the posterior gutters. #7 placement of I factor in the interbody space and infuse collagen sponge combined cement in the posterior lateral gutters. Surgeon Haresh Lowry, DO [facility] [facility] Ly Luciano Estimated Blood Loss 100 Findings See Below The patient is 5 foot 5 weighing over 110 kg with a BMI in excess of 40. Patient's body was to contribute to significant technical difficulty with positioning exposure and perform the procedure itself. This at least 50% increased operative time. Specimens None Indications This is a 62-year-old female presents above-mentioned diagnosis. She is struggling with severe radiculopathy and motor deficit and is here for surgical invention. Description of Procedure Patient was met with identified informed consent obtained. Patient was then taken to the operative suite underwent patient placed in a prone position on the Vernon table on top of the Cornel frame. All bony promises well-padded eyes inspected to ensure no external pressure placed upon the. This point the lumbar spine was prepped and draped in normal sterile fashion. Sharp dissection with the assistance of Bovie cautery was performed down to and exposing the remaining lamina and transverse processes of L5 and sacral ala bilaterally. Revision complete laminectomy L5 partial laminectomy L4 was performed including bilateral medial facetectomies and foraminotomies addressing all stenosis. Marked thinning of the dura was noted secondary to scarring and I did elect to place a DuraGen patch over this region. Pedicle screws were placed in L5 and S1 levels bilaterally with assistance of fluoroscopy process vimal placed. Bilateral transforaminal approach on the left discectomy of L5-S1 was performed endplates guarded to subcortical mean bone and a 13 x 26 mm Spira cage with I factor tapped in position. I then proceeded to the right transforaminal region L5-S1. I completed the discectomy curetted the endplates to subcortical mean bone and placed a second 13 x 26 mm Spira cage into position. The rods were then compressed locked in final position bilaterally. The transverse processes of L4-5 and sacral ala burred to subcortical bone. Infuse collagen sponge mass graft and local autograft was placed in the posterior gutters. 15 round EMILY inse rted. The incision was then closed with 1 Vicryl to fascia 2-0 Vicryl subcutaneously and 4 Monocryl for final skin closure. Steri-Strips sterile dressings placed. Patient waken taken to PACU in stable condition. Please note spinal cord monitoring was utilized throughout the procedure no changes noted. Lastly Ly Luciano was present at the entire surgeon while the patient position complex portion of the surgeon fashion closure. I attest to the content of the Intraoperative Record and any orders documented therein. Any exceptions are noted below.
[2023-01-04] MEDS: fentaNYL citrate PF 100 MCG/2 ML VIAL IV PRN ×4 (18:52→19:08)
[2023-01-04] MEDS: HYDROmorphone INJ 1 MG/ML SYRINGE IV PRN ×4 (19:10→19:25)
--- NOTE | 2023-01-04 19:24 | Fluoroscopy Report ---
FL lumbar spine 2-3V CLINICAL HISTORY: L5-S1 decompression. COMPARISON STUDY: 12/31/2022. FLUOROSCOPY TIME: 23 seconds. FLUOROSCOPY IMAGES: 2 Ka,r: 22.6 mGy FINDINGS: Posterior decompression and fusion at L5-S1 with pedicle screws and rods. Hardware appears intact. Disc spacers are in place. IMPRESSION: Fluoroscopic assistance as above. ACT 112: Negative or not required by law. Electronically signed by: Travis Kaiser M.D. 01/04/2023 7:23 PM
[2023-01-04] MEDS ORDERED: LORazepam 2 MG/1 ML VIAL IV PRN (19:44)
[2023-01-04] MEDS ORDERED: diphenhydrAMINE Capsule 25 MG CAP PO PRN (19:44)
[2023-01-04] MEDS ORDERED: ONDANSETRON 4 MG OD TAB PO PRN (19:44)
[2023-01-04] MEDS ORDERED: ACETAMINOPHEN 1,000 MG/100 ML VIAL IV PRN (19:44)
[2023-01-04] MEDS ORDERED: DO NOT ADMINISTER FLU VACCINE PRN (19:44)
[2023-01-04] MEDS ORDERED: hydrOXYzine HCl 25 MG TAB PO PRN (19:44)
[2023-01-04] MEDS ORDERED: DO NOT ADMINISTER PNEUMOCOCCAL VACCINE PRN (19:44)
[2023-01-04] MEDS ORDERED: FAMOTIDINE 20 MG TAB PO PRN (19:44)
[2023-01-04] MEDS ORDERED: SOD PHOSPHATE/SOD BIPHOSPHATE ENEMA 132 ML BTL PR PRN (19:44)
[2023-01-04] MEDS ORDERED: LORazepam 0.5 MG TAB PO PRN (19:44)
[2023-01-04] MEDS ORDERED: ALUMINUM/MAGNESIUM SUSP 30 ML UDC PO PRN (19:44)
[2023-01-04] MEDS ORDERED: bisacodyL 10 MG SUPP PR PRN (19:44)
[2023-01-04] MEDS ORDERED: ACETAMINOPHEN 500 MG TAB PO PRN (19:44)
[2023-01-04] MEDS ORDERED: METOCLOPRAMIDE HCL INJ 5 MG/ML 2 ML VIAL IV PRN (19:44)
[2023-01-04] MEDS ORDERED: MAGNESIUM HYDROXIDE SUSP 30 ML UDC PO PRN (19:44)
[2023-01-04] MEDS: PANTOprazole 40 MG TAB PO SCH (21:52)
[2023-01-04] MEDS: MELATONIN 3 MG TAB PO SCH (21:53)
[2023-01-04] MEDS: GABAPENTIN 600 MG TAB PO SCH (21:53)
[2023-01-04] MEDS: DOCUSATE SODIUM/SENNA 50/8.6MG TAB PO SCH (21:53)
[2023-01-04] MEDS: oxyCODONE HCL IR 5 MG TAB (IMMEDIATE RELEASE) PO PRN (21:53)
[2023-01-04] MEDS: METOPROLOL SUCC 25MG EXT REL TAB PO SCH (21:54)
[2023-01-05] MEDS: LACTATED RINGER'S 1,000 ML IV SCH ×3 (00:48→15:06)
[2023-01-05] MEDS: oxyCODONE HCL IR 5 MG TAB (IMMEDIATE RELEASE) PO PRN ×2 (03:14→13:58)
[2023-01-05] MEDS: POLYETHYLENE (MIRALAX) 17 GM PACK PO SCH ×3 (06:00→17:33)
[2023-01-05] MEDS: dexAMETHasone 4 MG TAB PO SCH ×3 (06:01→15:56)
[2023-01-05] MEDS: HYDROmorphone INJ 0.5 MG/0.5 ML SYR IV PRN (06:12)
[2023-01-05 07:48] LABS: Basophils # (auto) 0.02 K/uL (0.00-0.20); Basophils % (auto) 0.1 %; Hematocrit (blood only) 42.7 % (37.0-47.0); Hemoglobin 13.8 g/dl (12.0-16.0); Immature Granulocytes # (auto) 0.11 K/uL (0.01-0.20); Immature Granulocytes % (auto) 0.6 %; Lymphocytes # (auto) 1.01 K/uL (1.20-3.40); Lymphocytes % (auto) 5.1 %; Mean Corpuscular Hemoglobin 30.5 pg (25.0-34.0); Mean Corpuscular Hgb Conc 32.3 g/dL (32.0-36.0); Mean Corpuscular Volume 94.3 fL (80.0-100.0); Mean Platelet Volume 9.9 fL (9.4-12.4); Monocytes # (auto) 0.89 K/uL (0.11-0.59); Monocytes % (auto) 4.5 %; Neutrophils # (auto) 17.91 K/uL (1.40-6.50); Neutrophils % (auto) 89.7 %; Platelet Count 331 K/uL (130-400); RDW Coefficient of Variation 14.1 % (11.5-14.5); RDW Standard Deviation 49.2 fL (36.4-46.3); Red Blood Count 4.53 M/uL (4.20-5.40); White Blood Count 19.94 K/ul (4.8-10.8)
[2023-01-05 08:11] LABS: Calcium 9.1 mg/dl (8.6-10.3); Magnesium 2.2 mg/dl (1.7-2.4)
[2023-01-05 08:16] LABS: BUN Creatinine Ratio 24.7 (10-20); Creatinine Clr Calc Pharmacy 79.2 ml/min; Est GFR (African American) 79.4 ml/min; Est GFR (Non-African American) 68.5 ml/min
[2023-01-05] MEDS: LISINOPRIL/HCTZ 20/25MG 1 TAB PO SCH (09:05)
[2023-01-05] MEDS: ceFAZolin 2000MG 2,000 MG/15 ML SYR IV SCH ×2 (09:06)
[2023-01-05] MEDS: dexAMETHasone 6 MG in SYRINGE 0 ML IV SCH (09:06)
[2023-01-05] MEDS: ACETAMINOPHEN 500 MG TAB PO SCH ×3 (09:06→16:30)
--- NOTE | 2023-01-05 10:04 | Orthopedic Progress Note ---
Date of Service January 05, 2023 Assessment & Plan (1) Lumbar disc herniation with radiculopathy: Plan: Today we will maintain bedrest monitor EMILY output anticipate formal therapy hopefully beginning tomorrow. Admission and Anticipated Discharge Date Admission Date: January 02, 2023 Subjective Patient's back pain is controlled. Leg pain improved. Denies any nausea vomiting headaches. She has been tolerating transfers to the bathroom without difficulty. Physical Exam Physical Exam: On exam she has improved strength testing left lower extremity. She has sensory intact. Results & Data Vital Signs (Past 12 Hours) Vital Signs Temp Pulse Pulse Pulse Resp BP Pulse Ox 01/05/23 07:49 36.8 C 64 16 143/71 H 96 01/05/23 03:16 36.6 C 60 18 131/69 94 01/04/23 22:14 36.8 C 67 18 144/79 H 97 O2 Del Method 01/05/23 07:49 Room Air 01/05/23 03:16 Room Air 01/04/23 22:14 Room Air
[2023-01-05] MEDS: GABAPENTIN 400 MG CAP PO SCH (12:36)
[2023-01-05] MEDS ORDERED: LORazepam 0.5 MG in SYRINGE 0.25 ML IV PRN (13:58)
--- NOTE | 2023-01-05 15:23 | Hospitalist Progress Note ---
Date of Service January 05, 2023 Assessment & Plan (1) Lumbar back pain with radiculopathy affecting left lower extremity: (2) HTN (hypertension): (3) Prediabetes: (4) Reactive airway disease: (5) GERD (gastroesophageal reflux disease): Plan Patient is 62 y/o F with PMH significant for HTN, prediabetes, GERD, obesity, reactive airway disease admitted with intractable back and left leg pain x2 days. History of lumbar surgery in the past. Lumbar back pain with radiculopathy affecting left lower extremity: Lumbar xray: No lumbar spine fracture. Moderate multilevel degenerative changes within the lumbar spine. Lumbar spine MRI noted disc protrusion at L5-S1 which abuts and displaces the transiting left S1 nerve roots as well as central canal and neural foraminal narrowing. In ER given dexamethasone 10mg IV, morphine total 8mg IV, lidocaine patch Bladder scan also without signs of retention Difficulty ambulating in ER secondary to LLE pain Fall precautions Continue home gabapentin Scheduled Tylenol and lidocaine patch. PRN oxycodone, IV morphine for moderate-severe pain Consult ortho spine-appreciate recs -manage conservatively at this time, would like to avoid surgical intervention -Recommending evaluation with interventional pain management for trial of epidural injections -if these are not effective or she fails to improve surgery would be considered- would be revision decompression, possible fusion L5-S1. 01/02- steroids added by ortho, made NPO after midnight in case procedure needed, flexeril 10mg TID prn added as well. 01/03-still remains in pain at the back with radiation to the left leg Appreciate pain therapist input and recommendation She wanted to go for surgery and appreciate orthospine input and recommendation for surgery tomorrow She continues to have back pain with radiculopathy and waiting for lumbar decompression and fusion this afternoon Remains medically stable Status post lumbar decompression fusion involving L5-S1 distribution on 01/04/2023 She has been complaining of pain at the back with radiation to legs Still has the drain tube in situ Will have physical therapy as per Ortho recommendation Not yet ready to be discharged HTN (hypertension): In ER hypertensive but it got better with pain control Pain control as above Continue home lisinopril/HCTZ, metoprolol Blood pressure remains on the upper side at 149/83 Her blood pressure is controlled at 137/93 Prediabetes A1c: 5.8 on 06/25/22 Diet controlled Monitor AM glucose labs To monitor glucose following surgery Reactive airway disease: No signs acute exacerbation Continue albuterol as needed No wheezing and/or shortness of breath at rest-we will continue current medication No acute symptoms GERD (gastroesophageal reflux disease): Continue PPI Diet: Regular DVT Prophylaxis: SCDs for now Full Code as per admission discussion with pt Dispo: consider pt/ot once more stable Admission and Anticipated Discharge Date Admission Date: January 02, 2023 Subjective 01/03/2023 The patient was seen and examined in medical floor She complains to back pain with radiation to the left leg She was seen by pain therapist and denied to have any injection as was planned before She wants to go for surgery 01/04/2023 The patient was seen and examined in medical floor She still continues to have back pain with radiation to the legs She is waiting to go for surgery this afternoon 01/05/2023 The patient was seen and examined in medical floor She is a status post lumbar decompression and fusion on 01/04/2023 She has been complaining some pain at the back with radiation to the legs Has not had any physical therapy yet Review of Systems Review of Systems: All systems reviewed and are unremarkable except as noted below Physical Exam Physical Exam: Lying in bed with some distress at the lower back with pain Constitutional: well developed, well nourished, + ill appearing and + obese Eyes: PERRL, conjunctivae normal, anicteric sclerae ENMT: external ear and nose normal, oropharynx normal Neck: trachea midline, no thyromegaly Respiratory: no respiratory distress Auscultation: lungs clear to auscultation bilaterally Cardiovascular: Rate/Rhythm: regular rate and regular rhythm; not tachycardic Heart Sounds: normal S1 and normal S2; no murmur Extremities: + edema (Trace edema bilaterally) Gastrointestinal (Abdomen): Inspection/Auscultation: normal bowel sounds; abdomen not distended Percussion/Palpation: abdomen soft; abdomen nontender Musculoskeletal: Back pain with radiation to the legs Neurologic: normal touch/pain/proprioception and moves all extremities; no focal motor deficits Psychiatric: A+Ox3, euthymic affect Lymphatic: no cervical or axillary lymphadenopathy Results & Data Results & Data Vital Signs (Past 12 Hours) Vital Signs Temp Pulse Resp BP BP Pulse Ox O2 Del Method 01/05/23 14:01 36.7 C 118 H 18 107/68 94 Room Air 01/05/23 11:29 36.6 C 74 18 131/76 94 Room Air 01/05/23 07:49 36.8 C 64 16 143/71 H 96 Room Air Laboratory Results Short CBC 01/05/23 Range/Units 06:57 WBC 19.94 H (4.8-10.8) K/ul Hgb 13.8 (12.0-16.0) g/dl Hct 42.7 (37.0-47.0) % Plt Count 331 (130-400) K/uL BMP 01/05/23 06:57 Sodium 139 Potassium 4.0 Chloride 103 Carbon Dioxide 31 BUN 22 Creatinine 0.89 Glucose 157 H Calcium 9.1 Medications Administered Current Inpatient Medications Acetaminophen (Acetaminophen 500 Mg Tab) 1,000 mg PO Q8H [facility] Stop: 01/30/23 16:59 Last Admin: 01/05/23 09:06 Dose: 1,000 mg Acetaminophen (Acetaminophen 500 Mg Tab) 1,000 mg PO Q8H PRN PRN Reason: MILD Pain Scale 1,2,3 & Pre PT Stop: 02/03/23 19:43 Al Hydrox/Mg Hydrox/Simethicone (Aluminum/Magnesium Susp 30 Ml Udc) 30 ml PO Q6H PRN PRN Reason: Dyspepsia Stop: 02/03/23 19:43 Albuterol (Albuterol Hfa 8 Gm Inhaler) 2 puffs INH Q4H PRN PRN Reason: Shortness Of Breath Or Wheezing Stop: 01/30/23 16:52 Bisacodyl (Bisacodyl 10 Mg Supp) 10 mg [place] DAILY PRN PRN Reason: Constipation Stop: 02/03/23 19:43 Cyclobenzaprine HCl (Cyclobenzaprine Hcl 10 Mg Tab) 10 mg PO TID PRN PRN Reason: Muscle Spasm Stop: 02/01/23 20:59 Last Admin: 01/03/23 20:54 Dose: 10 mg Dexamethasone (Dexamethasone 4 Mg Tab) 8 mg PO Q8H [facility] Stop: 02/01/23 14:59 Last Admin: 01/05/23 06:01 Dose: 8 mg Diphenhydramine HCl (Diphenhydramine Capsule 25 Mg Cap) 25 mg PO Q6H PRN PRN Reason: Allergic Rhinitis/Insomnia Stop: 02/03/23 19:43 Famotidine (Famotidine 20 Mg Tab) 20 mg PO Q12H PRN PRN Reason: Dyspepsia Stop: 02/03/23 19:43 Gabapentin (Gabapentin 400 Mg Cap) 400 mg PO DAILY@1200 [facility] Stop: 01/31/23 11:59 Last Admin: 01/05/23 12:36 Dose: 400 mg Gabapentin (Gabapentin 600 Mg Tab) 600 mg PO HS [facility] Stop: 01/30/23 20:59 Last Admin: 01/04/23 21:53 Dose: 600 mg Lisinopril/HCTZ (Lisinopril/Hctz 20/25mg 1 Tab) 0.5 tab PO QAM [facility] Stop: 01/31/23 08:59 Last Admin: 01/05/23 09:05 Dose: 0.5 tab Hydromorphone HCl (Hydromorphone Inj 0.5 Mg/0.5 Ml Syr) 0.5 mg IV Q3H PRN PRN Reason: MODERATE Pain (Scale 4,5,6) & Pre PT Stop: 01/18/23 19:43 Last Admin: 01/05/23 06:12 Dose: 0.5 mg Hydromorphone HCl (Hydromorphone Inj 1 Mg/Ml Syringe) 1 mg IV Q3H PRN PRN Reason: SEVERE Pain (Scale 7,8,9,10) Stop: 01/18/23 19:43 Hydroxyzine HCl (Hydroxyzine Hcl 25 Mg Tab) 25 mg PO Q8H PRN PRN Reason: Anxiety Stop: 02/03/23 19:43 Acetaminophen (Ofirmev) 1,000 mg in 100 mls @ 400 mls/hr IV Q8H PRN PRN Reason: Pain Rating 1-3 & Pre PT Stop: 01/05/23 19:45 Dexamethasone 6 mg/ Syringe 1.5 mls @ 1 mls/min IV DAILY [facility] Stop: 01/07/23 09:02 Last Admin: 01/05/23 09:06 Dose: 1 mls/min Promethazine HCl 12.5 mg/ (Sodium Chloride) 50.5 mls @ 202 mls/hr IV Q6H PRN PRN Reason: Nausea &/or Vomiting Stop: 02/03/23 19:43 Lorazepam 0.5 mg/ Syringe 0.5 mls @ 2 mls/min IV Q8H PRN PRN Reason: Sedation/Anxiety Stop: 02/03/23 13:57 Influenza Virus Vaccine Quadrival (Do Not Administer Flu Vaccine) 1 each N/A PRN PRN PRN Reason: Notification Stop: 02/03/23 19:43 Lidocaine (Lidocaine 5% 1 Patch) 1 patch TD [facility] Stop: 02/03/23 20:59 Last Admin: 01/04/23 21:52 Dose: 1 patch Lorazepam (Lorazepam 0.5 Mg Tab) 0.5 mg PO Q8H PRN PRN Reason: Sedation/Anxiety Stop: 02/03/23 19:43 Magnesium Hydroxide (Magnesium Hydroxide Susp 30 Ml Udc) 30 ml PO Q6H PRN PRN Reason: Constipation Stop: 01/30/23 16:52 Magnesium Hydroxide (Magnesium Hydroxide Susp 30 Ml Udc) 30 ml PO Q24H PRN PRN Reason: Constipation Stop: 02/03/23 19:43 Melatonin (Melatonin 3 Mg Tab) 3 mg PO [facility] Stop: 01/30/23 20:59 Last Admin: 01/04/23 21:53 Dose: 3 mg Metoclopramide HCl (Metoclopramide Hcl Inj 5 Mg/Ml 2 Ml Vial) 10 mg IV Q6H PRN PRN Reason: Nausea &/or Vomiting Stop: 02/03/23 19:43 Metoprolol Succinate (Metoprolol Succ 25mg Ext Rel Tab) 25 mg PO [facility] Stop: 01/30/23 20:59 Last Admin: 01/04/23 21:54 Dose: Not Given Naloxone HCl (Naloxone Hcl 0.4 Mg/1 Ml Vial/Carp) 0.1 mg IV Q5M PRN PRN Reason: Oversedation/Resp depression Stop: 02/03/23 19:43 Ondansetron HCl (Ondansetron Inj 2 Mg/Ml 2 Ml Vial) 4 mg IV Q6H PRN PRN Reason: Nausea &/or Vomiting Stop: 02/03/23 19:43 Ondansetron HCl (Ondansetron 4 Mg Od Tab) 4 mg PO Q6H PRN PRN Reason: Nausea Stop: 02/03/23 19:43 Oxycodone HCl (Oxycodone Hcl Ir 5 Mg Tab (Immediate Release)) 5 - 10 mg PO Q4H PRN PRN Reason: Pain & Pre PT Stop: 01/18/23 19:43 Last Admin: 01/05/23 13:58 Dose: 10 mg Pantoprazole Sodium (Pantoprazole 40 Mg Tab) 40 mg PO HS [facility] Stop: 01/30/23 20:59 Last Admin: 01/04/23 21:52 Dose: 40 mg Pneumococcal Polyvalent Vaccine (Do Not Administer Pneumococcal Vaccine) 1 each N/A PRN PRN PRN Reason: Notification Stop: 02/03/23 19:43 Polyethylene Glycol (Polyethylene (Miralax) 17 Gm Pack) 17 gm PO Q6 [facility] Stop: 02/04/23 05:59 Last Admin: 01/05/23 12:36 Dose: 17 gm Senna/Docusate Sodium (Docusate Sodium/Senna 50/8.6mg Tab) 2 tab PO HS [facility] Stop: 02/03/23 20:59 Last Admin: 01/04/23 21:53 Dose: 2 tab Sodium Biphosphate/Sodium Phosphate (Sod Phosphate/Sod Biphosphate Enema 132 Ml Btl) 132 ml [place] ONE PRN PRN Reason: Constipation Stop: 02/03/23 19:43 Tramadol HCl (Tramadol Hcl 50 Mg Tablet) 50 - 100 mg PO Q4H PRN PRN Reason: Moderate-Severe pain & Pre PT Stop: 02/03/23 19:43
[2023-01-05] MEDS: DOCUSATE SODIUM/SENNA 50/8.6MG TAB PO SCH (21:35)
[2023-01-05] MEDS: PANTOprazole 40 MG TAB PO SCH (21:35)
[2023-01-05] MEDS: MELATONIN 3 MG TAB PO SCH (21:35)
[2023-01-05] MEDS: GABAPENTIN 600 MG TAB PO SCH (21:35)
[2023-01-05] MEDS: LIDOCAINE 5% 1 PATCH TD SCH (21:35)
[2023-01-05] MEDS: METOPROLOL SUCC 25MG EXT REL TAB PO SCH (21:35)
[2023-01-06] MEDS: ACETAMINOPHEN 500 MG TAB PO SCH ×3 (00:01→17:59)
[2023-01-06] MEDS: POLYETHYLENE (MIRALAX) 17 GM PACK PO SCH ×2 (00:02→05:58)
[2023-01-06] MEDS: oxyCODONE HCL IR 5 MG TAB (IMMEDIATE RELEASE) PO PRN ×4 (01:52→23:50)
[2023-01-06] MEDS: LISINOPRIL/HCTZ 20/25MG 1 TAB PO SCH (08:39)
[2023-01-06] MEDS: dexAMETHasone 6 MG in SYRINGE 0 ML IV SCH (08:39)
--- NOTE | 2023-01-06 10:41 | Orthopedic Progress Note ---
Date of Service January 06, 2023 Assessment & Plan (1) Lumbar disc herniation with radiculopathy: Plan: At this time initiate physical therapy. May consider Toradol if she continues to have significant soreness. Admission and Anticipated Discharge Date Admission Date: January 02, 2023 Subjective Patient complaining of back and leg pain. She is quite sore. She denies any nausea vomiting headache. She is able to ambulate to the bathroom with assistance. Physical Exam Physical Exam: On exam she is grossly tender palpation lumbar musculature and bilateral SI joint buttock and trochanteric regions. She is neurologically intact. Results & Data Vital Signs (Past 12 Hours) Vital Signs Temp Pulse Resp BP Pulse Ox O2 Del Method 01/06/23 07:46 36.7 C 63 16 114/69 96 Room Air Queries Orthopedic Spine Obesity: Yes
[2023-01-06] MEDS: GABAPENTIN 400 MG CAP PO SCH (11:12)
[2023-01-06] MEDS: CYCLOBENZAPRINE HCL 10 MG TAB PO PRN ×2 (11:12→22:27)
--- NOTE | 2023-01-06 15:51 | Hospitalist Progress Note ---
Date of Service January 06, 2023 Assessment & Plan (1) Lumbar back pain with radiculopathy affecting left lower extremity: (2) HTN (hypertension): (3) Prediabetes: (4) Reactive airway disease: (5) GERD (gastroesophageal reflux disease): Plan Patient is 62 y/o F with PMH significant for HTN, prediabetes, GERD, obesity, reactive airway disease admitted with intractable back and left leg pain x2 days. History of lumbar surgery in the past. Lumbar back pain with radiculopathy affecting left lower extremity: Lumbar xray: No lumbar spine fracture. Moderate multilevel degenerative changes within the lumbar spine. Lumbar spine MRI noted disc protrusion at L5-S1 which abuts and displaces the transiting left S1 nerve roots as well as central canal and neural foraminal narrowing. In ER given dexamethasone 10mg IV, morphine total 8mg IV, lidocaine patch Bladder scan also without signs of retention Difficulty ambulating in ER secondary to LLE pain Fall precautions Continue home gabapentin Scheduled Tylenol and lidocaine patch. PRN oxycodone, IV morphine for moderate-severe pain Consult ortho spine-appreciate recs -manage conservatively at this time, would like to avoid surgical intervention -Recommending evaluation with interventional pain management for trial of epidural injections -if these are not effective or she fails to improve surgery would be considered- would be revision decompression, possible fusion L5-S1. 01/02- steroids added by ortho, made NPO after midnight in case procedure needed, flexeril 10mg TID prn added as well. 01/03-still remains in pain at the back with radiation to the left leg Appreciate pain therapist input and recommendation She wanted to go for surgery and appreciate orthospine input and recommendation for surgery tomorrow She continues to have back pain with radiculopathy and waiting for lumbar decompression and fusion this afternoon Remains medically stable-complains of more pain at the lower back and could not participate in physical therapy Otherwise hemodynamically stable with blood pressure on the lower side Status post lumbar decompression fusion involving L5-S1 distribution on 01/04/2023 She has been complaining of pain at the back with radiation to legs Still has the drain tube in situ Will have physical therapy as per Ortho recommendation Not yet ready to be discharged We will continue with PT and OT evaluation HTN (hypertension): In ER hypertensive but it got better with pain control Pain control as above Continue home lisinopril/HCTZ, metoprolol Blood pressure remains on the upper side at 149/83 Her blood pressure is controlled at 137/93 Blood pressure has been on the lower side and was advised to drink more fluid Prediabetes A1c: 5.8 on 06/25/22 Diet controlled Monitor AM glucose labs To monitor glucose following surgery Reactive airway disease: No signs acute exacerbation Continue albuterol as needed No wheezing and/or shortness of breath at rest-we will continue current medica tion No acute symptoms GERD (gastroesophageal reflux disease): Continue PPI Diet: Regular DVT Prophylaxis: SCDs for now Full Code as per admission discussion with pt Dispo: consider pt/ot once more stable Admission and Anticipated Discharge Date Admission Date: January 02, 2023 Subjective 01/03/2023 The patient was seen and examined in medical floor She complains to back pain with radiation to the left leg She was seen by pain therapist and denied to have any injection as was planned before She wants to go for surgery 01/04/2023 The patient was seen and examined in medical floor She still continues to have back pain with radiation to the legs She is waiting to go for surgery this afternoon 01/05/2023 The patient was seen and examined in medical floor She is a status post lumbar decompression and fusion on 01/04/2023 She has been complaining some pain at the back with radiation to the legs Has not had any physical therapy yet 01/06/2023 The patient was seen and examined in medical floor She complains to have more pain at the back with radiation to the legs Has not done any physical therapy due to increasing pain Review of Systems Review of Systems: All systems reviewed and are unremarkable except as noted below Physical Exam Physical Exam: Lying in bed with some distress at the lower back with pain Constitutional: well developed, well nourished, + ill appearing and + obese Eyes: PERRL, conjunctivae normal, anicteric sclerae ENMT: external ear and nose normal, oropharynx normal Neck: trachea midline, no thyromegaly Respiratory: no respiratory distress Auscultation: lungs clear to auscultation bilaterally Cardiovascular: Rate/Rhythm: regular rate and regular rhythm; not tachycardic Heart Sounds: normal S1 and normal S2; no murmur Extremities: + edema (Trace edema bilaterally) Gastrointestinal (Abdomen): Inspection/Auscultation: normal bowel sounds; abdomen not distended Percussion/Palpation: abdomen soft; abdomen nontender Neurologic: normal touch/pain/proprioception and moves all extremities; no focal motor deficits Psychiatric: A+Ox3, euthymic affect Lymphatic: no cervical or axillary lymphadenopathy Results & Data Results & Data Vital Signs (Past 12 Hours) Vital Signs Temp Pulse Resp BP Pulse Ox O2 Del Method 01/06/23 14:59 36.7 C 81 16 98/61 L 96 Room Air 01/06/23 07:46 36.7 C 63 16 114/69 96 Room Air Medications Administered Current Inpatient Medications Acetaminophen (Acetaminophen 500 Mg Tab) 1,000 mg PO Q8H LINDA Stop: 01/30/23 16:59 Last Admin: 01/06/23 08:39 Dose: 1,000 mg Acetaminophen (Acetaminophen 500 Mg Tab) 1,000 mg PO Q8H PRN PRN Reason: MILD Pain Scale 1,2,3 & Pre PT Stop: 02/03/23 19:43 Al Hydrox/Mg Hydrox/Simethicone (Aluminum/Magnesium Susp 30 Ml Udc) 30 ml PO Q6H PRN PRN Reason: Dyspepsia Stop: 02/03/23 19:43 Albuterol (Albuterol Hfa 8 Gm Inhaler) 2 puffs INH Q4H PRN PRN Reason: Shortness Of Breath Or Wheezing Stop: 01/30/23 16:52 Bisacodyl (Bisacodyl 10 Mg Supp) 10 mg MA DAILY PRN PRN Reason: Constipation Stop: 02/03/23 19:43 Cyclobenzaprine HCl (Cyclobenzaprine Hcl 10 Mg Tab) 10 mg PO TID PRN PRN Reason: Muscle Spasm Stop: 02/01/23 20:59 Last Admin: 01/06/23 11:12 Dose: 10 mg Diphenhydramine HCl (Diphenhydramine Capsule 25 Mg Cap) 25 mg PO Q6H PRN PRN Reason: Allergic Rhinitis/Insomnia Stop: 02/03/23 19:43 Famotidine (Famotidine 20 Mg Tab) 20 mg PO Q12H PRN PRN Reason: Dyspepsia Stop: 02/03/23 19:43 Gabapentin (Gabapentin 400 Mg Cap) 400 mg PO DAILY@1200 LINDA Stop: 01/31/23 11:59 Last Admin: 01/06/23 11:12 Dose: 400 mg Gabapentin (Gabapentin 600 Mg Tab) 600 mg PO HS LINDA Stop: 01/30/23 20:59 Last Admin: 01/05/23 21:35 Dose: 600 mg Lisinopril/HCTZ (Lisinopril/Hctz 20/25mg 1 Tab) 0.5 tab PO QAM LINDA Stop: 01/31/23 08:59 Last Admin: 01/06/23 08:39 Dose: 0.5 tab Hydromorphone HCl (Hydromorphone Inj 0.5 Mg/0.5 Ml Syr) 0.5 mg IV Q3H PRN PRN Reason: MODERATE Pain (Scale 4,5,6) & Pre PT Stop: 01/18/23 19:43 Last Admin: 01/05/23 06:12 Dose: 0.5 mg Hydromorphone HCl (Hydromorphone Inj 1 Mg/Ml Syringe) 1 mg IV Q3H PRN PRN Reason: SEVERE Pain (Scale 7,8,9,10) Stop: 01/18/23 19:43 Hydroxyzine HCl (Hydroxyzine Hcl 25 Mg Tab) 25 mg PO Q8H PRN PRN Reason: Anxiety Stop: 02/03/23 19:43 Dexamethasone 6 mg/ Syringe 1.5 mls @ 1 mls/min IV DAILY LINDA Stop: 01/07/23 09:02 Last Admin: 01/06/23 08:39 Dose: 1 mls/min Promethazine HCl 12.5 mg/ (Sodium Chloride) 50.5 mls @ 202 mls/hr IV Q6H PRN PRN Reason: Nausea &/or Vomiting Stop: 02/03/23 19:43 Lorazepam 0.5 mg/ Syringe 0.5 mls @ 2 mls/min IV Q8H PRN PRN Reason: Sedation/Anxiety Stop: 02/03/23 13:57 Influenza Virus Vaccine Quadrival (Do Not Administer Flu Vaccine) 1 each N/A PRN PRN PRN Reason: Notification Stop: 02/03/23 19:43 Lidocaine (Lidocaine 5% 1 Patch) 1 patch TD HS [facility] Stop: 02/03/23 20:59 Last Admin: 01/05/23 21:35 Dose: 1 patch Lorazepam (Lorazepam 0.5 Mg Tab) 0.5 mg PO Q8H PRN PRN Reason: Sedation/Anxiety Stop: 02/03/23 19:43 Magnesium Hydroxide (Magnesium Hydroxide Susp 30 Ml Udc) 30 ml PO Q6H PRN PRN Reason: Constipation Stop: 01/30/23 16:52 Magnesium Hydroxide (Magnesium Hydroxide Susp 30 Ml Udc) 30 ml PO Q24H PRN PRN Reason: Constipation Stop: 02/03/23 19:43 Melatonin (Melatonin 3 Mg Tab) 3 mg PO HS [facility] Stop: 01/30/23 20:59 Last Admin: 01/05/23 21:35 Dose: 3 mg Metoclopramide HCl (Metoclopramide Hcl Inj 5 Mg/Ml 2 Ml Vial) 10 mg IV Q6H PRN PRN Reason: Nausea &/or Vomiting Stop: 02/03/23 19:43 Metoprolol Succinate (Metoprolol Succ 25mg Ext Rel Tab) 25 mg PO [facility] Stop: 01/30/23 20:59 Last Admin: 01/05/23 21:35 Dose: 25 mg Naloxone HCl (Naloxone Hcl 0.4 Mg/1 Ml Vial/Carp) 0.1 mg IV Q5M PRN PRN Reason: Oversedation/Resp depression Stop: 02/03/23 19:43 Ondansetron HCl (Ondansetron Inj 2 Mg/Ml 2 Ml Vial) 4 mg IV Q6H PRN PRN Reason: Nausea &/or Vomiting Stop: 02/03/23 19:43 Ondansetron HCl (Ondansetron 4 Mg Od Tab) 4 mg PO Q6H PRN PRN Reason: Nausea Stop: 02/03/23 19:43 Oxycodone HCl (Oxycodone Hcl Ir 5 Mg Tab (Immediate Release)) 5 - 10 mg PO Q4H PRN PRN Reason: Pain & Pre PT Stop: 01/18/23 19:43 Last Admin: 01/06/23 14:25 Dose: 10 mg Pantoprazole Sodium (Pantoprazole 40 Mg Tab) 40 mg PO [facility] Stop: 01/30/23 20:59 Last Admin: 01/05/23 21:35 Dose: 40 mg Pneumococcal Polyvalent Vaccine (Do Not Administer Pneumococcal Vaccine) 1 each N/A PRN PRN PRN Reason: Notification Stop: 02/03/23 19:43 Senna/Docusate Sodium (Docusate Sodium/Senna 50/8.6mg Tab) 2 tab PO [facility] Stop: 02/03/23 20:59 Last Admin: 01/05/23 21:35 Dose: 2 tab Sodium Biphosphate/Sodium Phosphate (Sod Phosphate/Sod Biphosphate Enema 132 Ml Btl) 132 ml MA ONE PRN PRN Reason: Constipation Stop: 02/03/23 19:43 Tramadol HCl (Tramadol Hcl 50 Mg Tablet) 50 - 100 mg PO Q4H PRN PRN Reason: Moderate-Severe pain & Pre PT Stop: 02/03/23 19:43
--- OUTSIDE RECORDS SUMMARY | 2023-01-06 16:54 | External Medical Summary | Summary of Care ---
Author Name Unknown Organization [facility] Address [address] [place] [address] Phone [phone] Care Team Providers Care Car Construction Superintendent Name Role Phone Shelley Reddy MD Primary Care Provider [phone] Encounter Details Date Type Department Care Team (Late st Contact Info) Description 12/26/2022 Patient Reported Data Patient Survey Ortho OBERD Allergies Active Allergy Reactions Criticality Noted Date Comments Sulfa Antibiotics Rash 11/30/2015 Yeast Nausea/vomiting 11/30/2015 documented as of this encounter (statuses as of 12/26/2022) Medications Medication Sig Dispensed Refills Start Date End Date Status omeprazole (PRILOSEC) 20 MG CPDR Take 1 Capsule by mouth at bedtime. She takes 20mg tablets 2 at night to equal 40mg 30 Cap 5 05/06/2016 Active Melatonin ER 3 MG TBCR Take by mouth. one pill each day 0 06/18/2016 Active Ibuprofen 800 MG Oral Tablet (Motrin) Take 1 Tablet by mouth in the morning and 1 Tablet at noon and 1 Tablet before bedtime. Take with Meals. 45 Tablet 0 08/02/2022 Active Additional Information Patient taking differently:800 mg OralHS, Take with Meals, Reported on 12/10/2022 Metoprolol Succinate ER 25 MG Oral Tablet Extended Release 24 Hour (toPROL XL) TAKE 1 TABLET BY MOUTH IN THE MORNING 90 Tablet 3 08/19/2022 Active Additional Information Patient taking differently: Daily(AM), Takes in afternoon, Reported on 12/10/2022 Albuterol Sulfate 1.25 MG/3ML Inhalation Nebulization SolutionIndications :Shortness of breath,Bronchitis, complicated Inhale 1.25 mg via nebulizer every 4 hours as needed for Wheezing. 120 mL 5 12/10/2022 Active Lisinopril-hydroCHL OROthiazide 20-25 MG Oral TabletIndications:H TN, goal below 140/90 Take 0.5 Tablets by mouth in the morning. 90 Tablet 1 12/10/2022 Active Gabapentin 400 MG Oral Capsule (Neurontin)Indicati ons:Lumbar disc disease with radiculopathy,Histo ry of lumbar laminectomy Take 1 Capsule by mouth in the morning and 1 Capsule before bedtime. 180 Capsule 3 12/10/2022 Active Gabapentin 100 MG Oral Capsule (Neurontin)Indicati ons:Lumbar disc disease with radiculopathy,Histo ry of lumbar laminectomy TAKE 2 CAPSULES BY MOUTH 1 HOUR PRIOR TO SLEEP (ALONG WITH 400 MG FOR TOTAL OF 600MG AT NIGHT) 180 Capsule 3 12/10/2022 Active Albuterol Sulfate HFA 108 (90 Base) MCG/ACT Inhalation Aerosol SolutionIndications :Wheezing INHALE 2 PUFFS BY MOUTH EVERY 4 HOURS NEEDED FOR WHEEZING 18 g 5 12/13/2022 Active Hospital, Clinic, or Other Facility Administered Medication Ordered Dose Route Frequency Start Date End Date Status Albuterol Sulfate (Proventil) (2.5 MG/3ML) 0.083% inhalation solution 2.5 mgIndications:Mild persistent asthma without complication 2.5 mg NEBULIZER PRN 12/10/2022 12/10/2023 Acti ve albuterol (VENTOLIN HFA/PROVENTIL HFA) inhalerIndications:Mild persistent asthma without complication 3 Puff IN PRN 12/10/2022 12/10/2023 Acti ve documented as of this encounter (statuses as of 12/26/2022) Active Problems Problem Noted Date Diagnosed Date Mixed dyslipidemia 06/25/2022 Prediabetes 12/07/2021 Overview: Per Prediabetes protocol Hemochromatosis carrier 09/28/2020 Mild persistent asthma without complication 07/29 Body mass index (BMI) of 40.0 to 44.9 in adult 0 06/07/2017 Overview: Per Obesity protocol #1 Low HDL (under 40) 11/19/2016 Metabolic syndrome 11/19/2016 IFG (impaired fasting glucose) 06/18/2016 Encounter for screening mammogram for breast can cer 06/18/2016 Overview: Neg 07/14 HTN, goal below 140/90 05/06/2016 Overview: 11/14--stress echo-neg, lis inc 20mg, History of lumbar laminectomy 05/06/2016 Overview: EMG--10/14-no ac L5 radiculopathy,minor chr L5 radiculopathy-KS ref pain mgmtJosue 09/13-KS eval>MRI LS -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 At L5-S1 there is the loss of disc height and global disc bulge is eccentric to the left. Disc bulge with congenitally small neural foramen results in moderate foraminal narrowing at this level. This disc bulge comes into close proximity with the exiting left-sided S1 nerve root. Minor endplate changes are seen on the left at L5-S1 level. lumbar laminectomy Sara 2006 Gastroesophageal reflux disease without esophagi tis 05/06/2016 Overview: Had EGD +csope 2014? PSH Snoring 05/06/2016 DDD (degenerative disc disease), cervical 2016 documented as of this encounter (statuses as of 12/26/2022) Resolved Problems Problem Noted Date Diagnosed Date Resolved Date COVID-19 virus infection 06/13/2020 Pap smear for cervical cancer screening 11/19/2016 03/14/2019 Overview: Historical Gyn_Neg 10/14 Morbid obesity 05/06/2016 06/10/2017 Overview: Per Obesity protocol #1 documented as of this encounter (statuses as of 12/26/2022) Immunizations Name Administration Dates Next Due Pneumococcal Conjugate Vacci ne, 20-valent ([id number]) 06/25/2022 Pneumococcal Polysaccharide PPV23 (Pneumovax) 08/10/2018 SEASONAL INFLUENZA, PF, 6 M & Above, IM , (FLULAVAL or FLUZONE) 12/10/2022,01/01/2022,01/01/2021,04/12,05/19/2018,11/19/2016 Seasonal Influenza, Split, I IV3, With Preserve, Inj 11/29/2015,12/11/2012,01/06/2012 TDAP (age 10 and older)(Boostrix) 06/18/2016 Zoster Vaccine Recombinant (Shingrix) 09/26/2020 ,04/12/2019 documented as of this encounter Social History Tobacco Use Types Packs/Day Years Used Date Smoking Tobacco: Never Smokeless Tobacco: Never Alcohol Use Standard Drinks/Week Comments No 0 (1 standard drink = 0.6 oz pur e alcohol) PHQ-2 Answer Date Recorded PHQ Adult Total Score 0 12/10/2022 Hunger Vital Sign Answer Date Recorded Within the past 12 months, y ou worried that your food would run out before you got the money to buy more. Never true 05/29/19 Within the past 12 months, t he food you bought just didn't last and you didn't have money to get more. Never true 05/28/2021 Sex and Gender Information Value Date Recorded Sex Assigned at Female 04/12/2019 6:04 PM EST Gender Identity Female 04/12/2019 6:04 PM EST Sexual Orientation Straight 04/12/2019 6: 04 PM EST Job Start Date Occupation Industry Not on file Not on file Not on file documented as of this encounter Plan of Treatment Upcoming Encounters Date Type Department Care Team (Latest Contact Info) Description 12/30/2022 2:30 PM EDT Office Visit Orthopaedics [facility] [address] [address] Mack Roldan MD [address] [phone] 01/14/2023 9:00 AM EST PulmDiagnostic Pulmonary Function Lab, [facility] [address] [address] [address], [address] [address] 02/17/2023 2:30 PM EST Hospital Encounter ENDO [facility], Endoscopy Room [facility] [address] [place] [phone] Amy Knox MD [address] [address] 02/17/2023 2:30 PM EST - 02/17/2023 3:00 PM EST Surgery ENDO [facility], Endoscopy Room [facility] [address] [place], [place] [phone] Amy Knox MD [address] [address] COLONOSCOPY FLEXIBLE PROXIMAL DIAGNOSTIC 04/08/2023 9:45 AM EST Office Visit Dermatology [facility] [address] [place] [address] Ganesh Ely MD [address] [place] [address] 06/24/2023 9:00 AM EDT Office Visit General Internal Medicine [facility] [address] [place] [address] Shelley Reddy MD [address] [place] [address] Scheduled Procedures Name Priority Associated Diagnoses Date/Ti me COLONOSCOPY FLEXIBLE PROXIMAL DIAGNOSTIC Screening for colon cancer 02/17/2023 2:30 PM EST Health Maintenance Due Date Last Done Comments COVID-19 Vaccine (#1) 06/28/1961 HIV Screening 1973 HPV/Co-Test 1988 Cologuard 12/29/2003 Fecal Occult Blood Test 12/29/2003 Sigmoidoscopy 12/29/2003 *SPIROMETRY ONCE FOR ASTHMA-ADULT 08/12/2018 Colonoscopy 03/31/2022 03/31/2012 Colorectal Cancer Screening 03/31/2022 Mammogram 09/11/2022 09/11/2021, 07/30, 08/12/2017, Additional history exists GFR 06/26/2023 06/25/2022, 1008/2021, 08/08/2020, Additional history exists HbA1c 06/26/2023 06/25/2022, 12/04/2021 Depression Screening 12/11/2023 12/10/2022 Albumin/Creatinine Ratio 12/04/2024 12/04/2021 Cervical Cancer Screening 01/01/2025 Pap Smear 01/01/2025 01/01/2022, 10/07/2016 DTaP,Tdap,and Td Vaccines (2 - Td or Tdap) 06/18/2026 06/18/2016 Lipid Panel 12/04/2026 12/04/2021, 07/29, 05/19/2018, Additional history exists Zoster Vaccines Completed 09/26/2020, 04/12/2019 Pneumococcal Vaccine: Pediatrics (0 to 5 Years) and At-Risk Patients (6 to 64 Years) Completed 06/25/2022, 08/10/2018 Influenza Vaccine (FLU shot) Completed , 01/01/2022, 01/01/2021, Additional history exists GARDASIL-HPV IMMUNIZATION SERIES Aged Out No longer eligible based on patient's age to complete this topic Hepatitis B Aged Out No longer eligi ble based on patient's age to complete this topic MENINGOCOCCAL (MENACTRA/MENVEO) Aged Out No longer eligible based on patient's age to complete this topic documented as of this encounter Medical Devices Implanted Type Area Fiscal Assistant Device Identifier Shelf Expiration Date Model / Serial / Lot [place] Sut Swvlck Bc Knotless - [id number] Implanted:Qty: 1 on 08/02/2022 by Mack Roldan MD at OR [facility] Right: Shoulder [employer] 09/27/2025 [id number] / / [id number] documented as of this encounter Advance Directives Latest Code Status on File Code Status Date Activated Date Inactivated Comments Full Code 08/02/2022 12:36 PM 08/02/2022 7:40 PM This o rder reflects the patients wishes and were consensually agreed upon. Question Answer Comments Discussion of Advance Directives occurred with: Not Discussed due to patient's condition Code Status History Code Status Date Activated Date Inactivated Comments Full Code 08/02/2022 10:53 AM 08/02/2022 12:36 PM This order reflects the patients wishes and were consensually agreed upon. Question Answer Comments Discussion of Advance Directives occurred with: Not Discussed due to patient's condition Care Teams Car Construction Superintendent Relationship Specialty Start Date End Date Shelley Reddy MD [address] [place] [address] [place] [address] PCP - General Internal Medicine 02/07/19 documented as of this encounter
--- OUTSIDE RECORDS SUMMARY | 2023-01-06 16:54 | External Medical Summary | Summary of Care ---
Author Name Unknown Organization [facility] Address [address] [place] [address] Phone [phone] Care Team Providers Care Evening Or Night Nurse Supervisor Name Role Phone Shelley Reddy MD Primary Care Provider [phone] Encounter Details Date Type Department Care Team [...] Next Due Pneumococcal Conjugate Vacci ne, 20-valent ([id number]) 06/25/2022 Pneumococcal Polysaccharide PPV23 (Pneumovax) 08/10/2018 SEASONAL [...] 12/30/2022 2:30 PM EDT Office Visit Orthopaedics [facility] [address] [address] Mack Roldan MD [address] [phone] 01/14/2023 9:00 AM EST PulmDiagnostic Pulmonary Function Lab, [facility] [address] [address] [address], [address] [address] 02/17/2023 2:30 PM EST Hospital Encounter ENDO [facility], Endoscopy Room [facility] [address] [place] [phone] Amy Knox MD [address] [address] 02/17/2023 2:30 PM EST - 02/17/2023 3:00 PM EST Surgery ENDO [facility], Endoscopy Room [facility] [address] [place], [place] [phone] Amy Knox MD [address] [address] COLONOSCOPY FLEXIBLE PROXIMAL DIAGNOSTIC 04/08/2023 9:45 AM EST Office Visit Dermatology [facility] [address] [facility] [place] [address] Ganesh Ely MD [address] [facility] [place] [address] 06/24/2023 9:00 AM EDT Office Visit General Internal Medicine [facility] [address] [facility] [place] [address] Shelley Reddy MD [address] [place] [address] Scheduled Procedures Name Priority Associated Diagnoses Date/Ti [...] this encounter Medical Devices Implanted Type Area Airline Lounge Receptionist Device Identifier Shelf Expiration Date Model / Serial / Lot [place] Sut Swvlck Bc Knotless - [id number] Implanted:Qty: 1 on 08/02/2022 by Mack Roldan MD at OR [facility] Right: Shoulder [employer] 09/27/2025 [id number] / / [id number] documented as of this encounter Advance Directives [...] Discussed due to patient's condition Care Teams Evening Or Night Nurse Supervisor Relationship Specialty Start Date End Date Shelley Reddy MD [address] [place] [address] [place] [address] PCP - General Internal Medicine 02/07/19 documented as of this encounter
--- OUTSIDE RECORDS SUMMARY | 2023-01-06 16:55 | External Medical Summary | Summary of Care ---
Author Name Unknown Organization [facility] Address [address] [place] [address] Phone [phone] Care Team Providers Care Flat Polisher Name Role Phone Shelley Reddy MD Primary Care Provider [phone] Reason for Visit * Reason Comments Suture Removal PT presents today fo r SR Encounter Details Date Type Department Care Team Description 11/12/2022 Nurse Only [facility] [address] [place] [address] [place], Nurse Scenery [address] [place] [address] Suture Removal (PT presents today for SR ) Allergies Active Allergy Reactions Severity Noted Date Comments Sulfa Antibiotics Rash 11/30/2015 Yeast Nausea/vomiting 11/30/2015 documented as of this encounter (statuses as of 11/12/2022) Medications Medication Sig Dispensed Refills Start Date End Date Status omeprazole (PRILOSEC) 20 MG CPDR Take 1 Capsule by mouth at bedtime. She takes 20mg tablets 2 at night to equal 40mg 30 Cap 5 05/06/2016 Active Melatonin ER 3 MG TBCR Take by mouth. one pill each day 0 06/18/2016 Active Albuterol Sulfate 1.25 MG/3ML NEBUIndications:Bro nchitis, complicated,Shortne ss of breath Inhale 1 Vial via nebulizer every 4 hours as needed for Wheezing. 120 Vial 0 03/23/2018 Active Albuterol Sulfate HFA 108 (90 Base) MCG/ACT Inhalation Aerosol SolutionIndications :Wheezing Inhale by mouth 2 Puffs every 4 hours as needed for Wheezing. 18 g 5 05/18/2021 Active Lisinopril-hydroCHL OROthiazide 20-25 MG Oral TabletIndications:H TN, goal below 140/90 Take 1 Tablet by mouth in the morning. 90 Tablet 1 06/25/2022 Active oxyCODONE-Acetamino phen 5-325 MG Oral Tablet (Percocet) Take 1 Tablet by mouth every 6 hours as needed for Pain, Moderate. 20 Tablet 0 08/02/2022 Active Additional Information Patient not taking.Reported on 08/17/2022 Ibuprofen 800 MG Oral Tablet (Motrin) Take 1 Tablet by mouth in the morning and 1 Tablet at noon and 1 Tablet before bedtime. Take with Meals. 45 Tablet 0 08/02/2022 Active Metoprolol Succinate ER 25 MG Oral Tablet Extended Release 24 Hour (toPROL XL) TAKE 1 TABLET BY MOUTH IN THE MORNING 90 Tablet 3 08/19/2022 Active Gabapentin 400 MG Oral Capsule (Neurontin)Indicati ons:History of lumbar laminectomy,Lumbar disc disease with radiculopathy Take 1 Capsule by mouth in the morning and 1 Capsule before bedtime. 180 Capsule 0 09/21/2022 Active Gabapentin 100 MG Oral Capsule (Neurontin)Indicati ons:History of lumbar laminectomy,Lumbar disc disease with radiculopathy TAKE 2 CAPSULES BY MOUTH 1 HOUR PRIOR TO SLEEP (ALONG WITH 400 MG FOR TOTAL OF 600MG AT NIGHT) 180 Capsule 0 09/21/2022 Active Ondansetron HCl 4 MG Oral Tablet Take 2 Tablets by mouth every 8 hours as needed for Nausea. 30 Tablet 1 10/08/2022 Active documented as of this encounter (statuses as of 11/12/2022) Active Problems Problem Noted Date Mixed dyslipidemia 06/25/2022 Prediabetes 12/07/2021 Overview: Per Prediabetes protocol Hemochromatosis carrier 09/28/2020 Mild persistent asthma without complicat ion 08/10/2018 Body mass index (BMI) of 40.0 to 44.9 in adult 06/07/2017 Overview: Per Obesity protocol #1 Low HDL (under 40) 11/19/2016 Metabolic syndrome 11/19/2016 IFG (impaired fasting glucose) 7 Encounter for screening mammogram for br east cancer 06/18/2016 Overview: Neg 07/14 HTN, goal below 140/90 05/06/2016 Overview: 11/14--stress echo-neg, lis inc 20mg, History of lumbar laminectomy 05/06/2016 Overview: EMG--10/14-no ac L5 radiculopathy,minor chr L5 radiculopathy-[place] ref pain mgmt, Josue 09/13-[place] eval>MRI LS -1Congenitally mildly narrowed central [...] laminectomy Sara 2006 Gastroesophageal reflux disease without esophagitis 05/06/2016 Overview: Had EGD +csope 2014? PSH Snoring 05/06/2016 DDD (degenerative disc disease), cervica l 05/06/2016 documented as of this encounter (statuses as of 11/12/2022) Resolved Problems Problem Noted Date Resolved Date COVID-19 virus infection 06/13/2020 0730/2 021 Pap smear for cervical cancer screening 11/20/19 17 03/14/2019 Overview: Historical Gyn_Neg 10/14 Morbid obesity 05/06/2016 06/10/2017 Overview: Per Obesity protocol #1 documented as of this encounter (statuses as of 11/12/2022) Immunizations Name Administration Dates Next Due Pneumococcal Conjugate Vacci ne, 20-valent ([id number]) 06/25/2022 Pneumococcal Polysaccharide PPV23 (Pneumovax) 08/10/2018 Seasonal Influenza, PF, 6 mo ns & Above, IM , (Flulaval) 01/01/2022,01/01/2021,04/12/2019,05/19,11/19/2016 Seasonal Influenza, Split, I IV3, With Preserve, Inj 11/29/2015,12/11/2012,01/06/2012 TDAP (age 10 and older)(Boostrix) 06/18/2016 Zoster Vaccine Recombinant (Shingrix) 09/26/2020 ,04/12/2019 documented as of this encounter Social History Tobacco Use Types Packs/Day Years Used Date Smoking Tobacco: Never Smokeless Tobacco: Never Alcohol Use Standard Drinks/Week Comments No 0 (1 standard drink = 0.6 oz pur e alcohol) Food Insecurity Answer Date Recorded Within the past 12 months, y ou worried that your food would run out before you got money to buy more. Never true 05/28/2021 Within the past 12 months, t he food you bought just didn't last and you didn't have money to get more. Never true 05/28/2021 Sex Assigned at Date Recorded Female 04/12/2019 6:[address] Job Start Date Occupation Industry Not on file Not on file Not on file documented as of this encounter Nursing Notes * Ginny Gustafson LPN - 11/12/2022 2:14 PM EDT Chief Complaint Patient presents with Suture Removal PT presents today for SR Patient presents for suture removal in the area of nose. Patient denies any problems or concerns atcurrent time. No signs or symptoms of infection noted at current time. Sutures removed without difficulty. No special skin care instructions at this time. Pt verbalizes understanding. documented in this encounter Plan of Treatment Upcoming Encounters Date Type Specialty Care Team Description 12/02/2022 Office Visit Orthopedics Mack Roldan MD [address] [place] [phone] 12/10/2022 Office Visit Internal Medicine Shelley Reddy MD [address] [facility] [place] [address] 02/17/2023 Hospital Encounter Endoscopy Amy Knox MD [address] [place] [address] 02/17/2023 Surgery Endoscopy Amy Knox MD [address] [place] [address] COLONOSCOPY FLEXIBLE PROXIMAL DIAGNOSTIC 04/08/2023 Office Visit Dermatology Ganesh Ely MD [address] [place] [id number] Scheduled Procedures Name Priority Associated Diagnoses Date/Ti me COLONOSCOPY FLEXIBLE PROXIMAL DIAGNOSTIC Screening for colon cancer 02/17/2023 2:30 PM EST Health Maintenance Due Date Last Done Comments COVID-19 Vaccine (#1) 06/28/1961 HIV Screening 1973 HPV/Co-Test 1988 Cologuard 12/29/2003 Fecal Occult Blood Test 12/29/2003 Sigmoidoscopy 12/29/2003 *SPIROMETRY ONCE FOR ASTHMA-ADULT 08/12/2018 Depression Screening 05/06/2020 05/07/2019 Colonoscopy 03/31/2022 03/31/2012 Colorectal Cancer Screening 03/31/2022 Mammogram 09/11/2022 09/11/2021, 07/30, 08/12/2017, Additional history exists *BASELINE EKG FOR HTN 10/10/2022 Influenza Vaccine (FLU shot) (#1) 2022 01/01/2022, 01/01/2021, 04/12/2019, Additional history exists GFR 06/26/2023 06/25/2022, 10/0 08/2021, 08/08/2020, Additional history exists HbA1c 06/26/2023 06/25/2022, 12/04/2021 Albumin/Creatinine Ratio 12/04/2024 12/04/2021 Cervical Cancer Screening 01/01/2025 Pap Smear 01/01/2025 01/01/2022, 10/07/2016 DTaP,Tdap,and Td Vaccines (2 - Td or Tdap) 06/18/2026 06/18/2016 Lipid Panel 12/04/2026 12/04/2021, 07/29, 05/19/2018, Additional history exists Zoster Vaccines Completed 09/26/2020, 04/12/2019 Pneumococcal Vaccine: Pediatrics (0 to 5 Years) and At-Risk Patients (6 to 64 Years) Completed 06/25/2022, 08/10/2018 GARDASIL-HPV IMMUNIZATION SERIES Aged Out No longer eligible based on patient's age to complete this topic Hepatitis B Aged Out No longer eligi ble based on patient's age to complete this topic MENINGOCOCCAL (MENACTRA/MENVEO) Aged Out No longer eligible based on patient's age to complete this topic documented as of this encounter Medical Devices Implanted Type Area Fur Trimming Machine Operator Device Identifier Shelf Expiration Date Model / Serial / Lot [place] Sut Swvlck Bc Knotless - [id number] Implanted:Qty: 1 on 08/02/2022 by Mack Roldan MD at OR [facility] Right: Shoulder [employer] 09/27/2025 [id number] / / [id number] documented as of this encounter Advance Directives [...] Discussed due to patient's condition Care Teams Flat Polisher Relationship Specialty Start Date End Date Shelley Reddy MD [address] [place] [address] PCP - General Internal Medicine 02/07/19 documented as of this encounter
--- OUTSIDE RECORDS SUMMARY | 2023-01-06 16:55 | External Medical Summary | Summary of Care ---
Author Name Unknown Organization [facility] Address [address] [place] [address] Phone [phone] Care Team Providers Care Construction Mgr Name Role Phone Shelley Reddy MD Primary Care Provider Encounter Details Date Type Department Care Team [...] Next Due Pneumococcal Conjugate Vacci ne, 20-valent ([id number]) 06/25/2022 Pneumococcal Polysaccharide PPV23 (Pneumovax) 08/10/2018 SEASONAL [...] 12/30/2022 2:30 PM EDT Office Visit Orthopaedics [facility] [address] [place] [address] Mack Roldan MD [address] [phone] 01/14/2023 9:00 AM EST PulmDiagnostic Pulmonary Function Lab, [facility] [address] [address] [address], [address] [place] [address] 02/17/2023 2:30 PM EST Hospital Encounter ENDO [facility], Endoscopy Room [facility] [address] [place] [phone] Amy Knox MD [address] [place] [address] 02/17/2023 2:30 PM EST - 02/17/2023 3:00 PM EST Surgery ENDO [facility], Endoscopy Room [facility] [address] [place], [place] [phone] Amy Knox MD [address] [place] [address] COLONOSCOPY FLEXIBLE PROXIMAL DIAGNOSTIC 04/08/2023 9:45 AM EST Office Visit Dermatology [facility] [address] [facility] [place] [address] Ganesh Ely MD [address] [facility] [place] [address] 06/24/2023 9:00 AM EDT Office Visit General Internal Medicine [facility] [address] [facility] [place] [address] Shelley Reddy MD [address] [place] [address] Scheduled Procedures Name Priority Associated Diagnoses Date/Ti [...] this encounter Medical Devices Implanted Type Area Recreation Programmer Device Identifier Shelf Expiration Date Model / Serial / Lot [place] Sut Swvlck Bc Knotless - [id number] Implanted:Qty: 1 on 08/02/2022 by Mack Roldan MD at OR [facility] Right: Shoulder [employer] 09/27/2025 [id number] / / [id number] documented as of this encounter Advance Directives [...] Discussed due to patient's condition Care Teams Construction Mgr Relationship Specialty Start Date End Date Shelley Reddy MD [address] [place] [address] [place] [address] PCP - General Internal Medicine 02/07/19 documented as of this encounter
--- OUTSIDE RECORDS SUMMARY | 2023-01-06 16:55 | External Medical Summary | Summary of Care ---
Author Name Unknown Organization [facility] Address [address] [place] [address] Phone [phone] Care Team Providers Care Photogrammetry Airplane Pilot Name Role Phone Shelley Reddy MD Primary Care Provider [phone] Reason for Visit * Reason Onset Date Comments Follow Up The pt stated sh stephanie is here for a follow up appointment Medication Administration 12/10/2022 Flu an d/or Pneumo Inj Encounter Details Date Type Department Care Team Description 12/10/2022 Office Visit General Internal Medicine [facility] [address] [place] [address] Shelley Reddy MD [address] [place] [address] HTN, goal below 140/90*; Need for prophylactic vaccination and inoculation against influenza; IFG (impaired fasting glucose); Gastroesophageal reflux disease without esophagitis; Hemochromatosis carrier; Encounter for screening mammogram for breast cancer; Lumbar disc disease with radiculopathy; Shortness of breath; DDD (degenerative disc disease), cervical; Bronchitis, complicated; Low HDL (under 40); Metabolic syndrome; Mixed dyslipidemia; Prediabetes; Snoring; Mild persistent asthma without complication; Encounter for long-term (current) use of medications; History of lumbar laminectomy Allergies Active Allergy Reactions Severity Noted Date Comments Sulfa Antibiotics Rash 11/30/2015 Yeast Nausea/vomiting 11/30/2015 documented as of this encounter (statuses as of 12/10/2022) Medications Medication Sig Dispensed Refills Start Date End Date Status omeprazole (PRILOSEC) 20 MG CPDR Take 1 Capsule by mouth at bedtime. She takes 20mg tablets 2 at night to equal 40mg 30 Cap 5 7 Active Melatonin ER 3 MG TBCR Take by mouth. one pill each day 0 7 Active Albuterol Sulfate HFA 108 (90 Base) MCG/ACT Inhalation Aerosol SolutionIndicatio ns:Wheezing Inhale by mouth 2 Puffs every 4 hours as needed for Wheezing. 18 g 5 2 Active Ibuprofen 800 MG Oral Tablet (Motrin) Take 1 Tablet by mouth in the morning and 1 Tablet at noon and 1 Tablet before bedtime. Take with Meals. 45 Tablet 0 3 Active Additional Information Patient taking differently:800 mg OralHS, Take with Meals, Reported on 12/10/2022 Metoprolol Succinate ER 25 MG Oral Tablet Extended Release 24 Hour (toPROL XL) TAKE 1 TABLET BY MOUTH IN THE MORNING 90 Tablet 3 3 Active Additional Information Patient taking differently: Daily(AM), Takes in afternoon, Reported on 12/10/2022 Albuterol Sulfate 1.25 MG/3ML Inhalation Nebulization SolutionIndicatio ns:Shortness of breath,Bronchitis , complicated Inhale 1.25 mg via nebulizer every 4 hours as needed for Wheezing. 120 mL 5 3 Active Lisinopril-hydroC HLOROthiazide 20-25 MG Oral TabletIndications :HTN, goal below 140/90 Take 0.5 Tablets by mouth in the morning. 90 Tablet 1 3 Active Gabapentin 400 MG Oral Capsule (Neurontin)Indica tions:Lumbar disc disease with radiculopathy,His tory of lumbar laminectomy Take 1 Capsule by mouth in the morning and 1 Capsule before bedtime. 180 Capsule 3 3 Active Gabapentin 100 MG Oral Capsule (Neurontin)Indica tions:Lumbar disc disease with radiculopathy,His tory of lumbar laminectomy TAKE 2 CAPSULES BY MOUTH 1 HOUR PRIOR TO SLEEP (ALONG WITH 400 MG FOR TOTAL OF 600MG AT NIGHT) 180 Capsule 3 3 Active Albuterol Sulfate 1.25 MG/3ML NEBUIndications:B ronchitis, complicated,Short ness of breath Inhale 1 Vial via nebulizer every 4 hours as needed for Wheezing. 120 Vial 0 9 12/11/19 23 Discontinued(Re fill) Lisinopril-hydroC HLOROthiazide 20-25 MG Oral TabletIndications :HTN, goal below 140/90 Take 1 Tablet by mouth in the morning. 90 Tablet 1 3 12/11/19 23 Discontinued(Re fill) oxyCODONE-Acetami nophen 5-325 MG Oral Tablet (Percocet) Take 1 Tablet by mouth every 6 hours as needed for Pain, Moderate. 20 Tablet 0 3 12/11/19 23 Discontinued Gabapentin 400 MG Oral Capsule (Neurontin)Indica tions:History of lumbar laminectomy,Lumba r disc disease with radiculopathy Take 1 Capsule by mouth in the morning and 1 Capsule before bedtime. 180 Capsule 0 3 12/11/19 Discontinued Gabapentin 100 MG Oral Capsule (Neurontin)Indica tions:History of lumbar laminectomy,Lumba r disc disease with radiculopathy TAKE 2 CAPSULES BY MOUTH 1 HOUR PRIOR TO SLEEP (ALONG WITH 400 MG FOR TOTAL OF 600MG AT NIGHT) 180 Capsule 0 3 12/11/19 23 Discontinued(Re fill) Ondansetron HCl 4 MG Oral Tablet Take 2 Tablets by mouth every 8 hours as needed for Nausea. 30 Tablet 1 3 12/11/19 Discontinued Hospital, Clinic, or Other Facility Administered Medication Ordered Dose Route Frequency Start Date End Date Status Albuterol Sulfate (Proventil) (2.5 MG/3ML) 0.083% inhalation solution 2.5 mgIndications:Mild persistent asthma without complication 2.5 mg NEBULIZER PRN 12/10/2022 12/10/2023 Acti ve albuterol (VENTOLIN HFA/PROVENTIL HFA) inhalerIndications:Mild persistent asthma without complication 3 Puff IN PRN 12/10/2022 12/10/2023 Acti ve documented as of this encounter (statuses as of 12/10/2022) Active Problems Problem Noted Date Mixed dyslipidemia [...] as of this encounter (statuses as of 12/10/2022) Resolved Problems Problem Noted Date Resolved Date COVID-19 virus infection 06/13/2020 021 Pap smear for cervical cancer screening 11/20/19 17 03/14/2019 Overview: Historical Gyn_Neg 10/14 Morbid obesity 05/06/2016 06/10/2017 Overview: Per Obesity protocol #1 documented as of this encounter (statuses as of 12/10/2022) Immunizations Name Administration Dates Next Due Pneumococcal Conjugate Vacci ne, 20-valent ([id number]) 06/25/2022 Pneumococcal Polysaccharide PPV23 (Pneumovax) 08/10/2018 SEASONAL [...] on file documented as of this encounter Last Filed Vital Signs Vital Sign Reading Time Taken Comments Blood Pressure 100/60 12/10/2022 9:37 AM EDT Pulse 63 12/10/2022 9:37 AM EDT Temperature 36.4 C (97.6 F) 12/10/2022 9:37 AM ED T Respiratory Rate - - Oxygen Saturation 98% 12/10/2022 9:37 AM EDT Inhaled Oxygen Concentration - - Weight 106.1 kg (233 lb 12.8 oz) 12/10/2022 9:37 AM EDT Height - - Body Mass Index 38.91 10/08/2022 3:45 PM EDT documented in this encounter Progress Notes * Shelley Reddy MD - 12/10/2022 9:45 AM EDT Images from the original note were not included. History of Present Illness Kathleen Jones is a 61 year old female that presents for Follow Up (The pt stated she is here for a follow up appointment) and Medication Administration (Flu and/or Pneumo Inj) 61 year oldYOfemale with PMH significant for HTN, obesity, lumbar DDD, mild asthma presents here for recheck. Acute concern :- -back pain and numbness in the feet getting worse and sometimes it is hard to walk long distance. Also feels some wobbly specially uneven surface. Does not use cane but thinking about doing it time to time. Asking if she would qualify for [employer] lot which I explained why she does not -BP looks low today, some lightheadedness. BP was high in her early acute appointment but suspect she missed her BP pill because of nausea vomiting Interimmedical history : Stress overall better. Walking a lot with dog. Watching diet and exercise : Good but can improve specially diet Routine labs : Due Routine HM : Agreeable to catch up including new COVID booster Chronic medical problem: reviewed and stable Physical Exam Vitals: 12/10/22 0937 Temp: 36.4 C (97.6 F) Pulse: 63 SpO2: 98% BP: 100/60 Physical Exam Vitals and nursing note reviewed. Constitutional: General: She is not in acute distress. Appearance: She is obese. HENT: Head: Normocephalic. Cardiovascular: Rate and Rhythm: Normal rate and regular rhythm. Pulmonary: Effort: Pulmonary effort is normal. No respiratory distress. Breath sounds: No wheezing. Abdominal: General: Bowel sounds are normal. There is no distension. Palpations: Abdomen is soft. There is no mass. Musculoskeletal: General: No swelling, tenderness or signs of injury. Cervical back: Neck supple. No rigidity. Skin: General: Skin is warm. Findings: No erythema, lesion or rash. Neurological: Mental Status: She is alert and oriented to person, place, and time. I have reviewed the following results: Assessment and Plan HTN, goal below 140/90 Decrease losartan 20/hydrochlorothiazide 25 to half a tablet daily until finished then can start 12.5 - COMPREHENSIVE METABOLIC PANEL; Future - EKG; Future - EKG Need for prophylactic vaccination and inoculation against influenza - INFLUENZA VACC, QUAD, PF, 6 MONTHS & UP, 0.5 ML, IM IFG (impaired fasting glucose) Doing well on conservative measure Continue to watch diet and exercise Wwill follow lab closely Gastroesophageal reflux disease without esophagitis - CBC; Future Hemochromatosis carrier Encounter for screening mammogram for breast cancer Lumbar disc disease with radiculopathy Suggest to use cane for longer distance specially on uneven surface Also suggest to see physical therapy as well - Gabapentin 400 MG Oral Capsule (Neurontin); Take 1 Capsule by mouth in the morning and 1 Capsule before bedtime. - Gabapentin 100 MG Oral Capsule (Neurontin); TAKE 2 CAPSULES BY MOUTH 1 HOUR PRIOR TO SLEEP (ALONGWITH 400 MG FOR TOTAL OF 600MG AT NIGHT) Shortness of breath - Albuterol Sulfate 1.25 MG/3ML Inhalation Nebulization Solution; Inhale 1.25 mg via nebulizer every 4 hours as needed for Wheezing. DDD (degenerative disc disease), cervical Bronchitis, complicated - Albuterol Sulfate 1.25 MG/3ML Inhalation Nebulization Solution; Inhale 1.25 mg via nebulizer every 4 hours as needed for Wheezing. Low HDL (under 40) Metabolic syndrome Mixed dyslipidemia - COMPREHENSIVE METABOLIC PANEL; Future - LIPID PANEL WITH DIRECT LDL IF TG IS HIGH; Future Prediabetes - HEMOGLOBIN A1C; Future Snoring Mild persistent asthma without complication - SPIROMETRY B/A BRONCHODILATOR; Future - LUNG VOLUMES (PLETHYSMOGRAPHY); Future - DIFFUSION CAPACITY (DLCO); Future Encounter for long-term (current) use of medications - VITAMIN B12; Future History of lumbar laminectomy - Gabapentin 400 MG Oral Capsule (Neurontin); Take 1 Capsule by mouth in the morning and 1 Capsule before bedtime. - Gabapentin 100 MG Oral Capsule (Neurontin); TAKE 2 CAPSULES BY MOUTH 1 HOUR PRIOR TO SLEEP (ALONGWITH 400 MG FOR TOTAL OF 600MG AT NIGHT) Wrap-Up Time: I spent a total of 40-54 minutes (exact time 42 mins) on the date of service in preparation, delivery, and documentation of the care provided to Kathleen Jones excluding any time spent in the performance of separately billed services. * Steve Ford LPN - 12/10/2022 9:41 AM EDT PRE - ADMINISTRATION DOCUMENTATION Are you experiencing any cold symptoms or fever? No Have you had Guillain-C[place] Syndrome (an illness that causes paralysis) within the last 6 weeks? No Have you had the flu shot in the past? YES Have you ever had a reaction to the flu shot? No Steve Ford LPN, 12/10/2022 9:41 AM Immunization Administration Documentation Time Out Procedure Performed: Yes Patient Identified (Ask Name/Date of ): Yes Does the patient have a fever greater than 101 degrees today? No Patient allergic to latex? No VFC Stock: No Immunization(s) verified: Yes, Immunization Name: Flu, VIS Sheet(s) given: Yes Verified Side and Site: Yes Verified Shot(s) with Parent(s)/Patient: Yes documented in this encounter Procedure Notes * Shiraz Ortega DO - 12/10/2022 9:58 AM EDTAssociated Order(s): EKG REASON FOR STUDY: HTN CONCLUSIONS: Normal sinus rhythm Normal ECG No previous ECGs available Ventricular Rate: 61 Atrial Rate: 61 FL Interval: 184 QRS Duration: 94 QT/QTc: 402/404 ms P-R-T [place]: 18 : 7 : 27 degrees documented in this encounter Nursing Notes * Steve Ford LPN - 12/10/2022 9:37 AM EDT Chief Complaint Patient presents with Follow Up The pt stated she is here for a follow up appointment documented in this encounter Plan of Treatment Upcoming Encounters Date Type Specialty Care Team Description 12/30/2022 Office Visit Orthopedics Mack Roldan MD [address] [place] [phone] 01/14/2023 PulmDiagnostic Pulmonary Function [place], [facility] [address] [place] [id number] 02/17/2023 Hospital Encounter Endoscopy Amy Knox MD [address] [place] [address] 02/17/2023 Surgery Endoscopy Amy Knox MD [address] [place] [address] COLONOSCOPY FLEXIBLE PROXIMAL DIAGNOSTIC 04/08/2023 Office Visit Dermatology Ganesh Ely MD [address] [place] [address] 06/24/2023 Office Visit Internal Medicine Shelley Reddy MD [address] [place] [address] Scheduled Orders Name Type Priority Associated Diagnoses Orde r Schedule COMPREHENSIVE METABOLIC PANEL Lab Routine HTN, goal below 140/90 Mixed dyslipidemia Expected: 12/10/2022 (Approximate), Expires: 12/11/2023 LIPID PANEL WITH DIRECT LDL IF TG IS HIGH Lab Routine Mixed dyslipidemia Expected: 12/10/2022 (Approximate), Expires: 12/11/2023 HEMOGLOBIN A1C Lab Routine Prediabetes Expected: 12/10/2022 (Approximate), Expires: 12/11/2023 CBC Lab Routine Gastroesophageal reflux disease without esophagitis Expected: 12/10/2022 (Approximate), Expires: 12/10/2023 VITAMIN B12 Lab Routine Encounter for long-term (current) use of medications Expected: 12/10/2022 (Approximate), Expires: 12/10/2023 SPIROMETRY B/A BRONCHODILATOR Procedures Routine Mild persistent asthma without complication Expected: 01/10/2023, Expires: 01/11/2024 LUNG VOLUMES (PLETHYSMOGRAPHY) Procedures Routine Mild persistent asthma without complication Expected: 01/10/2023, Expires: 01/11/2024 DIFFUSION CAPACITY (DLCO) Procedures Routine Mild persistent asthma without complication Expected: 01/10/2023, Expires: 01/11/2024 Scheduled Procedures Name Priority Associated Diagnoses Date/Ti [...] 08/12/2017, Additional history exists GFR 06/26/2023 06/25/2022, 08/2021, 08/08/2020, Additional history exists HbA1c 06/26/2023 06/25/2022, 12/04/2021 Depression Screening 12/11/2023 12/10/2022 Albumin/Creatinine Ratio 12/04/2024 12/04/2021 Cervical Cancer Screening 01/01/2025 Pap Smear 01/01/2025 01/01/2022, 10/07/2016 DTaP,Tdap,and Td Vaccines (2 - Td or Tdap) 06/18/2026 06/18/2016 Lipid Panel 12/04/2026 12/04/2021, 0602/2020, 05/19/2018, Additional history exists Zoster Vaccines Completed 09/26/2020, 04/12/2019 Pneumococcal Vaccine: Pediatrics (0 to 5 Years) and At-Risk Patients (6 to 64 Years) Completed 06/25/2022, 08/10/2018 *BASELINE EKG FOR HTN Completed 12/10/2022 Influenza Vaccine (FLU shot) Completed , 01/01/2022, [...] this encounter Medical Devices Implanted Type Area Clinical Researcher Device Identifier Shelf Expiration Date Model / Serial / Lot [place] Sut Swvlck Bc Knotless - [id number] Implanted:Qty: 1 on 08/02/2022 by Mack Roldan MD at OR [facility] Right: Shoulder [employer] 09/27/2025 [id number] / / [id number] documented as of this encounter Procedures Procedure Name Priority Date/Time Associated Diagnosis Comments FL ECG ROUTINE ECG W/LEAST 12 LDS I&R ONLY Routine 12/10/2022 9:58 AM EDT HTN, goal below 140/90 documented in this encounter Results * EKG (12/10/2022 9:58 AM EDT) 12/10/2022 9:58 AM EDT Procedure Note Shiraz Ortega, - 12/10/2022 9:58 AM EDT REASON FOR STUDY: HTN CONCLUSIONS: Normal sinus rhythm Normal ECG No previous ECGs available Ventricular Rate: 61 Atrial Rate: 61 FL Interval: 184 QRS Duration: 94 QT/QTc: 402/404 ms P-R-T [place]: 18 : 7 : 27 degrees Shelley Reddy MD EKG [facility] documented in this encounter Visit Diagnoses Diagnosis HTN, goal below 140/90- Primary Unspecified essential hypertension Need for prophylactic vaccination and inoculation against influenza IFG (impaired fasting glucose) Impaired fasting glucose Gastroesophageal reflux disease without esophagitis Esophageal reflux Hemochromatosis carrier Other genetic carrier status Encounter for screening mammogram for breast cancer Lumbar disc disease with radiculopathy Displacement of lumbar intervertebral disc without myelopathy Shortness of breath DDD (degenerative disc disease), cervical Degeneration of cervical intervertebral disc Bronchitis, complicated Bronchitis, not specified as acute or chronic Low HDL (under 40) Lipoprotein deficiencies Metabolic syndrome Dysmetabolic Syndrome X Mixed dyslipidemia Mixed hyperlipidemia Prediabetes Other abnormal glucose Snoring Other dyspnea and respiratory abnormality Mild persistent asthma without complication Unspecified asthma Encounter for long-term (current) use of medications Encounter for long-term (current) use of other medications History of lumbar laminectomy Screening for colon cancer Special screening for malignant neoplasms, colon documented in this encounter Advance Directives Latest Code Status [...] Discussed due to patient's condition Care Teams Photogrammetry Airplane Pilot Relationship Specialty Start Date End Date Shelley Reddy MD [address] [place] [address], [place] [address] PCP - General Internal Medicine 02/07/19 documented as of this encounter
--- OUTSIDE RECORDS SUMMARY | 2023-01-06 16:55 | External Medical Summary | Summary of Care ---
Author Name Unknown Organization [facility] Address [address] [place] [address] Phone [phone] Care Team Providers Care Mold Closer Helper Name Role Phone Shelley Reddy MD Primary Care Provider [phone] Reason for Visit * Reason Comments eRx-Medication Refill Encounter Details Date Type Department Care Team Description 12/11/2022 Refill General Internal Medicine [facility] [address] [place] [address] Shelley Reddy MD [address] [facility] [place] [id number] Wheezing Allergies Active Allergy Reactions Severity Noted Date Comments Sulfa Antibiotics Rash 11/30/2015 Yeast Nausea/vomiting 11/30/2015 documented as of this encounter (statuses as of 12/13/2022) Medications Medication Sig Dispensed Refills Start Date End Date Status omeprazole (PRILOSEC) 20 MG CPDR Take 1 Capsule by mouth at bedtime. She takes 20mg tablets 2 at night to equal 40mg 30 Cap 5 7 Active Melatonin ER 3 MG TBCR Take by mouth. one pill each day 0 7 Active Ibuprofen 800 MG Oral Tablet (Motrin) [...] 180 Capsule 3 3 Active Albuterol Sulfate HFA 108 (90 Base) MCG/ACT Inhalation Aerosol SolutionIndicatio ns:Wheezing INHALE 2 PUFFS BY MOUTH EVERY 4 HOURS NEEDED FOR WHEEZING 18 g 5 3 Active Albuterol Sulfate HFA 108 (90 Base) MCG/ACT Inhalation Aerosol SolutionIndicatio ns:Wheezing Inhale by mouth 2 Puffs every 4 hours as needed for Wheezing. 18 g 5 2 12/14/19 23 Discontinued Hospital, Clinic, or Other Facility Administered [...] as of this encounter (statuses as of 12/13/2022) Active Problems Problem Noted Date Mixed dyslipidemia [...] as of this encounter (statuses as of 12/13/2022) Resolved Problems Problem Noted Date Resolved Date COVID-19 virus infection 06/13/2020 07/30/2 021 Pap smear for cervical cancer screening 11/20/19 17 03/14/2019 Overview: Historical Gyn_Neg 8/17 Morbid obesity 05/06/2016 06/10/2017 Overview: Per Obesity protocol #1 documented as of this encounter (statuses as of 12/13/2022) Immunizations Name Administration Dates Next Due Pneumococcal Conjugate Vacci ne, 20-valent ([id number]) 06/25/2022 Pneumococcal Polysaccharide PPV23 (Pneumovax) 08/10/2018 SEASONAL [...] on file documented as of this encounter Miscellaneous Notes * Telephone Encounter - Karla Gillis [facility] - 12/13/2022 8:18 AM EDTSigned Prescriptions: Disp Refills Albuterol Sulfate HFA 108 (90 Base) MCG/AC*18 g 5 Sig: INHALE 2 PUFFS BY MOUTH EVERY 4 HOURS NEEDED FOR WHEEZINGAuthorizing Provider: Michelle REDDY User: KARLA GILLIS documented in this encounter Plan of Treatment Upcoming Encounters Date Type Specialty Care Team Description 12/30/2022 Office Visit Orthopedics Mack Roldan MD [address] [place] [phone] 01/14/2023 PulmDiagnostic Pulmonary Function [place], Pft [address] [place] [address] 02/17/2023 Hospital Encounter Endoscopy Amy Knox MD [address] [place] [address] 02/17/2023 Surgery Endoscopy Amy Knox MD [address] [place] [phone] COLONOSCOPY FLEXIBLE PROXIMAL DIAGNOSTIC 04/08/2023 Office Visit Dermatology Ganesh Ely MD [address] [place] [address] 06/24/2023 Office Visit Internal Medicine Shelley Reddy MD [address] [place] [address] Scheduled Procedures Name Priority Associated Diagnoses Date/Ti [...] this encounter Medical Devices Implanted Type Area Pilot Control Operator Helper Device Identifier Shelf Expiration Date Model / Serial / Lot [place] Sut Swvlck Bc Knotless - [id number] Implanted:Qty: 1 on 08/02/2022 by Mack Roldan MD at OR [facility] Right: Shoulder [employer] 09/27/2025 [id number] / / [id number] documented as of this encounter Visit Diagnoses Diagnosis Wheezing Screening for colon cancer Special screening for [...] Discussed due to patient's condition Care Teams Mold Closer Helper Relationship Specialty Start Date End Date Shelley Reddy MD [address] [place] [address] PCP - General Internal Medicine 02/07/19 documented as of this encounter
--- OUTSIDE RECORDS SUMMARY | 2023-01-06 16:55 | External Medical Summary | Summary of Care ---
Author Name Unknown Organization [facility] Address [address] [place] [address] Phone [phone] Care Team Providers Care Cello Teacher Name Role Phone Shelley Reddy MD Primary Care Provider [phone] Reason for Visit * Reason Comments Suture Removal PT presents today fo r SR Encounter Details Date Type Department Care Team Description 11/12/2022 Nurse Only [facility] [address] [place] [address] [place], Nurse Scenery [address] [place] [address] Suture Removal (PT presents today for SR ) Allergies Active Allergy Reactions Severity Noted Date Comments Sulfa Antibiotics Rash 11/30/2015 Yeast Nausea/vomiting 11/30/2015 documented as of this encounter (statuses as of 11/17/2022) Medications Medication Sig Dispensed Refills Start Date [...] as of this encounter (statuses as of 11/17/2022) Active Problems Problem Noted Date Mixed dyslipidemia [...] as of this encounter (statuses as of 11/17/2022) Resolved Problems Problem Noted Date Resolved Date COVID-19 virus infection 06/13/202030/ 021 Pap smear for cervical cancer screening 11/20/19 17 03/14/2019 Overview: Historical Gyn_Neg 10/14 Morbid obesity 05/06/2016 06/10/2017 Overview: Per Obesity protocol #1 documented as of this encounter (statuses as of 11/17/2022) Immunizations Name Administration Dates Next Due Pneumococcal Conjugate Vacci ne, 20-valent ([id number]) 06/25/2022 Pneumococcal Polysaccharide PPV23 (Pneumovax) 08/10/2018 Seasonal [...] as of this encounter Nursing Notes * Edu Matson LPN - 11/12/2022 2:14 PM EDT Chief [...] Pt verbalizes understanding. documented in this encounter Miscellaneous Notes * Addendum Note - Edu Matson LPN - 11/17/2022 7:19 AM EDTAddended by: EDU MATSON on: 11/17/2022 07:19 AM Modules accepted: Level of Service documented in this encounter Plan of Treatment Upcoming Encounters Date Type Specialty Care Team Description 12/02/2022 Office Visit Orthopedics Mack Roldan MD [address] [facility] [place] [phone] 12/10/2022 Office Visit Internal Medicine Shelley Reddy MD [address] [place] [address] 02/17/2023 Hospital Encounter Endoscopy Amy Knox MD [address] [place] [phone] 02/17/2023 Surgery Endoscopy Amy Knox MD [address] [place] [phone] COLONOSCOPY FLEXIBLE PROXIMAL DIAGNOSTIC 04/08/2023 Office Visit Dermatology Ganesh Ely MD [address] [place] [address] Scheduled Procedures Name Priority Associated Diagnoses Date/Ti [...] 04/12/2019, Additional history exists GFR 06/26/2023 06/25/2022, 100 08/2021, 08/08/2020, Additional history exists HbA1c 06/26/2023 [...] this encounter Medical Devices Implanted Type Area Business Intelligence Consultant Device Identifier Shelf Expiration Date Model / Serial / Lot [place] Sut Swvlck Bc Knotless - [id number] Implanted:Qty: 1 on 08/02/2022 by Mack Roldan MD at OR [facility] Right: Shoulder [employer] 09/27/2025 [id number] C / / [id number] documented as of this encounter Advance Directives [...] Discussed due to patient's condition Care Teams Cello Teacher Relationship Specialty Start Date End Date Shelley Reddy MD [address] [place] [place] [address] PCP - General Internal Medicine 02/07/19 documented as of this encounter
--- OUTSIDE RECORDS SUMMARY | 2023-01-06 16:55 | External Medical Summary | Summary of Care ---
Author Name Unknown Organization [facility] Address [address] [place] [address] Phone [phone] Care Team Providers Care Office Machines Wirer Name Role Phone Shelley Reddy MD Primary Care Provider [phone] Encounter Details Date Type Department Care Team [...] Next Due Pneumococcal Conjugate Vacci ne, 20-valent ([id number]) 06/25/2022 Pneumococcal Polysaccharide PPV23 (Pneumovax) 08/10/2018 SEASONAL [...] 12/30/2022 2:30 PM EDT Office Visit Orthopaedics [facility] [address] [place] [address] Mack Roldan MD [address] [place] [phone] 01/14/2023 9:00 AM EST PulmDiagnostic Pulmonary Function Lab, [facility] [address] [place] [address] [address], [address] [place] [address] 02/17/2023 2:30 PM EST Hospital Encounter ENDO [facility], Endoscopy Room [facility] [address] [place] [phone] Amy Knox MD [address] [place] [address] 02/17/2023 2:30 PM EST - 02/17/2023 3:00 PM EST Surgery ENDO [facility], Endoscopy Room [facility] [address] [place], [place] [phone] Amy Knox MD [address] [place] [address] COLONOSCOPY FLEXIBLE PROXIMAL DIAGNOSTIC 04/08/2023 9:45 AM EST Office Visit Dermatology [facility] [address] [facility] [place] [address] Ganesh Ely MD [address] [facility] [place] [address] 06/24/2023 9:00 AM EDT Office Visit General Internal Medicine [facility] [address] [facility] [place] [address] Shelley Reddy MD 200 [place] [address] Scheduled Procedures Name Priority Associated Diagnoses Date/Ti [...] this encounter Medical Devices Implanted Type Area Plastic Production Machine Setter Device Identifier Shelf Expiration Date Model / Serial / Lot Woodman Sut Swvlck Bc Knotless - [id number] Implanted:Qty: 1 on 08/02/2022 by Mack Roldan MD at OR [facility] Right: Shoulder [employer] 09/27/2025 [id number] C / / [id number] documented as of this encounter Advance Directives [...] Discussed due to patient's condition Care Teams Office Machines Wirer Relationship Specialty Start Date End Date Shelley Reddy MD [address] [place] [address] [place] [address] PCP - General Internal Medicine 02/07/19 documented as of this encounter
--- OUTSIDE RECORDS SUMMARY | 2023-01-06 16:55 | External Medical Summary | Summary of Care ---
Author Name Unknown Organization [facility] Address [address] [place] [address] Phone [phone] Care Team Providers Care Marketing Communications Assistant Name Role Phone Shelley Reddy MD Primary Care Provider [phone] Reason for Referral * Evaluate & Treat - Unlimited Visits (Within 10 days (routine)) - Authorized Specialty Diagnoses / Procedures Referred By Marine courtney Referred To Contact Physical Therapy / Physical Medicine And Rehab Diagnoses Postoperative follow-up Mack Roldan MD [address] [place] [phone] Referral ID Status Reason Start Date Expiration Date Visits Requested Visits Authorized [id number] Authorized Specialty Services Required 12/02/2022 999 999 Question Answer Referral Priority Within 10 days (routine) Where should this appointment be scheduled? [facility] Comments S/p arthroscopic rotator cuff repair right shoulder Needs functional motion to transition to home program Reason for Visit * Reason Comments Post-Op Right shoulder Encounter Details Date Type Department Care Team Description 12/02/2022 Office Visit Orthopaedics [facility] [address] [place] [address] Mack Roldan MD [address] [place] [phone] Postoperative follow-up*; S/P rotator cuff repair Allergies Active Allergy Reactions Severity Noted Date Comments Sulfa Antibiotics Rash 11/30/2015 Yeast Nausea/vomiting 11/30/2015 documented as of this encounter (statuses as of 12/02/2022) Medications Medication Sig Dispensed Refills Start Date [...] as of this encounter (statuses as of 12/02/2022) Active Problems Problem Noted Date Mixed dyslipidemia [...] L5 radiculopathy,minor chr L5 radiculopathy-KS ref pain Josue rai 09/13-KS eval>MRI LS -1Congenitally mildly narrowed central [...] as of this encounter (statuses as of 12/02/2022) Resolved Problems Problem Noted Date Resolved Date COVID-19 virus infection 06/13/2020 021 Pap smear for cervical cancer screening 11/20/19 17 03/14/2019 Overview: Historical Gyn_Neg 10/14 Morbid obesity 05/06/2016 06/10/2017 Overview: Per Obesity protocol #1 documented as of this encounter (statuses as of 12/02/2022) Immunizations Name Administration Dates Next Due Pneumococcal Conjugate Vacci ne, 20-valent ([id number]) 06/25/2022 Pneumococcal Polysaccharide PPV23 (Pneumovax) 08/10/2018 SEASONAL INFLUENZA, PF, 6 M & Above, IM , (FLULAVAL or FLUZONE) 01/01/2022,01/01/2021,04/12/2019,05/19,11/19/2016 Seasonal Influenza, Split, I IV3, With [...] on file documented as of this encounter Progress Notes * Mack Roldan MD - 12/02/2022 3:11 PM EDT ORTHOPAEDIC SURGERY - Post-Op Clinic Note SUBJECTIVE: Kathleen oJnes is a 61 year old female. Chief Complaint Patient presents with Post-Op Right shoulder ASSESSMENT: 61 year old female 4 month(s) s/p right shoulder arthroscopy with rotator cuff repair PLAN: We discussed diagnosis and treatment options with her today. At this time recommend that she continue with the physical therapy for range of motion. Once she has functional range of motion she may transition to the home program. Patient has returned to work and we will continue with work duties as tolerated. Postoperative follow-up (Primary) - PHYSICAL THERAPY REFERRAL OP S/P rotator cuff repair Follow Up: Return in about 4 weeks (around 12/30/2022) for Post op visit. | For: Post op visit HPI: Kathleen Jones presents today 4 month(s) s/p Right shoulder arthroscopy with rotator cuff repair improving. Patient states that she is now able to do her gardening and yd work. She states she does have some soreness but this is improving. Patient has returned to work full duty.. Parathesia negative: Calf pain negative: Fevers or chills negative. Ambulating with crutches negative Review of patient's allergies indicates: Allergen Reactions Sulfa Antibiotics Rash Yeast Nausea/vomiting Current Outpatient Medications Medication Sig Dispense Refill omeprazole (PRILOSEC) 20 MG CPDR Take 1 Capsule by mouth at bedtime. She takes 20mg tablets 2 at night to equal 40mg 30 Cap 5 Melatonin ER 3 MG TBCR Take by mouth. one pill each day Albuterol Sulfate 1.25 MG/3ML NEBU Inhale 1 Vial via nebulizer every 4 hours as needed for Wheezing. 120 Vial 0 Albuterol Sulfate HFA 108 (90 Base) MCG/ACT Inhalation Aerosol Solution Inhale by mouth 2 Puffs every 4 hours as needed for Wheezing. 18 g 5 Lisinopril-hydroCHLOROthiazide 20-25 MG Oral Tablet Take 1 Tablet by mouth in the morning. 90 Tablet 1 oxyCODONE-Acetaminophen 5-325 MG Oral Tablet (Percocet) Take 1 Tablet by mouth every 6 hours as needed for Pain, Moderate. (Patient not taking: Reported on 08/17/2022) 20 Tablet 0 Ibuprofen 800 MG Oral Tablet (Motrin) Take 1 Tablet by mouth in the morning and 1 Tablet at noon and 1 Tablet before bedtime. Take with Meals. 45 Tablet 0 Metoprolol Succinate ER 25 MG Oral Tablet Extended Release 24 Hour (toPROL XL) TAKE 1 TABLET BY MOUTH IN THE MORNING 90 Tablet 3 Gabapentin 400 MG Oral Capsule (Neurontin) Take 1 Capsule by mouth in the morning and 1 Capsule before bedtime. 180 Capsule 0 Gabapentin 100 MG Oral Capsule (Neurontin) TAKE 2 CAPSULES BY MOUTH 1 HOUR PRIOR TO SLEEP (ALONG WITH 400 MG FOR TOTAL OF 600MG AT NIGHT) 180 Capsule 0 Ondansetron HCl 4 MG Oral Tablet Take 2 Tablets by mouth every 8 hours as needed for Nausea. 30 Tablet 1 No current facility-administered medications for this visit. OBJECTIVE: Diagnostic studies: None Vital Signs: There were no vitals taken for this visit. Physical Exam: Evaluation of the right shoulder. The incisions well healed. There is no erythema no drainage. Range of motion is forward flexion to 150, external rotation is to 20 and internal rotation is to L5. Patient's strength is 5/5 with the supraspinatus and external rotators. There is pain with resisted supinators strength testing. She has a positive impingement sign. Mack Roldan MD Orthopaedics [address] [address] Orthopedic Sports Medicine Surgery 12/02/2022 3:11 PM This chart was completed in part utilizing [employer] Speech Voice Recognition Software. Grammatical errors, random word insertions, pronoun errors, and incomplete sentences are an occasional consequence of this system due to software limitations, ambient noise, and hardware issues. Any formal questions or concerns about the content, text, or information contained within the body of this dictation should be directly addressed to the provider for clarification. documented in this encounter Nursing Notes * Reina Muir LPN - 12/02/2022 2:34 PM EDT 1 month follow up ( 4 months) right rotator cuff repair. Pt states she is slowly seeing progress. Reina HANSEN documented in this encounter Plan of Treatment Upcoming Encounters Date Type Specialty Care Team Description 12/10/2022 Office Visit Internal Medicine Shelley Reddy MD [address] [place], [place] [address] [address] 12/30/2022 Office Visit Orthopedics Mack Roldan MD [address] [place] [phone] 02/17/2023 Hospital Encounter Endoscopy Amy Knox MD [address] [place] [id number] 02/17/2023 Surgery Endoscopy Amy Knox MD [address] [place] [address] COLONOSCOPY FLEXIBLE PROXIMAL DIAGNOSTIC 04/08/2023 Office Visit Dermatology Ganesh Ely MD [address] [place] [address] Scheduled Procedures Name Priority Associated Diagnoses Date/Ti me COLONOSCOPY FLEXIBLE PROXIMAL DIAGNOSTIC Screening for colon cancer 02/17/2023 2:30 PM EST Scheduled Referrals Name Type Priority Associated Diagnoses Orde r Schedule PHYSICAL THERAPY REFERRAL OP Referral Within 10 days (routine) Postoperative follow-up Ordered: 12/02/2022 Health Maintenance Due Date Last Done Comments [...] 04/12/2019, Additional history exists GFR 06/26/2023 06/25/2022, 08/2021, [...] this encounter Medical Devices Implanted Type Area Cytogeneticist Device Identifier Shelf Expiration Date Model / Serial / Lot [place] Sut Swvlck Bc Knotless - [id number] Implanted:Qty: 1 on 08/02/2022 by Mack Roldan MD at OR [facility] Right: Shoulder [employer] 09/27/2025 [id number] C / / [id number] documented as of this encounter Visit Diagnoses Diagnosis Postoperative follow-up- Primary Follow-up examination, following unspecified surgery S/P rotator cuff repair Other postprocedural status Screening for colon cancer Special screening for [...] Discussed due to patient's condition Care Teams Marketing Communications Assistant Relationship Specialty Start Date End Date Shelley Reddy MD [address] [place] [address] PCP - General Internal Medicine 02/07/19 documented as of this encounter"
--- OUTSIDE RECORDS SUMMARY | 2023-01-06 16:55 | External Medical Summary | Summary of Care ---
Author Name Unknown Organization [facility] Address [address] [place] [address] Phone [phone] Care Team Providers Care Business Proposal Rep Name Role Phone Shelley Reddy MD Primary Care Provider [phone] Encounter Details Date Type Department Care Team [...] Next Due Pneumococcal Conjugate Vacci ne, 20-valent ([id number]) 06/25/2022 Pneumococcal Polysaccharide PPV23 (Pneumovax) 08/10/2018 SEASONAL [...] 12/30/2022 2:30 PM EDT Office Visit Orthopaedics [facility] [address] [place] [address] Mack Roldan MD [address] [place] [phone] 01/14/2023 9:00 AM EST PulmDiagnostic Pulmonary Function Lab, [facility] [address] [place] [address] [address], [address] [place] [address] 02/17/2023 2:30 PM EST Hospital Encounter ENDO [facility], Endoscopy Room [facility] [address] [place] [phone] Amy Knox MD [address] [place] [address] 02/17/2023 2:30 PM EST - 02/17/2023 3:00 PM EST Surgery ENDO [facility], Endoscopy Room [facility] [address] [place], [place] [phone] Amy Knox MD [address] [place] [address] COLONOSCOPY FLEXIBLE PROXIMAL DIAGNOSTIC 04/08/2023 9:45 AM EST Office Visit Dermatology [facility] [address] [facility] [place] [address] Ganesh Ely MD [address] [facility] [place] [address] 06/24/2023 9:00 AM EDT Office Visit General Internal Medicine [facility] [address] [facility] [place] [address] Shelley Reddy MD 200 [place] [address] Scheduled Procedures Name Priority Associated Diagnoses Date/Ti [...] this encounter Medical Devices Implanted Type Area General Ii Farmworker Device Identifier Shelf Expiration Date Model / Serial / Lot [place] Sut Swvlck Bc Knotless - [id number] Implanted:Qty: 1 on 08/02/2022 by Mack Roldan MD at OR [facility] Right: Shoulder [employer] 09/27/2025 [id number] C / / [id number] documented as of this encounter Advance Directives [...] Discussed due to patient's condition Care Teams Business Proposal Rep Relationship Specialty Start Date End Date Shelley Reddy MD [address] [place] [address] [place] [address] PCP - General Internal Medicine 02/07/19 documented as of this encounter
--- OUTSIDE RECORDS SUMMARY | 2023-01-06 16:56 | External Medical Summary | Summary of Care ---
Author Name Unknown Organization [facility] Address [address] [place] [address] Phone [phone] Care Team Providers Care Casting Associate Name Role Phone Shelley Reddy MD Primary Care Provider [phone] Reason for Visit * Reason Comments Post-Op right shoulder arthr oscopy with rotator cuff repair DOS 08/02/22 Encounter Details Date Type Department Care Team Description 11/04/2022 Office Visit Orthopaedics [facility] [address] [place] [address] Mack Roldan MD [address] [place] [phone] Postoperative follow-up*; S/P rotator cuff repair Allergies Active Allergy Reactions Severity Noted Date Comments Sulfa Antibiotics Rash 11/30/2015 Yeast Nausea/vomiting 11/30/2015 documented as of this encounter (statuses as of 11/04/2022) Medications Medication Sig Dispensed Refills Start Date [...] as of this encounter (statuses as of 11/04/2022) Active Problems Problem Noted Date Mixed dyslipidemia [...] as of this encounter (statuses as of 11/04/2022) Resolved Problems Problem Noted Date Resolved Date COVID-19 virus infection 06/13/2020 021 Pap smear for cervical cancer screening 11/20/19 17 03/14/2019 Overview: Historical Gyn_Neg 10/14 Morbid obesity 05/06/2016 06/10/2017 Overview: Per Obesity protocol #1 documented as of this encounter (statuses as of 11/04/2022) Immunizations Name Administration Dates Next Due Pneumococcal Conjugate Vacci ne, 20-valent ([id number]) 06/25/2022 Pneumococcal Polysaccharide PPV23 (Pneumovax) 08/10/2018 Seasonal [...] Progress Notes * Mack Roldan MD - 11/04/2022 3:17 PM EDT ORTHOPAEDIC SURGERY - Post-Op Clinic Note SUBJECTIVE: Kathleen Jones is a 61 year old female. Chief Complaint Patient presents with Post-Op right shoulder arthroscopy with rotator cuff repair DOS 08/02/22 ASSESSMENT: 61 year old female 3 month(s) s/p right shoulder arthroscopy with rotator cuff repair PLAN: We discussed diagnosis and treatment options with her today. At this time we recommend that she continue with the exercise program. We discussed her scapular muscle spasms today. This is most likely compensation for the weakness in the shoulder. We instructed her on continuing with her work modifications and with her recovery exercises at home. Postoperative follow-up (Primary) S/P rotator cuff repair Follow Up: Return in about 4 weeks (around 12/02/2022). HPI: Kathleen Jones presents today 3 month(s) s/p Right shoulder arthroscopy with rotator cuff repair improving. She states she has returned to work. There are some things which are difficult but she isable to manage. She denies any significant pain at night. Does complain of spasms in the scapula which is improved with doing her exercises and ice.. Parathesia negative: Calf pain negative: Fevers or [...] Physical Exam: Evaluation of the right shoulder. Range of motion is forward flexion to 120 with scapular elevation. Strength is 4+ out of 5 with the external rotators and supraspinatus. Mack W Roldan, MD Orthopaedics [facility] [address] [facility] [place] [address] Orthopedic Sports Medicine Surgery 11/04/2022 3:18 PM This chart was completed in part utilizing [employer] Speech Voice Recognition Software. Grammatical errors, random [...] Nursing Notes * Reina Muir LPN - 11/04/2022 3:03 PM EDT 1 month follow up right shoulder arthroscopy with rotator cuff repair DOS 08/02/22. Pt states shoulder is 75% improved. Reina HANSEN documented in this encounter Plan of Treatment Upcoming Encounters Date Type Specialty Care Team Description 11/05/2022 Office Visit Dermatology Ana England MD 200 [facility] [place] [address] 12/02/2022 Office Visit Orthopedics Mack Roldan MD [address] [place] [phone] 12/10/2022 Office Visit Internal Medicine Shelley Reddy MD 200 [facility] [place] [address] 02/17/2023 Hospital Encounter Endoscopy Amy Knox MD [address] [place] [address] 02/17/2023 Surgery Endoscopy Amy Knox MD [address] [place] [address] COLONOSCOPY FLEXIBLE PROXIMAL DIAGNOSTIC 04/08/2023 Office Visit [facility]ermatology [facility] [address] Scheduled Procedures Name Priority Associated Diagnoses Date/Ti [...] 04/12/2019, Additional history exists GFR 06/26/2023 06/25/2022, 1008/2021, [...] this encounter Medical Devices Implanted Type Area Production Broacher Device Identifier Shelf Expiration Date Model / Serial / Lot [place] Sut Swvlck Bc Knotless - [id number] Implanted:Qty: 1 on 08/02/2022 by Mack Roldan MD at OR [facility] Right: Shoulder [employer] 09/27/2025 [id number] C / / [id number] documented as of this encounter Visit Diagnoses [...] Discussed due to patient's condition Care Teams Casting Associate Relationship Specialty Start Date End Date Shelley Reddy MD [address] [place] [address] PCP - General Internal Medicine 02/07/19 documented as of this encounter
--- OUTSIDE RECORDS SUMMARY | 2023-01-06 16:56 | External Medical Summary | Summary of Care ---
Author Name Unknown Organization [facility] Address [address] [place] [address] Phone [phone] Care Team Providers Care Laborer Wharf Name Role Phone Shelley Reddy MD Primary Care Provider [phone] Reason for Visit * Reason Comments Mohs Surgery * Evaluate & Treat - Unlimited Visits (Within 10 days (routine)) - Authorized Specialty Diagnoses / Procedures Referred By Conted courtney Referred To Contact Dermatology Diagnoses Basal cell carcinoma of skin of nose Sonya Finn PA-C [address] [place] [address] Referral ID Status Reason Start Date Expiration Date Visits Requested Visits Authorized [id number] Authorized Specialty Services Required 09/27/[phone] Encounter Details Date Type Department Care Team Description 11/05/2022 Office Visit MOHS Surgery [facility] [address] [place] [address] Ana England MD [address] [place] [address] Basal cell carcinoma (BCC) of left ala nasi* Allergies Active Allergy Reactions Severity Noted Date Comments Sulfa Antibiotics Rash 11/30/2015 Yeast Nausea/vomiting 11/30/2015 documented as of this encounter (statuses as of 11/07/2022) Medications Medication Sig Dispensed Refills Start Date [...] for Nausea. 30 Tablet 1 10/08/2022 Active Hospital, Clinic, or Other Facility Administered Medication Ordered Dose Route Frequency Start Date End Date Status Cephalexin (Keflex) cap 2,000 mgIndications:Basal cell carcinoma (BCC) of left ala nasi 2000 mg OR ONCE 11/05/2022 11/06/2022 Ended documented as of this encounter (statuses as of 11/07/2022) Active Problems Problem Noted Date Mixed dyslipidemia [...] as of this encounter (statuses as of 11/07/2022) Resolved Problems Problem Noted Date Resolved Date COVID-19 virus infection 06/13/2020 021 Pap smear for cervical cancer screening 11/20/19 17 03/14/2019 Overview: Historical Gyn_Neg 10/14 Morbid obesity 05/06/2016 06/10/2017 Overview: Per Obesity protocol #1 documented as of this encounter (statuses as of 11/07/2022) Immunizations Name Administration Dates Next Due Pneumococcal Conjugate Vacci ne, 20-valent ([id number]) 06/25/2022 Pneumococcal Polysaccharide PPV23 (Pneumovax) 08/10/2018 Seasonal [...] Sign Reading Time Taken Comments Blood Pressure - - Pulse - - Temperature - - Respiratory Rate - - Oxygen Saturation - - Inhaled Oxygen Concentration - - Weight 106.6 kg (235 lb) 11/05/2022 9:11 AM EDT Height - - Body Mass Index 39.11 10/08/2022 3:45 PM EDT documented in this encounter Progress Notes * Ana England MD - 11/05/2022 6:36 PM EDT [facility] Mohs Surgery Note (See separate transcribed operative note for further detail) History: Kathleen Jones is a 61 year old patient seen at the request of Sonya Finn PA-C for evaluation and management of the following lesion: A. Skin, L nasal ala, shave: Basal cell carcinoma, at least nodular type Patient problem list reviewed. Patient medication/allergy lists reviewed. Examination: Kathleen Jones is alert, oriented and appears well and in no distress. The patient's skin is remarkable for: Left nasal ala: 0.9 cm x 0.7 cm pink plaque with nearby pink scaly thin papule superiorly Impression/Plan: Basal cell carcinoma - left nasal ala MMS 2 g Keflex administered Standard Mohs micrographic technique was utilized to treat this tumor. Microscopic examination of the specimen allowed the Mohs surgeon, whose dual role is to function as both surgeon and pathologist, to precisely identify the location of any remaining tumor or ascertain that the tissue margins were free of tumor. This process of excision of remaining tumor, mapping, and histologic exam was repeated until the tumor was excised completely. Patient identified, procedure verified, site identified and verified with the patient. Time out completed. Surgical removal of the lesion discussed with the patient (risks and benefits, including possibility of scarring, infection, bleeding, recurrence or potential for further treatment). I have specifically identified the site with the patient. I have discussed the fact that the patient will have a scar after the procedure regardless of granulation or repair with sutures. I have discussed that the repair options can range from granulation in some cases to linear or curvilinear closures to larger flaps or grafts. There is a risk of injury to nerves causing temporary or permanent numbness. Questions answered and verbal and written consent was obtained. 3 stage(s) Anesthetic: 0.05% lidocaine with 1:100,000 epinephrine. Repair: Rotation flap (see separate operative report for details) (small area at left nasal sidewall allowed to heal by second intent) Absorbable and non-absorbable sutures Wound care was discussed verbally, demonstrated and printed wound instructions given as well as wound care supplies. Patient instructed to call with questions or concerns. Personal contact information provided. Follow-up: 1 week Ana England MD Associate, Mohs Micrographic Surgery & Dermatologic Surgery documented in this encounter Nursing Notes * Pura June LPN - 11/05/2022 9:11 AM EDT Chief Complaint Patient presents with [facility] Referral Doctor: DERIK Finn Hypertension History: Yes, refer to medication information for treatment. Diabetes History: No Thyroid History: No Bleeding Tendency: No Artificial Valve or Joint: No Pacemaker: no Defibrillator: no Hepatitis/HIV Exposure: No Smoking: no Consent signed yes documented in this encounter Plan of Treatment Upcoming Encounters Date Type Specialty Care Team Description 12/02/2022 Office Visit Orthopedics Mack Roldan MD [address] [place] [phone] 12/10/2022 Office Visit Internal Medicine Shelley Reddy MD 200 [facility] [place] [address] 02/17/2023 Hospital Encounter Endoscopy Amy Knox MD [address] [place] [address] 02/17/2023 Surgery Endoscopy Amy Knox MD [address] [employer] [place] [address] COLONOSCOPY FLEXIBLE PROXIMAL DIAGNOSTIC 04/08/2023 Office Visit Dermatology Ganesh Ely MD 200 [facility] [place] [address] Scheduled Procedures Name Priority Associated Diagnoses Date/Ti [...] this encounter Medical Devices Implanted Type Area Machining Department Supervisor Device Identifier Shelf Expiration Date Model / Serial / Lot [place] Sut Swvlck Bc Knotless - [id number] Implanted:Qty: 1 on 08/02/2022 by Mack Roldan MD at OR [facility] Right: Shoulder [employer] 09/27/2025 [id number] C / / [id number] documented as of this encounter Visit Diagnoses Diagnosis Basal cell carcinoma (BCC) of left ala nasi- Primary Screening for colon cancer Special screening for [...] Discussed due to patient's condition Care Teams Laborer Wharf Relationship Specialty Start Date End Date Shelley Reddy MD 200 [facility] [place] [address] PCP - General Internal Medicine 02/07/19 documented as of this encounter
--- OUTSIDE RECORDS SUMMARY | 2023-01-06 16:56 | External Medical Summary | Summary of Care ---
Author Name Unknown Organization [facility] Address [address] [place] [address] Phone [phone] Care Team Providers Care Rolling Attendant Name Role Phone Shelley Reddy MD Primary Care Provider [phone] Encounter Details Date Type Department Care Team Description [facility] [address] [place] [address] Yady Hill PA-C [address] [facility] [place] [id number] Allergies Active Allergy Reactions Severity Noted Date Comments Sulfa Antibiotics Rash 11/30/2015 Yeast Nausea/vomiting 11/30/2015 documented as of this encounter (statuses as of 10/11/2022) Medications Medication Sig Dispensed Refills Start Date [...] as of this encounter (statuses as of 10/11/2022) Active Problems Problem Noted Date Mixed dyslipidemia [...] as of this encounter (statuses as of 10/11/2022) Resolved Problems Problem Noted Date Resolved Date COVID-19 virus infection 06/13/202009/26/ 021 Pap smear for cervical cancer screening 11/20/19 17 03/14/2019 Overview: Historical Gyn_Neg 10/14 Morbid obesity 05/06/2016 06/10/2017 Overview: Per Obesity protocol #1 documented as of this encounter (statuses as of 10/11/2022) Immunizations Name Administration Dates Next Due Pneumococcal Conjugate Vacci ne, 20-valent ([id number]) 06/25/2022 Pneumococcal Polysaccharide PPV23 (Pneumovax) 08/10/2018 Seasonal Influenza, Quadriva lent, No Preserve, 6 [employer] Above, IM 01/01/2022,01/01/2021,04/12/2019,05/19,11/19/2016 Seasonal Influenza, Split, I IV3, With [...] encounter Miscellaneous Notes * Telephone Encounter - RT Josefina - 10/11/2022 2:58 PM EDT Incoming call from patient. Verified name and . Patient states she is still not feeling well, having some dizziness and lightheaded at times. Informed patient per provider not that she should go to PCP, Return to UC or go to the ED. Patient verbalized understanding and had no further questions. documented in this encounter Plan of Treatment Upcoming Encounters Date Type Specialty Care Team Description 11/04/2022 Office Visit Orthopedics Mack Roldan MD [address] [place] [phone] 11/05/2022 Office Visit Dermatology Ana England MD [address] [place] [address] 11/26/2022 Hospital Encounter Endoscopy Amy Knox MD [address] [place] [address] [place] [address] 11/26/2022 Surgery Endoscopy Amy Knox MD [address] [place] [address] [place] [address] COLONOSCOPY FLEXIBLE PROXIMAL DIAGNOSTIC 12/10/2022 Office Visit Internal Medicine Shelley Reddy MD 200 [place] [address] 04/08/2023 Office Visit Dermatology Ganesh Ely MD 200 [facility] [place] [address] Scheduled Procedures Name Priority Associated Diagnoses Date/Ti me COLONOSCOPY FLEXIBLE PROXIMAL DIAGNOSTIC Screening for colon cancer 11/26/2022 1:00 PM EDT Health Maintenance Due Date Last Done Comments COVID-19 Vaccine (#1) 06/28/1961 HIV Screening 1973 HPV/Co-Test 1988 Cologuard 12/29/2003 Fecal Occult Blood Test 12/29/2003 Sigmoidoscopy 12/29/2003 *SPIROMETRY ONCE FOR ASTHMA-ADULT 08/12/2018 Depression Screening, Annual for Pts 12 and Over 05/06/2020 05/07/2019 Colonoscopy 03/31/2022 03/31/2012 Colorectal Cancer [...] this encounter Medical Devices Implanted Type Area Shoe Folder Device Identifier Shelf Expiration Date Model / Serial / Lot [place] Sut Swvlck Bc Knotless - [id number] Implanted:Qty: 1 on 08/02/2022 by Mack Roldan MD at OR [facility] Right: Shoulder [employer] 09/27/2025 AR-[id number] C / / [id number] documented as of this encounter Advance Directives [...] Discussed due to patient's condition Care Teams Rolling Attendant Relationship Specialty Start Date End Date Shelley Reddy MD [address] [place] [address], [place] [address] PCP - General Internal Medicine 02/07/19 documented as of this encounter
--- OUTSIDE RECORDS SUMMARY | 2023-01-06 16:56 | External Medical Summary | Summary of Care ---
Author Name Unknown Organization [facility] Address [address] [place] [address] Phone [phone] Care Team Providers Care Hand Kiss Setter Name Role Phone Shelley Reddy MD Primary Care Provider [phone] Encounter Details Date Type Department Care Team Description 10/31/2022 Patient Reported Data Patient Survey Ortho [facility] Allergies Active Allergy Reactions Severity Noted Date Comments Sulfa Antibiotics Rash 11/30/2015 Yeast Nausea/vomiting 11/30/2015 documented as of this encounter (statuses as of 10/31/2022) Medications Medication Sig Dispensed Refills Start Date [...] as of this encounter (statuses as of 10/31/2022) Active Problems Problem Noted Date Mixed dyslipidemia [...] as of this encounter (statuses as of 10/31/2022) Resolved Problems Problem Noted Date Resolved Date COVID-19 virus infection 06/13/2020 021 Pap smear for cervical cancer screening 11/20/19 17 03/14/2019 Overview: Historical Gyn_Neg 10/14 Morbid obesity 05/06/2016 06/10/2017 Overview: Per Obesity protocol #1 documented as of this encounter (statuses as of 10/31/2022) Immunizations Name Administration Dates Next Due Pneumococcal Conjugate Vacci ne, 20-valent ([id number]) 06/25/2022 Pneumococcal Polysaccharide PPV23 (Pneumovax) 08/10/2018 Seasonal [...] Roldan MD [address] [place] [phone] 11/05/2022 Office Visit Dermatology Ana England MD 200 [facility] [place] [address] 12/10/2022 Office Visit Internal Medicine Shelley Reddy MD 200 [facility] [place] [address] 02/17/2023 Hospital Encounter Endoscopy Amy Knox MD [address] [place] [address] 02/17/2023 Surgery Endoscopy Amy Knox MD [address] [place] [address] COLONOSCOPY FLEXIBLE PROXIMAL DIAGNOSTIC 04/08/2023 Office Visit Dermatology Ganesh Ely MD [address] [facility] [place] [address] Scheduled Procedures Name Priority Associated Diagnoses Date/Ti [...] this encounter Medical Devices Implanted Type Area Camera Systems Engineer Device Identifier Shelf Expiration Date Model / Serial / Lot [place] Sut Swvlck Bc Knotless - [id number] Implanted:Qty: 1 on 08/02/2022 by Mack Roldan MD at OR [facility] Right: Shoulder [employer] 09/27/2025 AR-[id number] C / / [id number] documented as of this encounter Advance Directives [...] Discussed due to patient's condition Care Teams Hand Kiss Setter Relationship Specialty Start Date End Date Shelley Reddy MD [address] [place] [address], [place] [address] PCP - General Internal Medicine 02/07/19 documented as of this encounter
--- OUTSIDE RECORDS SUMMARY | 2023-01-06 16:56 | External Medical Summary | Summary of Care ---
Author Name Unknown Organization [facility] Address [address] [place] [address] Phone [phone] Care Team Providers Care Torpedo Shooter Name Role Phone Shelley Reddy MD Primary Care Provider [phone] Encounter Details Date Type Department Care Team [...] Next Due Pneumococcal Conjugate Vacci ne, 20-valent ([id number]) 06/25/2022 Pneumococcal Polysaccharide PPV23 (Pneumovax) 08/10/2018 Seasonal [...] Roldan MD [address] [place] [phone] 11/05/2022 Office Visit Dermatology Ana England MD 200 [facility] [place] [address] 12/10/2022 Office Visit Internal Medicine Shelley Reddy MD 200 [facility] [place] [address] 02/17/2023 Hospital Encounter Endoscopy Amy Knox MD [address] [place] [address] 02/17/2023 Surgery Endoscopy Amy Knox MD [address] [place] [address] COLONOSCOPY FLEXIBLE PROXIMAL DIAGNOSTIC 04/08/2023 Office Visit Dermatology Ganesh Ely MD 200 [facility] [place] [address] Scheduled Procedures Name Priority Associated Diagnoses Date/Ti [...] this encounter Medical Devices Implanted Type Area Metal Box Maker Device Identifier Shelf Expiration Date Model / Serial / Lot [place] Sut Swvlck Bc Knotless - [id number] Implanted:Qty: 1 on 08/02/2022 by Mack Roldan MD at OR [facility] Right: Shoulder [employer] 09/27/2025 AR-[id number] C / / [id number] documented as of this encounter Advance Directives [...] Discussed due to patient's condition Care Teams Torpedo Shooter Relationship Specialty Start Date End Date Shelley Reddy MD [address] [place] [address], [place] [address] PCP - General Internal Medicine 02/07/19 documented as of this encounter
--- OUTSIDE RECORDS SUMMARY | 2023-01-06 16:56 | External Medical Summary | Summary of Care ---
Author Name Unknown Organization [facility] Address [address] [place] [address] Phone [phone] Care Team Providers Care Regional Sales Manager Name Role Phone Shelley Reddy MD Primary Care Provider [phone] Encounter Details Date Type Department Care Team [...] Next Due Pneumococcal Conjugate Vacci ne, 20-valent ([id number]) 06/25/2022 Pneumococcal Polysaccharide PPV23 (Pneumovax) 08/10/2018 Seasonal [...] Roldan MD [address] [place] [phone] 11/05/2022 Office Visit Dermatology Ana England MD 200 [facility] [place] [address] 12/10/2022 Office Visit Internal Medicine Shelley Reddy MD 200 [facility] [place] [address] 02/17/2023 Hospital Encounter Endoscopy Amy Knox MD [address] [place] [address] 02/17/2023 Surgery Endoscopy Amy Knox MD [address] [place] [address] COLONOSCOPY FLEXIBLE PROXIMAL DIAGNOSTIC 04/08/2023 Office Visit Dermatology Ganesh Ely MD [address] [facility] [place] [address] Scheduled Procedures Name Priority Associated Diagnoses Date/Ti [...] this encounter Medical Devices Implanted Type Area Rate Marker Device Identifier Shelf Expiration Date Model / Serial / Lot [place] Sut Swvlck Bc Knotless - [id number] Implanted:Qty: 1 on 08/02/2022 by Mack Roldan MD at OR [facility] Right: Shoulder [employer] 09/27/2025 AR-2324KBC C / / [id number] documented as of this encounter Advance Directives [...] Discussed due to patient's condition Care Teams Regional Sales Manager Relationship Specialty Start Date End Date Shelley Reddy MD [address] [place] [address], [place] [address] PCP - General Internal Medicine 02/07/19 documented as of this encounter
--- OUTSIDE RECORDS SUMMARY | 2023-01-06 16:56 | External Medical Summary | Summary of Care ---
Author Name Unknown Organization [facility] Address [address] [place] [address] Phone [phone] Care Team Providers Care Relay Engineer Name Role Phone Shelley Reddy MD Primary Care Provider [phone] Reason for Visit * Reason Onset Date Comments Health Maintenance 11/08/2022 Encounter Details Date Type Department Care Team Description 11/08/2022 Telephone General Internal Medicine [facility] 200 [facility] [place], [place] [phone] Shelley Reddy MD [address] [place], [place] [phone] Health Maintenance Allergies Active Allergy Reactions Severity Noted Date Comments Sulfa Antibiotics Rash 11/30/2015 Yeast Nausea/vomiting 11/30/2015 documented as of this encounter (statuses as of 11/08/2022) Medications Medication Sig Dispensed Refills Start Date [...] as of this encounter (statuses as of 11/08/2022) Active Problems Problem Noted Date Mixed dyslipidemia [...] as of this encounter (statuses as of 11/08/2022) Resolved Problems Problem Noted Date Resolved Date COVID-19 virus infection 06/13/2020 0730/ 021 Pap smear for cervical cancer screening 11/20/19 17 03/14/2019 Overview: Historical Gyn_Neg 10/14 Morbid obesity 05/06/2016 06/10/2017 Overview: Per Obesity protocol #1 documented as of this encounter (statuses as of 11/08/2022) Immunizations Name Administration Dates Next Due Pneumococcal Conjugate Vacci ne, 20-valent ([id number]) 06/25/2022 Pneumococcal Polysaccharide PPV23 (Pneumovax) 08/10/2018 Seasonal [...] encounter Miscellaneous Notes * Telephone Encounter - Brisa Lorenzana LPN - 11/08/2022 12:53 PM EDT Care Gaps Comprehensive Care Outreach Last Office/Telemedicine Visit: 06/25/2022 (in office), 05/28/2021 (telemedicine) Next Office Visit: 12/10/2022 Hemoglobin AIC Results: Lab Results Component Value Date/Time HEMOGLOBIN A1C - [facility] 5.8 (H) 06/25/2022 11:43 AM HEMOGLOBIN A1C - [facility] 6.0 (H) 12/04/2021 09:00 AM Reviewed Health Maintenance below: Health Maintenance Topic Date Due COVID-19 Vaccine (1) Never done HIV Screening Never done *SPIROMETRY ONCE FOR ASTHMA-ADULT Never done Depression Screening 05/06/2020 Colorectal Cancer Screening 03/31/2022 Mammogram 09/11/2022 *BASELINE EKG FOR HTN Never done Influenza Vaccine (FLU shot) (1) 10/29/2022 Pft Colon already scheduled Mamm Care Gap Outreach Action Taken: Left message documented in this encounter Plan of Treatment Upcoming Encounters Date Type Specialty Care Team Description 11/12/2022 Nurse Only Dermatology [place] II, Nurse Scenery [address] [place] [address] 12/02/2022 Office Visit Orthopedics Mack Roldan MD [address] [place] [phone] 12/10/2022 Office Visit Internal Medicine Shelley Reddy MD [address] [place], [place] [address] 02/17/2023 Hospital Encounter Endoscopy Amy Knox MD [address] [place] [phone] 02/17/2023 Surgery Endoscopy Amy Knox MD [address] [place] [phone] COLONOSCOPY FLEXIBLE PROXIMAL DIAGNOSTIC 04/08/2023 Office Visit Dermatology Ganesh Ely MD [address] [place], [place] [address] Scheduled Procedures Name Priority Associated Diagnoses Date/Ti [...] this encounter Medical Devices Implanted Type Area Train Braker Device Identifier Shelf Expiration Date Model / Serial / Lot [place] Sut Swvlck Bc Knotless - [id number] Implanted:Qty: 1 on 08/02/2022 by Mack Roldan MD at OR [facility] Right: Shoulder [employer] 09/27/2025 AR-2324KB C / / [id number] documented as of this encounter Advance Directives [...] Discussed due to patient's condition Care Teams Relay Engineer Relationship Specialty Start Date End Date Shelley Reddy MD [address] [place], [place] [phone] PCP - General Internal Medicine 02/07/19 documented as of this encounter
--- OUTSIDE RECORDS SUMMARY | 2023-01-06 16:56 | External Medical Summary | Summary of Care ---
Author Name Unknown Organization [facility] Address [address] [place] [address] Phone [phone] Care Team Providers Care Early Childhood Specialist Name Role Phone Shelley Reddy MD Primary Care Provider [phone] Encounter Details Date Type Department Care Team [...] Next Due Pneumococcal Conjugate Vacci ne, 20-valent ([id number]) 06/25/2022 Pneumococcal Polysaccharide PPV23 (Pneumovax) 08/10/2018 Seasonal [...] Roldan MD [address] [place] [phone] 11/05/2022 Office Visit Dermatology Ana England MD 200 [facility] [place] [address] 12/10/2022 Office Visit Internal Medicine Shelley Reddy MD 200 [facility] [place] [address] 02/17/2023 Hospital Encounter Endoscopy Amy Knox MD [address] [place] [address] 02/17/2023 Surgery Endoscopy Amy Knox MD [address] [place] [address] COLONOSCOPY FLEXIBLE PROXIMAL DIAGNOSTIC 04/08/2023 Office Visit Dermatology Ganesh Ely MD [facility] [place] [address] Scheduled Procedures Name Priority Associated Diagnoses Date/Ti [...] this encounter Medical Devices Implanted Type Area Metallurgical Tester Device Identifier Shelf Expiration Date Model / Serial / Lot [place] Sut Swvlck Bc Knotless - [id number] Implanted:Qty: 1 on 08/02/2022 by Mack Roldan MD at OR [facility] Right: Shoulder [employer] 09/27/2025 AR-[id number] C / / [id number] documented as of this encounter Advance Directives [...] Discussed due to patient's condition Care Teams Early Childhood Specialist Relationship Specialty Start Date End Date Shelley Reddy MD [address] [place] [address], [place] [address] PCP - General Internal Medicine 02/07/19 documented as of this encounter
--- OUTSIDE RECORDS SUMMARY | 2023-01-06 16:56 | External Medical Summary | Summary of Care ---
Author Name Unknown Organization [facility] Address [address] [place] [address] Phone [phone] Care Team Providers Care Intel Recruiter Name Role Phone Shelley Reddy MD Primary Care Provider [phone] Encounter Details Date Type Department Care Team [...] Next Due Pneumococcal Conjugate Vacci ne, 20-valent ([id number]) 06/25/2022 Pneumococcal Polysaccharide PPV23 (Pneumovax) 08/10/2018 Seasonal [...] Roldan MD [address] [place] [id number] 11/05/2022 Office Visit Dermatology Ana England MD [address] [facility] [place] [address] 12/10/2022 Office Visit Internal Medicine Shelley Reddy MD [address] [facility] [place] [address] 02/17/2023 Hospital Encounter Endoscopy Amy Knox MD [address] [place] [address] 02/17/2023 Surgery Endoscopy Amy Knox MD [address] [place] [address] COLONOSCOPY FLEXIBLE PROXIMAL DIAGNOSTIC 04/08/2023 Office Visit Dermatology Ganesh Ely MD [address] [facility] [place] [address] Scheduled Procedures Name Priority Associated Diagnoses Date/Ti [...] this encounter Medical Devices Implanted Type Area Associate Director Data & Analytics Device Identifier Shelf Expiration Date Model / Serial / Lot Schneider Sut Swvlck Bc Knotless - [id number] Implanted:Qty: 1 on 08/02/2022 by Mack Roldan MD at OR [facility] Right: Shoulder [employer] 09/27/2025 [id number] / / [id number] documented as of this encounter Advance Directives [...] Discussed due to patient's condition Care Teams Intel Recruiter Relationship Specialty Start Date End Date Shelley Reddy MD [address] [place] [address], [place] [address] PCP - General Internal Medicine 02/07/19 documented as of this encounter
--- OUTSIDE RECORDS SUMMARY | 2023-01-06 16:57 | External Medical Summary | Summary of Care ---
Author Name Unknown Organization [facility] Address [address] [place] [address] Phone [phone] Care Team Providers Care Theater Company Producer Name Role Phone Shelley Reddy MD Primary Care Provider [phone] Reason for Visit * Reason Onset Date Comments Test Results Biopsy 09/27/2022 Encounter Details Date Type Department Care Team Description 09/27/2022 Telephone Dermatology [facility] [address] [place] [address] Sonya Finn PA-C [address] [place], [place] [id number] Test Results Biopsy Allergies Active Allergy Reactions Severity Noted Date Comments Sulfa Antibiotics Rash 11/30/2015 Yeast Nausea/vomiting 11/30/2015 documented as of this encounter (statuses as of 09/30/2022) Medications Medication Sig Dispensed Refills Start Date [...] AT NIGHT) 180 Capsule 0 09/21/2022 Active documented as of this encounter (statuses as of 09/30/2022) Active Problems Problem Noted Date Mixed dyslipidemia [...] as of this encounter (statuses as of 09/30/2022) Resolved Problems Problem Noted Date Resolved Date COVID-19 virus infection 06/13/2020 021 Pap smear for cervical cancer screening 11/20/19 17 03/14/2019 Overview: Historical Gyn_Neg 10/14 Morbid obesity 05/06/2016 06/10/2017 Overview: Per Obesity protocol #1 documented as of this encounter (statuses as of 09/30/2022) Immunizations Name Administration Dates Next Due Pneumococcal Conjugate Vacci ne, 20-valent ([id number]) 06/25/2022 Pneumococcal Polysaccharide PPV23 (Pneumovax) 08/10/2018 Seasonal [...] encounter Miscellaneous Notes * Telephone Encounter - PAULA Lara - 09/30/2022 1:59 PM EDT Called patient and scheduled appointment. * Telephone Encounter - PAULA Lara - 09/28/2022 3:36 PM EDT Called patient, left message to return call. May offer Dr. Ely in 6 months. * Telephone Encounter - PAULA Dias - 09/28/2022 11:38 AM EDT Please schedule f/u FBSE in 6 months -forwarding to [facility] for scheduling this. Spoke to patient and scheduled for mohs with DR England for 11/05 at 8:45am will mail mohs packet. * Telephone Encounter - Aminata Jefferson LPN - 09/28/2022 9:23 AM EDT Please call and schedule MOHS. Aminata Jefferson LPN 09/28/2022 9:24 AM * Telephone Encounter - Carla Mclaughlin LPN - 09/27/2022 4:10 PM EDT Left message to return call. * Telephone Encounter - Carla Mclaughlin LPN - 09/27/2022 4:09 PM EDT ----- Message from Sonya Finn PA-C sent at 09/27/2022 2:22 PM EDT ----- A. Skin, L nasal ala, shave: Basal cell carcinoma, at least nodular type Please let pt know bx showed BCC, recommend Mohs. Referral placed. Please schedule f/u FBSE in 6 months documented in this encounter Plan of Treatment Upcoming Encounters Date Type Specialty Care Team Description 10/06/2022 Office Visit Orthopedics Mack Roldan MD [address] [place] [address] 11/05/2022 [facility] [address] 11/26/2022 Hospital Encounter Endoscopy Amy Knox MD [address] [place] [address] 11/26/2022 Surgery Endoscopy Amy Knox MD [address] [place] [address] [place] [address] COLONOSCOPY FLEXIBLE PROXIMAL DIAGNOSTIC 12/10/2022 Office Visit Internal Medicine Shelley Reddy MD [address] [facility] [place] [address] 04/08/2023 Office Visit Dermatology Ganesh Ely MD [address] [facility] [place] [address] Scheduled Procedures Name Priority Associated Diagnoses Date/Ti [...] 09/11/2022 09/11/2021, 07/30, 08/12/2017, Additional history exists Influenza Vaccine (FLU shot) (#1) 2022 01/01/2022, [...] this encounter Medical Devices Implanted Type Area Crop Scout Device Identifier Shelf Expiration Date Model / Serial / Lot [place] Sut Swvlck Bc Knotless - [id number] Implanted:Qty: 1 on 08/02/2022 by Mack Roldan MD at OR [facility] Right: Shoulder [employer] 09/27/2025 [id number] C / / [id number] documented as of this encounter Advance Directives [...] Discussed due to patient's condition Care Teams Theater Company Producer Relationship Specialty Start Date End Date Shelley Reddy MD [address] [facility] [place] [address] PCP - General Internal Medicine 02/07/19 documented as of this encounter
--- OUTSIDE RECORDS SUMMARY | 2023-01-06 16:57 | External Medical Summary | Summary of Care ---
Author Name Unknown Organization [facility] Address [address] [place] [address] Phone [phone] Care Team Providers Care Construction Cost Estimator Name Role Phone Shelley Reddy MD Primary Care Provider [phone] Reason for Referral * Evaluate & Treat - Unlimited Visits (Within 10 days (routine)) - Authorized Specialty Diagnoses / Procedures Referred By Contac t Referred To Contact Dermatology Diagnoses Basal cell carcinoma of skin of nose Sonya Finn PA-C [address] [place] [address] Referral ID Status Reason Start Date Expiration Date Visits Requested Visits Authorized [id number] Authorized Specialty Services Required 09/27/2022 999 999 Question Answer Referral Priority Within 10 days (routine) Are you referring the patient for Mohs Surgery and have a current positive skin cancer biopsy result? Yes Type of Procedure MOHS Surgery Reason for Visit * Reason Comments NEW PATIENT Concerning spot on n ose for many months. Will occasionally bleed. * Evaluate & Treat - Unlimited Visits (Within 30 days (routine)) - Authorized Specialty Diagnoses / Procedures Referred By Contac t Referred To Contact Dermatology Diagnoses Skin lesion Rosa Corral MD [address] [place] [address] Referral ID Status Reason Start Date Expiration Date Visits Requested Visits Authorized [id number] Authorized Specialty Services Required 06/25/[phone] Encounter Details Date Type Department Care Team Description 09/24/2022 Office Visit Dermatology [facility] [address] [place] [address] Sonya Finn PA-C [address] [place] [address] Neoplasm of uncertain behavior of skin*; Actinic keratosis; Basal cell carcinoma of skin of nose Allergies Active Allergy Reactions Severity Noted Date Comments Sulfa Antibiotics Rash 11/30/2015 Yeast Nausea/vomiting 11/30/2015 documented as of this encounter (statuses as of 09/27/2022) Medications Medication Sig Dispensed Refills Start Date [...] as of this encounter (statuses as of 09/27/2022) Active Problems Problem Noted Date Mixed dyslipidemia [...] left at L5-S1 level. lumbar laminectomy Sara 2007 Gastroesophageal reflux disease without esophagitis 05/06/2016 Overview: Had EGD +csope 2014? PSH Snoring 05/06/2016 DDD (degenerative disc disease), cervica l 05/06/2016 documented as of this encounter (statuses as of 09/27/2022) Resolved Problems Problem Noted Date Resolved Date COVID-19 virus infection 06/13/2020 021 Pap smear for cervical cancer screening 11/20/19 17 03/14/2019 Overview: Historical Gyn_Neg 10/14 Morbid obesity 05/06/2016 06/10/2017 Overview: Per Obesity protocol #1 documented as of this encounter (statuses as of 09/27/2022) Immunizations Name Administration Dates Next Due Pneumococcal Conjugate Vacci ne, 20-valent ([id number]) 06/25/2022 Pneumococcal Polysaccharide PPV23 (Pneumovax) 08/10/2018 Seasonal [...] as of this encounter Progress Notes * Campbell Lopez MD - 09/24/2022 7:54 PM EDT I have reviewed the charting notes and orders and associated images and agree with the assessment and plan of Sonya Escobar PA-C . Campbell Lopez MD., Dermatology [facility] [address] [place] [address] [place] [address] * Sonya Finn PA-C - 09/24/2022 9:06 AM EDT Nursing Notes: Brandi Okeefe Db, JADE 09/24/22 0904 Signed Chief Complaint Patient presents with NEW PATIENT Concerning spot on nose for many months. Will occasionally bleed. SUBJECTIVE: HPI: Kathleen Jones is a 61 year old female seen at the request of PCP for evaluation and treatment oflesion. Lesion located on L nose x months Occasionally bleeds when washing face. No pain noted. Also has dry patch on R side of nose x months, feels burning at times. No bleeding. No hx of skin cancer REVIEW OF SYSTEMS: See HPI- all other findings negative Constitutional: (-) fever, chills, sweats, weight loss Cardiovascular: (-) lower extremity edema Skin: (-) no rash or new or changing moles or skin lesions Past Medical History: Diagnosis Date Asthma Back pain Hypertension Pap smear for cervical cancer screening 11/19/2016 Historical Gyn_Neg 10/14 Patient Active Problem List Diagnosis Code HTN, goal below 140/90 I10 History of lumbar laminectomy Z98.890 Gastroesophageal reflux disease without esophagitis K21.9 Snoring R06.83 DDD (degenerative disc disease), cervical M50.30 IFG (impaired fasting glucose) R73.01 Encounter for screening mammogram for breast cancer Z12.31 Low HDL (under 40) E78.6 Metabolic syndrome E88.81 Body mass index (BMI) of 40.0 to 44.9 in adult ([facility]) Z68.41 Mild persistent asthma without complication J45.30 Hemochromatosis carrier Z14.8 Prediabetes R73.03 Mixed dyslipidemia E78.2 SOCIAL HISTORY: Social History Tobacco Use Smoking status: Never Smokeless tobacco: Never Substance Use Topics Alcohol use: No Vaping/E-Cigarette Use Vaping/E-Cigarette Use Never User Vaping/E-Cigarette Substances Vaping/E-Cigarette Devices MEDICATIONS: Current Outpatient Medications Medication Sig Dispense Refill [...] Inhalation Aerosol Solution Inhale by mouth 2 Puffsevery 4 hours as needed for Wheezing. 18 g 5 Lisinopril-hydroCHLOROthiazide 20-25 MG Oral Tablet Take 1 Tablet by mouth in the morning. 90 Tablet 1 Ibuprofen 800 MG Oral Tablet (Motrin) Take 1 Tablet by mouth in the morning and 1 Tablet at noon and 1 Tablet before bedtime. Take with Meals. 45 Tablet 0 Metoprolol Succinate ER 25 MG Oral Tablet Extended Release 24 Hour (toPROL XL) TAKE 1 TABLET BYMOUTH IN THE MORNING 90 Tablet 3 Gabapentin 400 MG Oral Capsule (Neurontin) Take 1 Capsule by mouth in the morning and 1 Capsulebefore bedtime. 180 Capsule 0 Gabapentin 100 MG Oral Capsule (Neurontin) TAKE 2 CAPSULES BY MOUTH 1 HOUR PRIOR TO SLEEP (ALONG WITH 400 MG FOR TOTAL OF 600MG AT NIGHT) 180 Capsule 0 oxyCODONE-Acetaminophen 5-325 MG Oral Tablet (Percocet) Take 1 Tablet by mouth every 6 hours asneeded for Pain, Moderate. (Patient not taking: Reported on 08/17/2022) 20 Tablet 0 No current facility-administered medications for this visit. ALLERGIES: Sulfa antibiotics and Yeast OBJECTIVE: GEN: Healthy, alert, no distress, appears oriented, pleasant and cooperative. PSYCH: Appropriate mood and affect, alert SKIN: Detailed exam of face was completed and are within normal limits with the following exceptions: 1. [place] crusted plaque L nasal ala 2. rough pink scaling patches R nasal sidewall and R nasal tip ASSESSMENT/PLAN: 1. L nasal ala, r/o nonmelanoma skin cancer Tangential biopsy of the lesion noted above to establish and confirm diagnosis. The procedure, risks, benefits, alternatives and expected outcomes were discussed with the patient and verbal consent was obtained. Patient identified, procedure verified, site identified and verified. Confirmed immediately prior to procedure. Area prepped with alcohol and anesthetized with Ropivacaine 2mg/mL (0.2%). Biopsy of lesion performed. 20% AlCl and bandaging applied. Specimen sent to pathology. Patient instructed in routine post-op care. 2. Actinic Keratosis -Educated on premalignant potential and small risk of developing into a SCC -Discussed treatment options including cryotherapy. Patient prefers cryotherapy. -Cryosurgery procedure, risks and benefits explained to the patient. Specifically, side effects including blistering, hyperpigmentation, hypopigmentation, scar or pain at procedure site was discussedand patient verbalized understanding. Consent was obtained by me. Patient, site and procedure verified. Cryotherapy was performed with Liquid Nitrogen via cryo spray unit to 2 lesions. Location notedin physical exam. Post op course explained. -Counseled on importance of sun protection with sunscreen of at least SPF 30 and protective clothing. -Discussed importance of yearly skin checks and to contact our office if she notices any new or changes skin lesion. Patient alone today. Follow-up: PRN pending path, will likely need FBSE Photos taken, patient consented to photos. Applicable photos (if any) and chart reviewed by Dr. Campbell Lopez The patient was encouraged to contact me with any further questions or concerns. Sonya Finn PA-C 09/24/2022 9:06 AM documented in this encounter Nursing Notes * Brandi Ace LPN - 09/24/2022 9:04 AM EDT Chief Complaint Patient presents with NEW PATIENT Concerning spot on nose for many months. Will occasionally bleed. documented in this encounter Miscellaneous Notes * Addendum Note - Sonya Finn PA-C - 09/27/2022 2:22 PM EDTAddended by: SONYA FINN on: 09/27/2022 02:22 PM Modules accepted: Orders * Result Encounter Note - Sonya Finn PA-C - 09/27/2022 2:22 PM EDT A. Skin, L nasal ala, shave: Basal cell carcinoma, at least nodular type Please let pt know bx showed BCC, recommend Mohs. Referral placed. Please schedule f/u FBSE in 6 months documented in this encounter Plan of Treatment Upcoming Encounters Date Type Specialty Care Team Description 10/06/2022 Office Visit Orthopedics Mack Roldan MD [address] [place] [address] 11/26/2022 Hospital Encounter Endoscopy Amy Knox MD [address] [place] [address] 11/26/2022 Surgery Endoscopy Amy Knox MD [address] [place] [address] COLONOSCOPY FLEXIBLE PROXIMAL DIAGNOSTIC 12/10/2022 Office Visit Internal Medicine [facility] [address] Scheduled Procedures Name Priority Associated Diagnoses Date/Ti me COLONOSCOPY FLEXIBLE PROXIMAL DIAGNOSTIC Screening for colon cancer 11/26/2022 1:00 PM EDT Scheduled Referrals Name Type Priority Associated Diagnoses Orde r Schedule MOHS SURGERY REFERRAL OP Referral Within 10 days (routine) Basal cell carcinoma of skin of nose Ordered: 09/27/2022 Health Maintenance Due Date Last Done Comments [...] this encounter Medical Devices Implanted Type Area Hogshead Filler Device Identifier Shelf Expiration Date Model / Serial / Lot [place] Sut Swvlck Bc Knotless - [id number] Implanted:Qty: 1 on 08/02/2022 by Mack Roldan MD at OR [facility] Right: Shoulder [employer] 09/27/2025 [id number] C / / [id number] documented as of this encounter Procedures Procedure Name Priority Date/Time Associated Diagnosis Comments SURGICAL PATHOLOGY Routine 09/24/2022 9: 22 AM EDT Neoplasm of uncertain behavior of skin DERM IMAGE (SITE) Routine 09/24/2022 Neoplasm of uncertain behavior of skin documented in this encounter Results * SURGICAL PATHOLOGY (09/24/2022 9:22 AM EDT) Final Diagnosis A. Skin, L nasal ala, shave: Basal cell carcinoma, at least nodular type 09/27/2022 1:57 PM EDT [facility] [place] History See Order Comments 09/27/2022 1:57 PM EDT LAB[facility] Order Comments A. [place] crusted plaque L nasal ala, r/o nmsc 09/27/2022 1:57 PM EDT [facility] [place] Gross Description A. Skin. shave Received in formalin with a container labeled with "[facility]", "[id number]", "1960" and " left nasal ala". Received is a 0.8 x 0.7 cm skin shave. The skin surface is dwyer to bethea, firm, raised throughout. The underlying tissue is inked. The specimen is trisected and submitted in cassette A1. Gross By: MF 09/27/2022 1:57 PM EDT [facility] [place] Microscopic Description Microscopic examination performed. 09/27/2022 1:57 PM EDT [facility] [place] Photographic images and diagrams represent bodn findings in this case; they are not intended to replace a complete review of the final diagnostic report. The following statement applies to Flow Cytometry, Histology, In situ Hybridization Assays and Molecular Genetics. This test was developed and performed at [facility] and its performance characteristics determined by [facility]. It has not been cleared or approved by the U.S. Food and Drug Administration. The FDA has determined that such clearance or approval is not necessary. This test is used for clinical purposes. It should not be regarded as investigational or for research. Special stains, including histochemical stains, and studies using immunologic and PETEY methodology (where applicable) are performed with appropriate positive and negative control reactions. 09/27/2022 1:57 PM EDT [facility] [place] Tissue Skin structure / Unknown 09/24/2022 9:22 AM EDT 09/24/2022 9:22 AM EDT Comment:A. [place] crusted plaq ue L nasal ala, r/o nmsc Sonya Finn PA-C LAB PATHOLO GY ORDERABLES [facility] [place] [address] [place] [address] * DERM IMAGE (SITE) (09/24/2022) 09/24/2022 Sonya Finn PA-C DIGITAL RANJAN TOGRAPHY documented in this encounter Visit Diagnoses Diagnosis Neoplasm of uncertain behavior of skin- Primary Actinic keratosis Basal cell carcinoma of skin of nose Basal cell carcinoma of skin of other and unspecified parts of face Screening for colon cancer Special screening for [...] due to patient's condition Care Teams Construction Cost Estimator Relationship Specialty Start Date End Date Shelley Reddy MD [address] [facility] [place] [address] PCP - General Internal Medicine 02/07/19 documented as of this encounter
--- OUTSIDE RECORDS SUMMARY | 2023-01-06 16:57 | External Medical Summary | Summary of Care ---
Author Name Unknown Organization [facility] Address [address] [place] [address] Phone [phone] Care Team Providers Care Machine Made Shoe Unit Worker Name Role Phone Shelley Reddy MD Primary Care Provider [phone] Reason for Visit * Reason Comments Follow Up 08/02/2022 Right stephanie solares arthroscopic rotator cuff repair Encounter Details Date Type Department Care Team Description 09/08/2022 Office Visit Orthopaedics [facility] [address] [place] [address] Mack Roldan MD [address] [place] [phone] Postoperative follow-up* Allergies Active Allergy Reactions Severity Noted Date Comments Sulfa Antibiotics Rash 11/30/2015 Yeast Nausea/vomiting 11/30/2015 documented as of this encounter (statuses as of 09/08/2022) Medications Medication Sig Dispensed Refills Start Date [...] the morning. 90 Tablet 1 06/25/2022 Active Gabapentin 400 MG Oral Capsule (Neurontin)Indicati ons:History of lumbar laminectomy,Lumbar disc disease with radiculopathy Take 1 Capsule by mouth in the morning and 1 Capsule before bedtime. 180 Capsule 0 06/25/2022 Active Gabapentin 100 MG Oral Capsule (Neurontin)Indicati ons:History of lumbar laminectomy,Lumbar disc disease with radiculopathy TAKE 2 CAPSULES BY MOUTH 1 HOUR PRIOR TO SLEEP (ALONG WITH 400 MG FOR TOTAL OF 600MG AT NIGHT) 180 Capsule 0 06/25/2022 Active oxyCODONE-Acetamino phen 5-325 MG Oral [...] THE MORNING 90 Tablet 3 08/19/2022 Active documented as of this encounter (statuses as of 09/08/2022) Active Problems Problem Noted Date Mixed dyslipidemia [...] as of this encounter (statuses as of 09/08/2022) Resolved Problems Problem Noted Date Resolved Date COVID-19 virus infection 06/13/202009/26/ 021 Pap smear for cervical cancer screening 11/20/19 17 03/14/2019 Overview: Historical Gyn_Neg 10/14 Morbid obesity 05/06/2016 06/10/2017 Overview: Per Obesity protocol #1 documented as of this encounter (statuses as of 09/08/2022) Immunizations Name Administration Dates Next Due Pneumococcal Conjugate Vacci ne, 20-valent ([id number]) 06/25/2022 Pneumococcal Polysaccharide PPV23 (Pneumovax) 08/10/2018 Seasonal [...] Progress Notes * Mack Roldan MD - 09/08/2022 1:40 PM EDT ORTHOPAEDIC SURGERY - Post-Op Clinic Note SUBJECTIVE: Kathleen Jones is a 61 year old female. Chief Complaint Patient presents with Follow Up 08/02/2022 Right shoulder arthroscopic rotator cuff repair ASSESSMENT: 61 year old female 1 month(s) s/p right shoulder arthroscopy with rotator cuff repair PLAN: We discussed diagnosis and treatment options with her and her daughter today. At this time recommend that she continue with the physical therapy. The patient may discontinue the sling at this time. She will avoid any lifting with the right arm. Postoperative follow-up (Primary) Follow Up: Return in about 4 weeks (around 10/06/2022) for Clinic Visit, Post op visit. | For: ClinicVisit, Post op visit HPI: Kathleen Jones presents today 1 month(s) s/p Right shoulder arthroscopy with rotator cuff repair.Patient states she is making progress with physical therapy. She still having difficulty sleeping at night. She is been using the sling as instructed.. Parathesia negative: Calf pain negative: Fevers or [...] mouth in the morning. 90 Tablet 1 Gabapentin 400 MG Oral Capsule (Neurontin) Take [...] BYMOUTH IN THE MORNING 90 Tablet 3 No current facility-administered medications for this visit. OBJECTIVE: Diagnostic studies: None Vital Signs: There were no vitals taken for this visit. Physical Exam: Evaluation of the right shoulder. The incisions well healed. There is no erythema no drainage. Range of motion is forward flexion passively to 90, external rotation passively is to 30. Strength was not assessed secondary to patient recent surgery. Mack Roldan MD Orthopaedics [address] [place] [address] Orthopedic Sports Medicine Surgery 09/08/2022 1:40 PM This chart was completed in part utilizing [employer] Speech Voice Recognition Software. Grammatical errors, random [...] documented in this encounter Nursing Notes * Carmen Iqbal LPN - 09/08/2022 1:25 PM EDT F/U 08/02/2022 Right shoulder arthroscopic rotator cuff repair Physical therapy using a type 2 rotator cuff protocol, patient notes pain with activity, PT is helping with ROM. Patient is use sling all the time documented in this encounter Plan of Treatment Upcoming Encounters Date Type Specialty Care Team Description 09/13/2022 Imaging Radiology 09/24/2022 Office Visit Dermatology Sonya Finn PA-C [address] [facility] [place] [address] 10/06/2022 Office Visit Orthopedics Mack Roldan MD [address] [place] [phone] 11/26/2022 Hospital Encounter Endoscopy Amy Knox MD [address] [place] [address] [place] [address] 11/26/2022 Surgery Endoscopy Amy Knox MD [address] [place] [address] [place] [id number] COLONOSCOPY FLEXIBLE PROXIMAL DIAGNOSTIC Scheduled Procedures Name Priority Associated Diagnoses Date/Ti me COLONOSCOPY FLEXIBLE PROXIMAL DIAGNOSTIC Screening for colon cancer 11/26/2022 1:00 PM EDT Health Maintenance Due Date Last Done Comments COVID-19 Vaccine (#1) 06/28/1961 HIV Screening 1975 Cologuard 12/29/2003 Fecal Occult Blood Test 12/29/2003 [...] 06/26/2023 06/25/2022, 12/04/2021 Albumin/Creatinine Ratio 12/04/2024 12/04/2021 DTaP,Tdap,and Td Vaccines (2 - Td or Tdap) 06/18/2026 06/18/2016 Lipid Panel 12/04/2026 12/04/2021, 07/29, 05/19/2018, Additional history exists Pap Smear 01/01/2027 01/01/2022, 10/07/2016 Zoster Vaccines Completed 09/26/2020, 04/12/2019 Pneumococcal Vaccine: [...] this encounter Medical Devices Implanted Type Area Processing Talc And Borate Supervisor Device Identifier Shelf Expiration Date Model / Serial / Lot [place] Sut Swvlck Bc Knotless - [id number] Implanted:Qty: 1 on 08/02/2022 by Mack Roldan MD at OR [facility] Right: Shoulder [employer] 09/27/2025 [id number] C / / [id number] documented as of this encounter Visit Diagnoses Diagnosis Postoperative follow-up- Primary Follow-up examination, following unspecified surgery Screening for colon cancer Special screening for [...] Discussed due to patient's condition Care Teams Machine Made Shoe Unit Worker Relationship Specialty Start Date End Date Shelley Reddy MD [address] [facility] [place], [place] [address] PCP - General Internal Medicine 02/07/19 documented as of this encounter"
--- OUTSIDE RECORDS SUMMARY | 2023-01-06 16:57 | External Medical Summary | Summary of Care ---
Author Name Unknown Organization [facility] Address [address] [place] [address] Phone [phone] Care Team Providers Care Laborer Demolition Name Role Phone Shelley Reddy MD Primary Care Provider [phone] Reason for Visit * Reason Comments Vomiting Encounter Details Date Type Department Care Team Description 10/08/2022 [facility] [address] [place] [address] Shiraz Stone PA-C [address] [place] [id number] Vomiting and diarrhea* Allergies Active Allergy Reactions Severity Noted Date Comments Sulfa Antibiotics Rash 11/30/2015 Yeast Nausea/vomiting 11/30/2015 documented as of this encounter (statuses as of 10/08/2022) Medications Medication Sig Dispensed Refills Start Date [...] as of this encounter (statuses as of 10/08/2022) Active Problems Problem Noted Date Mixed dyslipidemia [...] as of this encounter (statuses as of 10/08/2022) Resolved Problems Problem Noted Date Resolved Date COVID-19 virus infection 06/13/202030/ 021 Pap smear for cervical cancer screening 11/20/19 17 03/14/2019 Overview: Historical Gyn_Neg 10/14 Morbid obesity 05/06/2016 06/10/2017 Overview: Per Obesity protocol #1 documented as of this encounter (statuses as of 10/08/2022) Immunizations Name Administration Dates Next Due Pneumococcal Conjugate Vacci ne, 20-valent ([id number]) 06/25/2022 Pneumococcal Polysaccharide PPV23 (Pneumovax) 08/10/2018 Seasonal Influenza, Quadriva lent, No Preserve, 6 Mons & Above, IM 01/01/2022,01/01/2021,04/12/2019,05/19,11/19/2016 Seasonal Influenza, Split, I IV3, With Preserve, Inj 11/29/2015,12/11/2012,01/06/2012 TDAP (age 10 and older)(Boostrix) 06/18/2016 Zoster Vaccine Recombinant (Shingrix) 09/26/2020 ,04/12/2019 documented as of this encounter Social History Tobacco Use Types Packs/Day Years Used Date Smoking Tobacco: Never Smokeless Tobacco: Never Tobacco Cessation:Counseling Given: Not Answered Alcohol Use Standard Drinks/Week Comments No 0 [...] Sign Reading Time Taken Comments Blood Pressure 180/106 10/08/2022 3:45 PM EDT Pulse 98 10/08/2022 3:45 PM EDT Temperature 37.7 C (99.8 F) 10/08/2022 3:45 PM ED T Respiratory Rate 16 10/08/2022 3:45 PM EDT Oxygen Saturation 98% 10/08/2022 3:45 PM EDT Inhaled Oxygen Concentration - - Weight 105.2 kg (232 lb) 10/08/2022 3:45 PM EDT Height 165.1 cm (5' 5") 10/08/2022 3:45 PM EDT Body Mass Index 38.61 10/08/2022 3:45 PM EDT documented in this encounter Patient Instructions * Patient Instructions* Shiraz Stone PA-C - 10/08/2022 4:01 PM EDT FLUIDS FLUIDS FLUIDS; MOTRIN AND TYLENOL DIRECTED FOR PAIN AND FEVERS; AVOID MILK; AVOID PEPTO/IMMODIUM IF AT ALL POSSIBLE; RETURN TO or SEE PCP IF NEEDED. documented in this encounter Progress Notes * Shiraz Stone PA-C - 10/08/2022 3:53 PM EDT Subjective: Kathleen Jones is a 61 year old female. Chief Complaint Patient presents with Vomiting Nursing Notes: Frances Crawford Gerry, PHARMACIST INTERN 10/08/22 1552 Signed 61 yo female presents with N/V/diarrhea x 2 days. Took pepto this am. Has not taken b/p meds x last2 days HPI: HAS BEEN OFF FOR RIGHT SHOULDER SURGERY FOR PAST 2mo; Tuesday WENT OUT TO EAT LUNCH WITH FRIENDS AND ATE MORE THAN SHE NORMALLY DOES, AND THAT NIGHT STARTED TO FEEL NAUSEATED; HAD N/V/D YESTERDAY BUT TODAY JUST THE NAUSEA AND VOMITING PERSISTING; TRIED SOME PEPTO FOR THE SYMPTOMS; AND ROBERT-MARCI; NO NEW BACK PAIN; NO FEVERS; NO BLOODY STOOL; NO NOTE NEEDED FOR WORK (NOT BACK AFTER SURGERY LEAVE YET) All other systems reviewed and are negative. 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 30Tablet 1 omeprazole (PRILOSEC) 20 MG CPDR Take 1 [...] OF 600MG AT NIGHT) 180 Capsule 0 No current facility-administered medications for this visit. Review of patient's allergies indicates: Allergen Reactions Sulfa Antibiotics Rash Yeast Nausea/vomiting OBJECTIVE: BP 180/106 | Pulse 98 | Temp 37.7 C (99.8 F) (Tympanic) | Resp 16 | Ht 1.651 m (5' 5") | Wt 105.2 kg (232 lb) | SpO2 98% | BMI 38.61 kg/m | BSA 2.2 m Review of Systems: See HPI. All other systems reviewed and are negative. PHYSICAL EXAM: General: alert, healthy and no distress; FATIGUED. Head: Normocephalic, No masses, lesions, tenderness or abnormalities Eye Exam: PERRLA, extraocular movements intact, conjunctiva are pink and non- injected, sclera clear Lymph: no palpable lymphadenopathy Abdomen: abdomen SOFT , non-tender, normal bowel sounds and no masses or organomegaly Back: back symmetric, no curvature, no costovertebral angle tenderness, range of motion is normal Neuro Exam: alert & oriented x 3 with fluent speech, no focal motor/sensory deficits, gait normal, reflexes normal and symmetric ASSESSMENT/PLAN: Vomiting and diarrhea (Primary) Other orders - Ondansetron HCl 4 MG Oral Tablet; Take 2 Tablets by mouth every 8 hours as needed for Nausea. Shiraz Stone PA-C 10/08/22 documented in this encounter Nursing Notes * Frances Garrett LPN - 10/08/2022 3:50 PM EDT 61 yo female presents with N/V/diarrhea x 2 days. Took pepto this am. Has not taken b/p meds x last2 days documented in this encounter Plan of Treatment Upcoming Encounters Date Type Specialty Care Team Description 11/04/2022 Office Visit Orthopedics Mack Roldan MD [address] [place] [phone] 11/05/2022 Office Visit Dermatology Ana England MD [address] [place] [address] 11/26/2022 Hospital Encounter Endoscopy Amy Knox MD [address] [place] [address] 11/26/2022 Surgery Endoscopy Amy Knox MD [address] [place] [address] COLONOSCOPY FLEXIBLE PROXIMAL DIAGNOSTIC 12/10/2022 Office Visit Internal Medicine Shelley Reddy MD [address] [facility] [place] [address] 04/08/2023 Office Visit Dermatology Ganesh Ely MD [address] [facility] [place] [address] Scheduled Procedures Name Priority Associated Diagnoses Date/Ti [...] this encounter Medical Devices Implanted Type Area Silvering Department Supervisor Device Identifier Shelf Expiration Date Model / Serial / Lot [place] Sut Swvlck Bc Knotless - [id number] Implanted:Qty: 1 on 08/02/2022 by Mack Roldan MD at OR [facility] Right: Shoulder [employer] 09/27/2025 [id number] C / / [id number] documented as of this encounter Visit Diagnoses Diagnosis Vomiting and diarrhea- Primary Vomiting alone Screening for colon cancer Special screening for [...] due to patient's condition Care Teams Laborer Demolition Relationship Specialty Start Date End Date Shelley Reddy MD [address] [facility] [place] [address] PCP - General Internal Medicine 02/07/19 documented as of this encounter
--- OUTSIDE RECORDS SUMMARY | 2023-01-06 16:57 | External Medical Summary | Summary of Care ---
Author Name Unknown Organization [facility] Address [address] [place] [address] Phone [phone] Care Team Providers Care Graduate Teaching Associate Name Role Phone Shelley Reddy MD Primary Care Provider [phone] Reason for Visit * Reason Onset Date Comments Forms Request 08/26/2022 Encounter Details Date Type Department Care Team Description 08/26/2022 Telephone Orthopaedics [facility] [address] [place] [address] Mack Roldan MD [address] [place] [phone] Forms Request Allergies Active Allergy Reactions Severity Noted Date Comments Sulfa Antibiotics Rash 11/30/2015 Yeast Nausea/vomiting 11/30/2015 documented as of this encounter (statuses as of 08/26/2022) Medications Medication Sig Dispensed Refills Start Date [...] as of this encounter (statuses as of 08/26/2022) Active Problems Problem Noted Date Mixed dyslipidemia [...] as of this encounter (statuses as of 08/26/2022) Resolved Problems Problem Noted Date Resolved Date COVID-19 virus infection 06/13/2020 021 Pap smear for cervical cancer screening 11/20/19 17 03/14/2019 Overview: Historical Gyn_Neg 10/14 Morbid obesity 05/06/2016 06/10/2017 Overview: Per Obesity protocol #1 documented as of this encounter (statuses as of 08/26/2022) Immunizations Name Administration Dates Next Due Pneumococcal Conjugate Vacci ne, 20-valent ([id number]) 06/25/2022 Pneumococcal Polysaccharide PPV23 (Pneumovax) 08/10/2018 Seasonal [...] encounter Miscellaneous Notes * Telephone Encounter - Azra Lara LPN - 08/26/2022 2:06 PM EDT Completed form placed in provider's bin for signature. * Telephone Encounter - PAULA Finnegan - 08/26/2022 11:08 AM EDT Patients daughter dropped off Disability Claim Form to be completed. Patient would like a call whencompleted. Placed in blue nurses folder. Thank you. documented in this encounter Plan of Treatment Upcoming Encounters Date Type Specialty Care Team Description 09/03/2022 Office Visit Orthopedics Mack Roldan MD [address] [place] [phone] 09/13/2022 Imaging Radiology 09/24/2022 Office Visit Dermatology Sonya Finn PA-C [address] [facility] [place] [address] 11/26/2022 Hospital Encounter Endoscopy Amy Knox MD [address] [place] [address] 11/26/2022 Surgery Endoscopy Amy Knox MD [address] [place] [phone] COLONOSCOPY FLEXIBLE PROXIMAL DIAGNOSTIC Scheduled Procedures Name [...] 01/01/2022, 10/07/2016 Zoster Vaccines Completed 09/26/2020, 04/12/2019 Influenza Vaccine (FLU shot) Completed 05/2021, 01/01/2021, 04/12/2019, Additional history exists Pneumococcal Vaccine: Pediatrics (0 to 5 Years) [...] this encounter Medical Devices Implanted Type Area Tire Repairer Device Identifier Shelf Expiration Date Model / Serial / Lot [place] Sut Swvlck Bc Knotless - [id number] Implanted:Qty: 1 on 08/02/2022 by Mack Roldan MD at OR [facility] Right: Shoulder [employer] 09/27/2025 AR-[id number] C / / [id number] documented as of this encounter Advance Directives [...] Discussed due to patient's condition Care Teams Graduate Teaching Associate Relationship Specialty Start Date End Date Shelley Reddy MD [address] [place] [address] PCP - General Internal Medicine 02/07/19 documented as of this encounter
--- OUTSIDE RECORDS SUMMARY | 2023-01-06 16:57 | External Medical Summary | Summary of Care ---
Author Name Unknown Organization [facility] Address [address] [place] [address] Phone [phone] Care Team Providers Care Denture Waxer Name Role Phone Shelley Reddy MD Primary Care Provider [phone] Reason for Visit * Reason Comments eRx-Medication Refill Encounter Details Date Type Department Care Team Description 08/17/2022 Refill General Internal Medicine [facility] [address] [place] [address] Shelley Reddy MD [address] [facility] [place] [id number] Allergies Active Allergy Reactions Severity Noted Date Comments Sulfa Antibiotics Rash 11/30/2015 Yeast Nausea/vomiting 11/30/2015 documented as of this encounter (statuses as of 08/19/2022) Medications Medication Sig Dispensed Refills Start Date End Date Status omeprazole (PRILOSEC) 20 MG CPDR Take 1 Capsule by mouth at bedtime. She takes 20mg tablets 2 at night to equal 40mg 30 Cap 5 7 Active Melatonin ER 3 MG TBCR Take by mouth. one pill each day 0 7 Active Albuterol Sulfate 1.25 MG/3ML NEBUIndications:Br onchitis, complicated,Shortn ess of breath Inhale 1 Vial via nebulizer every 4 hours as needed for Wheezing. 120 Vial 0 9 Active Albuterol Sulfate HFA 108 (90 Base) MCG/ACT Inhalation Aerosol SolutionIndication s:Wheezing Inhale by mouth 2 Puffs every 4 hours as needed for Wheezing. 18 g 5 2 Active Lisinopril-hydroCH LOROthiazide 20-25 MG Oral TabletIndications: HTN, goal below 140/90 Take 1 Tablet by mouth in the morning. 90 Tablet 1 3 Active Gabapentin 400 MG Oral Capsule (Neurontin)Indicat ions:History of lumbar laminectomy,Lumbar disc disease with radiculopathy Take 1 Capsule by mouth in the morning and 1 Capsule before bedtime. 180 Capsule 0 3 Active Gabapentin 100 MG Oral Capsule (Neurontin)Indicat ions:History of lumbar laminectomy,Lumbar disc disease with radiculopathy TAKE 2 CAPSULES BY MOUTH 1 HOUR PRIOR TO SLEEP (ALONG WITH 400 MG FOR TOTAL OF 600MG AT NIGHT) 180 Capsule 0 3 Active oxyCODONE-Acetamin ophen 5-325 MG Oral Tablet (Percocet) Take 1 Tablet by mouth every 6 hours as needed for Pain, Moderate. 20 Tablet 0 3 Active Additional Information Patient not taking.Reported on 08/17/2022 Ibuprofen 800 MG Oral Tablet (Motrin) Take 1 Tablet by mouth in the morning and 1 Tablet at noon and 1 Tablet before bedtime. Take with Meals. 45 Tablet 0 3 Active Metoprolol Succinate ER 25 MG Oral Tablet Extended Release 24 Hour (toPROL XL) TAKE 1 TABLET BY MOUTH IN THE MORNING 90 Tablet 3 3 Active Metoprolol Succinate ER 25 MG Oral Tablet Extended Release 24 Hour (toPROL XL) Take 1 Tablet by mouth in the morning. In the morning.. 90 Tablet 0 3 08/20/19 23 Discontinued documented as of this encounter (statuses as of 08/19/2022) Active Problems Problem Noted Date Mixed dyslipidemia [...] as of this encounter (statuses as of 08/19/2022) Resolved Problems Problem Noted Date Resolved Date COVID-19 virus infection 06/13/202009/26/ 021 Pap smear for cervical cancer screening 11/20/19 17 03/14/2019 Overview: Historical Gyn_Neg 10/14 Morbid obesity 05/06/2016 06/10/2017 Overview: Per Obesity protocol #1 documented as of this encounter (statuses as of 08/19/2022) Immunizations Name Administration Dates Next Due Pneumococcal Conjugate Vacci ne, 20-valent ([id number]) 06/25/2022 Pneumococcal Polysaccharide PPV23 (Pneumovax) 08/10/2018 Seasonal [...] encounter Miscellaneous Notes * Telephone Encounter - Derrick Mcpherson [facility] - 08/19/2022 9:10 AM EDTSigned Prescriptions: Disp Refills Metoprolol Succinate ER 25 MG Oral Tablet *90 Tab*3 Sig: TAKE 1 TABLET BY MOUTH IN THE MORNINGAuthorizing Provider: Michelle REDDY User: DERRICK MCPHERSON- documented in this encounter Plan of Treatment Upcoming Encounters Date Type Specialty Care Team Description 09/03/2022 Office Visit Orthopedics Mack Roldan MD [address] [place] [phone] 09/13/2022 Imaging Radiology 11/26/2022 Hospital Encounter Endoscopy Amy Knox MD [address] [place] [address] 11/26/2022 Surgery Endoscopy Amy Knox MD [address] [place] [address] COLONOSCOPY FLEXIBLE PROXIMAL DIAGNOSTIC 04/15/2023 Office Visit Dermatology Mahogany Oneal MD [address] [place] [address] Scheduled Procedures Name Priority Associated Diagnoses Date/Ti [...] this encounter Medical Devices Implanted Type Area Bed Operator Device Identifier Shelf Expiration Date Model / Serial / Lot [place] Sut Swvlck Bc Knotless - [id number] Implanted:Qty: 1 on 08/02/2022 by Mack Roldan MD at OR [facility] Right: Shoulder [employer] 09/27/2025 AR-[id number] C / / [id number] documented as of this encounter Advance Directives [...] Discussed due to patient's condition Care Teams Denture Waxer Relationship Specialty Start Date End Date Shelley Reddy MD [address] [place] [address], [place] [address] PCP - General Internal Medicine 02/07/19 documented as of this encounter
--- OUTSIDE RECORDS SUMMARY | 2023-01-06 16:57 | External Medical Summary | Summary of Care ---
Author Name Unknown Organization [facility] Address [address] [place] [address] Phone [phone] Care Team Providers Care Food And Nutrition Services Assistant Name Role Phone Shelley Reddy MD Primary Care Provider [phone] Reason for Visit * Reason Onset Date Comments Forms Request 08/26/2022 Encounter Details Date Type Department Care Team Description 08/26/2022 Telephone Orthopaedics [facility] [address] [place] [address] Mack Roldan MD [address] [place] [phone] Forms Request Allergies Active Allergy Reactions Severity Noted Date Comments Sulfa Antibiotics Rash 11/30/2015 Yeast Nausea/vomiting 11/30/2015 documented as of this encounter (statuses as of 09/02/2022) Medications Medication Sig Dispensed Refills Start Date [...] as of this encounter (statuses as of 09/02/2022) Active Problems Problem Noted Date Mixed dyslipidemia [...] as of this encounter (statuses as of 09/02/2022) Resolved Problems Problem Noted Date Resolved Date COVID-19 virus infection 06/13/2020 021 Pap smear for cervical cancer screening 11/20/19 17 03/14/2019 Overview: Historical Gyn_Neg 10/14 Morbid obesity 05/06/2016 06/10/2017 Overview: Per Obesity protocol #1 documented as of this encounter (statuses as of 09/02/2022) Immunizations Name Administration Dates Next Due Pneumococcal Conjugate Vacci ne, 20-valent ([id number]) 06/25/2022 Pneumococcal Polysaccharide PPV23 (Pneumovax) 08/10/2018 Seasonal [...] Telephone Encounter - Azra Lara LPN - 09/02/2022 8:52 AM EDT Form signed by provider, successfully faxed, placed in scans bin. Copy placed in pt pickler helper, called, left a message on pt's voice mail to let her know. * Telephone Encounter - Azra Lara LPN [...] Roldan MD [address] [place] [phone] 09/13/2022 Imaging Radiology 09/24/2022 Office Visit Dermatology Sonya Finn PA-C [address] [facility] [place] [address] 11/26/2022 Hospital Encounter Endoscopy Amy Knox MD [address] [place] [address] 11/26/2022 Surgery Endoscopy Amy Knox MD [address] [place] [address] [facility] [place] [id number] COLONOSCOPY FLEXIBLE PROXIMAL DIAGNOSTIC Scheduled Procedures Name [...] this encounter Medical Devices Implanted Type Area Lithographer Apprentice Device Identifier Shelf Expiration Date Model / Serial / Lot [place] Sut Swvlck Bc Knotless - [id number] Implanted:Qty: 1 on 08/02/2022 by Mack Roldan MD at OR [facility] Right: Shoulder [employer] 09/27/2025 [id number] C / / [id number] documented as of this encounter Advance Directives [...] Discussed due to patient's condition Care Teams Food And Nutrition Services Assistant Relationship Specialty Start Date End Date Shelley Reddy MD [address] [facility] [place], [place] [address] PCP - General Internal Medicine 02/07/19 documented as of this encounter
--- OUTSIDE RECORDS SUMMARY | 2023-01-06 16:57 | External Medical Summary | Summary of Care ---
Author Name Unknown Organization [facility] Address [address] [place] [address] Phone [phone] Care Team Providers Care Cement Storage Worker Name Role Phone Shelley Reddy MD Primary Care Provider [phone] Reason for Visit * Reason Comments NEW PATIENT Concerning spot on n ose for many months. Will occasionally bleed. * Evaluate & Treat - Unlimited Visits (Within 30 days (routine)) - Authorized Specialty Diagnoses / Procedures Referred By Marine courtney Referred To Contact Dermatology Diagnoses Skin lesion Rosa Corral MD [address] [place] [address] Referral ID Status Reason Start Date Expiration Date Visits Requested Visits Authorized [id number] Authorized Specialty Services Required 06/25/[phone] Encounter Details Date Type Department Care Team Description 09/24/2022 Office Visit Dermatology [facility] [address] [place] [address] Sonya Finn PA-C [address] [place] [address] Neoplasm of uncertain behavior of skin*; Actinic keratosis Allergies Active Allergy Reactions Severity Noted Date Comments Sulfa Antibiotics Rash 11/30/2015 Yeast Nausea/vomiting 11/30/2015 documented as of this encounter (statuses as of 09/24/2022) Medications Medication Sig Dispensed Refills Start Date [...] as of this encounter (statuses as of 09/24/2022) Active Problems Problem Noted Date Mixed dyslipidemia [...] left at L5-S1 level. lumbar laminectomy Sara Lacy Gastroesophageal reflux disease without esophagitis 05/06/2016 Overview: Had EGD +csope 2014? PSH Snoring 05/06/2016 DDD (degenerative disc disease), cervica l 05/06/2016 documented as of this encounter (statuses as of 09/24/2022) Resolved Problems Problem Noted Date Resolved Date COVID-19 virus infection 06/13/2020 021 Pap smear for cervical cancer screening 11/20/19 17 03/14/2019 Overview: Historical Gyn_Neg 10/14 Morbid obesity 05/06/2016 06/10/2017 Overview: Per Obesity protocol #1 documented as of this encounter (statuses as of 09/24/2022) Immunizations Name Administration Dates Next Due Pneumococcal Conjugate Vacci ne, 20-valent ([id number]) 06/25/2022 Pneumococcal Polysaccharide PPV23 (Pneumovax) 08/10/2018 Seasonal [...] as of this encounter Progress Notes * Sonya Finn PA-C - 09/24/2022 9:06 AM EDT Nursing Notes: Brandi Ace LPN 09/24/22 0904 Signed Chief Complaint Patient presents [...] (BMI) of 40.0 to 44.9 in adult ([facility]LY [facility]) Z68.41 Mild persistent asthma without complication J45.30 [...] normal limits with the following exceptions: 1. [place] crusted plaque L nasal ala 2. rough [...] Will occasionally bleed. documented in this encounter Plan of Treatment Upcoming Encounters Date Type Specialty Care Team Description 10/06/2022 Office Visit Orthopedics Mack Roldan MD [address] [place] [phone] 11/26/2022 Hospital Encounter Endoscopy Amy Knox MD [address] [place] [address] 11/26/2022 Surgery Endoscopy Amy Knox MD [address] [place] [address] COLONOSCOPY FLEXIBLE PROXIMAL DIAGNOSTIC 12/10/2022 Office Visit Internal Medicine Shelley Reddy MD [address] [facility] [address] Pending Results Name Type Priority Associated Diagnoses Date /Time SURGICAL PATHOLOGY Pathology Routine Neoplasm of uncertain behavior of skin 09/24/2022 9:22 AM EDT Scheduled Procedures Name Priority Associated Diagnoses Date/Ti [...] this encounter Medical Devices Implanted Type Area Oil Well Directional Surveyor Device Identifier Shelf Expiration Date Model / Serial / Lot [place] Sut Swvlck Bc Knotless - [id number] Implanted:Qty: 1 on 08/02/2022 by Mack Roldan MD at OR [facility] Right: Shoulder [employer] 09/27/2025 [id number] C / / [id number] documented as of this encounter Visit Diagnoses Diagnosis Neoplasm of uncertain behavior of skin- Primary Actinic keratosis Screening for colon cancer Special screening for [...] Discussed due to patient's condition Care Teams Cement Storage Worker Relationship Specialty Start Date End Date Shelley Reddy MD [address] [facility] [place] [address] PCP - General Internal Medicine 02/07/19 documented as of this encounter
--- OUTSIDE RECORDS SUMMARY | 2023-01-06 16:57 | External Medical Summary | Summary of Care ---
Author Name Unknown Organization [facility] Address [address] [place] [address] Phone [phone] Care Team Providers Care Medical Billing And Coding Specialist Name Role Phone Shelley Reddy MD Primary Care Provider [phone] Reason for Visit * Reason Comments Follow Up 08/02/2022 Right stephanie solares arthroscopic rotator cuff repair Encounter Details Date Type Department Care Team Description 08/17/2022 Office Visit Orthopaedics [facility] [address] [place] [address] Mack Roldan MD [address] [place] [phone] Postoperative follow-up* Allergies Active Allergy Reactions Severity Noted Date Comments Sulfa Antibiotics Rash 11/30/2015 Yeast Nausea/vomiting 11/30/2015 documented as of this encounter (statuses as of 08/17/2022) Medications Medication Sig Dispensed Refills Start Date [...] for Wheezing. 18 g 5 05/18/2021 Active Metoprolol Succinate ER 25 MG Oral Tablet Extended Release 24 Hour (toPROL XL) Take 1 Tablet by mouth in the morning. In the morning.. 90 Tablet 0 05/06/2022 Active Lisinopril-hydroCHL OROthiazide 20-25 MG Oral TabletIndications:H [...] with Meals. 45 Tablet 0 08/02/2022 Active documented as of this encounter (statuses as of 08/17/2022) Active Problems Problem Noted Date Mixed dyslipidemia [...] the left at L5-S1 level. lumbar laminectomy Saar 2006 Gastroesophageal reflux disease without esophagitis 05/06/2016 Overview: Had EGD +csope 2014? PSH Snoring 05/06/2016 DDD (degenerative disc disease), cervica l 05/06/2016 documented as of this encounter (statuses as of 08/17/2022) Resolved Problems Problem Noted Date Resolved Date COVID-19 virus infection 06/13/2020 0730/2 021 Pap smear for cervical cancer screening 11/20/19 17 03/14/2019 Overview: Historical Gyn_Neg 10/14 Morbid obesity 05/06/2016 06/10/2017 Overview: Per Obesity protocol #1 documented as of this encounter (statuses as of 08/17/2022) Immunizations Name Administration Dates Next Due Pneumococcal Conjugate Vacci ne, 20-valent ([id number]) 06/25/2022 Pneumococcal Polysaccharide PPV23 (Pneumovax) 08/10/2018 Seasonal [...] Progress Notes * Mack Roldan MD - 08/17/2022 12:32 PM EDT ORTHOPAEDIC SURGERY - Post-Op Clinic Note SUBJECTIVE: Kathleen Jones is a 61 year old female. Chief Complaint Patient presents with Follow Up 08/02/2022 Right shoulder arthroscopic rotator cuff repair ASSESSMENT: 61 year old female 2 week(s) s/p right shoulder arthroscopic rotator cuff repair PLAN: We discussed diagnosis and treatment options with the patient today. At this time recommend that she start physical therapy using a type 2 rotator cuff protocol. She was instructed on the use of the sling. Patient may get rid of the pillow at this time. Postoperative follow-up (Primary) Follow Up: Return in about 2 weeks (around 08/31/2022) for Post op visit. | For: Post op visit HPI: Kathleen Jones presents today 2 week(s) s/p Right shoulder arthroscopic rotator cuff repair artem. Patient states that her pain is different than the pain she had prior to the surgery. She is not started physical therapy at this time.. Parathesia negative: Calf pain negative: Fevers or [...] as needed for Wheezing. 18 g 5 Metoprolol Succinate ER 25 MG Oral Tablet Extended Release 24 Hour (toPROL XL) Take 1 Tablet bymouth in the morning. In the morning.. 90 Tablet 0 Lisinopril-hydroCHLOROthiazide 20-25 MG Oral Tablet Take 1 [...] bedtime. Take with Meals. 45 Tablet 0 No current facility-administered medications for this visit. OBJECTIVE: Diagnostic studies: None Vital Signs: There were no vitals taken for this visit. Physical Exam: Evaluation of the right shoulder. Range of motion was not assessed secondary surgery. The incisionsare well healed. Sensation is intact the ulnar, radial, median, axillary nerve distribution. Mack Roldan MD Orthopaedics [address] [address] Orthopedic Sports Medicine Surgery 08/17/2022 12:32 PM This chart was completed in part utilizing [employer] Speech Voice Recognition Software. Grammatical errors, random [...] Nursing Notes * Carmen Iqbal LPN - 08/17/2022 8:50 AM EDT F/u 08/02/2022 Right shoulder arthroscopic rotator cuff repair. Patient notes level of pain 05/07 today has not started any PT. documented in this encounter Plan of Treatment Upcoming Encounters Date Type Specialty Care Team Description 09/03/2022 Office Visit Orthopedics Mack Roldan MD [address] [place] [address] 09/13/2022 Imaging Radiology 11/26/2022 Hospital Encounter Endoscopy Amy Knox MD [address] [place] [address] 11/26/2022 Surgery Endoscopy Amy Knox MD [address] [place] [address] COLONOSCOPY FLEXIBLE PROXIMAL DIAGNOSTIC 04/15/2023 Office Visit Dermatology Mahogany Oneal MD [address] [place] [address] Scheduled Procedures Name Priority Associated Diagnoses Date/Ti [...] this encounter Medical Devices Implanted Type Area Furnace Installer Helper Device Identifier Shelf Expiration Date Model / Serial / Lot [place] Sut Swvlck Bc Knotless - [id number] Implanted:Qty: 1 on 08/02/2022 by Mack Roldan MD at OR [facility] Right: Shoulder [employer] 09/27/2025 [id number] C / / [id number] documented as of this encounter Visit Diagnoses [...] Discussed due to patient's condition Care Teams Medical Billing And Coding Specialist Relationship Specialty Start Date End Date Shleley Reddy MD [address] [facility], [place] [address] PCP - General Internal Medicine 02/07/19 documented as of this encounter"
--- OUTSIDE RECORDS SUMMARY | 2023-01-06 16:57 | External Medical Summary | Summary of Care ---
Author Name Unknown Organization [facility] Address [address] [place] [address] Phone [phone] Care Team Providers Care Audio Director Name Role Phone Shelley Reddy MD Primary Care Provider [phone] Reason for Visit * Reason Onset Date Comments Test Results Biopsy 09/27/2022 Encounter Details Date Type Department Care Team Description 09/27/2022 Telephone Dermatology [facility] [address] [place] [address] Sonya Finn PA-C [address] [place], [place] [id number] Test Results Biopsy Allergies Active Allergy Reactions Severity Noted Date Comments Sulfa Antibiotics Rash 11/30/2015 Yeast Nausea/vomiting 11/30/2015 documented as of this encounter (statuses as of 09/28/2022) Medications Medication Sig Dispensed Refills Start Date [...] as of this encounter (statuses as of 09/28/2022) Active Problems Problem Noted Date Mixed dyslipidemia [...] as of this encounter (statuses as of 09/28/2022) Resolved Problems Problem Noted Date Resolved Date COVID-19 virus infection 06/13/2020 021 Pap smear for cervical cancer screening 11/20/19 17 03/14/2019 Overview: Historical Gyn_Neg 10/14 Morbid obesity 05/06/2016 06/10/2017 Overview: Per Obesity protocol #1 documented as of this encounter (statuses as of 09/28/2022) Immunizations Name Administration Dates Next Due Pneumococcal Conjugate Vacci ne, 20-valent ([id number]) 06/25/2022 Pneumococcal Polysaccharide PPV23 (Pneumovax) 08/10/2018 Seasonal [...] f/u FBSE in 6 months -forwarding to [facility] for scheduling this. Spoke to [...] Roldan MD [address] [place] [phone] 11/05/2022 Office Visit Dermatology Ana England MD [address] [facility] [place] [address] 11/26/2022 Hospital Encounter Endoscopy Amy Knox MD [address] [place] [address] 11/26/2022 Surgery Endoscopy Amy Knox MD [address] [facility] [place] [address] COLONOSCOPY FLEXIBLE PROXIMAL DIAGNOSTIC 12/10/2022 Office Visit Internal Medicine Shelley Reddy MD [address] [facility] [place] [address] Scheduled Procedures Name Priority Associated Diagnoses Date/Ti [...] this encounter Medical Devices Implanted Type Area Machine Burrer Device Identifier Shelf Expiration Date Model / Serial / Lot [place] Sut Swvlck Bc Knotless - [id number] Implanted:Qty: 1 on 08/02/2022 by Mack Roldan MD at OR [facility] Right: Shoulder [employer] 09/27/2025 AR-[id number] C / / [id number] documented as of this encounter Advance Directives [...] Discussed due to patient's condition Care Teams Audio Director Relationship Specialty Start Date End Date Shelley Reddy MD [address] [facility] [place] [address] PCP - General Internal Medicine 02/07/19 documented as of this encounter
--- OUTSIDE RECORDS SUMMARY | 2023-01-06 16:57 | External Medical Summary | Summary of Care ---
Author Name Unknown Organization [facility] Address [address] [place] [address] Phone [phone] Care Team Providers Care Fire Crew Worker Name Role Phone Shelley Reddy MD Primary Care Provider [phone] Reason for Visit * Reason Comments Post-Op 08/02/2022 Right stephanie solares arthroscopic rotator cuff repair Encounter Details Date Type Department Care Team Description 10/07/2022 Office Visit Orthopaedics [facility] [address] [place] [address] Mack Roldan MD [address] [place] [phone] Postoperative follow-up*; S/P rotator cuff repair Allergies Active Allergy Reactions Severity Noted Date Comments Sulfa Antibiotics Rash 11/30/2015 Yeast Nausea/vomiting 11/30/2015 documented as of this encounter (statuses as of 10/07/2022) Medications Medication Sig Dispensed Refills Start Date [...] as of this encounter (statuses as of 10/07/2022) Active Problems Problem Noted Date Mixed dyslipidemia [...] as of this encounter (statuses as of 10/07/2022) Resolved Problems Problem Noted Date Resolved Date COVID-19 virus infection 06/13/2020 0730/2 021 Pap smear for cervical cancer screening 11/20/19 17 03/14/2019 Overview: Historical Gyn_Neg 10/14 Morbid obesity 05/06/2016 06/10/2017 Overview: Per Obesity protocol #1 documented as of this encounter (statuses as of 10/07/2022) Immunizations Name Administration Dates Next Due Pneumococcal Conjugate Vacci ne, 20-valent ([id number]) 06/25/2022 Pneumococcal Polysaccharide PPV23 (Pneumovax) 08/10/2018 Seasonal [...] Progress Notes * Mack Roldan MD - 10/07/2022 2:53 PM EDT ORTHOPAEDIC SURGERY - Post-Op Clinic Note SUBJECTIVE: Kathleen Jones is a 61 year old female. Chief Complaint Patient presents with Post-Op 08/02/2022 Right shoulder arthroscopic rotator cuff repair ASSESSMENT: 61 year old female 2 month(s) s/p right shoulder arthroscopy with rotator cuff repair PLAN: We discussed diagnosis and treatment options with the patient today. At this time we recommend thatshe continue with the physical therapy. She was instructed on avoiding any lifting. Postoperative follow-up (Primary) S/P rotator cuff repair Follow Up: Return in about 4 weeks (around 11/04/2022) for Post op visit. | For: Post op visit HPI: Kathleen Jones presents today 2 month(s) s/p Right shoulder arthroscopy with rotator cuff repair doing well. Patient denies any significant issues. She is tolerating the physical therapy. She states she has noticed significant improvement over the last few weeks. Still has some pain when she rolls over onto that side at night. Parathesia negative: Calf pain negative: Fevers or [...] Range of motion is forward flexion to 90, external rotation is to 40. Strength was not assessed Mack Roldan MD Orthopaedics [address] [address] Orthopedic Sports Medicine Surgery 10/07/2022 2:53 PM This chart was completed in part utilizing [employer] Speech Voice Recognition Software. Grammatical errors, random [...] documented in this encounter Nursing Notes * OKSANA Pedraza - 10/07/2022 2:35 PM EDT Patient presents today for post op visit on 08/02/2022 Right shoulder arthroscopic rotator cuff repair documented in this encounter Plan of Treatment Upcoming Encounters Date Type Specialty Care Team Description 11/04/2022 Office Visit Orthopedics Mack Roldan MD [address] [place] [phone] 11/05/2022 Office Visit Dermatology Ana [place] MD [address] [facility] [place] [address] 11/26/2022 Hospital Encounter Endoscopy Amy Knox MD [address] [place] [address] 11/26/2022 Surgery Endoscopy Amy Knox MD [address] [place] [address] COLONOSCOPY FLEXIBLE PROXIMAL DIAGNOSTIC 12/10/2022 Office Visit Internal Medicine Shelley Reddy MD [address] [facility] [place] [address] 04/08/2023 Office Visit Dermatology Ganesh Ely MD [address] [facility] [place] [address] Scheduled Procedures Name Priority Associated Diagnoses Date/Ti [...] this encounter Medical Devices Implanted Type Area Insurance Sales Producer Device Identifier Shelf Expiration Date Model / Serial / Lot [place] Sut Swvlck Bc Knotless - [id number] Implanted:Qty: 1 on 08/02/2022 by Mack Roldan MD at OR [facility] Right: Shoulder [employer] 09/27/2025 AR-[id number] C / / [id number] documented as of this encounter Visit Diagnoses [...] Discussed due to patient's condition Care Teams Fire Crew Worker Relationship Specialty Start Date End Date Shelley Reddy MD [address] [facility], [place] [address] PCP - General Internal Medicine 02/07/19 documented as of this encounter"
--- OUTSIDE RECORDS SUMMARY | 2023-01-06 16:57 | External Medical Summary | Summary of Care ---
Author Name Unknown Organization [facility] Address [address] [place] [address] Phone [phone] Care Team Providers Care Indirect Sales Exec Name Role Phone Shelley Reddy MD Primary Care Provider [phone] Reason for Visit * Reason Onset Date Comments eRx-Medication Refill Appointment 09/20/2022 Encounter Details Date Type Department Care Team Description 09/20/2022 Refill General Internal Medicine [facility] [address] [facility] [place] [address] Rosa Corral MD [address] [place] [address] History of lumbar laminectomy; Lumbar disc disease with radiculopathy Allergies Active Allergy Reactions Severity Noted Date Comments Sulfa Antibiotics Rash 11/30/2015 Yeast Nausea/vomiting 11/30/2015 documented as of this encounter (statuses as of 09/21/2022) Medications Medication Sig Dispensed Refills Start Date End Date Status omeprazole (PRILOSEC) 20 MG CPDR Take 1 Capsule by mouth at bedtime. She takes 20mg tablets 2 at night to equal 40mg 30 Cap 5 05/06/2016 Active Melatonin ER 3 MG TBCR Take by mouth. one pill each day 0 06/18/2016 Active Albuterol Sulfate 1.25 MG/3ML NEBUIndications:Br onchitis, complicated,Shortn ess of breath Inhale 1 Vial via nebulizer every 4 hours as needed for Wheezing. 120 Vial 0 03/23/2018 Active Albuterol Sulfate HFA 108 (90 Base) MCG/ACT Inhalation Aerosol SolutionIndication s:Wheezing Inhale by mouth 2 Puffs every 4 hours as needed for Wheezing. 18 g 5 05/18/2021 Active Lisinopril-hydroCH LOROthiazide 20-25 MG Oral TabletIndications: HTN, goal below 140/90 Take 1 Tablet by mouth in the morning. 90 Tablet 1 06/25/2022 Active oxyCODONE-Acetamin ophen 5-325 MG Oral Tablet [...] 08/19/2022 Active Gabapentin 400 MG Oral Capsule (Neurontin)Indicat ions:History of lumbar laminectomy,Lumbar disc disease with radiculopathy Take 1 Capsule by mouth in the morning and 1 Capsule before bedtime. 180 Capsule 0 09/21/2022 Active Gabapentin 100 MG Oral Capsule (Neurontin)Indicat ions:History of lumbar laminectomy,Lumbar disc disease with radiculopathy TAKE 2 CAPSULES BY MOUTH 1 HOUR PRIOR TO SLEEP (ALONG WITH 400 MG FOR TOTAL OF 600MG AT NIGHT) 180 Capsule 0 09/21/2022 Active Gabapentin 400 MG Oral Capsule (Neurontin)Indicat ions:History of lumbar laminectomy,Lumbar disc disease with radiculopathy Take 1 Capsule by mouth in the morning and 1 Capsule before bedtime. 180 Capsule 0 06/25/2022 3 Discontinu ed(Refill) Gabapentin 100 MG Oral Capsule (Neurontin)Indicat ions:History of lumbar laminectomy,Lumbar disc disease with radiculopathy TAKE 2 CAPSULES BY MOUTH 1 HOUR PRIOR TO SLEEP (ALONG WITH 400 MG FOR TOTAL OF 600MG AT NIGHT) 180 Capsule 0 06/25/2022 3 Discontinu ed(Refill) documented as of this encounter (statuses as of 09/21/2022) Active Problems Problem Noted Date Mixed dyslipidemia [...] as of this encounter (statuses as of 09/21/2022) Resolved Problems Problem Noted Date Resolved Date COVID-19 virus infection 06/13/2020 021 Pap smear for cervical cancer screening 11/20/19 17 03/14/2019 Overview: Historical Gyn_Neg 10/14 Morbid obesity 05/06/2016 06/10/2017 Overview: Per Obesity protocol #1 documented as of this encounter (statuses as of 09/21/2022) Immunizations Name Administration Dates Next Due Pneumococcal Conjugate Vacci ne, 20-valent ([id number]) 06/25/2022 Pneumococcal Polysaccharide PPV23 (Pneumovax) 08/10/2018 Seasonal [...] Miscellaneous Notes * Telephone Encounter - PAULA Martinez - 09/21/2022 12:58 PM EDT Called pt, scheduled f/u with PCP on 12/10 09/21 * Telephone Encounter - Rosa Corral MD - 09/21/2022 12:38 PM EDT I Saw her once 06/25 when Was away, Rxsent -she was recommended follow-up in 1 month for preop but looks like she had surgey juany fu PCP in 2-3 mths. * Telephone Encounter - Shelley Reddy MD - 09/21/2022 12:18 PM EDT Last seen 1 year ago . Seen by Dr Corral 2 months go , forwarding refill this time Should schedule follow up appoint for future refill * Telephone Encounter - Shelley Reddy MD - 09/21/2022 12:18 PM EDTRefused Prescriptions: Disp Refills Gabapentin 400 MG Oral Capsule (Neurontin) 180 Ca*0 Sig: Take 1 capsule by mouth twice daily Refused By: SHELLEY REDDY Reason for Refusal: Appt. Required, please call patient * Telephone Encounter - OKSANA Patel ASSIST - 09/21/2022 10:01 AM EDTPending Prescriptions: Disp Refills Gabapentin 400 MG Oral Capsule 180 Ca*0 Sig: Take 1 capsule by mouth twice daily * Telephone Encounter - OKSANA Patel ASSIST - 09/21/2022 10:01 AM EDT Did you pend patient's preferred pharmacy and medication before forwarding?yes Pharmacy: [facility] [address] Pending Prescriptions: Disp Refills Gabapentin 400 MG Oral Capsule (Neurontin*180 Ca*0 Sig: Take 1 capsule by mouth twice daily Last Visit: 06/25/2022 (in office), 05/28/2021 (telemedicine) Next Visit: Visit date not found If no future appointments scheduled, and last appointment is greater than a year ago, please schedule patient for a follow-up appointment Last date the medication was ordered: 06/25/2022 Urine Drug Screen:No results found for this or any previous visit. Patient Phone Numbers Labs: Lab Results Component Value Date/Time CREAT 1.0 06/25/2022 11:43 AM CREAT 0.9 05/07/2019 02:30 PM POTASSIUM 4.7 06/25/2022 11:43 AM POTASSIUM 3.9 05/07/2019 02:30 PM TSH 0.78 06/11/2016 08:49 AM LDLCALC 136 (H) 12/04/2021 09:00 AM LDLCALC 113 05/19/2018 09:48 AM ALT 16 06/25/2022 11:43 AM ALT 23 05/07/2019 02:30 PM HGBA1C 5.8 (H) 06/25/2022 11:43 AM * Telephone Encounter - Fox Tobin - 09/20/2022 11:55 PM EDTPending Prescriptions: Disp Refills Gabapentin 400 MG Oral Capsule 180 Ca*0 Sig: Take 1 capsule by mouth twice daily documented in this encounter Plan of Treatment Upcoming Encounters Date Type Specialty Care Team Description 09/24/2022 Office Visit Dermatology Sonya Finn PA-C [address] [facility] [place] [address] 10/06/2022 Office Visit Orthopedics Mack Roldan MD [address] [place] [address] 11/26/2022 Hospital Encounter Endoscopy Amy Knox MD [address] [place] [address] [place] [address] 11/26/2022 Surgery Endoscopy Amy Knox MD [address] [place] [address] [place] [address] COLONOSCOPY FLEXIBLE PROXIMAL DIAGNOSTIC 12/10/2022 Office Visit Internal Medicine Shelley Reddy MD 200 [facility] [address] Scheduled Procedures Name Priority Associated Diagnoses Date/Ti [...] this encounter Medical Devices Implanted Type Area Vacuum Kettle Cook Device Identifier Shelf Expiration Date Model / Serial / Lot [place] Sut Swvlck Bc Knotless - [id number] Implanted:Qty: 1 on 08/02/2022 by Mack Roldan MD at OR [facility] Right: Shoulder [employer] 09/27/2025 AR-2324KBC C / / [id number] documented as of this encounter Visit Diagnoses Diagnosis History of lumbar laminectomy Lumbar disc disease with radiculopathy Displacement of lumbar intervertebral disc without myelopathy Screening for colon cancer Special screening for [...] Discussed due to patient's condition Care Teams Indirect Sales Exec Relationship Specialty Start Date End Date Shelley Reddy MD [address] [facility], [place] [address] PCP - General Internal Medicine 02/07/19 documented as of this encounter
--- OUTSIDE RECORDS SUMMARY | 2023-01-06 16:57 | External Medical Summary | Summary of Care ---
Author Name Unknown Organization [facility] Address [address] [place] [address] Phone [phone] Care Team Providers Care Technical Business Systems Analyst Name Role Phone Shelley Reddy MD Primary Care Provider [phone] Reason for Visit * Reason Comments NEW PATIENT Concerning spot on n ose for many months. Will occasionally bleed. * Evaluate & Treat - Unlimited Visits (Within 30 days (routine)) - Authorized Specialty Diagnoses / Procedures Referred By Marine courtney Referred To Contact Dermatology Diagnoses Skin lesion Rosa Corral MD [address] [place] [address] Referral ID Status Reason Start Date Expiration Date Visits Requested Visits Authorized [id number] Authorized Specialty Services Required 06/25/2022 999 999 Encounter Details Date Type Department Care Team Description 09/24/2022 Office Visit Dermatology [facility] [address] [place] [address] Sonya Finn PA-C [address] [place] [address] Neoplasm of uncertain behavior of skin*; Actinic [...] Next Due Pneumococcal Conjugate Vacci ne, 20-valent ([id number]) 06/25/2022 Pneumococcal Polysaccharide PPV23 (Pneumovax) 08/10/2018 Seasonal [...] Escobar PA-C . Campbell Lopez MD., Dermatology [facility] Dep[facility] [address] [place] [address] , [place] [address] * Sonya Finn PA-C - 09/24/2022 9:06 [...] (BMI) of 40.0 to 44.9 in adult ([facility]) Z68.41 Mild persistent asthma without complication J45.30 [...] normal limits with the following exceptions: 1. [place] crusted plaque L nasal ala 2. rough [...] [address] [place] [address] [place] [address] 11/26/2022 Surgery Endoscopy Amy Knox MD [address] [place] [address] [place] [address] COLONOSCOPY FLEXIBLE PROXIMAL DIAGNOSTIC 12/10/2022 Office Visit Internal Medicine Shelley Reddy MD [address] [place] [address] Pending Results Name Type Priority Associated Diagnoses [...] this encounter Medical Devices Implanted Type Area Hospital Librarian Device Identifier Shelf Expiration Date Model / Serial / Lot [place] Sut Swvlck Bc Knotless - [id number] Implanted:Qty: 1 on 08/02/2022 by Mack Roldan MD at OR [facility] Right: Shoulder [employer] 09/27/2025 AR-[id number] C / / [id number] documented as of this encounter Procedures Procedure Name Priority Date/Time Associated Diagnosis Comments DERM IMAGE (SITE) Routine 09/24/2022 Neoplasm of uncertain behavior of skin documented in this encounter Results * DERM IMAGE (SITE) (09/24/2022) 09/24/2022 Sonya [...] Discussed due to patient's condition Care Teams Technical Business Systems Analyst Relationship Specialty Start Date End Date Shelley Reddy MD [address] [place] [address] PCP - General Internal Medicine 02/07/19 documented as of this encounter
--- OUTSIDE RECORDS SUMMARY | 2023-01-06 16:57 | External Medical Summary | Summary of Care ---
Author Name Unknown Organization [facility] Address [address] [place] [address] Phone [phone] Care Team Providers Care Key Punch Teacher Name Role Phone Shelley Reddy MD Primary Care Provider [phone] Encounter Details Date Type Department Care Team Description 09/08/2022 Orders Only Outcomes Research Department [address] [place] [address] Amparo Mercer CHRA My[employer] Research Other*[id number] Allergies Active Allergy Reactions Severity Noted Date [...] Next Due Pneumococcal Conjugate Vacci ne, 20-valent ([id number]) 06/25/2022 Pneumococcal Polysaccharide PPV23 (Pneumovax) 08/10/2018 Seasonal [...] Encounters Date Type Specialty Care Team Description 09/08/2022 Office Visit Orthopedics Mack Roldan MD [address] [place] [phone] 09/13/2022 Imaging Radiology 09/24/2022 Office Visit Dermatology Sonya Finn PA-C [address] [facility] [place] [address] 11/26/2022 Hospital Encounter Endoscopy Amy Knox MD [address] [place] [address] 11/26/2022 Surgery Endoscopy Amy Knox MD [address] [place] [address] [facility] [place] [address] COLONOSCOPY FLEXIBLE PROXIMAL DIAGNOSTIC Scheduled Orders Name Type Priority Associated Diagnoses Orde r Schedule MYCODE SUBSEQUENT ADULT Lab Routine [employer] Research Other*[id number] Every 6 Months for 2 Occurrences starting 09/08/2022 until 09/28/2023 Scheduled Procedures Name Priority Associated Diagnoses Date/Ti [...] this encounter Medical Devices Implanted Type Area Supervisor Of Communications Device Identifier Shelf Expiration Date Model / Serial / Lot [place] Sut Swvlck Bc Knotless - [id number] Implanted:Qty: 1 on 08/02/2022 by Mack Roldan MD at OR [facility] Right: Shoulder [employer] 09/27/2025 AR-2324KBC C / / [id number] documented as of this encounter Visit Diagnoses Diagnosis [employer] Research Other*[id number] Screening for colon cancer Special screening for [...] Discussed due to patient's condition Care Teams Key Punch Teacher Relationship Specialty Start Date End Date Shelley Reddy MD 200 [facility] [place], [place] [address] PCP - General Internal Medicine 02/07/19 documented as of this encounter
--- OUTSIDE RECORDS SUMMARY | 2023-01-06 16:58 | External Medical Summary | Summary of Care ---
Author Name Unknown Organization [facility] Address [address] [place] [address] Phone [phone] Care Team Providers Care Business Objects Consultant Name Role Phone Shelley Reddy MD Primary Care Provider Reason for Referral * Evaluate & Treat - Unlimited Visits (Within 10 days (routine)) - Authorized Specialty Diagnoses / Procedures Referred By Marine courtney Referred To Contact Physical Therapy / Physical Medicine And Rehab Diagnoses Traumatic complete tear of right rotator cuff, initial encounter Status post rotator cuff repair Mack Roldan MD [address] [place] [address] Referral ID Status Reason Start Date Expiration Date Visits Requested Visits Authorized [id number] Authorized Specialty Services Required 08/11/[phone] Question Answer Referral Priority Within 10 days (routine) Comments Type 2 rotator cuff protocol Encounter Details Date Type Department Care Team Description 08/11/2022 Nurse Only Orthopaedics [facility] [address] [facility] [place] [address] Nurse Sunshine Biggs [address] [facility] [place] [id number] Allergies Active Allergy Reactions Severity Noted Date Comments Sulfa Antibiotics Rash 11/30/2015 Yeast Nausea/vomiting 11/30/2015 documented as of this encounter (statuses as of 08/11/2022) Medications Medication Sig Dispensed Refills Start Date End Date Status omeprazole (PRILOSEC) 20 MG CPDR Take 1 Capsule by mouth at bedtime. She takes 20mg tablets 2 at night to equal 40mg 30 Cap 5 05/06/2016 Active Melatonin ER 3 MG TBCR Take by mouth. one pill each day 0 06/18/2016 Active Albuterol Sulfate 1.25 MG/3ML NEBUIndications:Bron chitis, complicated,Shortnes s of breath Inhale 1 Vial via nebulizer every 4 hours as needed for Wheezing. 120 Vial 0 03/23/2018 Active Albuterol Sulfate HFA 108 (90 Base) MCG/ACT Inhalation Aerosol SolutionIndications: Wheezing Inhale by mouth 2 Puffs every 4 hours as needed for Wheezing. 18 g 5 05/18/2021 Active Metoprolol Succinate ER 25 MG Oral Tablet Extended Release 24 Hour (toPROL XL) Take 1 Tablet by mouth in the morning. In the morning.. 90 Tablet 0 05/06/2022 Active Lisinopril-hydroCHLO ROthiazide 20-25 MG Oral TabletIndications:HT N, goal below 140/90 Take 1 Tablet by mouth in the morning. 90 Tablet 1 06/25/2022 Active Gabapentin 400 MG Oral Capsule (Neurontin)Indicatio ns:History of lumbar laminectomy,Lumbar disc disease with radiculopathy Take 1 Capsule by mouth in the morning and 1 Capsule before bedtime. 180 Capsule 0 06/25/2022 Active Gabapentin 100 MG Oral Capsule (Neurontin)Indicatio ns:History of lumbar laminectomy,Lumbar disc disease with radiculopathy TAKE 2 CAPSULES BY MOUTH 1 HOUR PRIOR TO SLEEP (ALONG WITH 400 MG FOR TOTAL OF 600MG AT NIGHT) 180 Capsule 0 06/25/2022 Active oxyCODONE-Acetaminop hen 5-325 MG Oral Tablet (Percocet) Take 1 Tablet by mouth every 6 hours as needed for Pain, Moderate. 20 Tablet 0 08/02/2022 Active Ibuprofen 800 MG Oral Tablet (Motrin) Take 1 Tablet by mouth in the morning and 1 Tablet at noon and 1 Tablet before bedtime. Take with Meals. 45 Tablet 0 08/02/2022 Active documented as of this encounter (statuses as of 08/11/2022) Active Problems Problem Noted Date Mixed dyslipidemia [...] as of this encounter (statuses as of 08/11/2022) Resolved Problems Problem Noted Date Resolved Date COVID-19 virus infection 06/13/202009/26/ 021 Pap smear for cervical cancer screening 11/20/19 17 03/14/2019 Overview: Historical Gyn_Neg 10/14 Morbid obesity 05/06/2016 06/10/2017 Overview: Per Obesity protocol #1 documented as of this encounter (statuses as of 08/11/2022) Immunizations Name Administration Dates Next Due Pneumococcal Conjugate Vacci ne, 20-valent ([id number]) 06/25/2022 Pneumococcal Polysaccharide PPV23 (Pneumovax) 08/10/2018 Seasonal [...] as of this encounter Progress Notes * OKSANA Pedraza - 08/11/2022 9:16 AM EDT Patient presents today for nurse visit after shoulder arthroscopy with Dr. Roldan. Stitches were removed and incisions were clean, dry and intact. Patient was given PT order and protocol per Dr. Roldan recommendations in operative note. She is scheduled for post op visit on 08/17/22with Dr. Roldan as well. documented in this encounter Plan of Treatment Upcoming Encounters Date Type Specialty Care Team Description 08/17/2022 Office Visit Orthopedics Mack Roldan MD [address] [place] [address] 09/13/2022 Imaging Radiology 11/26/2022 Hospital Encounter Endoscopy Amy Knox MD [address] [place] [address] [facility] [place] [phone] 11/26/2022 Surgery Endoscopy Amy Knox MD [address] [place] [address] COLONOSCOPY FLEXIBLE PROXIMAL DIAGNOSTIC 04/15/2023 Office Visit Dermatology Mahogany Oneal MD [address] [place] [address] Scheduled Procedures Name Priority Associated Diagnoses Date/Ti me COLONOSCOPY FLEXIBLE PROXIMAL DIAGNOSTIC Screening for colon cancer 11/26/2022 1:00 PM EDT Scheduled Referrals Name Type Priority Associated Diagnoses Orde r Schedule PHYSICAL THERAPY REFERRAL OP Referral Within 10 days (routine) Traumatic complete tear of right rotator cuff, initial encounter Status post rotator cuff repair Ordered: 08/11/2022 Health Maintenance Due Date Last Done Comments COVID-19 Vaccine (#1) 06/28/1961 HIV Screening 1975 Cologuard 12/29/2003 Fecal Occult Blood Test 12/29/2003 Sigmoidoscopy 12/29/2003 *SPIROMETRY ONCE FOR ASTHMA-ADULT 08/12/2018 Depression Screening, Annual for Pts 12 and Over 05/06/2020 05/07/2019 Colonoscopy 03/31/2022 03/31/2012 Colorectal Cancer Screening 03/31/2022 Mammogram 09/11/2022 09/11/2021, 07/30, 08/12/2017, Additional history exists GFR 06/26/2023 06/25/2022, 100 [...] this encounter Medical Devices Implanted Type Area Server Software Engineer Device Identifier Shelf Expiration Date Model / Serial / Lot [place] Sut Swvlck Bc Knotless - [id number] Implanted:Qty: 1 on 08/02/2022 by Mack Roldan MD at OR [facility] Right: Shoulder [employer] 09/27/2025 AR-2324KBC C / / [id number] documented as of this encounter Visit Diagnoses Diagnosis Traumatic complete tear of right rotator cuff, initial encounter- Primary Status post rotator cuff repair Other postprocedural status Screening [...] due to patient's condition Care Teams Business Objects Consultant Relationship Specialty Start Date End Date Shelley Reddy MD [address] [facility] [place] [address] PCP - General Internal Medicine 02/07/19 documented as of this encounter
--- OUTSIDE RECORDS SUMMARY | 2023-01-06 16:58 | External Medical Summary | Summary of Care ---
Author Name Unknown Organization [facility] Address [address] [place] [address] Phone [phone] Care Team Providers Care Rubber Roller Grinder Name Role Phone Shelley Reddy MD Primary Care Provider [phone] Encounter Details Date Type Department Care Team Description 08/11/2022 Patient Reported Data Patient Survey Ortho OBERD [...] radiculopathy,minor chr L5 radiculopathy-[place] ref pain mgmt, DrBolinger 09/13-[place] eval>MRI LS -1Congenitally mildly narrowed central [...] Next Due Pneumococcal Conjugate Vacci ne, 20-valent ([id number]) 06/25/2022 Pneumococcal Polysaccharide PPV23 (Pneumovax) 08/10/2018 Seasonal [...] Knox MD [address] [place], [place] [phone] 11/26/2022 Surgery Endoscopy Amy Knox MD [address] [place] [address] COLONOSCOPY FLEXIBLE PROXIMAL DIAGNOSTIC 04/15/2023 Office Visit Dermatology Mahogany Oneal MD [address] [place] [address] Scheduled Procedures Name Priority Associated Diagnoses Date/Ti [...] this encounter Medical Devices Implanted Type Area Tree Specialist Device Identifier Shelf Expiration Date Model / Serial / Lot [place] Sut Swvlck Bc Knotless - [id number] Implanted:Qty: 1 on 08/02/2022 by Mack Rodlan MD at OR [facility] Right: Shoulder [employer] 09/27/2025 AR-[id number] C / / [id number] documented as of this encounter Advance Directives [...] Discussed due to patient's condition Care Teams Rubber Roller Grinder Relationship Specialty Start Date End Date Shelley Reddy MD [address] [place] [address] PCP - General Internal Medicine 02/07/19 documented as of this encounter
--- OUTSIDE RECORDS SUMMARY | 2023-01-06 16:58 | External Medical Summary | Summary of Care ---
Author Name Unknown Organization [facility] Address [address] [place] [address] Phone [phone] Care Team Providers Care Reactor Operator Name Role Phone Shelley Reddy MD Primary Care Provider [phone] Reason for Visit * Reason Onset Date Comments Follow Up 08/03/2022 Encounter Details Date Type Department Care Team Description 08/03/2022 Telephone Orthopaedics [facility] [address] [place] [address] Mack Roldan MD [address] [place] [phone] Follow Up Allergies Active Allergy Reactions Severity Noted Date Comments Sulfa Antibiotics Rash 11/30/2015 Yeast Nausea/vomiting 11/30/2015 documented as of this encounter (statuses as of 08/03/2022) Medications Medication Sig Dispensed Refills Start Date [...] as of this encounter (statuses as of 08/03/2022) Active Problems Problem Noted Date Mixed dyslipidemia [...] as of this encounter (statuses as of 08/03/2022) Resolved Problems Problem Noted Date Resolved Date COVID-19 virus infection 06/13/2020 021 Pap smear for cervical cancer screening 11/20/19 17 03/14/2019 Overview: Historical Gyn_Neg 10/14 Morbid obesity 05/06/2016 06/10/2017 Overview: Per Obesity protocol #1 documented as of this encounter (statuses as of 08/03/2022) Immunizations Name Administration Dates Next Due Pneumococcal Conjugate Vacci ne, 20-valent ([id number]) 06/25/2022 Pneumococcal Polysaccharide PPV23 (Pneumovax) 08/10/2018 Seasonal [...] encounter Miscellaneous Notes * Telephone Encounter - Mack Roldan MD - 08/03/2022 12:46 PM EDT After connecting to the patient via telephone, the patient was identified by name and date of . Patient was then informed that this was a telephone call only visit. The patient agreed to participate. Visit Disposition: Postop follow-up Total call duration was 5 minutes. The patient is 1 day(s) s/p right shoulder arthroscopy with arthroscopic rotator cuff repair Patient was called this morning for their postop check. Denies any fevers or chills. Denies any paresthesias. The patient was instructed on the postop course and home exercise program. We will see them back in the office at his scheduled time for re-evaluation. We answered all their questions to the best of our ability today. On her follow-up visit we will start on physical therapy using a type 2 rotator cuff protocol. Mack Roldan MD Orthopedic Sports Medicine Surgery 08/03/2022 12:46 PM documented in this encounter Plan of Treatment Upcoming Encounters Date Type Specialty Care Team Description 08/11/2022 Nurse Only Orthopedics [place]aly[place], Nurse Sunshine Peterson [address] [place] [address] 09/13/2022 Imaging Radiology 11/26/2022 Hospital Encounter Endoscopy Amy Knox MD [address] [place] [address] 11/26/2022 Surgery Endoscopy Amy Knox MD [address] [place] [address] COLONOSCOPY FLEXIBLE PROXIMAL DIAGNOSTIC 04/15/2023 Office Visit Dermatology Mahogany Oneal MD [address] [place] [address] Scheduled Procedures Name Priority Associated Diagnoses Date/Ti [...] 12/04/2026 12/04/2021, 0602/2020, 05/19/2018, Additional history exists Pap Smear 01/01/2027 [...] this encounter Medical Devices Implanted Type Area Early Morning Device Identifier Shelf Expiration Date Model / Serial / Lot [place] Sut Swvlck Bc Knotless - [id number] Implanted:Qty: 1 on 08/02/2022 by Mack Roldan MD at OR [facility] Right: Shoulder [employer] 09/27/2025 AR-2324KBC C / / [id number] documented as of this encounter Advance Directives [...] Discussed due to patient's condition Care Teams Reactor Operator Relationship Specialty Start Date End Date Shelley Reddy MD [address] [place] [address] PCP - General Internal Medicine 02/07/19 documented as of this encounter
--- OUTSIDE RECORDS SUMMARY | 2023-01-06 16:58 | External Medical Summary | Summary of Care ---
Author Name Unknown Organization [facility] Address [address] [place] [address] Phone [phone] Care Team Providers Care Elastic Assembler Name Role Phone Shelley Reddy MD Primary Care Provider [phone] Encounter Details Date Type Department Care Team Description 08/06/2022 Telephone Orthopaedics [facility] [address] [place] [address] Mack Roldan MD [address] [place] [phone] Allergies Active Allergy Reactions Severity Noted Date [...] Next Due Pneumococcal Conjugate Vacci ne, 20-valent ([id number]) 06/25/2022 Pneumococcal Polysaccharide PPV23 (Pneumovax) 08/10/2018 Seasonal [...] Miscellaneous Notes * Telephone Encounter - PAULA Finnegan - 08/06/2022 12:40 PM EDT Received voicemail from patient stating she has a question about her pain medicine. Requesting a return call. documented in this encounter Plan of Treatment Upcoming Encounters Date Type Specialty Care Team Description 08/11/2022 Nurse Only Orthopedics [place]alyan, Nurse Ortho Nicholas [address] [facility] [place] [address] 09/13/2022 Imaging Radiology 11/26/2022 Hospital Encounter Endoscopy Amy Knox MD [address] [place] [address] 11/26/2022 Surgery Endoscopy Amy Knox MD [address] [place] [address] COLONOSCOPY FLEXIBLE PROXIMAL DIAGNOSTIC 04/15/2023 Office Visit Dermatology Mahogany Oneal MD [address] [place] [address] Scheduled Procedures Name Priority Associated Diagnoses Date/Ti [...] this encounter Medical Devices Implanted Type Area Brake Press Operator Device Identifier Shelf Expiration Date Model / Serial / Lot [place] Sut Swvlck Bc Knotless - [id number] Implanted:Qty: 1 on 08/02/2022 by Mack Roldan MD at OR [facility] Right: Shoulder [employer] 09/27/2025 AR-2324KBC C / / [id number] documented as of this encounter Advance Directives [...] Discussed due to patient's condition Care Teams Elastic Assembler Relationship Specialty Start Date End Date Shelley Reddy MD [address] [place] [address] PCP - General Internal Medicine 02/07/19 documented as of this encounter
--- OUTSIDE RECORDS SUMMARY | 2023-01-06 16:58 | External Medical Summary | Summary of Care ---
Author Name Unknown Organization [facility] Address [address] [place] [address] Phone [phone] Care Team Providers Care Customer Service Rep Name Role Phone Shelley Reddy MD Primary Care Provider [phone] Encounter Details Date Type Department Care Team [...] Next Due Pneumococcal Conjugate Vacci ne, 20-valent ([id number]) 06/25/2022 Pneumococcal Polysaccharide PPV23 (Pneumovax) 08/10/2018 Seasonal [...] Knox MD [address] [place], [place] [id number] 11/26/2022 Surgery Endoscopy Amy Knox MD [address] [place] [address] COLONOSCOPY FLEXIBLE PROXIMAL DIAGNOSTIC 04/15/2023 Office Visit Dermatology Mahogany Oneal MD [address] [place] [address] Scheduled Procedures Name Priority Associated Diagnoses Date/Ti [...] this encounter Medical Devices Implanted Type Area Hotel Front Office Manager Device Identifier Shelf Expiration Date Model / Serial / Lot [place] Sut Swvlck Bc Knotless - [id number] Implanted:Qty: 1 on 08/02/2022 by Mack Roldan MD at OR [facility] Right: Shoulder [employer] 09/27/2025 AR-2324KBC C / / [id number] documented as of this encounter Advance Directives [...] Discussed due to patient's condition Care Teams Customer Service Rep Relationship Specialty Start Date End Date Shelley Reddy MD [address] [facility] [place] [address] PCP - General Internal Medicine 02/07/19 documented as of this encounter
--- OUTSIDE RECORDS SUMMARY | 2023-01-06 16:58 | External Medical Summary | Summary of Care ---
Author Name Unknown Organization [facility] Address [address] [place] [address] Phone [phone] Care Team Providers Care Wire Taper Name Role Phone Shelley Reddy MD Primary Care Provider [phone] Encounter Details Date Type Department Care Team [...] Next Due Pneumococcal Conjugate Vacci ne, 20-valent ([id number]) 06/25/2022 Pneumococcal Polysaccharide PPV23 (Pneumovax) 08/10/2018 Seasonal [...] Knox MD [address] [place], [place] [id number] 11/26/2022 Surgery Endoscopy Amy Knox MD [address] [place] [address] COLONOSCOPY FLEXIBLE PROXIMAL DIAGNOSTIC 04/15/2023 Office Visit Dermatology Mahogany Oneal MD [address] [place] [address] Scheduled Procedures Name Priority Associated Diagnoses Date/Ti [...] this encounter Medical Devices Implanted Type Area Barrel Roller Device Identifier Shelf Expiration Date Model / Serial / Lot [place] Sut Swvlck Bc Knotless - [id number] Implanted:Qty: 1 on 08/02/2022 by Mack Roldan MD at OR [facility] Right: Shoulder [employer] 09/27/2025 AR-2324KBC C / / [id number] documented as of this encounter Advance Directives [...] Discussed due to patient's condition Care Teams Wire Taper Relationship Specialty Start Date End Date Shelley Reddy MD [address] [place] [address] PCP - General Internal Medicine 02/07/19 documented as of this encounter
--- OUTSIDE RECORDS SUMMARY | 2023-01-06 16:58 | External Medical Summary | Summary of Care ---
Author Name Unknown Organization [facility] Address [address] [place] [address] Phone [phone] Care Team Providers Care Pole Classifier Name Role Phone Shelley Reddy MD Primary [...] Next Due Pneumococcal Conjugate Vacci ne, 20-valent ([id number]) 06/25/2022 Pneumococcal Polysaccharide PPV23 (Pneumovax) 08/10/2018 Seasonal [...] Knox MD [address] [place], [place] [phone] 11/26/2022 Surgery Endoscopy Amy Knox MD [address] [place] [address] COLONOSCOPY FLEXIBLE PROXIMAL DIAGNOSTIC 04/15/2023 Office Visit Dermatology Mahogany Oneal MD [address] [place] [address] Scheduled Procedures Name Priority Associated Diagnoses Date/Ti [...] this encounter Medical Devices Implanted Type Area Jet Wiper Device Identifier Shelf Expiration Date Model / Serial / Lot [place] Sut Swvlck Bc Knotless - [id number] Implanted:Qty: 1 on 08/02/2022 by Mack Roldan MD at OR [facility] Right: Shoulder [employer] 09/27/2025 AR-2324KBC C / / [id number] documented as of this encounter Advance Directives [...] Discussed due to patient's condition Care Teams Pole Classifier Relationship Specialty Start Date End Date Shelley Reddy MD [address] [place] [address] PCP - General Internal Medicine 02/07/19 documented as of this encounter
--- OUTSIDE RECORDS SUMMARY | 2023-01-06 16:58 | External Medical Summary | Summary of Care ---
Author Name Unknown Organization [facility] Address [address] [place] [address] Phone [phone] Care Team Providers Care Supervisor [employer] Name Role Phone Shelley Reddy MD Primary Care Provider [phone] Encounter Details Date Type Department Care Team [...] Next Due Pneumococcal Conjugate Vacci ne, 20-valent ([id number]) 06/25/2022 Pneumococcal Polysaccharide PPV23 (Pneumovax) 08/10/2018 Seasonal [...] Knox MD [address] [place], [place] [phone] 11/26/2022 Surgery Endoscopy Amy Knox MD [address] [place] [address] COLONOSCOPY FLEXIBLE PROXIMAL DIAGNOSTIC 04/15/2023 Office Visit Dermatology Mahogany Oneal MD [address] [place] [address] Scheduled Procedures Name Priority Associated Diagnoses Date/Ti [...] this encounter Medical Devices Implanted Type Area Filler Operator Device Identifier Shelf Expiration Date Model / Serial / Lot [place] Sut Swvlck Bc Knotless - [id number] Implanted:Qty: 1 on 08/02/2022 by Mack Roldan MD at OR [facility] Right: Shoulder [employer] 09/27/2025 AR-2324KBC C / / [id number] documented as of this encounter Advance Directives [...] Discussed due to patient's condition Care Teams Supervisor [employer] Relationship Specialty Start Date End Date Shelley eRddy MD [address] [place] [address] PCP - General Internal Medicine 02/07/19 documented as of this encounter
--- OUTSIDE RECORDS SUMMARY | 2023-01-06 16:58 | External Medical Summary | Summary of Care ---
Author Name Unknown Organization [facility] Address [address] [place] [address] Phone [phone] Care Team Providers Care Suture Winder Hand Name Role Phone Shelley Reddy MD Primary [...] Next Due Pneumococcal Conjugate Vacci ne, 20-valent ([id number]) 06/25/2022 Pneumococcal Polysaccharide PPV23 (Pneumovax) 08/10/2018 Seasonal [...] Knox MD [address] [place], [place] [phone] 11/26/2022 Surgery Endoscopy Amy Knox MD [address] [place] [address] COLONOSCOPY FLEXIBLE PROXIMAL DIAGNOSTIC 04/15/2023 Office Visit Dermatology Mahogany Oneal MD [address] [place] [address] Scheduled Procedures Name Priority Associated Diagnoses Date/Ti [...] this encounter Medical Devices Implanted Type Area Bleacher Pulp Device Identifier Shelf Expiration Date Model / Serial / Lot [place] Sut Swvlck Bc Knotless - [id number] Implanted:Qty: 1 on 08/02/2022 by Mack Roldan MD at OR [facility] Right: Shoulder [employer] 09/27/2025 AR-2324KBC C / / [id number] documented as of this encounter Advance Directives [...] Discussed due to patient's condition Care Teams Suture Winder Hand Relationship Specialty Start Date End Date Shelley Reddy MD [address] [place] [address] PCP - General Internal Medicine 02/07/19 documented as of this encounter
--- OUTSIDE RECORDS SUMMARY | 2023-01-06 16:58 | External Medical Summary | Summary of Care ---
Author Name Unknown Organization [facility] Address [address] [place] [address] Phone [phone] Care Team Providers Care Chain Maker Machine Name Role Phone Shelley Reddy MD Primary Care Provider [phone] Encounter Details Date Type Department Care Team [...] Next Due Pneumococcal Conjugate Vacci ne, 20-valent ([id number]) 06/25/2022 Pneumococcal Polysaccharide PPV23 (Pneumovax) 08/10/2018 Seasonal [...] Knox MD [address] [place], [place] [phone] 11/26/2022 Surgery Endoscopy Amy Knox MD [address] [place] [address] COLONOSCOPY FLEXIBLE PROXIMAL DIAGNOSTIC 04/15/2023 Office Visit Dermatology Mahogany Oneal MD [address] [place] [address] Scheduled Procedures Name Priority Associated Diagnoses Date/Ti [...] this encounter Medical Devices Implanted Type Area Superannuation Funds Manager Device Identifier Shelf Expiration Date Model / Serial / Lot [place] Sut Swvlck Bc Knotless - [id number] Implanted:Qty: 1 on 08/02/2022 by Mack Roldan MD at OR [facility] Right: Shoulder [employer] 09/27/2025 AR-2324KBC C / / [id number] documented as of this encounter Advance Directives [...] Discussed due to patient's condition Care Teams Chain Maker Machine Relationship Specialty Start Date End Date Shelley Reddy MD [address] [place] [address] PCP - General Internal Medicine 02/07/19 documented as of this encounter
--- OUTSIDE RECORDS SUMMARY | 2023-01-06 16:58 | External Medical Summary | Summary of Care ---
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 [employer] Name Role Phone Shelley Reddy MD Primary Care Provider [phone] Reason for Visit * Auth/Cert Specialty Diagnoses / Procedures Referred By Marine t Referred To Contact Diagnoses Rotator cuff tear Rotator cuff tear [M75.100] Procedures ARTHO,SHOUL,W/ROTATOR CUFF RIGHT ARTHROSCOPY SHOULDER ROTATOR CUFF Referral ID Status Reason Start Date Expiration Date Visits Re quested Visits Authorized [id number] Encounter Details Date Type Department Care Team Description 08/02/2022 Hospital Encounter OR [facility], Operating Room [facility] [address] [place] [id number] Mack Roldan MD [address] [place] [id number] Allergies Active Allergy Reactions Severity Noted [...] Next Due Pneumococcal Conjugate Vacci ne, 20-valent ([id number]) 06/25/2022 Pneumococcal Polysaccharide PPV23 (Pneumovax) 08/10/2018 Seasonal [...] Sign Reading Time Taken Comments Blood Pressure 119/72 08/02/2022 3:15 PM EDT Pulse 73 08/02/2022 3:15 PM EDT Temperature 36.1 C (97 F) 08/02/2022 3:00 PM EDT Respiratory Rate 15 08/02/2022 3:15 PM EDT Oxygen Saturation 97% 08/02/2022 3:15 PM EDT Inhaled Oxygen Concentration - - Weight 106.5 kg (234 lb 12.6 oz) 2022 11:15 AM EDT Height 165 cm (5' 4.96") 08/02/2022 11: 15 AM EDT Body Mass Index 39.12 08/02/2022 11:15 AM EDT documented in this encounter Discharge Summaries * Steve Andre PA-C - 08/02/2022 12:34 PM EDT [facility] [address] [place] [id number] OUTPATIENT SURGERY DISCHARGE SUMMARY NOTE Name: Kathleen Jones Location: OR [facility]/OR Date: 08/02/2022 Time: 12:34 PM Surgery Date: 08/02/2022 Procedure: Procedure(s): RIGHT ARTHROSCOPY SHOULDER ROTATOR CUFF Right Surgeon: Surgeon(s): Mack Roldan MD Discharge Diagnosis: S/p right shoulder arthroscopy rotator cuff repair After examination of this patient, I have determined she is ready for discharge to home when the patient meets criteria. Discharge instructions were given to the patient. documented in this encounter Discharge Instructions * Discharge Instr - AVS* Steve Andre PA-C - 08/02/2022 12:34 PM EDT [facility] Post-operative Instructions- Shoulder and Elbow Mack Roldan MD 1. Advance diet as tolerated - start with liquids and soft solids. 2. A.) Take medication as instructed on the bottle - if given antibiotics take them until finished. B.) If you are over the age of 18, and not already on an anticoagulation medication- take one baby aspirin (81mg) a day for 14 days. C.) You may take an over the counter stool softener for up to 7 days after surgery. 3. Your arm will be heavy and numb from the nerve block. Be careful with your arm. The block will generally wear off in 12-24 hours. 4. Elevate the HAND to reduce pain and swelling. An ice pack/unit on the shoulder/elbow may be applied for comfort and to reduce pain. DO NOT APPLY DIRECTLY TO SKIN. Put a thin layer between skin & pad/ice pack. Slip the pad/ice pack down inside a pillow case/t-shirt or use a dish towel. Something thin to protect skin against cold & condensation but not too thick to impede cold (i.e. beach/bath towel). Check skin regularly & change barrier if it gets wet. DO NOT APPLY DIRECTLY TO SKIN. 5. NO LIFTING. 6. Sleeping in a recliner chair (position) may help with the pain. 7. Remove the dressing in 72 hours and apply a Band-Aid or bandage over each incision. Do not remove the suture. If you wish, we will change the dressing in the office at your 1st post-op visit and you may do nothing. 8. If in a splint, LEAVE the splint on until your post-op visit. 9. You may shower in 72 hours if there is no drainage from the incisions. Pat the wound dry and cover with Band-Aids. 10. Notify our office of any chills, fever (greater than 101F), excessive drainage, chest pain, or numbness in the leg lasting more than 24 hours after the procedure. You may try Tylenol 650mg every 6 hours as needed to help with your temperature. 11. Prescription refills will only be handled during normal business hours, no narcotic refills will be called in after hours as the physician composition weatherboard installer will not have access to your medical records. Please be aware- [facility] has an on-call physician overnight and on weekends. Any pressing questions or concerns may be directed to the [facility] deposition operator at [phone]. They will notify the on-call provider, which may be Dr. Roldan or one of his colleagues. documented in this encounter H&P Notes * Mack Roldan MD - 08/02/2022 7:02 AM EDT Images from the original note were not included. Mack Roldan MD Physician Specialty: Orthopaedic Surgery Progress Notes Signed Encounter Date: 07/15/2022 Expand All Collapse All CHIEF COMPLAINT: Chief Complaint Patient presents with NEW PATIENT 08/02/2022 pre-op right shoulder arthroscopy with rotator cuff repair Impression: S46.011A Traumatic complete tear of right rotator cuff, initial encounter (primary encounter diagnosis) Plan: We discussed the diagnosis and treatment options with the patient today. At this time we discussed the surgery with the patient. Since she has continued to have pain in the right shoulder she would like to proceed with surgery. She denies any new injury. As discussed with the patient on the previous visit we reviewed the surgical procedure with her. We discussed surgery to entail right shoulder arthroscopy with rotator cuff repair, subacromial decompression and other indicated procedures. I discussed all clinical and diagnostic findings in detail with the patient as well as all treatment options both conservative and surgical. The patient decided to proceed with surgery given ongoing symptoms despite previous conservative treatment. I discussed all alternatives, risk, benefits and complications of procedure including but not limited to bleeding, infection, nerve damage, wound healing complications, hematoma, blood clots, pulmonary embolism, neurovascular injury, instability, limb length discrepancy, possible failure of surgery, need of revision surgery, , unforeseen complications and complications associated with anesthesia. Patient understood all discussions and agreed to proceed. There are no Patient Instructions on file for this visit. Follow Up: Return for 1 week after surgery. | For: 1 week after surgery HISTORY OF PRESENT ILLNESS: Kathleen Jones is a 61 year old right hand dominant female who presents to Sports Medicine for re-evaluation of the right shoulder. She continues to have right shoulder pain. Patient also states she started developed some neck pain with headaches. Patient is scheduled to undergo right shoulder arthroscopy with rotator cuff repair. Wakes at night? yes. Physical Therapy? yes. Injections? no. Nursing Notes: Carmen Iqbal LPN 07/15/22 1442 Signed 08/02/2022 pre-op right shoulder arthroscopy with rotator cuff repair Patient denies any pain with out activity Past Surgical History: Procedure Laterality Date COLONOSCOPY DILATION AND CURETTAGE (D&C) 2005 ENDOMETRIAL CRYOABLATION US GUIDED 2013 INJECT DX/THER SUBSTANCE INTERLAMINAR LUMBAR/SACRAL W IMAGE GUIDE 05/28/2021 INJECTION SPINE LUMBAR OR SACRAL performed by Thanh Francis, DO at OR [facility] KNEE ARTHROSCOPY/MENISCECTOMY Left 02/13/2016 Sensiba LAMINECTOMY/LAMINOTOMY, CERV THORACIC,GUIDE LIGATE/CUT OVIDUCT(S) Review of patient's allergies indicates: Allergen Reactions [...] No current facility-administered medications for this visit. Social History Socioeconomic History Marital status: Tobacco Use Smoking status: Never Smokeless tobacco: Never Vaping Use Vaping Use: Never used Substance and Sexual Activity Alcohol use: No Drug use: No Sexual activity: Not Currently Partners: Male Comment: Family History Problem Relation Age of Onset Heart disease Father Hemochromatosis Father Prostate cancer Father COPD Mother Past Medical History: Diagnosis Date Asthma Back pain Hypertension Pap smear for cervical cancer screening 11/19/2016 Historical Gyn_Neg 10/14 ROS: Constitional: No change in weight, No weakness, No fatigue and No fevers, sweats, or chills Skin: No edema, No rash and No itching Psychiatric: No depression, No anxiety and No psychosis MRI: Reviewed the MRI scan of the right shoulder. Date of MRI scan was 01/30/2022. The MRI scan does show evidence of a full-thickness rotator cuff tear with thinning of the infraspinatus. There is evidence of retraction. No evidence significant muscle atrophy. PHYSICAL EXAM: Physical exam is unchanged from previous General:generally well-nourished and in no acute distress HEENT: normocephalic, atraumatic, EOMI, sclera anicteric. Psych: mood and affectnormal, cooperative Card: Peripheral pulses:normalin affected extremity (s) Resp: equal chest rise, non-tachypneic, non-labored breathing Skin: no rash,normal Neuro: Coordination:normal; Sensation:normalon affected extremity (s) Skin:normal. C-Spine evaluation: Does patient have neck symptoms and/or numbness/tingling in upper extremities: no Inspection:bilateral and symmetrical without apparent abnormality Shoulder ROM: ABD (170') - Right -90degrees Left - 170degrees ER (40') - Right -40degrees Left - 40degrees Passive ER -Right -50degrees Left - 50degrees IR (T10) - right L3left T10 FF (180') - Right -90degrees Left - 180degrees Scapular elevation with forward flexion:negativeBilateral Tenderness/Location: yes -SS and AC Inspection AC Joint Prominence:normal Cross-arm maneuver:positive Impingement sign:positive Sulcus sign:negative Lift-off test:negative Apprehension:negative Harney's test:negative Load and shift:negative Speed's test:negative Drop-arm test:negative Instability Testing: Shoulder instability testing:normal bilaterally negativescapular winging negativescapular dyskinesis Strength: ABD: Right - 5/5Left - 5/5 ER: Right - 5-/5Left - 5/5 IR: Right - 5/5Left - 5/5 Biceps: Right - 5/5Left - 5/5 "Empty can": Right - 5-/5Left - 5/5 Neurovascular assessment:negative for deficit Ligamentous laxity testing:negativeBilateral Mack Roldan MD Orthopaedics [address] [id number] Orthopedic Sports Medicine Surgery 07/15/2022 3:11 PM This chart was completed in part utilizing [employer] Speech Voice Recognition Software. Grammatical errors, random word insertions, pronoun errors, and incomplete sentences are an occasional consequence of this system due to software limitations, ambient noise, and hardware issues. Any formal questions or concerns about the content, text, or information contained within the body of this dictation should be directly addressed to the provider for clarification. 1520 HISTORY & PHYSICAL INTERVAL NOTE [facility] [address] [address] History and Physical Update: Name: Kathleen Jones Location: OR [facility]/OR Date: 08/02/2022 Time: 11:54 AM DATE OF HISTORY AND PHYSICAL: 08/02/2022 BP: 120 mmHg/78 mmHg (08/02/22 1115) Pulse: 68 (08/02/221114) Temp: 36.72 C (08/02/221114) Resp: 16 (08/02/221114) SpO2: 98 % (08/02/221114) I have reviewed the H&P previously performed and examined the patient today. There are no new findings noted. documented in this encounter Nursing Notes * Adelita Mclean RN - 08/02/2022 3:37 PM EDT Vs stable. Reports pain at 0/10 on pain scale, tolerable. Denies nausea and tolerating PO intake. Dressing dry and intact. Verbalized understanding of all discharge directions. Patient stable for discharge to home. Taken to private auto via wheelchair with staff presence. * Adelita Mclean RN - 08/02/2022 2:59 PM EDT Patient awake and oriented. Tolerating PO ice chips without nausea. Pain level is tolerable for patient 0/10. Vital signs stable. Ready for discharge from PACU 1. * Adelita Mclean RN - 08/02/2022 2:[address] James at bedside to see pt. * Adelita Mclean RN - 08/02/2022 2:22 PM EDT Patient received to pacu 1 status post rightshoulder arthroscopic rotator cuff repair. Patient sleeping but arouseable. Denies pain. Denies nausea. Respirations are even and unlabored on 6l simple mask. Lungs clear. NSR in the 80s on monitor. Abdomen soft and non distended. Dressing to right shoulder is clean, dry and intact, ice applied. Vital signs stable. * Chani Arellano RN - 08/02/2022 11:54 AM EDT A ''time out'' was initiated by Dr James prior to procedure. The patient was identified by name anddate of . The procedure matches written consent, and correct site identified. Correct positioning (as applicable). There is availability of necessary equipment. Pre-procedure checklist was completed. documented in this encounter OR Notes * OR Surgeon - Mack Roldan MD - 08/02/2022 2:13 PM EDT Patient Name: Kathleen Jones Location- [facility] Service - [facility] Date of operation- 08/02/2022 PREOPERATIVE DIAGNOSES: Right shoulder rotator cuff tear POSTOPERATIVE DIAGNOSES: Right shoulder rotator cuff tear Surgeon - Mack Roldan MD Header Operator- Steve Andre PA-C. No qualified resident was available to assist. The orthopedic PA-C was required for assistance with surgical exposure, fracture reduction, implantplacement, wound closure and dressing application. I performed the technical aspects of the surgical procedure and the orthopedic PA- C provided the necessary assistance for such operation. ANESTHESIA: General OPERATION PERFORMED: Right shoulder arthroscopic rotator cuff repair Specimen- none Estimated Blood Loss- 10 mL Urine Output- N/A IV fluid -1000 mL Drain- none Implant- Arthrex rotator cuff anchors x4 Complications- None Postoperative condition Stable. INDICATIONS FOR PROCEDURE: Patient is a 61 year old female who presents to the office with a complaint of Left shoulder pain. The patient underwent MRI scan which confirmed the diagnosis of a rotatorcuff tear. After failing conservative management, we discussed surgery to entail Left shoulder arthroscopy with rotator cuff repair and other indicated procedures. We discussed the risk and benefits of the system to include infection, nerve or vessel injury and need for further surgery. PROCEDURE: The patient was taken to the operating room on 08/02/2022. After adequate anesthesia the Left shoulder was examined. The Left shoulder showed symmetrical ROM with forward flexion to 180, Abduction to 180, External rotation and Internal rotation to 90 and 60 degrees retrospectively. There was a 2+ anterior drawer, 3+ anterior inferior drawer, 2+ posterior drawer and a positive sulcus sign. There were good ulnar and radial pulses. After evaluation the patient was placed in a lateral decubitus position with the Left arm up. The Left arm was placed in the arm pederson and prepped and draped in the standard surgical fashion. After prepping and draping the posterior portal was established for the camera. Next the camera wasplaced in the glenohumeral joint and the joint examined. The joint showed no evidence of chondral wear. Next the labral was evaluated. There was evidence of labral degeneration superiorly and posteriorly. Next the rotator cuff was evaluated and there was evidence of a tear of the supraspinatus. There was no evidence of a tear of the infraspinatus, teres minor and subscap tendon. After evaluation of the rotator cuff, the anterior portal was established. The spinal needle was used to establish the location of the portal between the biceps tendon and subscap tendon. Next the 3.5mm shaver was placed in the shoulder and irrigation through the shaver was performed. Next debridement of the undersurface of the rotator cuff tear was performed using the shaver. After thorough evaluation of the glenohumeral joint, the camera was placed into the subacromial space. The spinal needle was used to localize the anterior lateral portal. There was evidence of subacromial bursa thickening. The shaver was used to resect the thickened bursa. Next the wand was used toremove the soft tissue from the undersurface of the acromion. There was not evidence of a subacromial spur/hook. Next the rotator cuff was evaluated and there was a U shaped tear of the supraspinatus with 1cm of retraction. The rotator cuff footprint was debrided of soft tissue with the shaver. Next the medial row arthrex anchor was placed. Arthroscopic suture passing techniques were used to pass the sutures through the supraspinatus. The sutures were then passed laterally through two knotless lateral row anchors. The arm was internally and externally rotated and there was no laxity in the repair. Copiousamounts of irrigation was performed. The camera was removed from the shoulder. The portals were closed with 4-0 nylon in a horizontal mattress. Next, xeroform and a sterile dressing was applied. The patient was placed in an abduction pillow, extubated and taken to the recovery room in a sterile condition. Postop course: The patient will use the sling for comfort only. We will see the patient back in theoffice in 1 week for re-evaluation. At that time we will start PT using a Type 2 rotator cuff protocol. The patient was given a script for Percocet and Ibuprofen. Condition of patient: Stable Postoperative pain management per Anesthesia for evaluation and placement of regional anesthesia toreduce the need for opioid pain medication. Mack Roldan MD [facility], [facility] [address] [address] Orthopedic Sports Medicine Surgery 08/02/2022 2:15 PM * Operative Report Brief - Mack Roldan MD - 08/02/2022 2:12 PM EDT [facility] [address] [address] OPERATIVE REPORT - BRIEF Name: Kathleen Jones Date: 08/02/2022 Time: 2:12 PM Location: OR [facility] Service: Orthopedic Surgery Date of Operation: 08/02/2022 Pre-op Diagnosis: Right shoulder full-thickness rotator cuff tear Post-op Diagnosis: Right shoulder full-thickness rotator cuff tear Operation: Right shoulder arthroscopy with rotator cuff repair Surgeon: Mack Roldan MD Assistants: Steve RAMÍREZ Anesthesia: General endotracheal and peripheral nerve block Postoperative pain management per Anesthesia for evaluation and placement of regional anesthesia toreduce the need for opioid pain medication. Drains: none Estimated Blood Loss: 10 ml. IV Fluids: 1000 ml. Urine Output: N/A Specimens/Disposition: None Apparent Intraoperative Complications: NONE Patient Condition: stable Disposition: Post Anesthesia Care Unit Attestation: I understand that section 1842 (b)(7)(D) of the Social Security Act generally prohibits Medicare physician fee schedule payment for the services of [id number] in teaching hospitals when qualified residents are available to furnish such services. I certify that the services for which payment is claimed were medically necessary, and that no qualified resident was available to perform the services. I further understand that these services are subject to post-payment review by the Medicare carrier. documented in this encounter Plan of Treatment Upcoming Encounters Date Type Specialty Care Team Description 08/11/2022 Nurse Only Orthopedics Kalyan, [facility] [address] [facility] [address] 09/13/2022 Imaging Radiology 11/26/2022 Hospital Encounter Endoscopy Amy Knox MD [address] [place] [address] 11/26/2022 Surgery Endoscopy Amy Knox MD [address] [place] [id number] COLONOSCOPY FLEXIBLE PROXIMAL DIAGNOSTIC 04/15/2023 Office Visit Dermatology Mahogany Oneal MD [address] [place] [address] Scheduled Procedures Name Priority Associated Diagnoses Date/Ti [...] this encounter Medical Devices Implanted Type Area Piano Bench Assembler Device Identifier Shelf Expiration Date Model / Serial / Lot Berkley Sut Swvlck Bc Knotless - [id number] Implanted:Qty: 1 on 08/02/2022 by Mack Roldan MD at OR [facility] Right: Shoulder [employer] 09/27/2025 [id number] / / [id number] documented as of this encounter Administered Medications Inactive Administered Medications - up to 3 most recent administrations Medication Order MAR Action Action Date Dose Rate Site ceFAZolin in dextrose (Ancef) ivpb 2 g 2 g, IV Piggyback, PREOP, 1 dose, First dose on 08/02/22 at 1130, Administer 60 minutes prior to skin incision, Pre-Op New Bag 08/02/2022 12:03 PM EDT 2 g 100 mL/hr Dexamethasone Sodium Phosphate (Decadron) 4 MG/ML inj 4 mg 4 mg, IV Push, PRN Nausea, Starting on Tue08/02/22 at 1426, Until Tue08/02/22 at 1940, For 1 dose, Protect from Light, PACU fentaNYL (PF) inj 25 mcg 25 mcg, IV Push, PRN Pain, Severe, Starting on Tue08/02/22 at 1426, Until Tue08/02/22 at 1940, For 6 doses, When given IV Push its recommended that the dose be given over 3 to 5 minutes. , PACU isolyte-S pH 7.4 infusion Intravenous, at 100 mL/hr, Plasma-LYTE 148, isolyte-S, and isolyte-S pH 7.4 are considered equivalent - including for MAR barcode scanning., CONTINUOUS, Starting on Tue08/02/22 at 1130, Until Tue08/02/22 at 1940, Pre-Op Continue from Pre-Op 08/02/2022 12:26 PM EDT 100 mL/hr New Bag 08/02/2022 11:17 AM EDT 100 mL/hr ondansetron (Zofran) inj 4 mg 4 mg, IV Push, PRN Nausea, Starting on Tue08/02/22 at 1426, Until Tue08/02/22 at 1940, For 1 dose, PACU oxygen GAS Inhalation, OXYGEN, First dose on Tue08/02/22 at 1600, Until Discontinued, Device/Managed by: Low Flow Device, Goal SPO2 (%): 91-95, Starting Device: Nasal Cannula, Inital Flow Rate (LPM): 2, Lowest Support: Nasal Cannula: Flow 0-6 LPM. Titrate up/down by 1 LPM., Titration Interval: Q2 minutes and as needed., Notify Provider: For sudden DECREASE in resting SPO2 to less than 85% and when escalating delivery device., PACU I - Oxygen for saturation below 95% as indicated per anesthesia. PACU I - Discontinue oxygen when patient is responsive and oxygen saturation is maintained above 94% on room air or same as preanesthetic level. documented in this encounter Active and Recently Administered Medications Times are shown in EDT. Scheduled Medication Order 07/31/2022 08/01/2022 08/02/2022 ceFAZolin in dextrose (Ancef) ivpb 2 g (COMPLETED) 2 g, IV Piggyback, PREOP, 1 dose, First dose on Tue08/02/22 at 1130, Administer 60 minutes prior to skin incision, Pre-Op 1203 (New Bag - Prov ider: Chani Arellano RN) oxygen GAS Inhalation, OXYGEN, First dose on Tue08/02/22 at 1600, Until Discontinued, Device/Managed by: Low Flow Device, Goal SPO2 (%): 91-95, Starting Device: Nasal Cannula, Inital Flow Rate (LPM): 2, Lowest Support: Nasal Cannula: Flow 0-6 LPM. Titrate up/down by 1 LPM., Titration Interval: Q2 minutes and as needed., Notify Provider: For sudden DECREASE in resting SPO2 to less than 85% and when escalating delivery device., PACU I - Oxygen for saturation below 95% as indicated per anesthesia. PACU I - Discontinue oxygen when patient is responsive and oxygen saturation is maintained above 94% on room air or same as preanesthetic level. tranexamic acid 1000 mg in 100 mL ivpb (COMPLETED) 1,000 mg, Intravenous, ONCE, 1 dose, On Tue08/02/22 at 1130, Infused no faster than 100 mg per minute, Pre-Op 1245 (Given - Provid er: Everett Tineo CRNA)1420 (Anes Intra-Op Fluid - Provider: Everett Tineo CRNA) Continuous Medication Order 07/31/2022 08/01/2022 08/02/2022 isolyte-S pH 7.4 infusion Intravenous, at 100 mL/hr, Plasma-LYTE 148, isolyte-S, and isolyte-S pH 7.4 are considered equivalent - including for MAR barcode scanning., CONTINUOUS, Starting on Tue08/02/22 at 1130, Until Tue08/02/22 at 1940, Pre-Op 1117 (New Bag - Prov ider: Chani Arellano RN)1226 (Continue from Pre-Op - Provider: Everett Tineo CRNA)1358 (Anes Intra-Op Fluid - Provider: Everett Tineo CRNA) PRN Medication Order 07/31/2022 08/01/2022 08/02/2022 Acetaminophen (Tylenol) tab 650 mg 650 mg, Oral, Q4H PRN Pain, Mild, Starting on Tue08/02/22 at 1235, Until Tue08/02/22 at 1834, For 6 hours, Maximum of 4 grams (4000 mg) per day., Post-op bupivacaine (Sensorcaine) 0.25 % inj (CANCELED) ONCE PRN INTRA PROCEDURE, Starting on Tue08/02/22 at 1321, Until Tue08/02/22 at 1407, Intra-Op 1321 (Given - Provid er: Mack Roldan MD) Dexamethasone Sodium Phosphate (Decadron) 4 MG/ML inj 4 mg 4 mg, IV Push, PRN Nausea, Starting on Tue08/02/22 at 1426, Until Tue08/02/22 at 1940, For 1 dose, Protect from Light, PACU EPINEPHrine 1 mg in sodium chloride IR 0.9 % 3,000 mL irrigation (CANCELED) ONCE PRN INTRA PROCEDURE, Starting on Tue08/02/22 at 1255, Until Tue08/02/22 at 1407, Intra-Op 1255 (Given - Provid er: Mack Roldan MD) fentaNYL (PF) inj 25 mcg 25 mcg, IV Push, PRN Pain, Severe, Starting on Tue08/02/22 at 1426, Until Tue08/02/22 at 1940, For 6 doses, When given IV Push its recommended that the dose be given over 3 to 5 minutes. , PACU ondansetron (Zofran) inj 4 mg 4 mg, IV Push, PRN Nausea, Starting on Tue08/02/22 at 1426, Until Tue08/02/22 at 1940, For 1 dose, PACU ondansetron ODT (Zofran) tab 4 mg 4 mg, On Tongue, Q8H PRN Nausea, Vomiting, Starting on Tue08/02/22 at 1235, Until Tue08/02/22 at 1834, For 6 hours, Give if patient is nauseated and tolerating PO, Post-op oxyCODONE (Oxy IR) tab 5 mg 5 mg, Oral, Q4H PRN Pain, Moderate, Starting on Tue08/02/22 at 1235, Until Tue08/02/22 at 1834, For 6 hours, Post-op sodium chloride IR 0.9 % irrigation (CANCELED) ONCE PRN INTRA PROCEDURE, Starting on Tue08/02/22 at 1402, Until 08/02/22 at 1407, Intra-Op 1402 (Given - Provid er: Mack Roldan MD) documented in this encounter Advance Directives Latest [...] Discussed due to patient's condition Care Teams Counter Clerk Tractor Parts Relationship Specialty Start Date End Date Shelley Reddy MD [address] [facility] [place] [address] PCP - General Internal Medicine 02/07/19 documented as of this encounter
--- OUTSIDE RECORDS SUMMARY | 2023-01-06 16:59 | External Medical Summary | Summary of Care ---
Author Name Unknown Organization [facility] Address [address] [place] [address] Phone [phone] Care Team Providers Care Pharmacovigilance Specialist Name Role Phone Shelley Reddy MD Primary Care Provider [phone] Encounter Details Date Type Department Care Team Description 07/27/2022 Patient Reported Data Patient Survey Ortho OBERD Allergies Active Allergy Reactions Severity Noted Date Comments Sulfa Antibiotics Rash 11/30/2015 Yeast Nausea/vomiting 11/30/2015 documented as of this encounter (statuses as of 07/27/2022) Medications Medication Sig Dispensed Refills Start Date [...] AT NIGHT) 180 Capsule 0 06/25/2022 Active documented as of this encounter (statuses as of 07/27/2022) Active Problems Problem Noted Date Mixed dyslipidemia [...] radiculopathy,minor chr L5 radiculopathy-KS ref pain mgmt, Leeleeer 09/13-[place] eval>MRI LS -1Congenitally mildly narrowed central [...] as of this encounter (statuses as of 07/27/2022) Resolved Problems Problem Noted Date Resolved Date COVID-19 virus infection 06/13/2020 021 Pap smear for cervical cancer screening 11/20/19 17 03/14/2019 Overview: Historical Gyn_Neg 10/14 Morbid obesity 05/06/2016 06/10/2017 Overview: Per Obesity protocol #1 documented as of this encounter (statuses as of 07/27/2022) Immunizations Name Administration Dates Next Due Pneumococcal Conjugate Vacci ne, 20-valent ([id number]) 06/25/2022 Pneumococcal Polysaccharide PPV23 (Pneumovax) 08/10/2018 Seasonal [...] Encounters Date Type Specialty Care Team Description 08/02/2022 Hospital Encounter Surgery Mack Roldan MD [address] [place] [address] 08/02/2022 Surgery Surgery Mack Roldan MD [address] [place] [address] RIGHT ARTHROSCOPY SHOULDER ROTATOR CUFF 08/11/2022 Nurse Only Orthopedics Kaly[place], Nurse Sunshine Peterson [address] [place] [address] 09/13/2022 Imaging Radiology 11/26/2022 Hospital Encounter Endoscopy Amy Knox MD [address] [place] [address] 11/26/2022 Surgery Endoscopy Amy Knox MD [address] [place], [place] [phone] COLONOSCOPY FLEXIBLE PROXIMAL DIAGNOSTIC 04/15/2023 Office Visit Dermatology Mahogany Oneal MD [address] [place] [address] Scheduled Procedures Name Priority Associated Diagnoses Date/Ti me ARTHROSCOPY SHOULDER ROTATOR CUFF Rotator cuff tear 08/02/2022 12:37 PM EDT COLONOSCOPY FLEXIBLE PROXIMAL DIAGNOSTIC Screening for colon [...] 08/12/2017, Additional history exists GFR 06/26/2023 06/25/2022, 10/0 [...] documented as of this encounter Medical Devices Not on filedocumented as of this encounter Care Teams Pharmacovigilance Specialist Relationship Specialty Start Date End Date Shelley Reddy MD [address] [place] [address] PCP - General Internal Medicine 02/07/19 documented as of this encounter
--- OUTSIDE RECORDS SUMMARY | 2023-01-06 16:59 | External Medical Summary | Summary of Care ---
Author Name Unknown Organization [facility] Address [address] [place] [address] Phone [phone] Care Team Providers Care Spray Gun Sizer Name Role Phone Shelley Reddy MD Primary Care Provider [phone] Encounter Details Date Type Department Care Team [...] Next Due Pneumococcal Conjugate Vacci ne, 20-valent ([id number]) 06/25/2022 Pneumococcal Polysaccharide PPV23 (Pneumovax) 08/10/2018 Seasonal [...] Surgery Mack Roldan MD [address] [place] [address] 08/02/2022 Surgery Surgery Mack Roldan MD [address] [place] [address] RIGHT ARTHROSCOPY SHOULDER ROTATOR CUFF 08/11/2022 Nurse Only Orthopedics K[place], Nurse Sunshine Peterson [address] [place] [address] 09/13/2022 Imaging Radiology 11/26/2022 Hospital Encounter Endoscopy Amy Knox MD [address] [place] [address] 11/26/2022 Surgery Endoscopy Amy Knox MD [address] [place], [place] [phone] COLONOSCOPY FLEXIBLE PROXIMAL DIAGNOSTIC 04/15/2023 Office Visit Dermatology Mahogany Oneal MD [address] [place] [address] Scheduled Procedures Name Priority Associated Diagnoses Date/Ti [...] filedocumented as of this encounter Care Teams Spray Gun Sizer Relationship Specialty Start Date End Date Shelley Reddy MD [address] [facility] [place] [address] PCP - General Internal Medicine 02/07/19 documented as of this encounter
--- OUTSIDE RECORDS SUMMARY | 2023-01-06 16:59 | External Medical Summary | Summary of Care ---
Author Name Unknown Organization [facility] Address [address] [place] [address] Phone [phone] Care Team Providers Care Cost Recovery Technician Name Role Phone Shelley Reddy MD Primary Care Provider [phone] Encounter Details Date Type Department Care Team [...] Next Due Pneumococcal Conjugate Vacci ne, 20-valent ([id number]) 06/25/2022 Pneumococcal Polysaccharide PPV23 (Pneumovax) 08/10/2018 Seasonal [...] Surgery Mack Roldan MD [address] [place] [address] 08/02/2022 Surgery Surgery Mack Roldan MD [address] [place] [address] RIGHT ARTHROSCOPY SHOULDER ROTATOR CUFF 08/11/2022 Nurse Only Orthopedics Kalyan, Nurse Sunshine Peterson [address] [place] [address] 09/13/2022 Imaging Radiology 11/26/2022 Hospital Encounter Endoscopy Amy Knox MD [address] [place] [address] 11/26/2022 Surgery Endoscopy Amy Knox MD [address] [place], [place] [phone] COLONOSCOPY FLEXIBLE PROXIMAL DIAGNOSTIC 04/15/2023 Office Visit Dermatology Mahogany Oneal MD [address] [place] [address] Scheduled Procedures Name Priority Associated Diagnoses Date/Ti [...] filedocumented as of this encounter Care Teams Cost Recovery Technician Relationship Specialty Start Date End Date Shelley Reddy MD [address] [facility] [place] [address] PCP - General Internal Medicine 02/07/19 documented as of this encounter
--- OUTSIDE RECORDS SUMMARY | 2023-01-06 16:59 | External Medical Summary | Summary of Care ---
Author Name Unknown Organization [facility] Address [address] [place] [address] Phone [phone] Care Team Providers Care Heavy Duty Mechanic Farm Equipment Name Role Phone Shelley Reddy MD Primary Care Provider [phone] Encounter Details Date Type Department Care Team [...] Next Due Pneumococcal Conjugate Vacci ne, 20-valent ([id number]) 06/25/2022 Pneumococcal Polysaccharide PPV23 (Pneumovax) 08/10/2018 Seasonal [...] Surgery Mack Roldan MD [address] [place] [address] 08/02/2022 Surgery Surgery Mack Roldan MD [address] [place] [address] RIGHT ARTHROSCOPY SHOULDER ROTATOR CUFF 08/11/2022 Nurse Only Orthopedics Kalyan, Nurse Sunshine Peterson [address] [place] [address] 09/13/2022 Imaging Radiology 11/26/2022 Hospital Encounter Endoscopy Amy Knox MD [address] [place] [address] 11/26/2022 Surgery Endoscopy Amy Knox MD [address] [place], [place] [phone] COLONOSCOPY FLEXIBLE PROXIMAL DIAGNOSTIC 04/15/2023 Office Visit Dermatology Mahogany Oneal MD [address] [place] [address] Scheduled Procedures Name Priority Associated Diagnoses Date/Ti [...] filedocumented as of this encounter Care Teams Heavy Duty Mechanic Farm Equipment Relationship Specialty Start Date End Date Shelley Reddy MD [address] [facility] [place] [address] PCP - General Internal Medicine 02/07/19 documented as of this encounter
--- OUTSIDE RECORDS SUMMARY | 2023-01-06 16:59 | External Medical Summary | Summary of Care ---
Author Name Unknown Organization [facility] Address [address] [place] [address] Phone [phone] Care Team Providers Care Finishing Wire Sawyer Name Role Phone Shelley Reddy MD Primary Care Provider [phone] Encounter Details Date Type Department Care Team [...] Next Due Pneumococcal Conjugate Vacci ne, 20-valent ([id number]) 06/25/2022 Pneumococcal Polysaccharide PPV23 (Pneumovax) 08/10/2018 Seasonal [...] Surgery Mack Roldan MD [address] [place] [address] 08/02/2022 Surgery Surgery Mack Roldan MD [address] [place] [address] RIGHT ARTHROSCOPY SHOULDER ROTATOR CUFF 08/11/2022 Nurse Only Orthopedics Kalyan, Nurse Sunshine Peterson [address] [place] [address] 09/13/2022 Imaging Radiology 11/26/2022 Hospital Encounter Endoscopy Amy Knox MD [address] [place] [address] 11/26/2022 Surgery Endoscopy Amy Knox MD [address] [place], [place] [address] COLONOSCOPY FLEXIBLE PROXIMAL DIAGNOSTIC 04/15/2023 Office Visit Dermatology Mahogany Oneal MD [address] [place] [address] Scheduled Procedures Name Priority Associated Diagnoses Date/Ti [...] filedocumented as of this encounter Care Teams Finishing Wire Sawyer Relationship Specialty Start Date End Date Shelley Reddy MD [address] [place] [address] PCP - General Internal Medicine 02/07/19 documented as of this encounter
--- OUTSIDE RECORDS SUMMARY | 2023-01-06 16:59 | External Medical Summary | Summary of Care ---
Author Name Unknown Organization [facility] Address [address] [place] [address] Phone [phone] Care Team Providers Care Automatic Spinning Lathe Operator Name Role Phone Shelley Reddy MD Primary Care Provider [phone] Encounter Details Date Type Department Care Team Description 07/14/2022 Patient Reported Data Patient Survey Ortho OBERD Allergies Active Allergy Reactions Severity Noted Date Comments Sulfa Antibiotics Rash 11/30/2015 Yeast Nausea/vomiting 11/30/2015 documented as of this encounter (statuses as of 07/14/2022) Medications Medication Sig Dispensed Refills Start Date [...] as of this encounter (statuses as of 07/14/2022) Active Problems Problem Noted Date Mixed dyslipidemia [...] as of this encounter (statuses as of 07/14/2022) Resolved Problems Problem Noted Date Resolved Date COVID-19 virus infection 06/13/2020 021 Pap smear for cervical cancer screening 11/20/19 17 03/14/2019 Overview: Historical Gyn_Neg 10/14 Morbid obesity 05/06/2016 06/10/2017 Overview: Per Obesity protocol #1 documented as of this encounter (statuses as of 07/14/2022) Immunizations Name Administration Dates Next Due Pneumococcal Conjugate Vacci ne, 20-valent ([id number]) 06/25/2022 Pneumococcal Polysaccharide PPV23 (Pneumovax) 08/10/2018 Seasonal [...] Encounters Date Type Specialty Care Team Description 07/15/2022 Office Visit Orthopedics Mack Roldan MD [address] [place] [address] 07/30/2022 Office Visit Internal Medicine Rosa Corral MD [address] [facility] [place] [address] 08/02/2022 Hospital Encounter Surgery Mack Roldan MD [address] [place] [address] 08/02/2022 Surgery Surgery Mack Roldan MD [address] [place] [address] RIGHT ARTHROSCOPY SHOULDER ROTATOR CUFF 08/11/2022 Nurse Only Orthopedics Kalyan, Nurse Sunshine Peterson [address] [place] [address] 09/13/2022 Imaging Radiology 11/26/2022 Hospital Encounter Endoscopy Amy Knox MD [address] [place] [address] 11/26/2022 Surgery Endoscopy Amy Knox MD [address] [place] [address] COLONOSCOPY FLEXIBLE PROXIMAL DIAGNOSTIC 04/15/2023 Office Visit Dermatology Mahogany Oneal MD [address] [facility] [place] [address] Scheduled Procedures Name Priority Associated Diagnoses Date/Ti [...] 09/11/2021, 07/30, 08/12/2017, Additional history exists GFR - Renal Function 06/26/2023 06/25/2022, 12/04/2021, 08/08/2020, Additional history exists HgA1C 06/26/2023 06/25/2022, 12/04/2021 Albumin/Creatinine Ratio 12/04/2024 12/04/2021 [...] filedocumented as of this encounter Care Teams Automatic Spinning Lathe Operator Relationship Specialty Start Date End Date Shelley Reddy MD [address] [place] [address], [place] [address] PCP - General Internal Medicine 02/07/19 documented as of this encounter
--- OUTSIDE RECORDS SUMMARY | 2023-01-06 16:59 | External Medical Summary | Summary of Care ---
Author Name Unknown Organization [facility] Address [address] [place] [address] Phone [phone] Care Team Providers Care Pediatric Ophthalmologist Name Role Phone Shelley Reddy MD Primary Care Provider [phone] Encounter Details Date Type Department Care Team [...] Next Due Pneumococcal Conjugate Vacci ne, 20-valent ([id number]) 06/25/2022 Pneumococcal Polysaccharide PPV23 (Pneumovax) 08/10/2018 Seasonal [...] Orthopedics Mack Roldan MD [address] [place] [address] 07/30/2022 Office Visit Internal Medicine Rosa Corral MD 200 [facility] [place] [address] 08/02/2022 Hospital Encounter Surgery Mack Roldan MD [address] [place] [address] 08/02/2022 Surgery Surgery Mack Roldan MD [address] [place] [address] RIGHT ARTHROSCOPY SHOULDER ROTATOR CUFF 08/11/2022 Nurse Only Orthopedics Kalyan, Nurse Sunshine Peterson [address] [place] [address] 09/13/2022 Imaging Radiology 11/26/2022 Hospital Encounter Endoscopy Amy Knox MD [address] [place] [address] 11/26/2022 Surgery Endoscopy Amy Knox MD [address] [place] [address] COLONOSCOPY FLEXIBLE PROXIMAL DIAGNOSTIC 04/15/2023 Office Visit Dermatology Mahogany Oneal MD 200 [facility] [place] [address] Scheduled Procedures Name Priority Associated Diagnoses Date/Ti [...] filedocumented as of this encounter Care Teams Pediatric Ophthalmologist Relationship Specialty Start Date End Date Shelley Reddy MD [address] [place] [address], [place] [address] PCP - General Internal Medicine 02/07/19 documented as of this encounter
--- OUTSIDE RECORDS SUMMARY | 2023-01-06 16:59 | External Medical Summary | Summary of Care ---
Author Name Unknown Organization [facility] Address [address] [place] [address] Phone [phone] Care Team Providers Care Chief Design Branch Name Role Phone Shelley Reddy MD Primary Care Provider [phone] Encounter Details Date Type Department Care Team [...] Next Due Pneumococcal Conjugate Vacci ne, 20-valent ([id number]) 06/25/2022 Pneumococcal Polysaccharide PPV23 (Pneumovax) 08/10/2018 Seasonal [...] Orthopedics Mack Roldan MD [address] [place] [address] 07/30/2022 Office Visit Internal Medicine Roas Corral MD 200 [facility] [address] 08/02/2022 Hospital Encounter Surgery Mack Roldan MD [address] [place] [address] 08/02/2022 Surgery Surgery Mack Roldan MD [address] [place] [address] RIGHT ARTHROSCOPY SHOULDER ROTATOR CUFF 08/11/2022 Nurse Only Orthopedics Kalyan, Nurse Sunshine Peterson [address] [place] [address] 09/13/2022 Imaging Radiology 11/26/2022 Hospital Encounter Endoscopy Amy Knox MD [address] [place] [address] 11/26/2022 Surgery Endoscopy Amy Knox MD [address] [place] [address] COLONOSCOPY FLEXIBLE PROXIMAL DIAGNOSTIC 04/15/2023 Office Visit Dermatology Mahogany Oneal MD [address] [facility] [place] [address] Scheduled Procedures Name Priority Associated Diagnoses Date/Ti [...] filedocumented as of this encounter Care Teams Chief Design Branch Relationship Specialty Start Date End Date Shelley Reddy MD [address] [place] [address], [place] [address] PCP - General Internal Medicine 02/07/19 documented as of this encounter
--- OUTSIDE RECORDS SUMMARY | 2023-01-06 16:59 | External Medical Summary | Summary of Care ---
Author Name Unknown Organization [facility] Address [address] [place] [address] Phone [phone] Care Team Providers Care Computer Science Teacher Name Role Phone Shelley Reddy MD Primary Care Provider [phone] Encounter Details Date Type Department Care Team [...] Next Due Pneumococcal Conjugate Vacci ne, 20-valent ([id number]) 06/25/2022 Pneumococcal Polysaccharide PPV23 (Pneumovax) 08/10/2018 Seasonal [...] Orthopedics Mack Roldan MD [address] [place] [address] 07/30/2022 Office Visit Internal Medicine Rosa Corral MD 200 [place] [address] 08/02/2022 Hospital Encounter Surgery Mack Roldan MD [address] [place] [address] 08/02/2022 Surgery Surgery Mack Roldan MD [address] [place] [address] RIGHT ARTHROSCOPY SHOULDER ROTATOR CUFF 08/11/2022 Nurse Only Orthopedics Kalyan, Nurse Sunshine Peterson [address] [place] [address] 09/13/2022 Imaging Radiology 11/26/2022 Hospital Encounter Endoscopy Amy Knox MD [address] [place] [address] 11/26/2022 Surgery Endoscopy Amy Knox MD [address] [place] [address] COLONOSCOPY FLEXIBLE PROXIMAL DIAGNOSTIC 04/15/2023 Office Visit Dermatology Mahogany Oneal MD [address] [place] [address] Scheduled Procedures Name Priority Associated Diagnoses Date/Ti [...] filedocumented as of this encounter Care Teams Computer Science Teacher Relationship Specialty Start Date End Date Shelley Reddy MD [address] [place] [address], [place] [address] PCP - General Internal Medicine 02/07/19 documented as of this encounter
--- OUTSIDE RECORDS SUMMARY | 2023-01-06 16:59 | External Medical Summary | Summary of Care ---
Author Name Unknown Organization [facility] Address [address] [place] [address] Phone [phone] Care Team Providers Care Guest Relations Agent Name Role Phone Shelley Reddy MD Primary Care Provider [phone] Encounter Details Date Type Department Care Team [...] Next Due Pneumococcal Conjugate Vacci ne, 20-valent ([id number]) 06/25/2022 Pneumococcal Polysaccharide PPV23 (Pneumovax) 08/10/2018 Seasonal [...] Orthopedics Mack Roldan MD [address] [place] [address] 07/30/2022 Office Visit Internal Medicine Rosa Corral MD 200 [facility] [place] [address] 08/02/2022 Hospital Encounter Surgery Mack Roldan MD [address] [place] [address] 08/02/2022 Surgery Surgery Mack Roldan MD [address] [place] [address] RIGHT ARTHROSCOPY SHOULDER ROTATOR CUFF 08/11/2022 Nurse Only Orthopedics Kaly[place], Nurse Sunshine Peterson [address] [place] [address] 09/13/2022 Imaging Radiology 11/26/2022 Hospital Encounter Endoscopy Amy Knox MD [address] [place] [address] 11/26/2022 Surgery Endoscopy Amy Knox MD [address] [place] [address] COLONOSCOPY FLEXIBLE PROXIMAL DIAGNOSTIC 04/15/2023 Office Visit Dermatology Mahogany Oneal MD 200 [facility] [place] [address] Scheduled Procedures Name Priority Associated Diagnoses Date/Ti [...] filedocumented as of this encounter Care Teams Guest Relations Agent Relationship Specialty Start Date End Date Shelley Reddy MD [address] [place] [address], [place] [address] PCP - General Internal Medicine 02/07/19 documented as of this encounter
--- OUTSIDE RECORDS SUMMARY | 2023-01-06 16:59 | External Medical Summary | Summary of Care ---
Author Name Unknown Organization [facility] Address [address] [place] [address] Phone [phone] Care Team Providers Care Cider Press Operator Name Role Phone Shelley Reddy MD Primary Care Provider [phone] Encounter Details Date Type Department Care Team [...] Next Due Pneumococcal Conjugate Vacci ne, 20-valent ([id number]) 06/25/2022 Pneumococcal Polysaccharide PPV23 (Pneumovax) 08/10/2018 Seasonal [...] Orthopedics Mack Roldan MD [address] [place] [address] 07/30/2022 Office Visit Internal Medicine Rosa Corral MD [address] [facility] [place] [address] 08/02/2022 Hospital Encounter Surgery Mack Roldan MD [address] [place] [address] 08/02/2022 Surgery Surgery Mack Roldan MD [address] [place] [address] RIGHT ARTHROSCOPY SHOULDER ROTATOR CUFF 08/11/2022 Nurse Only Orthopedics Kalyan, Nurse Sunshine Peterson [address] [place] [address] 09/13/2022 Imaging Radiology 11/26/2022 Hospital Encounter Endoscopy Amy Knox MD [address] [place] [address] 11/26/2022 Surgery Endoscopy Amy Knox MD [address] [place] [address] COLONOSCOPY FLEXIBLE PROXIMAL DIAGNOSTIC 04/15/2023 Office Visit Dermatology Mahogany Oneal MD [address] [facility] [place] [address] Scheduled Procedures Name Priority Associated Diagnoses Date/Ti [...] filedocumented as of this encounter Care Teams Cider Press Operator Relationship Specialty Start Date End Date Shelley Reddy MD [address] [place] [address], [place] [address] PCP - General Internal Medicine 02/07/19 documented as of this encounter
--- OUTSIDE RECORDS SUMMARY | 2023-01-06 16:59 | External Medical Summary | Summary of Care ---
Author Name Unknown Organization [facility] Address [address] [place] [address] Phone [phone] Care Team Providers Care Shake Backboard Notcher Name Role Phone Shelley Reddy MD Primary Care Provider [phone] Reason for Visit * Reason Comments NEW PATIENT 08/02/2022 pre-op ri ght shoulder arthroscopy with rotator cuff repair Encounter Details Date Type Department Care Team Description 07/15/2022 Office Visit Orthopaedics [facility] [address] [place] [address] Mack Roldan MD [address] [place] [phone] Traumatic complete tear of right rotator cuff, initial encounter* Allergies Active Allergy Reactions Severity Noted Date Comments Sulfa Antibiotics Rash 11/30/2015 Yeast Nausea/vomiting 11/30/2015 documented as of this encounter (statuses as of 07/15/2022) Medications Medication Sig Dispensed Refills Start Date [...] as of this encounter (statuses as of 07/15/2022) Active Problems Problem Noted Date Mixed dyslipidemia [...] as of this encounter (statuses as of 07/15/2022) Resolved Problems Problem Noted Date Resolved Date COVID-19 virus infection 06/13/2020 021 Pap smear for cervical cancer screening 11/20/19 17 03/14/2019 Overview: Historical Gyn_Neg 10/14 Morbid obesity 05/06/2016 06/10/2017 Overview: Per Obesity protocol #1 documented as of this encounter (statuses as of 07/15/2022) Immunizations Name Administration Dates Next Due Pneumococcal Conjugate Vacci ne, 20-valent ([id number]) 06/25/2022 Pneumococcal Polysaccharide PPV23 (Pneumovax) 08/10/2018 Seasonal Influenza, Quadriva lent, No Preserve, 6 Mons & Above, IM 01/01/2022,01/01/2021,04/12/2019,05/19,11/19/2016 Seasonal Influenza, Split, I IV3, With Preserve, Inj 11/29/2015,12/11/2012,01/06/2012 TDAP (age 10 and older)(Boostrix) 06/18/2016 Zoster Vaccine Recombinant (Shingrix) 09/26/2020 ,04/12/2019 documented as of this encounter Social History Tobacco Use Types Packs/Day Years Used Date Smoking Tobacco: Never Smokeless Tobacco: Never Tobacco Cessation:Counseling Given: No Alcohol Use Standard Drinks/Week Comments No 0 [...] - Inhaled Oxygen Concentration - - Weight 108.4 kg (239 lb) 07/15/2022 2:39 PM EDT Height 165.1 cm (5' 5") 07/15/2022 2:39 PM EDT Body Mass Index 39.77 07/15/2022 2:39 PM EDT documented in this encounter Progress Notes * Mack Roldan MD - 07/15/2022 3:11 PM EDT CHIEF COMPLAINT: Chief Complaint Patient presents with [...] performed by Thanh Francis, DO at OR [facility] KNEE ARTHROSCOPY/MENISCECTOMY Left 02/13/2016 [employer] LAMINECTOMY/LAMINOTOMY, [...] EXAM: Physical exam is unchanged from previous General: generally well-nourished and in no acute distress HEENT: normocephalic, atraumatic, EOMI, sclera anicteric. Psych: mood and affect normal , cooperative Card: Peripheral pulses: normal in affected extremity (s) Resp: equal chest rise, non-tachypneic, non-labored breathing Skin: no rash, normal Neuro: Coordination: normal; Sensation: normal on affected extremity (s) Skin: normal. C-Spine evaluation: Does patient have neck symptoms and/or numbness/tingling in upper extremities: no Inspection: bilateral and symmetrical without apparent abnormality Shoulder ROM: ABD (170') - Right - 90 degrees Left - 170 degrees ER (40') - Right - 40 degrees Left - 40 degrees Passive ER -Right - 50 degrees Left - 50 degrees IR (T10) - right L3 left T10 FF (180') - Right - 90 degrees Left - 180 degrees Scapular elevation with forward flexion:negativeBilateral Tenderness/Location: yes - SS and AC Inspection AC Joint Prominence: normal Cross-arm maneuver: positive Impingement sign: positive Sulcus sign: negative Lift-off test: negative Apprehension:negative Cedarburg's test: negative Load and shift: negative Speed's test: negative Drop-arm test: negative Instability Testing: Shoulder instability testing: normal bilaterally negative scapular winging negative scapular dyskinesis Strength: ABD: Right - 5/5 Left - 5/5 ER: Right - 5-/5 Left - 5/5 IR: Right - 5/5 Left - 5/5 Biceps: Right - 5/5 Left - 5/5 "Empty can": Right - 5-/5 Left - 5/5 Neurovascular assessment: negative for deficit Ligamentous laxity testing: negative Bilateral Mack Roldan MD Orthopaedics [facility] [address] [facility] [place] [address] Orthopedic Sports Medicine Surgery 07/15/2022 3:11 PM This chart was completed in part utilizing [employer] Voice Recognition Software. Grammatical errors, random [...] Nursing Notes * Carmen Iqbal LPN - 07/15/2022 2:40 PM EDT 08/02/2022 pre-op right shoulder arthroscopy with rotator cuff repair Patient denies any pain with out activity documented in this encounter Plan of Treatment Upcoming Encounters Date Type Specialty Care Team Description 07/30/2022 Office Visit Internal Medicine Rosa Corral MD [address] [facility], [place] [address] 08/02/2022 Hospital Encounter Surgery Mack Roldan MD [address] [place] [phone] 08/02/2022 Surgery Surgery Mack Roldan MD [address] [place] [phone] RIGHT ARTHROSCOPY SHOULDER ROTATOR CUFF 08/11/2022 Nurse Only Orthopedics [place], Nurse Ortho Nicholas [address] [place] [address] 09/13/2022 Imaging Radiology 11/26/2022 Hospital Encounter Endoscopy Amy Knox MD [address] [place] [address] 11/26/2022 Surgery Endoscopy Amy Knox MD [address] [place] [address] COLONOSCOPY FLEXIBLE PROXIMAL DIAGNOSTIC 04/15/2023 Office Visit Dermatology Mahogany Oneal MD [address] [place] [address] Scheduled Procedures Name Priority Associated Diagnoses Date/Ti [...] Not on filedocumented as of this encounter Visit Diagnoses Diagnosis Traumatic complete tear of right rotator cuff, initial encounter- Primary Rotator cuff tear Rotator cuff (capsule) sprain Screening for colon cancer Special screening for malignant neoplasms, colon documented in this encounter Care Teams Shake Backboard Notcher Relationship Specialty Start Date End Date Shelley Reddy MD [address] [place] [address] PCP - General Internal Medicine 02/07/19 documented as of this encounter
--- OUTSIDE RECORDS SUMMARY | 2023-01-06 16:59 | External Medical Summary | Summary of Care ---
Author Name Unknown Organization [facility] Address [address] [place] [address] Phone [phone] Care Team Providers Care Audio Visual Aids Director Name Role Phone Shelley Reddy MD Primary Care Provider [phone] Encounter Details Date Type Department Care Team [...] Next Due Pneumococcal Conjugate Vacci ne, 20-valent ([id number]) 06/25/2022 Pneumococcal Polysaccharide PPV23 (Pneumovax) 08/10/2018 Seasonal [...] Surgery Mack Roldan MD [address] [place] [phone] 08/02/2022 Surgery Surgery Mack Roldan MD [address] [place] [address] RIGHT ARTHROSCOPY SHOULDER ROTATOR CUFF 08/11/2022 Nurse Only Orthopedics [place], Nurse Sunshine Peterson [address] [place] [address] 09/13/2022 Imaging Radiology 11/26/2022 Hospital Encounter Endoscopy Amy Knox MD [address] [place] [address] 11/26/2022 Surgery Endoscopy Amy Knox MD [address] [place], [place] [phone] COLONOSCOPY FLEXIBLE PROXIMAL DIAGNOSTIC 04/15/2023 Office Visit Dermatology Mahogany Oneal MD [address] [place] [address] Scheduled Procedures Name Priority Associated Diagnoses Date/Ti [...] filedocumented as of this encounter Care Teams Audio Visual Aids Director Relationship Specialty Start Date End Date Shelley Reddy MD [address] [facility] [place] [address] PCP - General Internal Medicine 02/07/19 documented as of this encounter
--- OUTSIDE RECORDS SUMMARY | 2023-01-06 16:59 | External Medical Summary | Summary of Care ---
Author Name Unknown Organization [facility] Address [address] [place] [address] Phone [phone] Care Team Providers Care Coffee Sampler Name Role Phone Shelley Reddy MD Primary Care Provider [phone] Encounter Details Date Type Department Care Team [...] Next Due Pneumococcal Conjugate Vacci ne, 20-valent ([id number]) 06/25/2022 Pneumococcal Polysaccharide PPV23 (Pneumovax) 08/10/2018 Seasonal [...] Surgery Mack Roldan MD [address] [place] [phone] 08/02/2022 Surgery Surgery Mack Roldan MD [address] [place] [address] RIGHT ARTHROSCOPY SHOULDER ROTATOR CUFF 08/11/2022 Nurse Only Orthopedics [place], Nurse Sunshine Peterson [address] [place] [address] 09/13/2022 Imaging Radiology 11/26/2022 Hospital Encounter Endoscopy Amy Knox MD [address] [place] [address] 11/26/2022 Surgery Endoscopy Amy Knox MD [address] [place], [place] [phone] COLONOSCOPY FLEXIBLE PROXIMAL DIAGNOSTIC 04/15/2023 Office Visit Dermatology Mahogany Oneal MD [address] [place] [phone] Scheduled Procedures Name Priority Associated Diagnoses Date/Ti [...] filedocumented as of this encounter Care Teams Coffee Sampler Relationship Specialty Start Date End Date Shelley Reddy MD [address] [place] [address] PCP - General Internal Medicine 02/07/19 documented as of this encounter
[2023-01-06] MEDS: LIDOCAINE 5% 1 PATCH TD SCH (20:55)
[2023-01-06] MEDS: PANTOprazole 40 MG TAB PO SCH (20:56)
[2023-01-06] MEDS: GABAPENTIN 600 MG TAB PO SCH (20:56)
[2023-01-06] MEDS: MELATONIN 3 MG TAB PO SCH (20:56)
[2023-01-06] MEDS: DOCUSATE SODIUM/SENNA 50/8.6MG TAB PO SCH (20:57)
[2023-01-06] MEDS: METOPROLOL SUCC 25MG EXT REL TAB PO SCH (20:59)
[2023-01-06] MEDS: HYDROmorphone INJ 0.5 MG/0.5 ML SYR IV PRN (22:27)
[2023-01-07] MEDS: ACETAMINOPHEN 500 MG TAB PO SCH ×3 (02:01→18:06)
[2023-01-07 07:32] LABS: Basophils # (auto) 0.02 K/uL (0.00-0.20); Basophils % (auto) 0.1 %; Eosinophils # (auto) 0.02 K/uL (0.00-0.50); Eosinophils % (auto) 0.1 %; Hematocrit (blood only) 43.5 % (37.0-47.0); Hemoglobin 13.9 g/dl (12.0-16.0); Immature Granulocytes # (auto) 0.09 K/uL (0.01-0.20); Immature Granulocytes % (auto) 0.5 %; Lymphocytes # (auto) 3.71 K/uL (1.20-3.40); Lymphocytes % (auto) 22.1 %; Mean Corpuscular Hemoglobin 29.4 pg (25.0-34.0); Mean Corpuscular Volume 92.2 fL (80.0-100.0); Mean Platelet Volume 9.8 fL (9.4-12.4); Monocytes # (auto) 1.58 K/uL (0.11-0.59); Monocytes % (auto) 9.4 %; Neutrophils # (auto) 11.34 K/uL (1.40-6.50); Neutrophils % (auto) 67.8 %; Platelet Count 296 K/uL (130-400); RDW Coefficient of Variation 13.9 % (11.5-14.5); RDW Standard Deviation 47.2 fL (36.4-46.3); Red Blood Count 4.72 M/uL (4.20-5.40); White Blood Count 16.76 K/ul (4.8-10.8)
--- OUTSIDE RECORDS SUMMARY | 2023-01-07 07:35 | External Medical Summary | Summary of Care ---
Author Name Unknown Organization [facility] Address [address] [place] [address] Phone [phone] Care Team Providers Care Mold Parter Name Role Phone Shelley Reddy MD Primary Care Provider [phone] Reason for Visit * Reason Onset Date Comments Pulmonary Function Test 12/31/2022 Called p t to reschedule 01/14/23 @ 9am PFT . Left message . Encounter Details Date Type Department Care Team (Late st Contact Info) Description 12/31/2022 Telephone General Internal Medicine [facility] [address] [place] [address] Shelley Reddy MD [address] [place] [address] Pulmonary Function Test (Called pt to resc... Allergies Active Allergy Reactions Criticality Noted Date Comments Sulfa Antibiotics Rash 11/30/2015 Yeast Nausea/vomiting 11/30/2015 documented as of this encounter (statuses as of 12/31/2022) Medications Medication Sig Dispensed Refills Start Date [...] as of this encounter (statuses as of 12/31/2022) Active Problems Problem Noted Date Diagnosed Date [...] as of this encounter (statuses as of 12/31/2022) Resolved Problems Problem Noted Date Diagnosed Date Resolved Date COVID-19 virus infection 06/13/2020 Pap smear for cervical cancer screening 11/19/2016 03/14/2019 Overview: Historical Gyn_Neg 10/14 Morbid obesity 05/06/2016 06/10/2017 Overview: Per Obesity protocol #1 documented as of this encounter (statuses as of 12/31/2022) Immunizations Name Administration Dates Next Due Pneumococcal Conjugate Vacci ne, 20-valent ([id number]) 06/25/2022 Pneumococcal Polysaccharide PPV23 (Pneumovax) 08/10/2018 SEASONAL [...] money to buy more. Never true 05/29/19 22 Within the past 12 months, t he [...] encounter Miscellaneous Notes * Telephone Encounter - Felipe Silva RRT - 12/31/2022 10:30 AM EDT Called pt to reschedule 01/14/23 @ 9am PFT . Left message . documented in this encounter Plan of Treatment Upcoming Encounters Date Type Department Care Team (Latest Contact Info) Description 01/14/2023 9:00 AM EST PulmDiagnostic Pulmonary Function Lab, [facility] [address] [facility] [place] [address] [place], [place] [address] [facility] [place] [address] 02/17/2023 2:30 PM EST Hospital Encounter ENDO [facility], Endoscopy Room [facility] [address] [facility] [place] [phone] Amy Knox MD [address] [place] [address] 02/17/2023 2:30 PM EST - 02/17/2023 3:00 PM EST Surgery ENDO [facility], Endoscopy Room [facility] [address] [facility] [place] [phone] Amy Knox MD [address] [place] [phone] COLONOSCOPY FLEXIBLE PROXIMAL DIAGNOSTIC 04/08/2023 9:45 AM EST Office Visit Dermatology [facility] [address] [facility] [place] [address] Ganesh Ely MD [address] [facility] [place] [address] 06/24/2023 9:00 AM EDT Office Visit General Internal Medicine [facility] [address] [facility] [place] [address] Shelley Reddy MD [address] [facility] [place] [address] Scheduled Procedures Name Priority Associated Diagnoses Date/Ti [...] this encounter Medical Devices Implanted Type Area Publications Manager Device Identifier Shelf Expiration Date Model / Serial / Lot [employer] - [id number] Implanted:Qty: 1 on 08/02/2022 by Mack Roldan MD at OR [facility] Right: Shoulder [employer] 09/27/2025 [id number] / / [id number] documented as of this encounter Advance Directives [...] due to patient's condition Care Teams Mold Parter Relationship Specialty Start Date End Date Shelley Reddy MD [address] [place] [address] PCP - General Internal Medicine 02/07/19 documented as of this encounter
[2023-01-07] MEDS: CYCLOBENZAPRINE HCL 10 MG TAB PO PRN ×2 (07:37→16:37)
[2023-01-07] MEDS: traMADol HCL 50 MG TABLET PO PRN ×3 (07:37→16:37)
[2023-01-07] MEDS: dexAMETHasone 6 MG in SYRINGE 0 ML IV SCH (07:37)
[2023-01-07 08:19] LABS: BUN Creatinine Ratio 23.9 (10-20); Blood Urea Nitrogen 16 mg/dl (6-23); Calcium 9.3 mg/dl (8.6-10.3); Carbon Dioxide 33 mmol/L (21-32); Chloride 100 mmol/L (98-107); Creatinine Clr Calc Pharmacy 105.2 ml/min; Est GFR (African American) 107.7 ml/min; Est GFR (Non-African American) 92.9 ml/min; Glucose 101 mg/dl (70-99(Fasting))
[2023-01-07] MEDS: LISINOPRIL/HCTZ 20/25MG 1 TAB PO SCH (09:06)
[2023-01-07] MEDS: GABAPENTIN 400 MG CAP PO SCH (11:47)
[2023-01-07] MEDS: oxyCODONE HCL IR 5 MG TAB (IMMEDIATE RELEASE) PO PRN ×2 (13:23→21:00)
--- NOTE | 2023-01-07 13:29 | Orthopedic Progress Note ---
Date of Service January 07, 2023 Assessment & Plan (1) Lumbar disc herniation with radiculopathy: Plan: This time we will continue encourage walking and therapy. She continues to struggle with radiculopathy. Suspect she will require a few more days of therapy before discharge. Admission and Anticipated Discharge Date Admission Date: January 02, 2023 Subjective Patient continues to struggle with back pain and left leg pain. Is somewhat improved from yesterday. She has been getting to her chair regularly. She is walking in the room only. Physical Exam Physical Exam: On exam she is in bed at this time. Tenderness to palpation of the lumbar spine and upper buttock monitor musculature is improved from yesterday. She is neurologically intact. Results & Data Vital Signs (Past 12 Hours) Vital Signs Temp Pulse Resp BP Pulse Ox O2 Del Method 01/07/23 07:12 36.7 C 85 18 106/64 96 Room Air Queries Orthopedic Spine Obesity: Yes
--- NOTE | 2023-01-07 15:41 | Hospitalist Progress Note ---
Date of Service January 07, 2023 Assessment & Plan (1) Lumbar back pain with radiculopathy affecting left lower extremity: (2) HTN (hypertension): (3) Prediabetes: (4) Reactive airway disease: (5) GERD (gastroesophageal reflux disease): Plan Patient is 62 y/o F with PMH significant for HTN, prediabetes, GERD, obesity, reactive airway disease admitted with intractable back and left leg pain x2 days. History of lumbar surgery in the past. Lumbar back pain with radiculopathy affecting left lower extremity: Lumbar xray: No lumbar spine fracture. Moderate multilevel degenerative changes within the lumbar spine. Lumbar spine MRI noted disc protrusion at L5-S1 which abuts and displaces the transiting left S1 nerve roots as well as central canal and neural foraminal narrowing. In ER given dexamethasone 10mg IV, morphine total 8mg IV, lidocaine patch Bladder scan also without signs of retention Difficulty ambulating in ER secondary to LLE pain Fall precautions Continue home gabapentin Scheduled Tylenol and lidocaine patch. PRN oxycodone, IV morphine for moderate-severe pain Consult ortho spine-appreciate recs -manage conservatively at this time, would like to avoid surgical intervention -Recommending evaluation with interventional pain management for trial of epidural injections -if these are not effective or she fails to improve surgery would be considered- would be revision decompression, possible fusion L5-S1. 01/02- steroids added by ortho, made NPO after midnight in case procedure needed, flexeril 10mg TID prn added as well. 01/03-still remains in pain at the back with radiation to the left leg Appreciate pain therapist input and recommendation She wanted to go for surgery and appreciate orthospine input and recommendation for surgery tomorrow She continues to have back pain with radiculopathy and waiting for lumbar decompression and fusion this afternoon Remains medically stable-complains of more pain at the lower back and could not participate in physical therapy Otherwise hemodynamically stable with blood pressure on the lower side Back pain is worse today and has not had any physical therapy Status post lumbar decompression fusion involving L5-S1 distribution on 01/04/2023 She has been complaining of pain at the back with radiation to legs Still has the drain tube in situ Will have physical therapy as per Ortho recommendation Not yet ready to be discharged We will continue with PT and OT evaluation Need to stay over the weekend and continue with the physical therapy HTN (hypertension): In ER hypertensive but it got better with pain control Pain control as above Continue home lisinopril/HCTZ, metoprolol Blood pressure remains on the upper side at 149/83 Her blood pressure is controlled at 137/93 Blood pressure has been on the lower side and was advised to drink more fluid Blood pressure remains on the lower side at 96/59-she was advised to drink more fluid Prediabetes A1c: 5.8 on 06/25/22 Diet controlled Monitor AM glucose labs To monitor glucose following surgery Reactive airway disease: No signs acute exacerbation Continue albuterol as needed No wheezing and/or shortness of breath at rest-we will continue current medication No acute symptoms GERD (gastroesophageal reflux disease): Continue PPI Diet: Regular DVT Prophylaxis: SCDs for now Full Code as per admission discussion with pt Dispo: consider pt/ot once more stable We will monitor PRP Admission and Anticipated Discharge Date Admission Date: January 02, 2023 Subjective 01/03/2023 The patient was seen and examined in medical floor She complains to back pain with radiation to the left leg She was seen by pain therapist and denied to have any injection as was planned before She wants to go for surgery 01/04/2023 The patient was seen and examined in medical floor She still continues to have back pain with radiation to the legs She is waiting to go for surgery this afternoon 01/05/2023 The patient was seen and examined in medical floor She is a status post lumbar decompression and fusion on 01/04/2023 She has been complaining some pain at the back with radiation to the legs Has not had any physical therapy yet 01/06/2023 The patient was seen and examined in medical floor She complains to have more pain at the back with radiation to the legs Has not done any physical therapy due to increasing pain 01/07/2023 The patient was seen and examined in medical floor She has been complaining of more pain at the back with radiation Has not had any physical therapy yet Denies any other significant symptoms Review of Systems Review of Systems: All systems reviewed and are unremarkable except as noted below Physical Exam Physical Exam: Lying in bed with some distress at the lower back with pain Constitutional: well developed, well nourished, + ill appearing and + obese Eyes: PERRL, conjunctivae normal, anicteric sclerae ENMT: external ear and nose normal, oropharynx normal Neck: trachea midline, no thyromegaly Respiratory: no respiratory distress Auscultation: lungs clear to auscultation bilaterally Cardiovascular: Rate/Rhythm: regular rate and regular rhythm; not tachycardic Heart Sounds: normal S1 and normal S2; no murmur Extremities: + edema (Trace edema bilaterally) Gastrointestinal (Abdomen): Inspection/Auscultation: normal bowel sounds; abdomen not distended Percussion/Palpation: abdomen soft; abdomen nontender Neurologic: normal touch/pain/proprioception and moves all extremities; no focal motor deficits Psychiatric: A+Ox3, euthymic affect Lymphatic: no cervical or axillary lymphadenopathy Results & Data Results & Data Vital Signs (Past 12 Hours) Vital Signs Temp Pulse Pulse Resp BP Pulse Ox O2 Del Method 01/07/23 15:29 37.1 C 99 H 16 96/59 L 95 Room Air 01/07/23 07:12 36.7 C 85 18 106/64 96 Room Air Laboratory Results Short CBC 01/07/23 Range/Units 07:00 WBC 16.76 H (4.8-10.8) K/ul Hgb 13.9 (12.0-16.0) g/dl Hct 43.5 (37.0-47.0) % Plt Count 296 (130-400) K/uL BMP 01/07/23 07:00 Sodium TNP Potassium TNP Chloride 100 Carbon Dioxide 33 H BUN 16 Creatinine 0.67 Glucose 101 H Calcium 9.3 Medications Administered Current Inpatient Medications Acetaminophen (Acetaminophen 500 Mg Tab) 1,000 mg PO Q8H [facility] Stop: 01/30/23 16:59 Last Admin: 01/07/23 09:05 Dose: 1,000 mg Acetaminophen (Acetaminophen 500 Mg Tab) 1,000 mg PO Q8H PRN PRN Reason: MILD Pain Scale 1,2,3 & Pre PT Stop: 02/03/23 19:43 Al Hydrox/Mg Hydrox/Simethicone (Aluminum/Magnesium Susp 30 Ml Udc) 30 ml PO Q6H PRN PRN Reason: Dyspepsia Stop: 02/03/23 19:43 Albuterol (Albuterol Hfa 8 Gm Inhaler) 2 puffs INH Q4H PRN PRN Reason: Shortness Of Breath Or Wheezing Stop: 01/30/23 16:52 Bisacodyl (Bisacodyl 10 Mg Supp) 10 mg [place] DAILY PRN PRN Reason: Constipation Stop: 02/03/23 19:43 Cyclobenzaprine HCl (Cyclobenzaprine Hcl 10 Mg Tab) 10 mg PO TID PRN PRN Reason: Muscle Spasm Stop: 02/01/23 20:59 Last Admin: 01/07/23 07:37 Dose: 10 mg Diphenhydramine HCl (Diphenhydramine Capsule 25 Mg Cap) 25 mg PO Q6H PRN PRN Reason: Allergic Rhinitis/Insomnia Stop: 02/03/23 19:43 Famotidine (Famotidine 20 Mg Tab) 20 mg PO Q12H PRN PRN Reason: Dyspepsia Stop: 02/03/23 19:43 Gabapentin (Gabapentin 400 Mg Cap) 400 mg PO DAILY@1200 [facility] Stop: 01/31/23 11:59 Last Admin: 01/07/23 11:47 Dose: 400 mg Gabapentin (Gabapentin 600 Mg Tab) 600 mg PO HS [facility] Stop: 01/30/23 20:59 Last Admin: 01/06/23 20:56 Dose: 600 mg Lisinopril/HCTZ (Lisinopril/Hctz 20/25mg 1 Tab) 0.5 tab PO QAM [facility] Stop: 01/31/23 08:59 Last Admin: 01/07/23 09:06 Dose: 0.5 tab Hydromorphone HCl (Hydromorphone Inj 0.5 Mg/0.5 Ml Syr) 0.5 mg IV Q3H PRN PRN Reason: MODERATE Pain (Scale 4,5,6) & Pre PT Stop: 01/18/23 19:43 Last Admin: 01/06/23 22:27 Dose: 0.5 mg Hydromorphone HCl (Hydromorphone Inj 1 Mg/Ml Syringe) 1 mg IV Q3H PRN PRN Reason: SEVERE Pain (Scale 7,8,9,10) Stop: 01/18/23 19:43 Hydroxyzine HCl (Hydroxyzine Hcl 25 Mg Tab) 25 mg PO Q8H PRN PRN Reason: Anxiety Stop: 02/03/23 19:43 Promethazine HCl 12.5 mg/ (Sodium Chloride) 50.5 mls @ 202 mls/hr IV Q6H PRN PRN Reason: Nausea &/or Vomiting Stop: 02/03/23 19:43 Lorazepam 0.5 mg/ Syringe 0.5 mls @ 2 mls/min IV Q8H PRN PRN Reason: Sedation/Anxiety Stop: 02/03/23 13:57 Influenza Virus Vaccine Quadrival (Do Not Administer Flu Vaccine) 1 each N/A PRN PRN PRN Reason: Notification Stop: 02/03/23 19:43 Lidocaine (Lidocaine 5% 1 Patch) 1 patch TD [facility] Stop: 02/03/23 20:59 Last Admin: 01/06/23 20:55 Dose: 1 patch Lorazepam (Lorazepam 0.5 Mg Tab) 0.5 mg PO Q8H PRN PRN Reason: Sedation/Anxiety Stop: 02/03/23 19:43 Magnesium Hydroxide (Magnesium Hydroxide Susp 30 Ml Udc) 30 ml PO Q6H PRN PRN Reason: Constipation Stop: 01/30/23 16:52 Magnesium Hydroxide (Magnesium Hydroxide Susp 30 Ml Udc) 30 ml PO Q24H PRN PRN Reason: Constipation Stop: 02/03/23 19:43 Melatonin (Melatonin 3 Mg Tab) 3 mg PO [facility] Stop: 01/30/23 20:59 Last Admin: 01/06/23 20:56 Dose: 3 mg Metoclopramide HCl (Metoclopramide Hcl Inj 5 Mg/Ml 2 Ml Vial) 10 mg IV Q6H PRN PRN Reason: Nausea &/or Vomiting Stop: 02/03/23 19:43 Metoprolol Succinate (Metoprolol Succ 25mg Ext Rel Tab) 25 mg PO [facility] Stop: 01/30/23 20:59 Last Admin: 01/06/23 20:59 Dose: Not Given Naloxone HCl (Naloxone Hcl 0.4 Mg/1 Ml Vial/Carp) 0.1 mg IV Q5M PRN PRN Reason: Oversedation/Resp depression Stop: 02/03/23 19:43 Ondansetron HCl (Ondansetron Inj 2 Mg/Ml 2 Ml Vial) 4 mg IV Q6H PRN PRN Reason: Nausea &/or Vomiting Stop: 02/03/23 19:43 Ondansetron HCl (Ondansetron 4 Mg Od Tab) 4 mg PO Q6H PRN PRN Reason: Nausea Stop: 02/03/23 19:43 Oxycodone HCl (Oxycodone Hcl Ir 5 Mg Tab (Immediate Release)) 5 - 10 mg PO Q4H PRN PRN Reason: Pain & Pre PT Stop: 01/18/23 19:43 Last Admin: 01/07/23 13:23 Dose: 5 mg Pantoprazole Sodium (Pantoprazole 40 Mg Tab) 40 mg PO HS [facility] Stop: 01/30/23 20:59 Last Admin: 01/06/23 20:56 Dose: 40 mg Pneumococcal Polyvalent Vaccine (Do Not Administer Pneumococcal Vaccine) 1 each N/A PRN PRN PRN Reason: Notification Stop: 02/03/23 19:43 Senna/Docusate Sodium (Docusate Sodium/Senna 50/8.6mg Tab) 2 tab PO [facility] Stop: 02/03/23 20:59 Last Admin: 01/06/23 20:57 Dose: Not Given Sodium Biphosphate/Sodium Phosphate (Sod Phosphate/Sod Biphosphate Enema 132 Ml Btl) 132 ml [place] ONE PRN PRN Reason: Constipation Stop: 02/03/23 19:43 Tramadol HCl (Tramadol Hcl 50 Mg Tablet) 50 - 100 mg PO Q4H PRN PRN Reason: Moderate-Severe pain & Pre PT Stop: 02/03/23 19:43 Last Admin: 01/07/23 11:47 Dose: 100 mg
[2023-01-07] MEDS: GABAPENTIN 600 MG TAB PO SCH (21:00)
[2023-01-07] MEDS: METOPROLOL SUCC 25MG EXT REL TAB PO SCH (21:00)
[2023-01-07] MEDS: PANTOprazole 40 MG TAB PO SCH (21:00)
[2023-01-07] MEDS: MELATONIN 3 MG TAB PO SCH (21:01)
[2023-01-07] MEDS: DOCUSATE SODIUM/SENNA 50/8.6MG TAB PO SCH (21:02)
[2023-01-07] MEDS: LIDOCAINE 5% 1 PATCH TD SCH (21:06)
[2023-01-08] MEDS: traMADol HCL 50 MG TABLET PO PRN ×5 (00:21→23:41)
[2023-01-08] MEDS: ACETAMINOPHEN 500 MG TAB PO SCH ×3 (00:21→16:32)
[2023-01-08] MEDS: CYCLOBENZAPRINE HCL 10 MG TAB PO PRN ×3 (00:23→16:31)
[2023-01-08] MEDS: oxyCODONE HCL IR 5 MG TAB (IMMEDIATE RELEASE) PO PRN ×3 (05:06→16:31)
[2023-01-08] MEDS: LISINOPRIL/HCTZ 20/25MG 1 TAB PO SCH (08:23)
[2023-01-08 08:49] LABS: BUN Creatinine Ratio 27.6 (10-20); Calcium 9.8 mg/dl (8.6-10.3); Est GFR (African American) 81.6 ml/min; Est GFR (Non-African American) 70.4 ml/min; Potassium 3.5 mmol/L (3.5-5.1)
--- NOTE | 2023-01-08 09:03 | Orthopedic Progress Note ---
Date of Service January 08, 2023 Assessment & Plan (1) Lumbar disc herniation with radiculopathy: Plan: This time she continue with physical therapy. Hopefully she progressed over the weekend and discharge in the next few days. Admission and Anticipated Discharge Date Admission Date: January 02, 2023 Subjective Patient continues to struggle with back and left leg symptoms but they are steadily improving. She tolerated several sessions in the chair yesterday. She has been ambulating about the room. Physical Exam Physical Exam: Exam she is constricted testing left lower extremity. Her sensitivity to palpation of the IT band and back is improved. Results & Data Vital Signs (Past 12 Hours) Vital Signs Temp Pulse Resp BP Pulse Ox O2 Del Method 01/08/23 08:11 36.8 C 87 20 126/88 93 Room Air Queries Orthopedic Spine Obesity: Yes
[2023-01-08] MEDS: GABAPENTIN 400 MG CAP PO SCH (12:05)
--- NOTE | 2023-01-08 14:26 | Hospitalist Progress Note ---
Date of Service January 08, 2023 Assessment & Plan (1) Lumbar back pain with radiculopathy affecting left lower extremity: (2) HTN (hypertension): (3) Prediabetes: (4) Reactive airway disease: (5) GERD (gastroesophageal reflux disease): Plan Patient is 62 y/o F with PMH significant for HTN, prediabetes, GERD, obesity, reactive airway disease admitted with intractable back and left leg pain x2 days. History of lumbar surgery in the past. Lumbar back pain with radiculopathy affecting left lower extremity: Lumbar xray: No lumbar spine fracture. Moderate multilevel degenerative changes within the lumbar spine. Lumbar spine MRI noted disc protrusion at L5-S1 which abuts and displaces the transiting left S1 nerve roots as well as central canal and neural foraminal narrowing. In ER given dexamethasone 10mg IV, morphine total 8mg IV, lidocaine patch Bladder scan also without signs of retention Difficulty ambulating in ER secondary to LLE pain Fall precautions Continue home gabapentin Scheduled Tylenol and lidocaine patch. PRN oxycodone, IV morphine for moderate-severe pain Consult ortho spine-appreciate recs -manage conservatively at this time, would like to avoid surgical intervention -Recommending evaluation with interventional pain management for trial of epidural injections -if these are not effective or she fails to improve surgery would be considered- would be revision decompression, possible fusion L5-S1. 01/02- steroids added by ortho, made NPO after midnight in case procedure needed, flexeril 10mg TID prn added as well. 01/03-still remains in pain at the back with radiation to the left leg Appreciate pain therapist input and recommendation She wanted to go for surgery and appreciate orthospine input and recommendation for surgery tomorrow She continues to have back pain with radiculopathy and waiting for lumbar decompression and fusion this afternoon Remains medically stable-complains of more pain at the lower back and could not participate in physical therapy Otherwise hemodynamically stable with blood pressure on the lower side Back pain is worse today and has not had any physical therapy Has been participating physical therapy and getting better gradual Remains medically stable Status post lumbar decompression fusion involving L5-S1 distribution on 01/04/2023 She has been complaining of pain at the back with radiation to legs Still has the drain tube in situ Will have physical therapy as per Ortho recommendation Not yet ready to be discharged We will continue with PT and OT evaluation Need to stay over the weekend and continue with the physical therapy Likely to need rehab placement HTN (hypertension): In ER hypertensive but it got better with pain control Pain control as above Continue home lisinopril/HCTZ, metoprolol Blood pressure remains on the upper side at 149/83 Her blood pressure is controlled at 137/93 Blood pressure has been on the lower side and was advised to drink more fluid Blood pressure remains on the lower side at 96/59-she was advised to drink more fluid Blood pressure is well controlled today at 126/88 Prediabetes A1c: 5.8 on 06/25/22 Diet controlled Monitor AM glucose labs To monitor glucose following surgery Reactive airway disease: No signs acute exacerbation Continue albuterol as needed No wheezing and/or shortness of breath at rest-we will continue current medication No acute symptoms GERD (gastroesophageal reflux disease): Continue PPI Diet: Regular DVT Prophylaxis: SCDs for now Full Code as per admission discussion with pt Dispo: consider pt/ot once more stable We will monitor PRP Admission and Anticipated Discharge Date Admission Date: January 02, 2023 Subjective 01/03/2023 The patient was seen and examined in medical floor She complains to back pain with radiation to the left leg She was seen by pain therapist and denied to have any injection as was planned before She wants to go for surgery 01/04/2023 The patient was seen and examined in medical floor She still continues to have back pain with radiation to the legs She is waiting to go for surgery this afternoon 01/05/2023 The patient was seen and examined in medical floor She is a status post lumbar decompression and fusion on 01/04/2023 She has been complaining some pain at the back with radiation to the legs Has not had any physical therapy yet 01/06/2023 The patient was seen and examined in medical floor She complains to have more pain at the back with radiation to the legs Has not done any physical therapy due to increasing pain 01/07/2023 The patient was seen and examined in medical floor She has been complaining of more pain at the back with radiation Has not had any physical therapy yet Denies any other significant symptoms 01/08/2023 The patient was seen and examined in medical floor She has been complaining of more pain at the lower back Did participate with physical therapy with difficulty and wants to continue Denies any other significant symptoms Review of Systems Review of Systems: All systems reviewed and are unremarkable except as noted below Physical Exam Physical Exam: Lying in bed with some distress at the lower back with pain Constitutional: well developed, well nourished, + ill appearing and + obese Eyes: PERRL, conjunctivae normal, anicteric sclerae ENMT: external ear and nose normal, oropharynx normal Neck: trachea midline, no thyromegaly Respiratory: no respiratory distress Auscultation: lungs clear to auscultation bilaterally Cardiovascular: Rate/Rhythm: regular rate and regular rhythm; not tachycardic Heart Sounds: normal S1 and normal S2; no murmur Extremities: + edema (Trace edema bilaterally) Gastrointestinal (Abdomen): Inspection/Auscultation: normal bowel sounds; abdomen not distended Percussion/Palpation: abdomen soft; abdomen nontender Neurologic: normal touch/pain/proprioception and moves all extremities; no focal motor deficits Psychiatric: A+Ox3, euthymic affect Lymphatic: no cervical or axillary lymphadenopathy Results & Data Results & Data Vital Signs (Past 12 Hours) Vital Signs Temp Pulse Resp BP Pulse Ox O2 Del Method 01/08/23 08:11 36.8 C 87 20 126/88 93 Room Air Laboratory Results [facility] 01/08/23 07:57 Sodium 137 Potassium 3.5 Chloride 100 Carbon Dioxide 33 H BUN 24 H Creatinine 0.87 Glucose 105 H Calcium 9.8 Medications Administered Current Inpatient Medications Acetaminophen (Acetaminophen 500 Mg Tab) 1,000 mg PO Q8H [facility] Stop: 01/30/23 16:59 Last Admin: 01/08/23 08:02 Dose: 1,000 mg Acetaminophen (Acetaminophen 500 Mg Tab) 1,000 mg PO Q8H PRN PRN Reason: MILD Pain Scale 1,2,3 & Pre PT Stop: 02/03/23 19:43 Al Hydrox/Mg Hydrox/Simethicone (Aluminum/Magnesium Susp 30 Ml Udc) 30 ml PO Q6H PRN PRN Reason: Dyspepsia Stop: 02/03/23 19:43 Albuterol (Albuterol Hfa 8 Gm Inhaler) 2 puffs INH Q4H PRN PRN Reason: Shortness Of Breath Or Wheezing Stop: 01/30/23 16:52 Bisacodyl (Bisacodyl 10 Mg Supp) 10 mg [place] DAILY PRN PRN Reason: Constipation Stop: 02/03/23 19:43 Cyclobenzaprine HCl (Cyclobenzaprine Hcl 10 Mg Tab) 10 mg PO TID PRN PRN Reason: Muscle Spasm Stop: 02/01/23 20:59 Last Admin: 01/08/23 08:26 Dose: 10 mg Diphenhydramine HCl (Diphenhydramine Capsule 25 Mg Cap) 25 mg PO Q6H PRN PRN Reason: Allergic Rhinitis/Insomnia Stop: 02/03/23 19:43 Famotidine (Famotidine 20 Mg Tab) 20 mg PO Q12H PRN PRN Reason: Dyspepsia Stop: 02/03/23 19:43 Gabapentin (Gabapentin 400 Mg Cap) 400 mg PO DAILY@1200 [facility] Stop: 01/31/23 11:59 Last Admin: 01/08/23 12:05 Dose: 400 mg Gabapentin (Gabapentin 600 Mg Tab) 600 mg PO HS [facility] Stop: 01/30/23 20:59 Last Admin: 01/07/23 21:00 Dose: 600 mg Lisinopril/HCTZ (Lisinopril/Hctz 20/25mg 1 Tab) 0.5 tab PO QAM [facility] Stop: 01/31/23 08:59 Last Admin: 01/08/23 08:23 Dose: 0.5 tab Hydromorphone HCl (Hydromorphone Inj 0.5 Mg/0.5 Ml Syr) 0.5 mg IV Q3H PRN PRN Reason: MODERATE Pain (Scale 4,5,6) & Pre PT Stop: 01/18/23 19:43 Last Admin: 01/06/23 22:27 Dose: 0.5 mg Hydromorphone HCl (Hydromorphone Inj 1 Mg/Ml Syringe) 1 mg IV Q3H PRN PRN Reason: SEVERE Pain (Scale 7,8,9,10) Stop: 01/18/23 19:43 Hydroxyzine HCl (Hydroxyzine Hcl 25 Mg Tab) 25 mg PO Q8H PRN PRN Reason: Anxiety Stop: 02/03/23 19:43 Promethazine HCl 12.5 mg/ (Sodium Chloride) 50.5 mls @ 202 mls/hr IV Q6H PRN PRN Reason: Nausea &/or Vomiting Stop: 02/03/23 19:43 Lorazepam 0.5 mg/ Syringe 0.5 mls @ 2 mls/min IV Q8H PRN; Protocol PRN Reason: Sedation/Anxiety Stop: 02/03/23 13:57 Influenza Virus Vaccine Quadrival (Do Not Administer Flu Vaccine) 1 each N/A PRN PRN PRN Reason: Notification Stop: 02/03/23 19:43 Lidocaine (Lidocaine 5% 1 Patch) 1 patch TD [facility] Stop: 02/03/23 20:59 Last Admin: 01/07/23 21:06 Dose: 1 patch Lorazepam (Lorazepam 0.5 Mg Tab) 0.5 mg PO Q8H PRN PRN Reason: Sedation/Anxiety Stop: 02/03/23 19:43 Magnesium Hydroxide (Magnesium Hydroxide Susp 30 Ml Udc) 30 ml PO Q6H PRN PRN Reason: Constipation Stop: 01/30/23 16:52 Magnesium Hydroxide (Magnesium Hydroxide Susp 30 Ml Udc) 30 ml PO Q24H PRN PRN Reason: Constipation Stop: 02/03/23 19:43 Melatonin (Melatonin 3 Mg Tab) 3 mg PO [facility] Stop: 01/30/23 20:59 Last Admin: 01/07/23 21:01 Dose: 3 mg Metoclopramide HCl (Metoclopramide Hcl Inj 5 Mg/Ml 2 Ml Vial) 10 mg IV Q6H PRN PRN Reason: Nausea &/or Vomiting Stop: 02/03/23 19:43 Metoprolol Succinate (Metoprolol Succ 25mg Ext Rel Tab) 25 mg PO [facility] Stop: 01/30/23 20:59 Last Admin: 01/07/23 21:00 Dose: 25 mg Naloxone HCl (Naloxone Hcl 0.4 Mg/1 Ml Vial/Carp) 0.1 mg IV Q5M PRN PRN Reason: Oversedation/Resp depression Stop: 02/03/23 19:43 Ondansetron HCl (Ondansetron Inj 2 Mg/Ml 2 Ml Vial) 4 mg IV Q6H PRN PRN Reason: Nausea &/or Vomiting Stop: 02/03/23 19:43 Ondansetron HCl (Ondansetron 4 Mg Od Tab) 4 mg PO Q6H PRN PRN Reason: Nausea Stop: 02/03/23 19:43 Oxycodone HCl (Oxycodone Hcl Ir 5 Mg Tab (Immediate Release)) 5 - 10 mg PO Q4H PRN PRN Reason: Pain & Pre PT Stop: 01/18/23 19:43 Last Admin: 01/08/23 09:25 Dose: 10 mg Pantoprazole Sodium (Pantoprazole 40 Mg Tab) 40 mg PO HS [facility] Stop: 01/30/23 20:59 Last Admin: 01/07/23 21:00 Dose: 40 mg Pneumococcal Polyvalent Vaccine (Do Not Administer Pneumococcal Vaccine) 1 each N/A PRN PRN PRN Reason: Notification Stop: 02/03/23 19:43 Senna/Docusate Sodium (Docusate Sodium/Senna 50/8.6mg Tab) 2 tab PO HS [facility] Stop: 02/03/23 20:59 Last Admin: 01/07/23 21:02 Dose: Not Given Sodium Biphosphate/Sodium Phosphate (Sod Phosphate/Sod Biphosphate Enema 132 Ml Btl) 132 ml [place] ONE PRN PRN Reason: Constipation Stop: 02/03/23 19:43 Tramadol HCl (Tramadol Hcl 50 Mg Tablet) 50 - 100 mg PO Q4H PRN PRN Reason: Moderate-Severe pain & Pre PT Stop: 02/03/23 19:43 Last Admin: 01/08/23 12:06 Dose: 100 mg
[2023-01-08] MEDS: MELATONIN 3 MG TAB PO SCH (21:56)
[2023-01-08] MEDS: PANTOprazole 40 MG TAB PO SCH (21:56)
[2023-01-08] MEDS: GABAPENTIN 600 MG TAB PO SCH (21:56)
[2023-01-08] MEDS: DOCUSATE SODIUM/SENNA 50/8.6MG TAB PO SCH (21:57)
[2023-01-08] MEDS: LIDOCAINE 5% 1 PATCH TD SCH (21:57)
[2023-01-08] MEDS: METOPROLOL SUCC 25MG EXT REL TAB PO SCH (22:02)
[2023-01-09] MEDS: ACETAMINOPHEN 500 MG TAB PO SCH ×3 (00:40→17:15)
[2023-01-09] MEDS: traMADol HCL 50 MG TABLET PO PRN ×2 (05:47→23:21)
[2023-01-09] MEDS: HYDROmorphone INJ 1 MG/ML SYRINGE IV PRN ×3 (07:56→14:56)
[2023-01-09] MEDS: LISINOPRIL/HCTZ 20/25MG 1 TAB PO SCH (07:58)
--- NOTE | 2023-01-09 08:57 | Orthopedic Progress Note ---
Date of Service January 09, 2023 Assessment & Plan (1) Lumbar disc herniation with radiculopathy: Plan: Kathleen is postoperative day 5 status post TLIF L5-S1. She still struggling with back and left leg pain. Would consider increasing or adding a dose of Neuront in. She states Flexeril is helping her would continue this medicine. Continue with physical therapy and ambulation. Would consider discharged to rehab as well. Admission and Anticipated Discharge Date Admission Date: January 02, 2023 Kayli Silvestre is postoperative day 5 status post TLIF L5-S1. She still struggling with quite a bit of lower back and left leg pain along the lateral aspect of her thigh and calf. This is reproduced mostly when walking. She is most c omfortable lying on her side. She is on Neurontin 400 mg in the morning 600 mg in the evening. She had a bowel movement. You are seen physical therapy ambulating roughly 40 feet. Currently considering discharge to rehab. Review of Systems Review of Systems: All systems reviewed & are unremarkable except as noted in HPI & below Physical Exam Physical Exam: She sitting up in a chair eating breakfast. She is moderately uncomfortable Alert and oriented x3 Lumbar dressing is clean dry and intact Strength is intact bilateral lower extremities Results & Data Vital Signs (Past 12 Hours) Vital Signs Temp Pulse Resp BP Pulse Ox O2 Del Method 01/09/23 07:35 36.7 C 94 H 16 109/71 97 Room Air 01/08/23 22:05 36.9 C 77 18 106/73 95 Room Air
[2023-01-09] MEDS: CYCLOBENZAPRINE HCL 10 MG TAB PO PRN (09:52)
[2023-01-09] MEDS: GABAPENTIN 400 MG CAP PO SCH (11:53)
--- NOTE | 2023-01-09 15:39 | Hospitalist Progress Note ---
Date of Service January 09, 2023 Assessment & Plan (1) Lumbar back pain with radiculopathy affecting left lower extremity: (2) HTN (hypertension): (3) Prediabetes: (4) Reactive airway disease: (5) GERD (gastroesophageal reflux disease): Plan Patient is 62 y/o F with PMH significant for HTN, prediabetes, GERD, obesity, reactive airway disease admitted with intractable back and left leg pain x2 days. History of lumbar surgery in the past. Lumbar back pain with radiculopathy affecting left lower extremity: Lumbar xray: No lumbar spine fracture. Moderate multilevel degenerative changes within the lumbar spine. Lumbar spine MRI noted disc protrusion at L5-S1 which abuts and displaces the transiting left S1 nerve roots as well as central canal and neural foraminal narrowing. In ER given dexamethasone 10mg IV, morphine total 8mg IV, lidocaine patch Bladder scan also without signs of retention Difficulty ambulating in ER secondary to LLE pain Fall precautions Continue home gabapentin Scheduled Tylenol and lidocaine patch. PRN oxycodone, IV morphine for moderate-severe pain Consult ortho spine-appreciate recs -manage conservatively at this time, would like to avoid surgical intervention -Recommending evaluation with interventional pain management for trial of epidural injections -if these are not effective or she fails to improve surgery would be considered- would be revision decompression, possible fusion L5-S1. 01/02- steroids added by ortho, made NPO after midnight in case procedure needed, flexeril 10mg TID prn added as well. 01/03-still remains in pain at the back with radiation to the left leg Appreciate pain therapist input and recommendation She wanted to go for surgery and appreciate orthospine input and recommendation for surgery tomorrow She continues to have back pain with radiculopathy and waiting for lumbar decompression and fusion this afternoon Remains medically stable-complains of more pain at the lower back and could not participate in physical therapy Otherwise hemodynamically stable with blood pressure on the lower side Back pain is worse today and has not had any physical therapy Has been participating physical therapy and getting better gradual Remains medically stable and awaiting further PT and OT and will need placement Status post lumbar decompression fusion involving L5-S1 distribution on 01/04/2023 She has been complaining of pain at the back with radiation to legs Still has the drain tube in situ Will have physical therapy as per Ortho recommendation Not yet ready to be discharged We will continue with PT and OT evaluation Need to stay over the weekend and continue with the physical therapy Likely to need rehab placement HTN (hypertension): In ER hypertensive but it got better with pain control Pain control as above Continue home lisinopril/HCTZ, metoprolol Blood pressure remains on the upper side at 149/83 Her blood pressure is controlled at 137/93 Blood pressure has been on the lower side and was advised to drink more fluid Blood pressure remains on the lower side at 96/59-she was advised to drink more fluid Blood pressure is well controlled today at 126/88 Blood pressure noted to very low this afternoon following Dilaudid adminis tration Will monitor and if needed will give fluid boluses Prediabetes A1c: 5.8 on 06/25/22 Diet controlled Monitor AM glucose labs To monitor glucose following surgery Reactive airway disease: No signs acute exacerbation Continue albuterol as needed No wheezing and/or shortness of breath at rest-we will continue current medication No acute symptoms GERD (gastroesophageal reflux disease): Continue PPI Diet: Regular DVT Prophylaxis: SCDs for now Full Code as per admission discussion with pt Dispo: consider pt/ot once more stable We will monitor PRP Admission and Anticipated Discharge Date Admission Date: January 02, 2023 Subjective 01/03/2023 The patient was seen and examined in medical floor She complains to back pain with radiation to the left leg She was seen by pain therapist and denied to have any injection as was planned before She wants to go for surgery 01/04/2023 The patient was seen and examined in medical floor She still continues to have back pain with radiation to the legs She is waiting to go for surgery this afternoon 01/05/2023 The patient was seen and examined in medical floor She is a status post lumbar decompression and fusion on 01/04/2023 She has been complaining some pain at the back with radiation to the legs Has not had any physical therapy yet 01/06/2023 The patient was seen and examined in medical floor She complains to have more pain at the back with radiation to the legs Has not done any physical therapy due to increasing pain 01/07/2023 The patient was seen and examined in medical floor She has been complaining of more pain at the back with radiation Has not had any physical therapy yet Denies any other significant symptoms 01/08/2023 The patient was seen and examined in medical floor She has been complaining of more pain at the lower back Did participate with physical therapy with difficulty and wants to continue Denies any other significant symptoms 01/09/2023 The patient was seen and examined in medical floor She has been complaining of lot of pain Also complains to have some wheezing with a history of reactive airway disease on inhalers at home Otherwise medically stable Review of Systems Review of Systems: All systems reviewed and are unremarkable except as noted below Physical Exam Physical Exam: Lying in bed with some distress at the lower back with pain Constitutional: well developed, well nourished, + ill appearing and + obese Eyes: PERRL, conjunctivae normal, anicteric sclerae ENMT: external ear and nose normal, oropharynx normal Neck: trachea midline, no thyromegaly Respiratory: no respiratory distress Auscultation: lungs clear to auscultation bilaterally Cardiovascular: Rate/Rhythm: regular rate and regular rhythm; not tachycardic Heart Sounds: normal S1 and normal S2; no murmur Extremities: + edema (Trace edema bilaterally) Gastrointestinal (Abdomen): Inspection/Auscultation: normal bowel sounds; abdomen not distended Percussion/Palpation: abdomen soft; abdomen nontender Neurologic: normal touch/pain/proprioception and moves all extremities; no focal motor deficits Psychiatric: A+Ox3, euthymic affect Lymphatic: no cervical or axillary lymphadenopathy Results & Data Results & Data Vital Signs (Past 12 Hours) Vital Signs Temp Pulse Resp BP Pulse Ox O2 Del Method 01/09/23 15:20 37 C 132 H 16 84/58 L 98 Room Air 01/09/23 07:35 36.7 C 94 H 16 109/71 97 Room Air Medications Administered Current Inpatient Medications Acetaminophen (Acetaminophen 500 Mg Tab) 1,000 mg PO Q8H [facility] Stop: 01/30/23 16:59 Last Admin: 01/09/23 07:57 Dose: 1,000 mg Acetaminophen (Acetaminophen 500 Mg Tab) 1,000 mg PO Q8H PRN PRN Reason: MILD Pain Scale 1,2,3 & Pre PT Stop: 02/03/23 19:43 Al Hydrox/Mg Hydrox/Simethicone (Aluminum/Magnesium Susp 30 Ml Udc) 30 ml PO Q6H PRN PRN Reason: Dyspepsia Stop: 02/03/23 19:43 Albuterol (Albuterol Hfa 8 Gm Inhaler) 2 puffs INH Q4H PRN PRN Reason: Shortness Of Breath Or Wheezing Stop: 01/30/23 16:52 Bisacodyl (Bisacodyl 10 Mg Supp) 10 mg CO DAILY PRN PRN Reason: Constipation Stop: 02/03/23 19:43 Cyclobenzaprine HCl (Cyclobenzaprine Hcl 10 Mg Tab) 10 mg PO TID PRN PRN Reason: Muscle Spasm Stop: 02/01/23 20:59 Last Admin: 01/09/23 09:52 Dose: 10 mg Diphenhydramine HCl (Diphenhydramine Capsule 25 Mg Cap) 25 mg PO Q6H PRN PRN Reason: Allergic Rhinitis/Insomnia Stop: 02/03/23 19:43 Famotidine (Famotidine 20 Mg Tab) 20 mg PO Q12H PRN PRN Reason: Dyspepsia Stop: 02/03/23 19:43 Gabapentin (Gabapentin 400 Mg Cap) 400 mg PO DAILY@1200 [facility] Stop: 01/31/23 11:59 Last Admin: 01/09/23 11:53 Dose: 400 mg Gabapentin (Gabapentin 600 Mg Tab) 600 mg PO HS [facility] Stop: 01/30/23 20:59 Last Admin: 01/08/23 21:56 Dose: 600 mg Lisinopril/HCTZ (Lisinopril/Hctz 20/25mg 1 Tab) 0.5 tab PO QAM [facility] Stop: 01/31/23 08:59 Last Admin: 01/09/23 07:58 Dose: 0.5 tab Hydromorphone HCl (Hydromorphone Inj 0.5 Mg/0.5 Ml Syr) 0.5 mg IV Q3H PRN PRN Reason: MODERATE Pain (Scale 4,5,6) & Pre PT Stop: 01/18/23 19:43 Last Admin: 01/06/23 22:27 Dose: 0.5 mg Hydromorphone HCl (Hydromorphone Inj 1 Mg/Ml Syringe) 1 mg IV Q3H PRN PRN Reason: SEVERE Pain (Scale 7,8,9,10) Stop: 01/18/23 19:43 Last Admin: 01/09/23 14:56 Dose: 1 mg Hydroxyzine HCl (Hydroxyzine Hcl 25 Mg Tab) 25 mg PO Q8H PRN PRN Reason: Anxiety Stop: 02/03/23 19:43 Promethazine HCl 12.5 mg/ (Sodium Chloride) 50.5 mls @ 202 mls/hr IV Q6H PRN PRN Reason: Nausea &/or Vomiting Stop: 02/03/23 19:43 Lorazepam 0.5 mg/ Syringe 0.5 mls @ 2 mls/min IV Q8H PRN; Protocol PRN Reason: Sedation/Anxiety Stop: 02/03/23 13:57 Influenza Virus Vaccine Quadrival (Do Not Administer Flu Vaccine) 1 each N/A PRN PRN PRN Reason: Notification Stop: 02/03/23 19:43 Lidocaine (Lidocaine 5% 1 Patch) 1 patch TD [facility] Stop: 02/03/23 20:59 Last Admin: 01/08/23 21:57 Dose: 1 patch Lorazepam (Lorazepam 0.5 Mg Tab) 0.5 mg PO Q8H PRN PRN Reason: Sedation/Anxiety Stop: 02/03/23 19:43 Magnesium Hydroxide (Magnesium Hydroxide Susp 30 Ml Udc) 30 ml PO Q6H PRN PRN Reason: Constipation Stop: 01/30/23 16:52 Magnesium Hydroxide (Magnesium Hydroxide Susp 30 Ml Udc) 30 ml PO Q24H PRN PRN Reason: Constipation Stop: 02/03/23 19:43 Melatonin (Melatonin 3 Mg Tab) 3 mg PO [facility] Stop: 01/30/23 20:59 Last Admin: 01/08/23 21:56 Dose: 3 mg Metoclopramide HCl (Metoclopramide Hcl Inj 5 Mg/Ml 2 Ml Vial) 10 mg IV Q6H PRN PRN Reason: Nausea &/or Vomiting Stop: 02/03/23 19:43 Metoprolol Succinate (Metoprolol Succ 25mg Ext Rel Tab) 25 mg PO [facility] Stop: 01/30/23 20:59 Last Admin: 01/08/23 22:02 Dose: Not Given Naloxone HCl (Naloxone Hcl 0.4 Mg/1 Ml Vial/Carp) 0.1 mg IV Q5M PRN PRN Reason: Oversedation/Resp depression Stop: 02/03/23 19:43 Ondansetron HCl (Ondansetron Inj 2 Mg/Ml 2 Ml Vial) 4 mg IV Q6H PRN PRN Reason: Nausea &/or Vomiting Stop: 02/03/23 19:43 Ondansetron HCl (Ondansetron 4 Mg Od Tab) 4 mg PO Q6H PRN PRN Reason: Nausea Stop: 02/03/23 19:43 Oxycodone HCl (Oxycodone Hcl Ir 5 Mg Tab (Immediate Release)) 5 - 10 mg PO Q4H PRN PRN Reason: Pain & Pre PT Stop: 01/18/23 19:43 Last Admin: 01/08/23 16:31 Dose: 10 mg Pantoprazole Sodium (Pantoprazole 40 Mg Tab) 40 mg PO [facility] Stop: 01/30/23 20:59 Last Admin: 01/08/23 21:56 Dose: 40 mg Pneumococcal Polyvalent Vaccine (Do Not Administer Pneumococcal Vaccine) 1 each N/A PRN PRN PRN Reason: Notification Stop: 02/03/23 19:43 Senna/Docusate Sodium (Docusate Sodium/Senna 50/8.6mg Tab) 2 tab PO [facility] Stop: 02/03/23 20:59 Last Admin: 01/08/23 21:57 Dose: Not Given Sodium Biphosphate/Sodium Phosphate (Sod Phosphate/Sod Biphosphate Enema 132 Ml Btl) 132 ml CO ONE PRN PRN Reason: Constipation Stop: 02/03/23 19:43 Tramadol HCl (Tramadol Hcl 50 Mg Tablet) 50 - 100 mg PO Q4H PRN PRN Reason: Moderate-Severe pain & Pre PT Stop: 02/03/23 19:43 Last Admin: 01/09/23 05:47 Dose: 100 mg
--- NOTE | 2023-01-09 18:31 | XRay Report ---
XR chest 1V portable HISTORY: Shortness of breath. COMPARISON: Chest 05/11/2018. FINDINGS: Slightly rotated study. No pneumothorax. No pleural effusions. There are low lung volumes. The cardiac silhouette is top normal in size. No new focal lung consolidations to suggest a pneumonia . No evidence for pulmonary edema. No acute fractures identified. IMPRESSION: No acute process. ACT 112: Negative or not required by law. Electronically signed by: Travis Kaiser M.D. 01/09/2023 6:30 PM
[2023-01-09] MEDS ORDERED: SODIUM CHLORIDE 0.9% 500 ML IV SCH (20:30)
[2023-01-09] MEDS ORDERED: SODIUM CHLORIDE 0.9% 1,000 ML IV SCH (21:15)
[2023-01-09] MEDS: METOPROLOL SUCC 25MG EXT REL TAB PO SCH (22:25)
[2023-01-09] MEDS: DOCUSATE SODIUM/SENNA 50/8.6MG TAB PO SCH (22:25)
[2023-01-09] MEDS: PANTOprazole 40 MG TAB PO SCH (23:10)
[2023-01-09] MEDS: GABAPENTIN 600 MG TAB PO SCH (23:10)
[2023-01-09] MEDS: MELATONIN 3 MG TAB PO SCH (23:10)
[2023-01-09] MEDS: LIDOCAINE 5% 1 PATCH TD SCH (23:11)
[2023-01-09] MEDS: SODIUM CHLORIDE 0.9% 1,000 ML IV SCH (23:13)
[2023-01-09 23:35] LABS: Hematocrit (blood only) 38.4 % (37.0-47.0); Hemoglobin 12.3 g/dl (12.0-16.0)
[2023-01-10] MEDS: ACETAMINOPHEN 500 MG TAB PO SCH ×3 (00:16→17:26)
[2023-01-10] MEDS: traMADol HCL 50 MG TABLET PO PRN (04:33)
[2023-01-10] MEDS: CYCLOBENZAPRINE HCL 10 MG TAB PO PRN ×3 (04:34→22:47)
[2023-01-10 07:22] LABS: Basophils # (auto) 0.02 K/uL (0.00-0.20); Basophils % (auto) 0.2 %; Eosinophils # (auto) 0.17 K/uL (0.00-0.50); Eosinophils % (auto) 1.6 %; Hematocrit (blood only) 38.9 % (37.0-47.0); Hemoglobin 12.4 g/dl (12.0-16.0); Immature Granulocytes # (auto) 0.08 K/uL (0.01-0.20); Immature Granulocytes % (auto) 0.7 %; Lymphocytes # (auto) 2.52 K/uL (1.20-3.40); Lymphocytes % (auto) 23.1 %; Mean Corpuscular Hemoglobin 29.6 pg (25.0-34.0); Mean Corpuscular Hgb Conc 31.9 g/dL (32.0-36.0); Mean Corpuscular Volume 92.8 fL (80.0-100.0); Monocytes # (auto) 1.06 K/uL (0.11-0.59); Monocytes % (auto) 9.7 %; Neutrophils # (auto) 7.06 K/uL (1.40-6.50); Neutrophils % (auto) 64.7 %; Platelet Count 297 K/uL (130-400); RDW Coefficient of Variation 13.6 % (11.5-14.5); RDW Standard Deviation 46.5 fL (36.4-46.3); Red Blood Count 4.19 M/uL (4.20-5.40); White Blood Count 10.91 K/ul (4.8-10.8)
[2023-01-10 07:30] LABS: BUN Creatinine Ratio 26.1 (10-20); Calcium 8.8 mg/dl (8.6-10.3); Creatinine Clr Calc Pharmacy 80.1 ml/min; Est GFR (African American) 80.5 ml/min; Est GFR (Non-African American) 69.4 ml/min; Potassium 4.1 mmol/L (3.5-5.1)
[2023-01-10] MEDS: LISINOPRIL/HCTZ 20/25MG 1 TAB PO SCH (08:10)
[2023-01-10] MEDS: SODIUM CHLORIDE 0.9% 1,000 ML IV SCH (08:11)
--- NOTE | 2023-01-10 09:55 | Orthopedic Progress Note ---
Date of Service January 10, 2023 Assessment & Plan (1) Lumbar disc herniation with radiculopathy: Plan: At this time we will continue therapy as tolerated. Plan for rehab placement when bed is available. Admission and Anticipated Discharge Date Admission Date: January 02, 2023 Subjective Patient continues to have left leg pain. It is no longer in the buttock and thigh but only in the calf and foot. It seems to be improving. She is ambulating short distances with therapy. Physical Exam Physical Exam: On exam she is in the chair at the bedside. Sensory is intact lower extremities. Strength is intact. Results & Data Vital Signs (Past 12 Hours) Vital Signs Temp Pulse Pulse Resp BP BP Pulse Ox 01/10/23 07:16 36.9 C 80 16 128/79 98 01/10/23 01:00 81 102/67 01/09/23 22:27 90 93/62 L O2 Del Method 01/10/23 07:16 Room Air 01/10/23 01:00 01/09/23 22:27 Queries Orthopedic Spine Obesity: Yes
[2023-01-10] MEDS: oxyCODONE HCL IR 5 MG TAB (IMMEDIATE RELEASE) PO PRN ×2 (12:15→19:20)
[2023-01-10] MEDS: GABAPENTIN 400 MG CAP PO SCH (12:16)
--- NOTE | 2023-01-10 17:14 | Hospitalist Progress Note ---
Date of Service January 10, 2023 Assessment & Plan (1) Lumbar back pain with radiculopathy affecting left lower extremity: (2) HTN (hypertension): (3) Prediabetes: (4) Reactive airway disease: (5) GERD (gastroesophageal reflux disease): Plan Patient is 62 y/o F with PMH significant for HTN, prediabetes, GERD, obesity, reactive airway disease admitted with intractable back and left leg pain x2 days. History of lumbar surgery in the past. Lumbar back pain with radiculopathy affecting left lower extremity: Lumbar xray: No lumbar spine fracture. Moderate multilevel degenerative changes within the lumbar spine. Lumbar spine MRI noted disc protrusion at L5-S1 which abuts and displaces the transiting left S1 nerve roots as well as central canal and neural foraminal narrowing. In ER given dexamethasone 10mg IV, morphine total 8mg IV, lidocaine patch Bladder scan also without signs of retention Difficulty ambulating in ER secondary to LLE pain Fall precautions Continue home gabapentin Scheduled Tylenol and lidocaine patch. PRN oxycodone, IV morphine for moderate-severe pain Consult ortho spine-appreciate recs -manage conservatively at this time, would like to avoid surgical intervention -Recommending evaluation with interventional pain management for trial of epidural injections -if these are not effective or she fails to improve surgery would be considered- would be revision decompression, possible fusion L5-S1. 01/02- steroids added by ortho, made NPO after midnight in case procedure needed, flexeril 10mg TID prn added as well. 01/03-still remains in pain at the back with radiation to the left leg Appreciate pain therapist input and recommendation She wanted to go for surgery and appreciate orthospine input and recommendation for surgery tomorrow She continues to have back pain with radiculopathy and waiting for lumbar decompression and fusion this afternoon Remains medically stable-complains of more pain at the lower back and could not participate in physical therapy Otherwise hemodynamically stable with blood pressure on the lower side Back pain is worse today and has not had any physical therapy Has been participating physical therapy and getting better gradual Remains medically stable and awaiting further PT and OT and will need placement Slow improvement and remains hemodynamically stable We will continue PT and OT Status post lumbar decompression fusion involving L5-S1 distribution on 01/04/2023 She has been complaining of pain at the back with radiation to legs Still has the drain tube in situ Will have physical therapy as per Ortho recommendation Not yet ready to be discharged We will continue with PT and OT evaluation Need to stay over the weekend and continue with the physical therapy Likely to need rehab placement HTN (hypertension): In ER hypertensive but it got better with pain control Pain control as above Continue home lisinopril/HCTZ, metoprolol Blood pressure remains on the upper side at 149/83 Her blood pressure is controlled at 137/93 Blood pressure has been on the lower side and was advised to drink more fluid Blood pressure remains on the lower side at 96/59-she was advised to drink more fluid Blood pressure is well controlled today at 126/88 Blood pressure noted to very low this afternoon following Dilaudid administration Will monitor and if needed will give fluid boluses Blood pressure remains stable today on the lower side and no more tachycardia Prediabetes A1c: 5.8 on 06/25/22 Diet controlled Monitor AM glucose labs To monitor glucose following surgery Reactive airway disease: No signs acute exacerbation Continue albuterol as needed No wheezing and/or shortness of breath at rest-we will continue current medication No acute symptoms GERD (gastroesophageal reflux disease): Continue PPI Diet: Regular DVT Prophylaxis: SCDs for now Full Code as per admission discussion with pt Dispo: consider pt/ot once more stable We will monitor PRP Admission and Anticipated Discharge Date Admission Date: January 02, 2023 Subjective 01/03/2023 The patient was seen and examined in medical floor She complains to back pain with radiation to the left leg She was seen by pain therapist and denied to have any injection as was planned before She wants to go for surgery 01/04/2023 The patient was seen and examined in medical floor She still continues to have back pain with radiation to the legs She is waiting to go for surgery this afternoon 01/05/2023 The patient was seen and examined in medical floor She is a status post lumbar decompression and fusion on 01/04/2023 She has been complaining some pain at the back with radiation to the legs Has not had any physical therapy yet 01/06/2023 The patient was seen and examined in medical floor She complains to have more pain at the back with radiation to the legs Has not done any physical therapy due to increasing pain 01/07/2023 The patient was seen and examined in medical floor She has been complaining of more pain at the back with radiation Has not had any physical therapy yet Denies any other significant symptoms 01/08/2023 The patient was seen and examined in medical floor She has been complaining of more pain at the lower back Did participate with physical therapy with difficulty and wants to continue Denies any other significant symptoms 01/09/2023 The patient was seen and examined in medical floor She has been complaining of lot of pain Also complains to have some wheezing with a history of reactive airway disease on inhalers at home Otherwise medically stable 01/10/2023 The patient was seen and examined in medical floor She has been feeling much better today and the blood pressure is maintained Pain is reasonably controlled Has been getting physical therapy but not yet ready to be discharged Physical Exam Physical Exam: Lying in bed with some distress at the lower back with pain Constitutional: well developed, well nourished, + ill appearing and + obese Eyes: PERRL, conjunctivae normal, anicteric sclerae ENMT: external ear and nose normal, oropharynx normal Neck: trachea midline, no thyromegaly Respiratory: no respiratory distress Auscultation: lungs clear to auscultation bilaterally Cardiovascular: Rate/Rhythm: regular rate and regular rhythm; not tachycardic Heart Sounds: normal S1 and normal S2; no murmur Extremities: + edema (Trace edema bilaterally) Gastrointestinal (Abdomen): Inspection/Auscultation: normal bowel sounds; abdomen not distended Percussion/Palpation: abdomen soft; abdomen nontender Neurologic: normal touch/pain/proprioception and moves all extremities; no focal motor deficits Psychiatric: A+Ox3, euthymic affect Lymphatic: no cervical or axillary lymphadenopathy Results & Data Results & Data Vital Signs (Past 12 Hours) Vital Signs Temp Pulse Resp BP Pulse Ox O2 Del Method 01/10/23 15:13 37.0 C 97 H 17 107/67 99 Room Air 01/10/23 07:16 36.9 C 80 16 128/79 98 Room Air Laboratory Results Short CBC 01/09/23 01/10/23 Range/Units 23:14 06:35 WBC 10.91 H (4.8-10.8) K/ul Hgb 12.3 12.4 (12.0-16.0) g/dl Hct 38.4 38.9 (37.0-47.0) % Plt Count 297 (130-400) K/uL BMP 01/10/23 06:35 Sodium 137 Potassium 4.1 Chloride 103 Carbon Dioxide 30 BUN 23 Creatinine 0.88 Glucose 99 Calcium 8.8 Medications Administered Current Inpatient Medications Acetaminophen (Acetaminophen 500 Mg Tab) 1,000 mg PO Q8H LINDA Stop: 01/30/23 16:59 Last Admin: 01/10/23 08:10 Dose: 1,000 mg Acetaminophen (Acetaminophen 500 Mg Tab) 1,000 mg PO Q8H PRN PRN Reason: MILD Pain Scale 1,2,3 & Pre PT Stop: 02/03/23 19:43 Last Admin: 01/09/23 20:35 Dose: 1,000 mg Al Hydrox/Mg Hydrox/Simethicone (Aluminum/Magnesium Susp 30 Ml Udc) 30 ml PO Q6H PRN PRN Reason: Dyspepsia Stop: 02/03/23 19:43 Albuterol (Albuterol Hfa 8 Gm Inhaler) 2 puffs INH Q4H PRN PRN Reason: Shortness Of Breath Or Wheezing Stop: 01/30/23 16:52 Bisacodyl (Bisacodyl 10 Mg Supp) 10 mg MI DAILY PRN PRN Reason: Constipation Stop: 02/03/23 19:43 Cyclobenzaprine HCl (Cyclobenzaprine Hcl 10 Mg Tab) 10 mg PO TID PRN PRN Reason: Muscle Spasm Stop: 02/01/23 20:59 Last Admin: 01/10/23 12:16 Dose: 10 mg Diphenhydramine HCl (Diphenhydramine Capsule 25 Mg Cap) 25 mg PO Q6H PRN PRN Reason: Allergic Rhinitis/Insomnia Stop: 02/03/23 19:43 Famotidine (Famotidine 20 Mg Tab) 20 mg PO Q12H PRN PRN Reason: Dyspepsia Stop: 02/03/23 19:43 Gabapentin (Gabapentin 400 Mg Cap) 400 mg PO DAILY@1200 LINDA Stop: 01/31/23 11:59 Last Admin: 01/10/23 12:16 Dose: 400 mg Gabapentin (Gabapentin 600 Mg Tab) 600 mg PO HS LINDA Stop: 01/30/23 20:59 Last Admin: 01/09/23 23:10 Dose: 600 mg Lisinopril/HCTZ (Lisinopril/Hctz 20/25mg 1 Tab) 0.5 tab PO QAM LINDA Stop: 01/31/23 08:59 Last Admin: 01/10/23 08:10 Dose: 0.5 tab Hydromorphone HCl (Hydromorphone Inj 0.5 Mg/0.5 Ml Syr) 0.5 mg IV Q3H PRN PRN Reason: MODERATE Pain (Scale 4,5,6) & Pre PT Stop: 01/18/23 19:43 Last Admin: 01/06/23 22:27 Dose: 0.5 mg Hydromorphone HCl (Hydromorphone Inj 1 Mg/Ml Syringe) 1 mg IV Q3H PRN PRN Reason: SEVERE Pain (Scale 7,8,9,10) Stop: 01/18/23 19:43 Last Admin: 01/09/23 14:56 Dose: 1 mg Hydroxyzine HCl (Hydroxyzine Hcl 25 Mg Tab) 25 mg PO Q8H PRN PRN Reason: Anxiety Stop: 02/03/23 19:43 Promethazine HCl 12.5 mg/ (Sodium Chloride) 50.5 mls @ 202 mls/hr IV Q6H PRN PRN Reason: Nausea &/or Vomiting Stop: 02/03/23 19:43 Lorazepam 0.5 mg/ Syringe 0.5 mls @ 2 mls/min IV Q8H PRN; Protocol PRN Reason: Sedation/Anxiety Stop: 02/03/23 13:57 Sodium Chloride (Nss) 1,000 mls @ 100 mls/hr IV .Q10H LINDA Stop: 01/10/23 18:29 Last Admin: 01/10/23 08:11 Dose: 100 mls/hr Influenza Virus Vaccine Quadrival (Do Not Administer Flu Vaccine) 1 each N/A PRN PRN PRN Reason: Notification Stop: 02/03/23 19:43 Lidocaine (Lidocaine 5% 1 Patch) 1 patch TD HS LINDA Stop: 02/03/23 20:59 Last Admin: 01/09/23 23:11 Dose: Not Given Lorazepam (Lorazepam 0.5 Mg Tab) 0.5 mg PO Q8H PRN PRN Reason: Sedation/Anxiety Stop: 02/03/23 19:43 Magnesium Hydroxide (Magnesium Hydroxide Susp 30 Ml Udc) 30 ml PO Q6H PRN PRN Reason: Constipation Stop: 01/30/23 16:52 Magnesium Hydroxide (Magnesium Hydroxide Susp 30 Ml Udc) 30 ml PO Q24H PRN PRN Reason: Constipation Stop: 02/03/23 19:43 Melatonin (Melatonin 3 Mg Tab) 3 mg PO [facility] Stop: 01/30/23 20:59 Last Admin: 01/09/23 23:10 Dose: 3 mg Metoclopramide HCl (Metoclopramide Hcl Inj 5 Mg/Ml 2 Ml Vial) 10 mg IV Q6H PRN PRN Reason: Nausea &/or Vomiting Stop: 02/03/23 19:43 Metoprolol Succinate (Metoprolol Succ 25mg Ext Rel Tab) 25 mg PO [facility] Stop: 01/30/23 20:59 Last Admin: 01/09/23 22:25 Dose: Not Given Naloxone HCl (Naloxone Hcl 0.4 Mg/1 Ml Vial/Carp) 0.1 mg IV Q5M PRN PRN Reason: Oversedation/Resp depression Stop: 02/03/23 19:43 Ondansetron HCl (Ondansetron Inj 2 Mg/Ml 2 Ml Vial) 4 mg IV Q6H PRN PRN Reason: Nausea &/or Vomiting Stop: 02/03/23 19:43 Ondansetron HCl (Ondansetron 4 Mg Od Tab) 4 mg PO Q6H PRN PRN Reason: Nausea Stop: 02/03/23 19:43 Oxycodone HCl (Oxycodone Hcl Ir 5 Mg Tab (Immediate Release)) 5 - 10 mg PO Q4H PRN PRN Reason: Pain & Pre PT Stop: 01/18/23 19:43 Last Admin: 01/10/23 12:15 Dose: 10 mg Pantoprazole Sodium (Pantoprazole 40 Mg Tab) 40 mg PO [facility] Stop: 01/30/23 20:59 Last Admin: 01/09/23 23:10 Dose: 40 mg Pneumococcal Polyvalent Vaccine (Do Not Administer Pneumococcal Vaccine) 1 each N/A PRN PRN PRN Reason: Notification Stop: 02/03/23 19:43 Senna/Docusate Sodium (Docusate Sodium/Senna 50/8.6mg Tab) 2 tab PO [facility] Stop: 02/03/23 20:59 Last Admin: 01/09/23 22:25 Dose: Not Given Sodium Biphosphate/Sodium Phosphate (Sod Phosphate/Sod Biphosphate Enema 132 Ml Btl) 132 ml MI ONE PRN PRN Reason: Constipation Stop: 02/03/23 19:43 Tramadol HCl (Tramadol Hcl 50 Mg Tablet) 50 - 100 mg PO Q4H PRN PRN Reason: Moderate-Severe pain & Pre PT Stop: 02/03/23 19:43 Last Admin: 01/10/23 04:33 Dose: 100 mg
[2023-01-10] MEDS: LIDOCAINE 5% 1 PATCH TD SCH (20:29)
[2023-01-10] MEDS: GABAPENTIN 600 MG TAB PO SCH (20:29)
[2023-01-10] MEDS: METOPROLOL SUCC 25MG EXT REL TAB PO SCH (20:29)
[2023-01-10] MEDS: PANTOprazole 40 MG TAB PO SCH (20:30)
[2023-01-10] MEDS: MELATONIN 3 MG TAB PO SCH (20:31)
[2023-01-10] MEDS: DOCUSATE SODIUM/SENNA 50/8.6MG TAB PO SCH (21:08)
[2023-01-11] MEDS: oxyCODONE HCL IR 5 MG TAB (IMMEDIATE RELEASE) PO PRN ×3 (00:21→20:44)
[2023-01-11] MEDS: ACETAMINOPHEN 500 MG TAB PO SCH ×3 (01:17→17:07)
[2023-01-11] MEDS: traMADol HCL 50 MG TABLET PO PRN ×2 (03:37→14:55)
[2023-01-11] MEDS: LISINOPRIL/HCTZ 20/25MG 1 TAB PO SCH (08:44)
[2023-01-11] MEDS: GABAPENTIN 400 MG CAP PO SCH (11:34)
[2023-01-11] MEDS: CYCLOBENZAPRINE HCL 10 MG TAB PO PRN ×2 (14:55→23:23)
--- NOTE | 2023-01-11 17:25 | Hospitalist Progress Note ---
Date of Service January 11, 2023 Assessment & Plan (1) Lumbar back pain with radiculopathy affecting left lower extremity: (2) HTN (hypertension): (3) Prediabetes: (4) Reactive airway disease: (5) GERD (gastroesophageal reflux disease): Plan Patient is 62 y/o F with PMH significant for HTN, prediabetes, GERD, obesity, reactive airway disease admitted with intractable back and left leg pain x2 days. History of lumbar surgery in the past. Lumbar back pain with radiculopathy affecting left lower extremity: Lumbar xray: No lumbar spine fracture. Moderate multilevel degenerative changes within the lumbar spine. Lumbar spine MRI noted disc protrusion at L5-S1 which abuts and displaces the transiting left S1 nerve roots as well as central canal and neural foraminal narrowing. In ER given dexamethasone 10mg IV, morphine total 8mg IV, lidocaine patch Bladder scan also without signs of retention Difficulty ambulating in ER secondary to LLE pain Fall precautions Continue home gabapentin Scheduled Tylenol and lidocaine patch. PRN oxycodone, IV morphine for moderate-severe pain Consult ortho spine-appreciate recs -manage conservatively at this time, would like to avoid surgical intervention -Recommending evaluation with interventional pain management for trial of epidural injections -if these are not effective or she fails to improve surgery would be considered- would be revision decompression, possible fusion L5-S1. 01/02- steroids added by ortho, made NPO after midnight in case procedure needed, flexeril 10mg TID prn added as well. 01/03-still remains in pain at the back with radiation to the left leg Appreciate pain therapist input and recommendation She wanted to go for surgery and appreciate orthospine input and recommendation for surgery tomorrow She continues to have back pain with radiculopathy and waiting for lumbar decompression and fusion this afternoon Remains medically stable-complains of more pain at the lower back and could not participate in physical therapy Otherwise hemodynamically stable with blood pressure on the lower side Back pain is worse today and has not had any physical therapy Has been participating physical therapy and getting better gradual Remains medically stable and awaiting further PT and OT and will need placement Slow improvement and remains hemodynamically stable We will continue PT and OT-improving gradually Significant tachycardia without any source of infection There is no shortness of breath and has not been requiring any oxygen to maintain saturation She has been less ambulant since admission due to increasing pain at the back Will need to rule out pulmonary embolism CTA was ordered but patient could not lie flat and that was canceled Discussed with the patient and will try to have it done tomorrow Status post lumbar decompression fusion involving L5-S1 distribution on 01/04/2023 She has been complaining of pain at the back with radiation to legs Still has the drain tube in situ Will have physical therapy as per Ortho recommendation Not yet ready to be discharged We will continue with PT and OT evaluation Need to stay over the weekend and continue with the physical therapy Likely to need rehab placement Remains in significant pain with gradual improvement and not yet ready to be discharged HTN (hypertension): In ER hypertensive but it got better with pain control Pain control as above Continue home lisinopril/HCTZ, metoprolol Blood pressure remains on the upper side at 149/83 Her blood pressure is controlled at 137/93 Blood pressure has been on the lower side and was advised to drink more fluid Blood pressure remains on the lower side at 96/59-she was advised to drink more fluid Blood pressure is well controlled today at 126/88 Blood pressure noted to very low this afternoon following Dilaudid administration Will monitor and if needed will give fluid boluses Blood pressure remains stable today on the lower side and no more tachycardia Prediabetes A1c: 5.8 on 06/25/22 Diet controlled Monitor AM glucose labs To monitor glucose following surgery Reactive airway disease: No signs acute exacerbation Continue albuterol as needed No wheezing and/or shortness of breath at rest-we will continue current medication No acute symptoms GERD (gastroesophageal reflux disease): Continue PPI Diet: Regular DVT Prophylaxis: SCDs for now Full Code as per admission discussion with pt Dispo: consider pt/ot once more stable We will monitor PRP Admission and Anticipated Discharge Date Admission Date: January 02, 2023 Subjective 01/03/2023 The patient was seen and examined in medical floor She complains to back pain with radiation to the left leg She was seen by pain therapist and denied to have any injection as was planned before She wants to go for surgery 01/04/2023 The patient was seen and examined in medical floor She still continues to have back pain with radiation to the legs She is waiting to go for surgery this afternoon 01/05/2023 The patient was seen and examined in medical floor She is a status post lumbar decompression and fusion on 01/04/2023 She has been complaining some pain at the back with radiation to the legs Has not had any physical therapy yet 01/06/2023 The patient was seen and examined in medical floor She complains to have more pain at the back with radiation to the legs Has not done any physical therapy due to increasing pain 01/07/2023 The patient was seen and examined in medical floor She has been complaining of more pain at the back with radiation Has not had any physical therapy yet Denies any other significant symptoms 01/08/2023 The patient was seen and examined in medical floor She has been complaining of more pain at the lower back Did participate with physical therapy with difficulty and wants to continue Denies any other significant symptoms 01/09/2023 The patient was seen and examined in medical floor She has been complaining of lot of pain Also complains to have some wheezing with a history of reactive airway disease on inhalers at home Otherwise medically stable 01/10/2023 The patient was seen and examined in medical floor She has been feeling much better today and the blood pressure is maintained Pain is reasonably controlled Has been getting physical therapy but not yet ready to be discharged 01/11/2023 The patient was seen and examined in medical floor She has been complaining of ongoing back pain with radiation which seems to be slightly better Noted to have tachycardia without any shortness of breath Given the history of back surgery with prolonged bedrest and decreased range of mobility will rule out pulmonary embolism Review of Systems Review of Systems: All systems reviewed and are unremarkable except as noted below Physical Exam Physical Exam: Lying in bed with some distress at the lower back with pain Constitutional: well developed, well nourished, + ill appearing and + obese Eyes: PERRL, conjunctivae normal, anicteric sclerae ENMT: external ear and nose normal, oropharynx normal Neck: trachea midline, no thyromegaly Respiratory: no respiratory distress Auscultation: lungs clear to auscultation bilaterally Cardiovascular: Rate/Rhythm: regular rate and regular rhythm; not tachycardic Heart Sounds: normal S1 and normal S2; no murmur Extremities: + edema (Trace edema bilaterally) Gastrointestinal (Abdomen): Inspection/Auscultation: normal bowel sounds; abdomen not distended Percussion/Palpation: abdomen soft; abdomen nontender Musculoskeletal: Back pain with back tenderness but no acute arthritis involving any of the joint Neurologic: normal touch/pain/proprioception and moves all extremities; no focal motor deficits Psychiatric: A+Ox3, euthymic affect Lymphatic: no cervical or axillary lymphadenopathy Results & Data Results & Data Vital Signs (Past 12 Hours) Vital Signs Temp Pulse Pulse Resp BP BP Pulse Ox 01/11/23 15:41 36.7 C 93 H 18 103/73 100 01/11/23 10:11 74 103/67 99 01/11/23 07:13 36.8 C 18 114/72 98 O2 Del Method 01/11/23 15:41 Room Air 01/11/23 10:11 Room Air 01/11/23 07:13 Room Air Medications Administered Current Inpatient Medications Acetaminophen (Acetaminophen 500 Mg Tab) 1,000 mg PO Q8H LINDA Stop: 01/30/23 16:59 Last Admin: 01/11/23 17:07 Dose: 1,000 mg Acetaminophen (Acetaminophen 500 Mg Tab) 1,000 mg PO Q8H PRN PRN Reason: MILD Pain Scale 1,2,3 & Pre PT Stop: 02/03/23 19:43 Last Admin: 01/09/23 20:35 Dose: 1,000 mg Al Hydrox/Mg Hydrox/Simethicone (Aluminum/Magnesium Susp 30 Ml Udc) 30 ml PO Q6H PRN PRN Reason: Dyspepsia Stop: 02/03/23 19:43 Albuterol (Albuterol Hfa 8 Gm Inhaler) 2 puffs INH Q4H PRN PRN Reason: Shortness Of Breath Or Wheezing Stop: 01/30/23 16:52 Bisacodyl (Bisacodyl 10 Mg Supp) 10 mg MS DAILY PRN PRN Reason: Constipation Stop: 02/03/23 19:43 Cyclobenzaprine HCl (Cyclobenzaprine Hcl 10 Mg Tab) 10 mg PO TID PRN PRN Reason: Muscle Spasm Stop: 02/01/23 20:59 Last Admin: 01/11/23 14:55 Dose: 10 mg Diphenhydramine HCl (Diphenhydramine Capsule 25 Mg Cap) 25 mg PO Q6H PRN PRN Reason: Allergic Rhinitis/Insomnia Stop: 02/03/23 19:43 Famotidine (Famotidine 20 Mg Tab) 20 mg PO Q12H PRN PRN Reason: Dyspepsia Stop: 02/03/23 19:43 Gabapentin (Gabapentin 400 Mg Cap) 400 mg PO DAILY@1200 LINDA Stop: 01/31/23 11:59 Last Admin: 01/11/23 11:34 Dose: 400 mg Gabapentin (Gabapentin 600 Mg Tab) 600 mg PO [facility] Stop: 01/30/23 20:59 Last Admin: 01/10/23 20:29 Dose: 600 mg Lisinopril/HCTZ (Lisinopril/Hctz 20/25mg 1 Tab) 0.5 [facility] [place] Stop: 01/31/23 08:59 Last Admin: 01/11/23 08:44 Dose: 0.5 tab Hydromorphone HCl (Hydromorphone Inj 0.5 Mg/0.5 Ml Syr) 0.5 mg IV Q3H PRN PRN Reason: MODERATE Pain (Scale 4,5,6) & Pre PT Stop: 01/18/23 19:43 Last Admin: 01/06/23 22:27 Dose: 0.5 mg Hydromorphone HCl (Hydromorphone Inj 1 Mg/Ml Syringe) 1 mg IV Q3H PRN PRN Reason: SEVERE Pain (Scale 7,8,9,10) Stop: 01/18/23 19:43 Last Admin: 01/09/23 14:56 Dose: 1 mg Hydroxyzine HCl (Hydroxyzine Hcl 25 Mg Tab) 25 mg PO Q8H PRN PRN Reason: Anxiety Stop: 02/03/23 19:43 Promethazine HCl 12.5 mg/ (Sodium Chloride) 50.5 mls @ 202 mls/hr IV Q6H PRN PRN Reason: Nausea &/or Vomiting Stop: 02/03/23 19:43 Lorazepam 0.5 mg/ Syringe 0.5 mls @ 2 mls/min IV Q8H PRN; Protocol PRN Reason: Sedation/Anxiety Stop: 02/03/23 13:57 Influenza Virus Vaccine Quadrival (Do Not Administer Flu Vaccine) 1 each N/A PRN PRN PRN Reason: Notification Stop: 02/03/23 19:43 Lidocaine (Lidocaine 5% 1 Patch) 1 patch TD [facility] Stop: 02/03/23 20:59 Last Admin: 01/10/23 20:29 Dose: 1 patch Lorazepam (Lorazepam 0.5 Mg Tab) 0.5 mg PO Q8H PRN PRN Reason: Sedation/Anxiety Stop: 02/03/23 19:43 Magnesium Hydroxide (Magnesium Hydroxide Susp 30 Ml Udc) 30 ml PO Q6H PRN PRN Reason: Constipation Stop: 01/30/23 16:52 Magnesium Hydroxide (Magnesium Hydroxide Susp 30 Ml Udc) 30 ml PO Q24H PRN PRN Reason: Constipation Stop: 02/03/23 19:43 Melatonin (Melatonin 3 Mg Tab) 3 mg PO [facility] Stop: 01/30/23 20:59 Last Admin: 01/10/23 20:31 Dose: 3 mg Metoclopramide HCl (Metoclopramide Hcl Inj 5 Mg/Ml 2 Ml Vial) 10 mg IV Q6H PRN PRN Reason: Nausea &/or Vomiting Stop: 02/03/23 19:43 Metoprolol Succinate (Metoprolol Succ 25mg Ext Rel Tab) 25 mg PO [facility] Stop: 01/30/23 20:59 Last Admin: 01/10/23 20:29 Dose: 25 mg Naloxone HCl (Naloxone Hcl 0.4 Mg/1 Ml Vial/Carp) 0.1 mg IV Q5M PRN PRN Reason: Oversedation/Resp depression Stop: 02/03/23 19:43 Ondansetron HCl (Ondansetron Inj 2 Mg/Ml 2 Ml Vial) 4 mg IV Q6H PRN PRN Reason: Nausea &/or Vomiting Stop: 02/03/23 19:43 Ondansetron HCl (Ondansetron 4 Mg Od Tab) 4 mg PO Q6H PRN PRN Reason: Nausea Stop: 02/03/23 19:43 Oxycodone HCl (Oxycodone Hcl Ir 5 Mg Tab (Immediate Release)) 5 - 10 mg PO Q4H PRN PRN Reason: Pain & Pre PT Stop: 01/18/23 19:43 Last Admin: 01/11/23 08:56 Dose: 10 mg Pantoprazole Sodium (Pantoprazole 40 Mg Tab) 40 mg PO [facility] Stop: 01/30/23 20:59 Last Admin: 01/10/23 20:30 Dose: 40 mg Pneumococcal Polyvalent Vaccine (Do Not Administer Pneumococcal Vaccine) 1 each N/A PRN PRN PRN Reason: Notification Stop: 02/03/23 19:43 Senna/Docusate Sodium (Docusate Sodium/Senna 50/8.6mg Tab) 2 tab PO [facility] Stop: 02/03/23 20:59 Last Admin: 01/10/23 21:08 Dose: Not Given Sodium Biphosphate/Sodium Phosphate (Sod Phosphate/Sod Biphosphate Enema 132 Ml Btl) 132 ml MS ONE PRN PRN Reason: Constipation Stop: 02/03/23 19:43 Tramadol HCl (Tramadol Hcl 50 Mg Tablet) 50 - 100 mg PO Q4H PRN PRN Reason: Moderate-Severe pain & Pre PT Stop: 02/03/23 19:43 Last Admin: 01/11/23 14:55 Dose: 100 mg
[2023-01-11] MEDS: LIDOCAINE 5% 1 PATCH TD SCH (20:58)
[2023-01-11] MEDS: PANTOprazole 40 MG TAB PO SCH (20:58)
[2023-01-11] MEDS: METOPROLOL SUCC 25MG EXT REL TAB PO SCH (20:58)
[2023-01-11] MEDS: MELATONIN 3 MG TAB PO SCH (20:58)
[2023-01-11] MEDS: DOCUSATE SODIUM/SENNA 50/8.6MG TAB PO SCH (20:59)
[2023-01-11] MEDS: GABAPENTIN 600 MG TAB PO SCH (20:59)
[2023-01-11] MEDS: HYDROmorphone INJ 0.5 MG/0.5 ML SYR IV PRN (23:27)
[2023-01-12] MEDS: oxyCODONE HCL IR 5 MG TAB (IMMEDIATE RELEASE) PO PRN ×4 (01:04→14:20)
[2023-01-12] MEDS: ACETAMINOPHEN 500 MG TAB PO SCH ×3 (01:07→17:44)
[2023-01-12] MEDS: HYDROmorphone INJ 0.5 MG/0.5 ML SYR IV PRN (06:02)
[2023-01-12 06:40] LABS: Basophils # (auto) 0.03 K/uL (0.00-0.20); Basophils % (auto) 0.3 %; Eosinophils # (auto) 0.19 K/uL (0.00-0.50); Eosinophils % (auto) 1.6 %; Hemoglobin 11.9 g/dl (12.0-16.0); Immature Granulocytes # (auto) 0.04 K/uL (0.01-0.20); Immature Granulocytes % (auto) 0.3 %; Lymphocytes # (auto) 2.47 K/uL (1.20-3.40); Lymphocytes % (auto) 21.3 %; Mean Corpuscular Hemoglobin 30.1 pg (25.0-34.0); Mean Corpuscular Hgb Conc 32.2 g/dL (32.0-36.0); Mean Corpuscular Volume 93.7 fL (80.0-100.0); Mean Platelet Volume 9.9 fL (9.4-12.4); Monocytes # (auto) 0.87 K/uL (0.11-0.59); Monocytes % (auto) 7.5 %; Neutrophils # (auto) 7.98 K/uL (1.40-6.50); Platelet Count 294 K/uL (130-400); RDW Coefficient of Variation 13.6 % (11.5-14.5); RDW Standard Deviation 46.5 fL (36.4-46.3); Red Blood Count 3.95 M/uL (4.20-5.40); White Blood Count 11.58 K/ul (4.8-10.8)
[2023-01-12 06:59] LABS: BUN Creatinine Ratio 18.8 (10-20); Calcium 9.2 mg/dl (8.6-10.3); Creatinine Clr Calc Pharmacy 88.1 ml/min; Est GFR (African American) 90.3 ml/min; Est GFR (Non-African American) 77.9 ml/min; Potassium 4.4 mmol/L (3.5-5.1)
[2023-01-12] MEDS: LISINOPRIL/HCTZ 20/25MG 1 TAB PO SCH (08:39)
--- NOTE | 2023-01-12 08:55 | Orthopedic Progress Note ---
Date of Service January 12, 2023 Assessment & Plan (1) Lumbar disc herniation with radiculopathy: Plan: Yuliet is postoperative day 8 status post TLIF L5-S1. Continue physical therapy. Will premedicate before CT scan so she can tolerate this. Continue with pain control. Orthopedically stable. Admission and Anticipated Discharge Date Admission Date: January 02, 2023 Subjective David is postop day 8 status post TLIF L5-S1. Yesterday was better controlled lower back and left leg pain. Unfortunately she had to go down for a CT scan which seem to escalate her symptoms from thereon out. Currently struggling with mostly lower back pain. CT scan yesterday was not performed and they are going to reattempt today. Review of Systems Review of Systems: All systems reviewed & are unremarkable except as noted in HPI & below Physical Exam Physical Exam: She is in bed laying on her right side I took down her dressing for examination of incision. It looks great. No drainage. No ecchymosis No erythema. No significant edema Strength intact bilateral lower extremities Results & Data Vital Signs (Past 12 Hours) Vital Signs Temp Pulse Pulse Resp BP Pulse Ox O2 Del Method 01/12/23 07:43 36.9 C 81 18 114/67 98 Room Air 01/11/23 23:42 85 01/11/23 20:55 36.9 C 107 H 16 116/68 100 Room Air
[2023-01-12] MEDS: traMADol HCL 50 MG TABLET PO PRN (10:34)
[2023-01-12] MEDS: GABAPENTIN 400 MG CAP PO SCH (12:16)
--- NOTE | 2023-01-12 19:47 | Hospitalist Progress Note ---
Date of Service January 12, 2023 delayed entry date of service noted above Assessment & Plan (1) Lumbar back pain with radiculopathy affecting left lower extremity: (2) HTN (hypertension): (3) Prediabetes: (4) Reactive airway disease: (5) GERD (gastroesophageal reflux disease): Plan per admitting service notes with addendum: Patient is 62 y/o F with PMH significant for HTN, prediabetes, GERD, obesity, reactive airway disease admitted with intractable back and left leg pain x2 days. History of lumbar surgery in the past. Lumbar back pain with radiculopathy affecting left lower extremity: Lumbar xray: No lumbar spine fracture. Moderate multilevel degenerative changes within the lumbar spine. Lumbar spine MRI noted disc protrusion at L5-S1 which abuts and displaces the transiting left S1 nerve roots as well as central canal and neural foraminal narrowing. In ER given dexamethasone 10mg IV, morphine total 8mg IV, lidocaine patch Bladder scan also without signs of retention Difficulty ambulating in ER secondary to LLE pain Fall precautions Continue home gabapentin Scheduled Tylenol and lidocaine patch. PRN oxycodone, IV morphine for moderate-severe pain Consult ortho spine-appreciate recs -manage conservatively at this time, would like to avoid surgical intervention -Recommending evaluation with interventional pain management for trial of epidural injections -if these are not effective or she fails to improve surgery would be considered- would be revision decompression, possible fusion L5-S1. 01/02- steroids added by ortho, made NPO after midnight in case procedure needed, flexeril 10mg TID prn added as well. 01/03-still remains in pain at the back with radiation to the left leg Appreciate pain therapist input and recommendation She wanted to go for surgery and appreciate orthospine input and recommendation for surgery tomorrow She continues to have back pain with radiculopathy and waiting for lumbar decompression and fusion this afternoon Remains medically stable-complains of more pain at the lower back and could not participate in physical therapy Otherwise hemodynamically stable with blood pressure on the lower side Back pain is worse today and has not had any physical therapy Has been participating physical therapy and getting better gradual Remains medically stable and awaiting further PT and OT and will need placement Slow improvement and remains hemodynamically stable We will continue PT and OT-improving gradually 01/12 pain gradually improving continue PT/OT Significant tachycardia without any source of infection There is no shortness of breath and has not been requiring any oxygen to ma intain saturation She has been less ambulant since admission due to increasing pain at the back 01/12 HR improved no chest pain, dyspnea, palpitations, dizziness no leg pain Well's score 1.5, low probability for PE patient cannot tolerated CT angio due to severe pain will cancel CT angio chest, monitor closely Status post lumbar decompression fusion involving L5-S1 distribution on 01/04/2023 She has been complaining of pain at the back with radiation to legs Still has the drain tube in situ Will have physical therapy as per Ortho recommendation Not yet ready to be discharged We will continue with PT and OT evaluation Need to stay over the weekend and continue with the physical therapy Likely to need rehab placement Remains in significant pain with gradual improvement and not yet ready to be discharged 01/12 pain improving gradually HTN (hypertension): In ER hypertensive but it got better with pain control Pain control as above Continue home lisinopril/HCTZ, metoprolol Blood pressure remains on the upper side at 149/83 Her blood pressure is controlled at 137/93 Blood pressure has been on the lower side and was advised to drink more fluid Blood pressure remains on the lower side at 96/59-she was advised to drink more fluid Blood pressure is well controlled today at 126/88 Blood pressure noted to very low this afternoon following Dilaudid administrat ion Will monitor and if needed will give fluid boluses Blood pressure remains stable today on the lower side and no more tachycardia 01/12 continue tomonitor Prediabetes A1c: 5.8 on 06/25/22 Diet controlled Monitor AM glucose labs To monitor glucose following surgery Reactive airway disease: No signs acute exacerbation Continue albuterol as needed No wheezing and/or shortness of breath at rest-we will continue current medication No acute symptoms GERD (gastroesophageal reflux disease): Continue PPI Diet: Regular DVT Prophylaxis: SCDs for now Full Code as per admission discussion with pt Dispo: PT /OT evaluation Admission and Anticipated Discharge Date Admission Date: January 02, 2023 Subjective ff up for s/p back surgery, etc seen resting in bed, not in distress still having significant back pain but no chest pain, dyspnea, palpitations, dizziness no leg pain no other symptoms Review of Systems Review of Systems: all noted and negative except for above Physical Exam Physical Exam: General- oriented x 3, not in distress, speaks in sentences with no effort or accessory muscle use Eyes- anicteric Neck- no JVD Lungs- clear BS bilaterally, no rales/wheezes Heart- normal rate, regular rhythm; no murmurs Abdomen- normal bowel sounds, nondistended, soft, no tenderness Extremities- no pretibial edema, no calf tenderness Neuro- alert, oriented x 3; no gross focal neurologic deficits Skin- warm & dry Results & Data Results & Data Vital Signs (Past 12 Hours) Vital Signs Temp Pulse Resp BP Pulse Ox O2 Del Method 01/12/23 14:28 36.8 C 98 H 18 96/68 L 100 Room Air all noted and reviewed including below
[2023-01-12] MEDS: CYCLOBENZAPRINE HCL 10 MG TAB PO PRN (21:30)
[2023-01-12] MEDS: MELATONIN 3 MG TAB PO SCH (21:30)
[2023-01-12] MEDS: PANTOprazole 40 MG TAB PO SCH (21:30)
[2023-01-12] MEDS: LIDOCAINE 5% 1 PATCH TD SCH (21:30)
[2023-01-12] MEDS: DOCUSATE SODIUM/SENNA 50/8.6MG TAB PO SCH (21:30)
[2023-01-12] MEDS: METOPROLOL SUCC 25MG EXT REL TAB PO SCH (21:30)
[2023-01-12] MEDS: GABAPENTIN 600 MG TAB PO SCH (21:30)
[2023-01-13] MEDS: oxyCODONE HCL IR 5 MG TAB (IMMEDIATE RELEASE) PO PRN (00:05)
[2023-01-13] MEDS: ACETAMINOPHEN 500 MG TAB PO SCH ×3 (00:06→16:57)
[2023-01-13] MEDS: LISINOPRIL/HCTZ 20/25MG 1 TAB PO SCH (07:38)
[2023-01-13] MEDS: traMADol HCL 50 MG TABLET PO PRN ×2 (08:26→13:58)
[2023-01-13] MEDS: GABAPENTIN 400 MG CAP PO SCH (12:34)
--- NOTE | 2023-01-13 17:59 | Hospitalist Progress Note ---
Date of Service January 13, 2023 Assessment & Plan (1) Lumbar back pain with radiculopathy affecting left lower extremity: (2) HTN (hypertension): (3) Prediabetes: (4) Reactive airway disease: (5) GERD (gastroesophageal reflux disease): Plan per admitting service notes with addendum: Patient is 62 y/o F with PMH significant for HTN, prediabetes, GERD, obesity, reactive airway disease admitted with intractable back and left leg pain x2 days. History of lumbar surgery in the past. Lumbar back pain with radiculopathy affecting left lower extremity: Lumbar xray: No lumbar spine fracture. Moderate multilevel degenerative changes within the lumbar spine. Lumbar spine MRI noted disc protrusion at L5-S1 which abuts and displaces the transiting left S1 nerve roots as well as central canal and neural foraminal narrowing. Orthopedic service consulted, Dr. Haresh Lowry Patient continued to have back pain with radiculopathy despite pain medications Status post lumbar decompression fusion involving L5-S1 distribution on 01/04/2023 After surgery, there was difficulty with controlling postoperative pain Patient required as needed oxycodone, tramadol, Flexeril Patient eventually improved Physical therapy cleared patient for discharge to home with home physical therapy and this is what patient prefers to proceed with Discharge plan: Daily wound care As needed oxycodone for severe pain, tramadol for moderate pain Discontinue Flexeril in light of possible interaction with tramadol Follow-up with Dr. Lowry in 1 week for wound check Continue PT and OT at home Patient developed sinus tachycardia postoperatively Likely secondary to pain HR improved no chest pain, dyspnea, palpitations, dizziness no leg pain Well's score 1.5, low probability for PE patient cannot tolerated CT angio due to severe pain will cancel CT angio chest, monitor closely HTN (hypertension): Blood pressure on the lower side Discontinue lisinopril/HCTZ Continue metoprolol Encouraged to drink plenty of fluids Follow-up with PCP in 1 week Prediabetes A1c: 5.8 on 06/25/22 Diet controlled Reactive airway disease: No signs acute exacerbation Continue albuterol as needed GERD (gastroesophageal reflux disease): Continue PPI Diet: Regular DVT Prophylaxis: SCDs for now Full Code as per admission discussion with pt Dispo: Discharge to home with home health services Follow-up with Dr. Lowry in 1 week Follow-up with PCP in 1 week plan of care discussed with patient in detail and at length all questions answered She is understanding, agreeable, comfortable with the plan of care Admission and Anticipated Discharge Date Admission Date: January 02, 2023 Subjective Follow-up for back surgery, etc. Seen resting in bedside chair, comfortable, in good spirits Smiling States she feels much better today Pain is much better as well Able to ambulate in the hallways x5 Denies chest pain, shortness of breath, dizziness, presyncope or syncope No leg pain No other symptoms States that she is ready and would like to be discharged today She prefers to continue with physical therapy at home Review of Systems Review of Systems: all noted and negative except for above Physical Exam Physical Exam: General- oriented x 3, not in distress, speaks in sentences with no effort or accessory muscle use Eyes- anicteric Neck- no JVD Lungs- clear breath sounds bilaterally, no rales/wheezes Heart- normal rate, regular rhythm; no murmurs Abdomen- normal bowel sounds, nondistended, soft, nontender Extremities- no pretibial edema, no calf tenderness Back-dressing in place, no bleeding or discharge Neuro- alert, oriented x 3; no gross focal neurologic deficits Skin- warm & dry Results & Data Results & Data Vital Signs (Past 12 Hours) Vital Signs Temp Pulse Pulse Pulse Pulse Pulse Resp 01/13/23 17:47 36.7 C 60 81 92 H 118 H 85 17 01/13/23 14:28 36.7 C 92 H 17 01/13/23 07:36 36.8 C 95 H 16 BP BP Pulse Ox O2 Del Method 01/13/23 17:47 91/58 L 103/67 99 01/13/23 14:28 91/58 L 99 Room Air 01/13/23 07:36 106/67 96 Room Air all noted and reviewed including below
--- NOTE | 2023-01-13 18:06 | Discharge Summary ---
Discharge Summary Date of Service January 13, 2023 Notes For Next Care Provider Medication Changes From Visit New medications: Oxycodone 5 mg every 6 hours as needed for severe pain Tramadol 50 mg every 6 hours as needed for moderate pain Senokot-S daily Admission HPI Per Admitting Provider Patient is 62 y/o F with PMH HTN, prediabetes, GERD, obesity, reactive airway presented to ER with c/o low back pain and left leg pain x2 days. History obtained from patient and outpatient chart review. Patient reports history of lumbar surgery [address] Lowry. States has had chronic low back pain since that time rates chronically 1 out of 10 on pain scale. She reports has chronic numbness left lateral lower leg. States 2 weeks ago stood up and left leg gave out causing her to fall. Initially did not notice any increased back pain or any leg pain however 2 days ago started with left posterior leg pain that radiates to left foot and left low back pain. Over the past 2 days pain has increased and now notes difficulty ambulating and bearing weight to left leg secondary to severe pain that she rates 10 out of 10 on pain scale with attempting ambulation. She feels that left leg is now weak as well. Denies loss control of bowel or bladder. Reports feels like is emptying bladder normally. Takes gabapentin chronically and usually uses Tylenol or ibuprofen once a day at bedtime for chronic pain. Has been using Tylenol and ibuprofen throughout the day over the past 2 days without relief of pain. Denies fever/chills, diaphoresis, N/V/D/C, BONILLA, dizziness, syncope, vision changes, neck pain, CP, SOB, cough, sore throat, rhinorrhea, abdominal pain, extremity edema, rashes, urinary symptoms. Principal Dx & Hospital Course #1 = Principal Diagnosis (1) Lumbar back pain with radiculopathy affecting left lower extremity: (2) HTN (hypertension): (3) Prediabetes: (4) Reactive airway disease: (5) GERD (gastroesophageal reflux disease): Plan per admitting service notes with addendum: Patient is 62 y/o F with PMH significant for HTN, prediabetes, GERD, obesity, reactive airway disease admitted with intractable back and left leg pain x2 days. History of lumbar surgery in the past. Lumbar back pain with radiculopathy affecting left lower extremity: Lumbar xray: No lumbar spine fracture. Moderate multilevel degenerative changes within the lumbar spine. Lumbar spine MRI noted disc protrusion at L5-S1 which abuts and displaces the transiting left S1 nerve roots as well as central canal and neural foraminal narrowing. Orthopedic service consulted, Dr. Haresh Lowry Patient continued to have back pain with radiculopathy despite pain medications Status post lumbar decompression fusion involving L5-S1 distribution on 01/04/2023 After surgery, there was difficulty with controlling postoperative pain Patient required as needed oxycodone, tramadol, Flexeril Patient eventually improved Physical therapy cleared patient for discharge to home with home physical therapy and this is what patient prefers to proceed with Discharge plan: Daily wound care As needed oxycodone for severe pain, tramadol for moderate pain Discontinue Flexeril in light of possible interaction with tramadol Follow-up with Dr. Lowry in 1 week for wound check Continue PT and OT at home Patient developed sinus tachycardia postoperatively Likely secondary to pain HR improved no chest pain, dyspnea, palpitations, dizziness no leg pain Well's score 1.5, low probability for PE patient cannot tolerated CT angio due to severe pain will cancel CT angio chest, monitor closely HTN (hypertension): Blood pressure on the lower side Discontinue lisinopril/HCTZ Continue metoprolol Encouraged to drink plenty of fluids Follow-up with PCP in 1 week Prediabetes A1c: 5.8 on 06/25/22 Diet controlled Reactive airway disease: No signs acute exacerbation Continue albuterol as needed GERD (gastroesophageal reflux disease): Continue PPI Diet: Regular DVT Prophylaxis: SCDs for now Full Code as per admission discussion with pt Dispo: Discharge to home with home health services Follow-up with Dr. Lowry in 1 week Follow-up with PCP in 1 week plan of care discussed with patient in detail and at length all questions answered She is understanding, agreeable, comfortable with the plan of care Discharge Exam General- oriented x 3, not in distress, speaks in sentences with no effort or accessory muscle use Eyes- anicteric Neck- no JVD Lungs- clear breath sounds bilaterally, no rales/wheezes Heart- normal rate, regular rhythm; no murmurs Abdomen- normal bowel sounds, nondistended, soft, nontender Extremities- no pretibial edema, no calf tenderness Back-dressing in place, no bleeding or discharge Neuro- alert, oriented x 3; no gross focal neurologic deficits Skin- warm & dry Updated Medication List Medication Instructions Recorded Confirmed Type albuterol sulfate 2.5 mg/3 mL 2.5 mg inhalation QID PRN 05/11/18 12/31/22 History (0.083 %) solution for nebulization Shortness Of Breath omeprazole 20 mg tablet,delayed 40 mg PO HS 05/11/18 12/31/22 History release albuterol sulfate 90 mcg/actuation 2 puff inhalation Q4H PRN 12/31/22 12/31/22 History aerosol inhaler Shortness Of Breath Or Wheezing gabapentin 100 mg capsule 200 mg PO HS 12/31/22 12/31/22 History gabapentin 400 mg capsule 400 mg PO HS 12/31/22 12/31/22 History gabapentin 400 mg capsule 400 mg PO UD 12/31/22 12/31/22 History melatonin 3 mg tablet 3 mg PO HS 12/31/22 12/31/22 History metoprolol succinate 25 mg 25 mg PO HS 12/31/22 12/31/22 History tablet,extended release 24 hr oxycodone 5 mg tablet 5 mg PO Q6H PRN pain #30 tabs 01/10/23 Rx tramadol 50 mg tablet 50 mg PO Q6H PRN pain, moderate 01/10/23 Rx #30 tabs Hospital Stay Data Consultations 12/31/22 12:51 ED Decision to Admit Stat 12/31/22 16:53 Consult Orthopedic Spine Surgery Routine 01/03/23 07:46 Consult Pain Management Routine Procedures Performed Operation Date: 01/04/23 13:35 Actual Procedures p L5-S1 Lumbar Decompression Fusion(Not Applicable) - Haresh Lowry DO Diagnostic Imagining Performed Laboratory Results WBC 11.58 K/ul (4.8-10.8) H 01/12/23 06:16 RBC 3.95 M/uL (4.20-5.40) L 01/12/23 06:16 Hgb 11.9 g/dl (12.0-16.0) L 01/12/23 06:16 Hct 37.0 % (37.0-47.0) 01/12/23 06:16 MCV 93.7 fL (80.0-100.0) 01/12/23 06:16 MCH 30.1 pg (25.0-34.0) 01/12/23 06:16 MCHC 32.2 g/dL (32.0-36.0) 01/12/23 06:16 RDW Std Deviation 46.5 fL (36.4-46.3) H 01/12/23 06:16 RDW Coeff of Richard 13.6 % (11.5-14.5) 01/12/23 06:16 Plt Count 294 K/uL (130-400) 01/12/23 06:16 MPV 9.9 fL (9.4-12.4) 01/12/23 06:16 Immature Gran % (Auto) 0.3 % 01/12/23 06:16 Neut % (Auto) 69.0 % 01/12/23 06:16 Lymph % (Auto) 21.3 % 01/12/23 06:16 [place] % (Auto) 7.5 % 01/12/23 06:16 Eos % (Auto) 1.6 % 01/12/23 06:16 Baso % (Auto) 0.3 % 01/12/23 06:16 Neut # (Auto) 7.98 K/uL (1.40-6.50) H 01/12/23 06:16 Lymph # (Auto) 2.47 K/uL (1.20-3.40) 01/12/23 06:16 [place] # (Auto) 0.87 K/uL (0.11-0.59) H 01/12/23 06:16 Eos # (Auto) 0.19 K/uL (0.00-0.50) 01/12/23 06:16 Baso # (Auto) 0.03 K/uL (0.00-0.20) 01/12/23 06:16 Immature Gran # (Auto) 0.04 K/uL (0.01-0.20) 01/12/23 06:16 Sodium 135 mmol/L (136-145) L 01/12/23 06:16 Potassium 4.4 mmol/L (3.5-5.1) 01/12/23 06:16 Chloride 101 mmol/L (98-107) 01/12/23 06:16 Carbon Dioxide 29 mmol/L (21-32) 01/12/23 06:16 Anion Gap 5 (3-11) 01/12/23 06:16 BUN 15 mg/dl (6-23) 01/12/23 06:16 Creatinine 0.80 mg/dl (0.6-1.2) 01/12/23 06:16 Est Cr Clr Drug Dosing 88.1 ml/min 01/12/23 06:16 Est GFR ( Amer) 90.3 ml/min 01/12/23 06:16 Est GFR (Non-Af Amer) 77.9 ml/min 01/12/23 06:16 BUN/Creatinine Ratio 18.8 (10-20) 01/12/23 06:16 Glucose 95 mg/dl (70-99(Fasting)) 01/12/23 06:16 POC Glucose 122 mg/dl (70-99) H 01/05/23 06:08 Calcium 9.2 mg/dl (8.6-10.3) 01/12/23 06:16 Ionized Calcium 1.23 mmol/L (1.12-1.32) 01/04/23 06:51 Phosphorus 3.7 mg/dl (2.5-4.9) 01/04/23 06:51 Magnesium 2.2 mg/dl (1.7-2.4) 01/05/23 06:57 Total Bilirubin 0.3 mg/dl (0.2-1.0) 12/31/22 09:20 AST 15 U/L (13-39) 12/31/22 09:20 ALT 12 U/L (7-52) 12/31/22 09:20 Alkaline Phosphatase 68 U/L (34-104) 12/31/22 09:20 Total Protein 6.6 gm/dl (6.0-8.3) 12/31/22 09:20 Albumin 3.7 gm/dl (3.4-5.0) 12/31/22 09:20 Globulin 2.9 gm/dl (2.5-4.0) 12/31/22 09:20 Albumin/Globulin Ratio 1.3 (0.9-2) 12/31/22 09:20 Urine Color Yellow 12/31/22 Unknown Urine Appearance Clear (Clear) 12/31/22 Unknown Urine pH 7.5 (4.5-7.5) 12/31/22 Unknown Ur Specific [place] 1.010 (1.000-1.030) 12/31/22 Unknown Urine Protein Negative (Negative) 12/31/22 Unknown Urine Glucose (UA) Negative (Negative) 12/31/22 Unknown Urine Ketones Negative (Negative) 12/31/22 Unknown Urine Blood Negative (Negative) 12/31/22 Unknown Urine Nitrite Negative (Negative) 12/31/22 Unknown Urine Bilirubin Negative (Negative) 12/31/22 Unknown Urine Urobilinogen Negative (Negative) 12/31/22 Unknown Ur Leukocyte Esterase Negative (Negative) 12/31/22 Unknown Blood Type A Positive 01/03/23 17:42 Antibody Screen NEGATIVE 01/03/23 17:42 Impressions Lumbar Spine MRI 12/31/22 09:47 LUMBAR SPINE MRI HISTORY: hx laminectomy, low back pain, L leg weakness TECHNIQUE: Multiplanar multisequence MRI of the lumbar spine was performed without the use of contrast. COMPARISON: Lumbar spine radiograph 12/31/2022. Lumbar spine MRI 11/08/2013. FINDINGS: For the purpose of the report the L5-S1 disc space will be located on axial image 25 of 27. Motion artifact. There is mild levoscoliosis. There is 3 mm of retrolisthesis of L5 on S1. This remains unchanged. There is moderate disc space narrowing within the lower thoracic spine. There is mild disc space narrowing at L1-L2, L2-L3, and L4-5. There is moderate disc space narrowing at L5-S1. [id number] facet degenerative changes seen within the lumbar spine. The visualized sacrum is intact. No acute fractures identified. Lumbar subcutaneous edema is noted. The conus terminates at the L1-L2 disc space level. Paravertebral soft tissues appear unremarkable. Small broad-based posterior disc bulges within the lower thoracic spine resulting in mild central canal narrowing. L1-L2: Broad-based posterior disc bulge with ligamentum and facet hypertrophy resulting in mild central canal and mild right neural foraminal narrowing. There is moderate to severe left-sided neural foraminal narrowing due to the disc bulge and facet hypertrophy. L2-L3: Broad-based posterior disc bulge with ligamentum and facet hypertrophy resulting in [id number] central canal and neural foraminal narrowing. The AP diameter of the central canal is approximately 8 mm. L3-L4: Broad-based posterior disc bulge with ligamentum and facet hypertrophy resulting in [id number] central canal narrowing with an AP diameter of 8 mm. There is severe stenosis of the lateral recesses due to the disc bulge and facet hypertrophy. There is moderate to severe bilateral neural foraminal narr owing. Small annular tear is noted at the posterior disc bulge. L4-L5: Broad-based posterior disc bulge asymmetric to the right with ligamentum and facet hypertrophy resulting in mild central canal narrowing. There is moderate left and moderate to severe right neural foraminal narrowing. L5-S1: Broad-based posterior disc bulge with a left paracentral focal disc protrusion measuring 5 mm. This abuts and displaces the transiting left S1 nerve root and results in mild to moderate left-sided central canal narrowing and moderate to severe left-sided neural foraminal narrowing. There is mild right- sided neural foraminal narrowing. IMPRESSION: 1. A 5 mm left paracentral focal disc protrusion at L5-S1 which abuts and displaces the transiting left S1 nerve roots. 2. Additional multilevel degenerative changes within the lumbar spine with associated central canal and neural foraminal narrowing as described above. 3. No acute fractures. 4. Mild levoscoliosis. ACT 112: Negative or not required by law. Electronically signed by: Travis Kaiser M.D. 12/31/2022 11:54 AM Lumbar Spine X-Ray 01/04/23 13:35 FL lumbar spine 2-3V CLINICAL HISTORY: L5-S1 decompression. COMPARISON STUDY: 12/31/2022. FLUOROSCOPY TIME: 23 seconds. FLUOROSCOPY IMAGES: 2 Ka,r: 22.6 mGy FINDINGS: Posterior decompression and fusion at L5-S1 with pedicle screws and rods. Hardware appears intact. Disc spacers are in place. IMPRESSION: Fluoroscopic assistance as above. ACT 112: Negative or not required by law. Electronically signed by: Travis Kaiser M.D. 01/04/2023 7:23 PM Chest X-Ray 01/09/23 16:43 XR chest 1V portable HISTORY: Shortness of breath. COMPARISON: Chest 05/11/2018. FINDINGS: Slightly rotated study. No pneumothorax. No pleural effusions. There are low lung volumes. The cardiac silhouette is top normal in size. No new focal lung consolidations to suggest a pneumonia. No evidence for pulmonary edema. No acute fractures identified. IMPRESSION: No acute process. ACT 112: Negative or not required by law. Electronically signed by: Travis Kaiser M.D. 01/09/2023 6:30 PM Pending Results Patient Have Any Pending Studies at Discharge: No Discharge Instructions Given to Patient (Per Discharging Provider) PLEASE REFER TO YOUR NEW MEDICATION LIST AND FOLLOW INSTRUCTIONS CAREFULLY. YOUR NEW MEDICATIONS INCLUDE: TRAMADOL - for moderate pain OXYCODONE- for severe pain SENOKOT/S- laxative STOP TAKING LISINOPRIL/HCTZ. PLEASE DRINK PLENTY OF WATER- 8 GLASSES PER DAY. PLEASE CALL YOUR PRIMARY CARE PHYSICIAN OR RETURN TO THE ER IF WITH WORSENING OF SYMPTOMS, INCLUDING WORSENING BACK PAIN, LEG WEAKNESS/SWELLING/REDNESS, CHEST PAIN, SHORTNESS OF BREATH, DIZZINESS, FEVER/CHILLS, ETC FOLLOW UP WITH PRIMARY CARE PHYSICIAN IN [address] FOLLOW UP WITH DR. LOWRY IN 1 WEEK. Total Time Total Time Spent Total Time Spent (In Minutes): >30 minutes
== END 2023-01-13 18:38 | disposition home health service (06) | DRG 454 ==
LOC: ED 08:46 → 3W 08:46 → SUATTDRO 13:52 → 3W 16:05 → SUATTDRO 01-02 15:40

== ENCOUNTER 2024-12-17 09:45 | Inpatient (IN) ==
--- NOTE | 2024-12-04 09:13 | PAT Medication Instructions ---
Medication Instructions Date of Service December 04, 2024 Home Medications Medication Instructions Recorded methylprednisolone 4 mg tablets in See Rx Instructions .Route 11/25/24 a dose pack ([employer] ([employer])) .COMPLEX #21 ea albuterol sulfate 2.5 mg/3 mL (0.083 %) solution for nebulization 2.5 mg inhalation QID PRN Shortness Of Breath omeprazole 20 mg tablet,delayed release 40 mg PO HS albuterol sulfate 90 mcg/actuation aerosol inhaler 2 puff inhalation Q4H PRN Shortness Of Breath Or Wheezing gabapentin 100 mg capsule 200 mg PO HS gabapentin 400 mg capsule 400 mg PO BID gabapentin 400 mg capsule 400 mg PO HS melatonin 3 mg tablet 10 mg PO HS metoprolol succinate 25 mg tablet,extended release 24 hr 25 mg PO QAM methylprednisolone 4 mg tablets in a dose pack (Medrol ([employer])) See Rx Instructions .Route .COMPLEX #21 acetaminophen 500 mg capsule 500 mg PO UD PRN Pain furosemide 40 mg tablet 40 mg PO QAM ibuprofen 800 mg tablet 800 mg PO HS metformin 500 mg tablet 500 mg PO BID Continue as directed methylprednisolone 4 mg tablets in a dose pack (Medrol ([employer]Us)) See Rx Instructions .Route .COMPLEX #21 ASK your surgeon for instructions ibuprofen 800 mg tablet 800 mg PO HS DO NOT take the morning of surgery furosemide 40 mg tablet 40 mg PO QAM metformin 500 mg tablet 500 mg PO BID Take morning of surgery With a small sip of water, OTHERWISE NOTHING TO EAT OR DRINK AFTER MIDNIGHT: albuterol sulfate 2.5 mg/3 mL (0.083 %) solution for nebulization 2.5 mg inhalation QID PRN Shortness Of Breath (if needed) albuterol sulfate 90 mcg/actuation aerosol inhaler 2 puff inhalation Q4H PRN Shortness Of Breath Or Wheezing (use if needed; please bring rescue inhaler with you to hospital day of surgery if possible) gabapentin 400 mg capsule 400 mg PO BID metoprolol succinate 25 mg tablet,extended release 24 hr 25 mg PO QAM acetaminophen 500 mg capsule 500 mg PO UD PRN Pain (if needed) Take evening before surgery albuterol sulfate 2.5 mg/3 mL (0.083 %) solution for nebulization 2.5 mg inhalation QID PRN Shortness Of Breath (if needed) omeprazole 20 mg tablet,delayed release 40 mg PO HS albuterol sulfate 90 mcg/actuation aerosol inhaler 2 puff inhalation Q4H PRN Shortness Of Breath Or Wheezing (if needed) gabapentin 100 mg capsule 200 mg PO HS gabapentin 400 mg capsule 400 mg PO BID gabapentin 400 mg capsule 400 mg PO HS melatonin 3 mg tablet 10 mg PO HS acetaminophen 500 mg capsule 500 mg PO UD PRN Pain (if needed) metformin 500 mg tablet 500 mg PO BID Other Notes If you have any questions please call us at [phone] or [phone] or [phone] or [phone]
--- NOTE | 2024-12-06 14:58 | Anesthesiology Consultation ---
Date of Service December 06, 2024 Assessment & Plan (1) Encounter for pre-operative examination: Plan ADDENDUM 12/11/24 0952: PCP office visit 12/10/24= "Preop examination... Functional status is adequate (equal to 4 METS). Patient is low medical risk for listed procedure... Proceed with planned lumbar decompression and fusion surgery... Patient acceptable risk for surgery Chart Review Chart Review: Acceptable Risk for Surgery (pending surgeon ordered PCP clearance ) and Patient seen in Pre Admission Testing - Awaiting PCP clearance 12/10/24 (Dr Reddy) - Check BSG AM DOS Per PAT appt on 12/06/24, no recent illness/disease exposures, illness related symptoms, or recent illness/disease positive tests. Will leave to surgeon's discretion if preop Covid testing needed L5-S1 Decompression/fusion 01/04/23= Done under [facility] with Grade 2 veiw, ETT #7.0. Atraumatic x 1 Teaching & Discussion Pre-Anesthesia Teaching/Discussion Notes: Instructed NPO after midnight before surgery,except medications with 15 cc of water. Medication instructions provided according to the PAT guidelines. History Surgery Operation Date: 12/17/24 10:25 Proposed Procedures p Hardware Removal L5-S1, Decompression L2-L4 Fusion L2-S1 - Haresh Lowry, Height/Weight Height: 5 ft 4 in Weight: 117.8 kg Allergies Allergy/AdvReac Type Severity Reaction Status Date / Time Sulfa (Sulfonamide Allergy Unknown Rash Verified 11/30/24 09:31 Antibiotics) Yeast Allergy Unknown Gastrointestinal Verified 11/30/24 09:31 Upset Medications Home Medications Medication Instructions Recorded Confirmed Last Taken albuterol sulfate 2.5 mg/3 mL 2.5 mg inhalation QID PRN 05/11/18 11/30/24 Unknown (0.083 %) solution for nebulization Shortness Of Breath omeprazole 20 mg tablet,delayed 40 mg PO HS 05/11/18 11/30/24 12/30/22 release albuterol sulfate 90 mcg/actuation 2 puff inhalation Q4H PRN 12/31/22 11/30/24 Unknown aerosol inhaler Shortness Of Breath Or Wheezing gabapentin 100 mg capsule 200 mg PO HS 12/31/22 11/30/24 12/30/22 gabapentin 400 mg capsule 400 mg PO BID 12/31/22 11/30/2412/30/23 gabapentin 400 mg capsule 400 mg PO HS 12/31/22 11/30/24 12/30/22 melatonin 3 mg tablet 10 mg PO HS 12/31/22 11/30/24 12/30/22 metoprolol succinate 25 mg 25 mg PO QAM 12/31/22 11/30/24 12/30/22 tablet,extended release 24 hr methylprednisolone 4 mg tablets in See Rx Instructions .Route 11/25/24 11/30/24 Unknown a dose pack (Medrol (Rodolfo)) .COMPLEX #21 ea acetaminophen 500 mg capsule 500 mg PO UD PRN Pain 11/30/24 11/30/24 Unknown ibuprofen 800 mg tablet 800 mg PO HS 11/30/24 11/30/24 Unknown metformin 500 mg tablet 500 mg PO BID 11/30/24 11/30/24 Unknown furosemide 20 mg tablet 20 mg PO QAM 12/06/24 12/06/24 Unknown Past Medical History Medical History GERD (gastroesophageal reflux disease) well controlled and stable History of postoperative nausea and vomiting HTN (hypertension) 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 Peripheral edema "mostly left leg" Pre-diabetes takes Metformin more for weight control Restrictive airway disease well controlled and stable only need rescue inhaler/neb when sick Seizure-like activity "reaction to fever" not a seizure >15 yrs ago Sleep apnea CPAP Exercise / Class Metabolic Activity II 4-5 Yardwork/Stairs/Walk up hill (one flight of stairs - no chest pain or SOB - uses cane in public ) Past Family History Family History Father Heart disease Past Surgical History Surgical History History of dilatation and curettage History of lumbar laminectomy Left L5-S1 History of lumbar spinal fusion Hx of rotator cuff surgery (2022) Hx of tubal ligation S/P left knee arthroscopy Past Anesthesia History No Hx of Anesthesia Complications (with exception to PONV ) and No Family Hx of Anesthesia Complications History of PONV History of PONV (improved with pre and karel anti nausea medication ) and Hx of Motion Sickness Social History Smoking Status: Never smoker Do You Dip or Chew Tobacco: No Hx Alcohol Use: No Hx Substance Use: No substance use type: does not use Review of Systems Patient denies chest pain, shortness of breath, dyspnea on exertion, cough, wheezing, palpitations. No hx of stroke, ND. No hx of blood clots or blood transfusions Physical Exam Vital Signs VITALS BP 102/67 (BP fluctuates - no current symptoms of dizziness/syncope) P 65 TEMP 97.9 SP02 94% RESP 16 Constitutional no acute distress ENMT Mouth: no TMJ clicking Thyromental Distance: > or= 3.5 Finger Breadths (3.0) Mallampati Class: III Upper veneers (#6-11) Crowns to side teeth Neck + limited neck extension (minimal) Respiratory normal respiratory effort; no respiratory distress Auscultation: lungs clear to auscultation bilaterally; no wheezes Cardiovascular Rate/Rhythm: regular rate and regular rhythm Heart Sounds: no murmur Vessels: no carotid bruit Musculoskeletal Spine: no pain with cervical ROM Extremities: extremities normal to inspection Psychiatric Orientation: alert Lab Results Anesthesia Preop Results Results Anesthesia Widget: WBC 8.32 K/ul (4.8-10.8) 11/25/24 Hgb 14.3 g/dl (12.0-16.0) 11/25/24 Hct 44.7 % (37.0-47.0) 11/25/24 Plt 259 K/uL (130-400) 11/25/24 Na 139 mmol/L (136-145) 11/25/24 K 4.3 mmol/L (3.5-5.1) 11/25/24 Cl 107 mmol/L (98-107) 11/25/24 CO2 26 mmol/L (21-32) 11/25/24 BUN 14 mg/dl (6-23) 11/25/24 Creat 0.79 mg/dl (0.6-1.2) 11/25/24 Glucose Level 97 mg/dl (70-99(Fasting)) 11/25/24 PT 10.0 Seconds (9.0-12.0) 12/06/24 PTT 27 Seconds (21-31) 12/06/24 INR 0.9 (0.9-1.1) 12/06/24 HA1c 6.2 % (4.5-5.6) H 10/09/25 Urine Color Yellow 12/06/24 Urine Appearance Clear (Clear) 12/06/24 Urine pH 5.0 (4.5-7.5) 12/06/24 Urine Specific [place] 1.007 (1.000-1.030) 12/06/24 Urine Protein Negative (Negative) 12/06/24 Urine Glucose (UA) Negative (Negative) 12/06/24 Urine Ketones Negative (Negative) 12/06/24 Urine Blood Negative (Negative) 12/06/24 Urine Nitrite Negative (Negative) 12/06/24 Urine Bilirubin Negative (Negative) 12/06/24 Urine Urobilinogen Negative (Negative) 12/06/24 Urine Leukocyte Esterase Trace (Negative) H 12/06/24 Urine WBC (Auto) 0-5 /hpf (0-5) 12/06/24 Urine RBC (Auto) 3-5 /hpf (0-2) H 12/06/24 Urine Hyaline Casts (Auto) 0-2 /lpf (0-2) 12/06/24 Urine Epithelial Cells (Auto) 0-2 /hpf (0-2) 12/06/24 Urine Bacteria (Auto) None Seen (None Seen) 12/06/24 Blood Type A Positive 12/06/24 Antibody Screen NEGATIVE 12/06/24 Testing Electrocardiogram Date: 01/01/24 Findings: + NSR @ (81bpm) Normal EKG per cardio Echocardiogram Date: 03/02/24 EF: 60-64% LV Function: normal RWMA: + none Other Findings: + LVH (mild/concentric) and + diastolic dysfunction (Grade I ) Mild AV sclerosis is present. Proximal ascending thoracic aorta mildly enlarged at 4.2cm Moderate TR Mild to moderate pulm HTN. PASP is 40-45mmHg Other Testing Chest/Abdomen/Pelvis CT 01/01/24= No traumatic change identified in the chest, abdomen or pelvis. Stable 2 mm pleural-based left lower lobe pulmonary nodule No bronchiectasis, honeycombing or reticulation. No pleural effusion or pneumothorax.
[2024-12-17] MEDS ORDERED: LIDOCAINE 2% 2 ML VIAL/AMP(20MG/ML) INFIL ONE (10:02)
[2024-12-17] MEDS ORDERED: PROPOFOL IV EMULSION 10 MG/ML 20 ML VIAL IV ONE (10:02)
[2024-12-17] MEDS ORDERED: ROCURONIUM BROMIDE 10 MG/ML 5 ML VIAL IV ONE ×2 (10:02→12:08)
[2024-12-17] MEDS ORDERED: ONDANSETRON INJ 2 MG/ML 2 ML VIAL ONE (10:02)
[2024-12-17] MEDS ORDERED: MIDAZOLAM HCL 1 MG/ML 2ML VIAL ONE (10:02)
[2024-12-17] MEDS ORDERED: DEXAMETHASONE SOD INJ 4 MG/ML VIAL ONE (10:02)
[2024-12-17] MEDS: CeleBREX 200 MG CAP PO SCH (10:09)
[2024-12-17] MEDS: ACETAMINOPHEN 500 MG TAB PO SCH (10:09)
[2024-12-17] MEDS: LR 60ML/HR IV SCH (10:10)
[2024-12-17] MEDS: GABAPENTIN 300 MG CAP PO SCH (10:10)
[2024-12-17] MEDS: LR 15ML/HR IV SCH (10:11)
[2024-12-17] MEDS ORDERED: ATROPINE SULFATE 0.1 MG/ML 10ML SYR IV PRN (10:55)
[2024-12-17] MEDS ORDERED: HYDROmorphone INJ 2 MG/ML SYR/VIAL IV PRN (10:55)
[2024-12-17] MEDS ORDERED: PROMETHAZINE HCL 6.25 MG in SODIUM CHLORIDE 0.9% 50 ML IV PRN (10:55)
[2024-12-17] MEDS ORDERED: ONDANSETRON INJ 2 MG/ML 2 ML VIAL IV PRN ×2 (10:55→15:51)
--- NOTE | 2024-12-17 11:12 | History & Physical Bridge Note ---
Date of Service December 17, 2024 History & Physical Bridge Note I have examined the patient, reviewed the History & Physical and in the interval since the performance of the History & Physical I have noted the following changes of clinical significance: no changes noted
--- NOTE | 2024-12-17 11:13 | History & Physical Report ---
Date of Service December 17, 2024 Assessment & Plan (1) Multilevel lumbosacral spondylosis with radiculopathy: Plan: Hardware removal L5-S1, decompression L2-L4, fusion L2-S1 History of Present Illness Chief Complaint: Back and leg pain Primary Care Provider: Shelley Reddy MD This is a 63-year-old female known to me the presents chronic persistent back and leg pain of failing course of nonoperative care is here for surgical invention. Allergies Allergy/AdvReac Type Severity Reaction Status Date / Time Sulfa (Sulfonamide Allergy Unknown Rash Verified 12/17/24 09:51 Antibiotics) Yeast Allergy Unknown Gastrointestinal Verified 12/17/24 09:51 Upset Home Medications Medication Instructions Recorded Confirmed Type albuterol sulfate 2.5 mg/3 mL 2.5 mg inhalation QID PRN 05/11/18 12/17/24 History (0.083 %) solution for nebulization Shortness Of Breath omeprazole 20 mg tablet,delayed 40 mg PO HS 05/11/18 12/17/24 History release albuterol sulfate 90 mcg/actuation 2 puff inhalation Q4H PRN 12/31/22 12/17/24 History aerosol inhaler Shortness Of Breath Or Wheezing gabapentin 100 mg capsule 200 mg PO HS 12/31/22 12/17/24 History gabapentin 400 mg capsule 400 mg PO BID 12/31/22 12/17/24 History gabapentin 400 mg capsule 400 mg PO HS 12/31/22 12/17/24 History melatonin 3 mg tablet 10 mg PO HS 12/31/22 12/17/24 History metoprolol succinate 25 mg 25 mg PO QAM 12/31/22 12/17/24 History tablet,extended release 24 hr methylprednisolone 4 mg tablets in See Rx Instructions .Route 11/25/24 12/17/24 Rx a dose pack (Medrol (Rodolfo)) .COMPLEX #21 ea acetaminophen 500 mg capsule 500 mg PO UD PRN Pain 11/30/24 12/17/24 History ibuprofen 800 mg tablet 800 mg PO HS 11/30/24 12/17/24 History metformin 500 mg tablet 500 mg PO BID 11/30/24 12/17/24 History furosemide 20 mg tablet 20 mg PO QAM 12/06/24 12/17/24 History Past Med/Surg History Problem List (Updated 12/17/24 @ 11:13 by Haresh Lowry DO) Multilevel lumbosacral spondylosis with radiculopathy Encounter for pre-operative examination Lumbar disc herniation with radiculopathy Left L5-S1 Abnormal magnetic resonance imaging of lumbar spine (Acute) Reactive airway disease Prediabetes Lumbar back pain with radiculopathy affecting left lower extremity (Acute) Neuropathy (Chronic) Seizure-like activity (Acute) prior to 2009- due to fever S/P left knee arthroscopy (Chronic) H/O dilation and curettage (Chronic) History of laminectomy (Chronic) Left L5-S1 History of tubal ligation (Chronic) Obesity (Chronic) GERD (gastroesophageal reflux disease) (Chronic) HTN (hypertension) (Chronic) Medical History GERD (gastroesophageal reflux disease) well controlled and stable History of postoperative nausea and vomiting HTN (hypertension) 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 Peripheral edema "mostly left leg" Pre-diabetes takes Metformin more for weight control Restrictive airway disease well controlled and stable only need rescue inhaler/neb when sick Seizure-like activity "reaction to fever" not a seizure >15 yrs ago Sleep apnea CPAP Surgical History History of dilatation and curettage History of lumbar laminectomy Left L5-S1 History of lumbar spinal fusion Hx of rotator cuff surgery (2022) Hx of tubal ligation S/P left knee arthroscopy Family History Father Heart disease Social History Smoking Status: Never smoker Second Hand Exposure: No; Do You Dip or Chew Tobacco: No; Tobacco Cessation Education Requested by Patient: No Hx Alcohol Use: No Hx Substance Use: No Preferred Language: Pashto Communication Ability: Effective Thread Weaver Required: No Beliefs That Will Affect Care: None Current Living Situation: Family Current Living Situation Comment: lives w/ grandson 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
[2024-12-17] MEDS: BUPIVACAINE/EPINEPHRINE 0.25% 1:200,000 30 ML VIAL ONE (12:07)
[2024-12-17] MEDS ORDERED: ePHEDrine sulfate 50 MG/5 ML SYR ONE ×2 (12:13→14:09)
[2024-12-17] MEDS ORDERED: GLYCOPYRROLATE 0.2 MG/ML VIAL ONE (12:13)
[2024-12-17] MEDS ORDERED: SODIUM CHLORIDE 0.9% PF INJ 10 ML VIAL ONE (13:28)
[2024-12-17] MEDS ORDERED: HYDROmorphone INJ 2 MG/ML SYR/VIAL ONE (13:28)
[2024-12-17] MEDS ORDERED: DROPERIDOL 5 MG/2 ML VIAL ONE (13:32)
[2024-12-17] MEDS ORDERED: ALBUMIN HUMAN 5% 12.5 GM/250 ML VIAL IV ONE (13:49)
[2024-12-17] MEDS: FLOSEAL HEMOSTATIC MATRIX 10ML TOP ONE (14:00)
[2024-12-17] MEDS: SURGICEL ABSORB HEMOSTAT 2IN X 14IN TOP ONE (14:01)
[2024-12-17] MEDS: ceFAZolin 330 MG/ML 1 GM VIAL ONE (14:07)
[2024-12-17] MEDS ORDERED: SUGAMMADEX SODIUM 200 MG/2 ML VIAL IV ONE (14:11)
--- NOTE | 2024-12-17 14:19 | Fluoroscopy Report ---
INTRAOPERATIVE RADIOGRAPHS CLINICAL HISTORY: Lumbar spinal fusion. Fluoro time: 13 seconds Ka,r: 13.39 mGy FINDINGS: 2 spot fluoroscopic views of the lumbar spine are presented. There is post surgical change from multilevel discectomy with laminectomy and posterior fusion. The levels are difficult to delinea te on the provided images, and this is likely L2-S1. Interpedicular screws are present at all levels. The orthopedic hardware appears intact. IMPRESSION: Intraoperative images from multilevel lumbar spinal fusion surgery as above. Electronically signed by: Vernon Bran M.D. 12/17/2024 2:17 PM
--- NOTE | 2024-12-17 14:26 | Operative Report ---
Post Operative Report Pre & Post Diagnosis Operation Date: 12/17/24 10:25 Pre-Op Diagnosis: #1 multilevel lumbosacral spondylosis with radiculopathy #2 spondylolisthesis L4-L5 #3 morbid obesity Post-Op Diagnosis: Same I identified the patient and participated in the time-out.: Yes Procedure Operation Date: 12/17/24 10:25 Actual Procedures #1 removal of posterior instrumentation L5-S1. #2 exploration of fusion L5-S1. #3 lumbar decompression with bilateral medial facetectomies and foraminotomies L2-L3, L3-L4 and L4-L5. #4 posterior spinal fusion L2-L5. #5 placement posterior segment instrumentation L2-S1 using camber. #6 interbody fusion L2- L3, L3-L4 and L4-L5. #7 placement of Spira 12 x 26 mm at L2-L3, 14 x 26 mm at L3-L4 and 13 x 26 mm at L4-L5. #8 placement of Proteus, with Koros in the posterior lateral gutters and os design in the interbody space. #9 application of versa wrap of the exposed dura. Surgeon Haresh Lowry, DO Die Finisher Ly Luciano Estimated Blood Loss 950 Findings See Below The patient is 5 foot 4 weighing over 117 kg with a BMI in excess of 44. This combined with an EBL of greater than 900 cc, significant epidural scarring and bony overgrowth of the previously placed instrumentation created significant technical difficulty. This added at least 40% increased operative time. And recommending a modifier 22. Specimens None Indications This is a 63-year-old female presents above diagnosis of failing course of nonoperative care she is here for surgical invention. Description of Procedure Patient was met with identified informed consent obtained. Patient was then taken to the operative suite underwent the patient placed in a prone position on the Vernon table on top of the Cornel frame. All bony prominences well-padded eyes inspected to ensure no external pressure placed upon them. This point lumbar spine was prepped and draped in normal sterile fashion. Sharp dissection with the assistance of Bovie cautery from down to and exposing the lamina and transverse processes of L2-L3-L4 and the instrumentation at L5-S1 bilaterally. And then proceeded remove the hardware bilaterally explored the fusion mass noted to be mature and intact. Then performed a complete laminectomy of L4 L3 and L2 including bilateral medial facetectomies and foraminotomies addressing severe neural compression. Pedicle screws in place L2 L3-L4-L5 and S1 levels bilaterally with assistance of fluoroscopy and the properly sized rods contoured and placed. By way of transforaminal approach on the left complete discectomy of L4-L5 was performed endplates created to subcortical bleeding bone and a 13 x 26 mm Spira cage tapped in position. Then proceeded to L3-L4. Again by way of transforaminal approach on the left complete discectomy performed. Endplates guided to subcortical bleeding bone and a 14 x 26 mm Spira cage tapped into position. Lastly I approached L2-L3. Again by way of a transforaminal approach on the left complete discectomy was performed endplates coated to subcortical lean bone and a 12 x 26 mm Spira cage tapped into position. Please note all cages were packed with os design bone graft. The rods were then compressed locked into final position bilaterally. The transverse processes of L2-L3 L4-5 burred to subcortical bleeding bone. Koros combined with Proteus bone graft placed in the post lateral gutters. Versa wrap placed over exposed dura. 15 round EMILY drain inserted. The incision was then closed with 1 Vicryl in the fascia 2-0 Vicryl subcutaneously and 4 Monocryl for final skin closure. Steri- Strips sterile dressing placed. Patient waken taken to PACU in a stable conditi on. Please note Ly Luciano was present at the entire procedure and all the patient positioning complex portion of the surgery and final skin closure. I attest to the content of the Intraoperative Record and any orders documented therein. Any exceptions are noted below.
--- NOTE | 2024-12-17 15:39 | Anesthesiology Progress Note ---
Date of Service December 17, 2024 Anesthesia Post Procedure Vital Signs Vital Signs: Temp Pulse Pulse Resp BP Pulse Ox O2 Del Method 12/17/24 15:20 36.4 C L 74 17 119/61 95 Nasal Cannula 12/17/24 15:10 82 17 119/56 L 96 Oxymask 12/17/24 15:00 62 17 127/69 97 Oxymask 12/17/24 14:50 73 17 118/65 98 Oxymask 12/17/24 14:41 36.8 C 69 17 119/62 96 Oxymask 12/17/24 09:56 36.9 C 68 20 110/67 95 Room Air O2 Flow Rate 12/17/24 15:20 4 12/17/24 15:10 4 12/17/24 15:00 6 12/17/24 14:50 6 12/17/24 14:41 6 12/17/24 09:56 Pain Intensity Bilateral Lower Back: Pain Intensity: 8 Transfer of Care Handoff Completed per policy Notes Mental Status: alert / awake / arousable Patient Amnestic to Procedure: Yes Nausea / Vomiting: adequately controlled Pain: adequately controlled Airway Patency, RR, SpO2: stable & adequate BP & HR: stable & adequate Hydration State: stable & adequate Anesthetic Complications: no major complications apparent
[2024-12-17] MEDS ORDERED: HYDROmorphone INJ 0.5 MG/0.5 ML SYR IV PRN (15:51)
[2024-12-17] MEDS ORDERED: LORazepam Inj 0.5 MG in SYRINGE 0.25 ML IV PRN (15:51)
[2024-12-17] MEDS ORDERED: PHARMACY GLYCEMIC MGMT CONSULT PRN (15:51)
[2024-12-17] MEDS ORDERED: ALUMINUM/MAGNESIUM SUSP 30 ML UDC PO PRN (15:51)
[2024-12-17] MEDS ORDERED: ALBUTEROL HFA 8 GM INHALER INH PRN (15:51)
[2024-12-17] MEDS ORDERED: FAMOTIDINE 20 MG TAB PO PRN (15:51)
[2024-12-17] MEDS ORDERED: HYDROmorphone INJ 1 MG/ML SYRINGE IV PRN (15:51)
[2024-12-17] MEDS ORDERED: METOCLOPRAMIDE HCL INJ 5 MG/ML 2 ML VIAL IV PRN (15:51)
[2024-12-17] MEDS ORDERED: DO NOT ADMINISTER PNEUMOCOCCAL VACCINE PRN (15:51)
[2024-12-17] MEDS ORDERED: NALOXONE HCL 0.4 MG/1 ML VIAL/CARP IV PRN (15:51)
[2024-12-17] MEDS ORDERED: diphenhydrAMINE Capsule 25 MG CAP PO PRN (15:51)
[2024-12-17] MEDS ORDERED: SOD PHOSPHATE/SOD BIPHOSPHATE ENEMA 132 ML BTL PR PRN (15:51)
[2024-12-17] MEDS ORDERED: ALBUTEROL 0.083% NEBU SOLN 3 ML VIAL INH PRN (15:51)
[2024-12-17] MEDS ORDERED: MAGNESIUM HYDROXIDE SUSP 30 ML UDC PO PRN (15:51)
[2024-12-17] MEDS ORDERED: LORazepam 0.5 MG TAB PO PRN (15:51)
[2024-12-17] MEDS ORDERED: DO NOT ADMINISTER FLU VACCINE PRN (15:51)
--- NOTE | 2024-12-17 16:03 | Hospitalist Consultation ---
<Statement entered by Jose Harrison, - 12/17/24 16:58> I have seen and examined the patient and have discussed the case with the advance practice provider. I have reviewed the advanced practitioner's documentation, and I agree with, and take responsibility for that plan of care. Patient states that overall her pain is controlled. No chest pain or shortness of breath. Encourage patient to ask for pain medicine if required so she can participate in activities Plan of care as outlined below I spent a total of 14 minutes coordinating, documenting, and providing care for this patient excluding time spent by another provider/QHP. Date of Consultation December 17, 2024 Assessment & Plan (1) Multilevel lumbosacral spondylosis with radiculopathy: (2) S/P spinal surgery: Patient is a 63y/o F with PMHx significant for prediabetes, HLD, HTN, pulmonary HTN, PAULA on CPAP, asthma, GERD and cervical DDD who is being seen in consultation for postoperative medical management s/p elective hardware removal L5-S1, decompression L2-L4 and fusion L2-S1 performed by Dr. Lowry earlier today. Per primary service for pain control, wound care, anticoagulation and activities. Continue incentive spirometry, PT/OT when appropriate as per primary service. Monitor H/H for acute blood loss anemia and transfuse blood products PRN. Preop Hgb 14.3, EBL 950cc. 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 Continue metoprolol succinate. (4) Prediabetes: Hgb A1c 6.2% 11d ago as per chart review. Holding HUMAN RESOURCES SUPERVISOR metformin while admitted. BSG checks BID, monitor. Will hold off on SSI coverage for now. Other chronic medical conditions: PAULA - Continue CPAP HS. Asthma - No s/sx of acute exacerbation. PRN nebs. GERD - Continue PPI. DVT Prophylaxis: As per primary service Code Status: FULL CODE PCP: Shelley Reddy MD Disposition: Routine DC planning as per primary service Thank you for this consultation. We will follow the patient with you during [facility] hospital stay. You can reach a member of the [facility] Team 20/09 via [email or web address]. Patient seen in collaboration with Dr. Harrison. Please see addendum. I spent a total of 48 minutes coordinating, documenting, and providing care for this patient excluding time spent in the performance of separately billed services or time spent by another provider/QHP. This included personally re viewing all current laboratories and imaging studies, medical reconciliation, outpatient chart review and discussion with specialists. This chart was completed in part utilizing Speech Voice Recognition Software. Grammatical errors, random word insertions, pronoun errors, and incomplete sentences are an occasional consequence of this system due to software limitations, ambient noise, and hardware issues. Any formal questions or concerns about the content, text, or information contained within the body of this dictation should be directly addressed to the provider for clarification. History of Present Illness Reason for Consultation: Postoperative medical management Requesting Physician: Haresh Lowry DO Attending Physician: Haresh Lowry DO History of Present Illness Patient is a 63y/o F with PMHx significant for prediabetes, HLD, HTN, PAULA on CPAP, asthma, GERD and cervical DDD who is being seen in consultation for postoperative medical management after undergoing elective hardware removal L5- S1, decompression L2-L4 and fusion L2-S1 performed by Dr. Lowry earlier today. History obtained from the patient and associated chart review. Family members visiting at bedside including the patient's daughter and sister. Patient admits to feeling a little groggy s/p anesthesia but otherwise offers no major complaints. Denies any SOB or chest pain. On 3L NC and saturating around 98%. Has Galvan catheter in place which is draining clear, yellow urine output. Reports surgical site pain is well-controlled. No smoking or alcohol use. Allergies Allergy/AdvReac Type Severity Reaction Status Date / Time Sulfa (Sulfonamide Allergy Unknown Rash Verified 12/17/24 09:51 Antibiotics) Yeast Allergy Unknown Gastrointestinal Verified 12/17/24 09:51 Upset Home Medications Medication Instructions Recorded Confirmed Type albuterol sulfate 2.5 mg/3 mL 2.5 mg inhalation QID PRN 05/11/18 12/17/24 History (0.083 %) solution for nebulization Shortness Of Breath omeprazole 20 mg tablet,delayed 40 mg PO HS 05/11/18 12/17/24 History release albuterol sulfate 90 mcg/actuation 2 puff inhalation Q4H PRN 12/31/22 12/17/24 History aerosol inhaler Shortness Of Breath Or Wheezing gabapentin 100 mg capsule 200 mg PO HS 12/31/22 12/17/24 History gabapentin 400 mg capsule 400 mg PO BID 12/31/22 12/17/24 History gabapentin 400 mg capsule 400 mg PO HS 12/31/22 12/17/24 History melatonin 3 mg tablet 10 mg PO HS 12/31/22 12/17/24 History metoprolol succinate 25 mg 25 mg PO QAM 12/31/22 12/17/24 History tablet,extended release 24 hr methylprednisolone 4 mg tablets in See Rx Instructions .Route 11/25/24 12/17/24 Rx a dose pack (Medrol (Rodolfo)) .COMPLEX #21 ea acetaminophen 500 mg capsule 500 mg PO UD PRN Pain 11/30/24 12/17/24 History ibuprofen 800 mg tablet 800 mg PO HS 11/30/24 12/17/24 History metformin 500 mg tablet 500 mg PO BID 11/30/24 12/17/24 History furosemide 20 mg tablet 20 mg PO QAM 12/06/24 12/17/24 History Patient History Medical History History of postoperative nausea and vomiting HTN (hypertension) GERD (gastroesophageal reflux disease) well controlled and stable Restrictive airway disease well controlled and stable only need rescue inhaler/neb when sick Peripheral edema "mostly left leg" Pre-diabetes takes Metformin more for weight control Sleep apnea CPAP Seizure-like activity "reaction to fever" not a seizure >15 yrs ago 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 Surgical History Hx of tubal ligation History of lumbar laminectomy Left L5-S1 History of dilatation and curettage S/P left knee arthroscopy History of lumbar spinal fusion Hx of rotator cuff surgery (2022) Family History Father Heart disease Social History Smoking Status: Never smoker Second Hand Exposure: No; Do You Dip or Chew Tobacco: No; Tobacco Cessation Education Requested by Patient: No Hx Alcohol Use: No Hx Substance Use: No Preferred Language: Belizean Communication Ability: Effective Wrap Yarn Sorter Required: No Beliefs That Will Affect Care: None Current Living Situation: Family Current Living Situation Comment: lives w/ grandson 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 Physical Exam Physical Exam: General: WD/WN, NAD, laying down in bed on R side, A&Ox3, conversing appropriately HEENT: Normocephalic, atraumatic, oropharynx somewhat dry Respiratory: Normal respiratory effort, CTAB, on 3L NC and saturating around 98% Cardiovascular:RRR, normal peripheral pulses, no BLE edema Abdomen/GI: Normal bowel sounds, soft, nontender to palpation in all quadrants : + Galvan catheter intact and draining clear yellow urine without issue Extremities/Musculoskeletal: No cyanosis or clubbing, surgical dressing on low back C/D/I, EMILY drain x 1 with bloody output Neurologic: No overt focal deficits, CN's II-XI not formally tested but appear grossly intact bilaterally Results & Data Results & Data Vital Signs (Past 12 Hours) Vital Signs Temp Pulse Pulse Resp BP Pulse Ox O2 Del Method 12/17/24 15:20 36.4 C L 74 17 119/61 95 Nasal Cannula 12/17/24 15:10 82 17 119/56 L 96 Oxymask 12/17/24 15:00 62 17 127/69 97 Oxymask 12/17/24 14:50 73 17 118/65 98 Oxymask 12/17/24 14:41 36.8 C 69 17 119/62 96 Oxymask 12/17/24 09:56 36.9 C 68 20 110/67 95 Room Air O2 Flow Rate 12/17/24 15:20 4 12/17/24 15:10 4 12/17/24 15:00 6 12/17/24 14:50 6 12/17/24 14:41 6 12/17/24 09:56 Diagnostic Findings Lumbar Spine X-Ray 12/17/24 10:25 INTRAOPERATIVE RADIOGRAPHS CLINICAL HISTORY: Lumbar spinal fusion. Fluoro time: 13 seconds Ka,r: 13.39 mGy FINDINGS: 2 spot fluoroscopic views of the lumbar spine are presented. There is post surgical change from multilevel discectomy with laminectomy and posterior fusion. The levels are difficult to delineate on the provided images, and this is likely L2-S1. Interpedicular screws are present at all levels. The orthopedic hardware appears intact. IMPRESSION: Intraoperative images from multilevel lumbar spinal fusion surgery as above. Electronically signed by: Vernon Bran M.D. 12/17/2024 2:17 PM
[2024-12-17] MEDS: FAMOTIDINE/PF 20 MG/2 ML VIAL IV ONE (16:16)
[2024-12-17] MEDS: SODIUM CHLORIDE 0.9% 1,000 ML IV SCH (16:18)
[2024-12-17] MEDS: ACETAMINOPHEN 500 MG TAB PO PRN (20:00)
[2024-12-17] MEDS: GABAPENTIN 400 MG CAP PO SCH (20:02)
[2024-12-17] MEDS: GABAPENTIN 100 MG CAP PO SCH (20:02)
[2024-12-17] MEDS: MELATONIN 3 MG TAB PO SCH (20:02)
[2024-12-17] MEDS: ONDANSETRON 4 MG OD TAB PO PRN (20:16)
[2024-12-17] MEDS: DOCUSATE SODIUM/SENNA 50/8.6MG TAB PO SCH (21:32)
[2024-12-18] MEDS: POLYETHYLENE (MIRALAX) 17 GM PACK PO SCH (05:30)
[2024-12-18 08:10] LABS: Hematocrit (blood only) 29.2 % (37.0-47.0); Hemoglobin 9.1 g/dl (12.0-16.0); Immature Granulocytes # (auto) 0.06 K/uL (0.01-0.20); Immature Granulocytes % (auto) 0.5 %; Mean Corpuscular Hemoglobin 28.4 pg (25.0-34.0); Mean Corpuscular Volume 91.3 fL (80.0-100.0); Platelet Count 225 K/uL (130-400); RDW Standard Deviation 48.5 fL (36.4-46.3); Red Blood Count 3.20 M/uL (4.20-5.40); White Blood Count 12.73 K/ul (4.8-10.8)
[2024-12-18] MEDS: PROMETHAZINE 12.5 MG/50.5 ML BAG IV PRN (08:15)
[2024-12-18] MEDS: dexAMETHasone 6 MG in SYRINGE 0 ML IV SCH (08:15)
[2024-12-18] MEDS: METOPROLOL SUCC 25MG EXT REL TAB PO SCH (08:16)
[2024-12-18] MEDS: GABAPENTIN 400 MG CAP PO SCH (08:16)
[2024-12-18 08:28] LABS: Anion Gap 6.0 (3-11); Blood Urea Nitrogen 12.0 mg/dl (6-23); Calcium 8.5 mg/dl (8.6-10.3); Carbon Dioxide 27.0 mmol/L (21-32); Chloride 106.0 mmol/L (98-107); Creatinine Clr Calc Pharmacy 88.3 ml/min; Glucose 129.0 mg/dl (70-99(Fasting)); Potassium 4.1 mmol/L (3.5-5.1); Sodium 139.0 mmol/L (136-145)
[2024-12-18] MEDS ORDERED: FUROSEMIDE 20 MG TAB PO SCH (09:00)
[2024-12-18] MEDS: ACETAMINOPHEN 1,000 MG/100 ML VIAL IV PRN (10:00)
--- NOTE | 2024-12-18 10:51 | Orthopedic Progress Note ---
Date of Service December 18, 2024 Assessment & Plan (1) Multilevel lumbosacral spondylosis with radiculopathy: Plan: At this time we will continue physical therapy monitor EMILY operatively discharge home next few days. Admission and Anticipated Discharge Date Admission Date: December 17, 2024 Subjective Patient's back pain is controlled leg symptoms improved. Patient tolerating physical therapy. Physical Exam Physical Exam: Patient is in the chair at the bedside. She is comfortable. The strength testing. Results & Data Vital Signs (Past 12 Hours) Vital Signs Temp Pulse Resp BP Pulse Ox O2 Del Method O2 Flow Rate 12/18/24 07:15 37.1 C 78 18 117/63 98 Room Air 12/18/24 03:00 37.1 C 82 18 123/66 97 Room Air 12/18/24 01:48 127/73 95 Room Air, CPAP 12/18/24 00:14 95 Room Air, CPAP 12/18/24 00:14 99 Room Air 1 Queries Orthopedic Spine Acute Posthemorrhagic Anemia: Yes Obesity: Yes
--- NOTE | 2024-12-18 14:46 | Hospitalist Progress Note ---
Date of Service December 18, 2024 Assessment & Plan (1) Multilevel lumbosacral spondylosis with radiculopathy: (2) S/P spinal surgery: Plan: per previous hospitalist notes with addendum: Patient is a 63y/o F with PMHx significant for prediabetes, HLD, HTN, pulmonary HTN, PAULA on CPAP, asthma, GERD and cervical DDD who is being seen in consultation for postoperative medical management s/p elective hardware removal L5-S1, decompression L2-L4 and fusion L2-S1 performed by Dr. Lowry earlier today. 12/18 BP on the soft side advised to increase oral fluid intake Acute Blood Loss Anemia Hg 14 --> 9 repeat in AM (3) HTN (hypertension): Plan: Continue metoprolol succinate. hold Lasix as BP on the lower side (4) Prediabetes: Plan: Hgb A1c 6.2% 11d ago as per chart review. Holding PARALEGAL metformin while admitted. BSG checks BID, monitor. Will hold off on SSI coverage for now. Other chronic medical conditions: PAULA - Continue CPAP HS. Asthma - No s/sx of acute exacerbation. PRN nebs. GERD - Continue PPI. DVT Prophylaxis: As per primary service Code Status: FULL CODE PCP: Shelley Reddy MD Disposition: Routine DC planning as per primary service Thank you for this consultation. We will follow the patient with you during their hospital stay. You can reach a member of the [facility] Hospitalist Team 20/09 via [employer]. Admission and Anticipated Discharge Date Admission Date: December 17, 2024 Subjective seen resting in bed, comfortable states she already ambulated in the hallways 3x today states she feels fine overall except for pain over the surgical site pain meds helping no chest pain, dyspnea, palpitations, dizziness no other symptoms Review of Systems Review of Systems: all noted and negative except for above Physical Exam Physical Exam: General- oriented x 3, not in distress, speaks in sentences with no effort or accessory muscle use Eyes- anicteric Neck- no JVD Lungs- clear breath sounds bilaterally, no rales/wheezes Heart- normal rate, regular rhythm; no murmurs Abdomen- normal bowel sounds, nondistended, soft, nontender Back- dressing in place, no bleeding/discharge drain in place: sero-sanguinous output Extremities- no pretibial edema, no calf tenderness Neuro- alert, oriented x 3; no gross focal neurologic deficits Skin- warm & dry Results & Data Results & Data Vital Signs (Past 12 Hours) Vital Signs Temp Pulse Resp BP Pulse Ox O2 Del Method 12/18/24 13:56 36.6 C 77 18 110/62 93 Room Air 12/18/24 11:30 37.1 C 70 18 121/69 94 Room Air 12/18/24 07:15 37.1 C 78 18 117/63 98 Room Air 12/18/24 03:00 37.1 C 82 18 123/66 97 Room Air all noted and reviewed including below
[2024-12-19 07:24] LABS: Hematocrit (blood only) 30.7 % (37.0-47.0); Hemoglobin 9.6 g/dl (12.0-16.0); Immature Granulocytes # (auto) 0.05 K/uL (0.01-0.20); Immature Granulocytes % (auto) 0.4 %; Mean Corpuscular Hemoglobin 29.2 pg (25.0-34.0); Mean Corpuscular Volume 93.3 fL (80.0-100.0); Platelet Count 233 K/uL (130-400); RDW Standard Deviation 51.0 fL (36.4-46.3); Red Blood Count 3.29 M/uL (4.20-5.40); White Blood Count 12.65 K/ul (4.8-10.8)
[2024-12-19 07:47] LABS: Alanine Aminotransferase 11.0 U/L (7-52); Albumin Globulin Ratio 1.2 (0.9-2); Albumin Level 3.3 gm/dl (3.4-5.0); Alkaline Phosphatase 57.0 U/L (34-104); Anion Gap 4.0 (3-11); Bilirubin,Total 0.3 mg/dl (0.2-1.0); Blood Urea Nitrogen 13.0 mg/dl (6-23); Calcium 8.9 mg/dl (8.6-10.3); Carbon Dioxide 29.0 mmol/L (21-32); Chloride 108.0 mmol/L (98-107); Creatinine Clr Calc Pharmacy 88.3 ml/min; Globulin 2.8 gm/dl (2.5-4.0); Glucose 104.0 mg/dl (70-99(Fasting)); Potassium 4.1 mmol/L (3.5-5.1); Sodium 141.0 mmol/L (136-145); Total Protein 6.1 gm/dl (6.0-8.3)
--- NOTE | 2024-12-19 09:53 | Orthopedic Progress Note ---
Date of Service December 19, 2024 Assessment & Plan (1) Multilevel lumbosacral spondylosis with radiculopathy: Plan: At this time we will continue physical therapy monitor EMILY output anticipate discharge home tomorrow. Admission and Anticipated Discharge Date Admission Date: December 17, 2024 Subjective Back pain controlled leg pain improved Physical Exam Physical Exam: Patient has good strength testing. She is comfortable. Results & Data Vital Signs (Past 12 Hours) Vital Signs Temp Pulse Resp BP BP Pulse Ox O2 Del Method 12/19/24 07:34 36.6 C 71 20 99/62 L 95 Room Air 12/18/24 23:00 36.3 C L 75 16 114/70 93 Room Air Queries Orthopedic Spine Acute Posthemorrhagic Anemia: Yes Obesity: Yes
--- NOTE | 2024-12-19 11:54 | Hospitalist Progress Note ---
Date of Service December 19, 2024 Assessment & Plan (1) Multilevel lumbosacral spondylosis with radiculopathy: (2) Acute postoperative anemia due to expected blood loss: (3) S/P spinal surgery: (4) HTN (hypertension): Plan: With some postoperative mild hypotension (5) Prediabetes: Plan Patient overall clinically appears to be improving. Hemoglobin is stable, expected postoperative blood loss. Blood pressure fluctuating, overall stable and asymptomatic. Continuing to hold furosemide, metoprolol with hold parameters per protocol Leukocytosis due to steroids Continue to encourage activity Anticipate will be ready medically for discharge when ready from a surgical/attending standpoint. Admission and Anticipated Discharge Date Admission Date: December 17, 2024 Subjective Patient denies any lightheadedness or dizziness with change in position today. Ate a good breakfast. Pain is overall well-controlled. Physical Exam Physical Exam: Constitutional: Alert, nontoxic HEENT: Mucous membranes moist. Lungs: Clear to auscultation, decreased, no wheezes rales or rhonchi CV: S1-S2, regular Abdomen: Soft, nontender, nondistended Extremities: No significant edema Musculoskeletal: Lumbar spine dressing clean and dry, EMILY drain in place Neuro: No focal deficits Psych: Cooperative, normal mood Results & Data Results & Data Vital Signs (Past 12 Hours) Vital Signs Temp Pulse Resp BP Pulse Ox O2 Del Method 12/19/24 07:34 36.6 C 71 20 99/62 L 95 Room Air Diagnostic Findings Reviewed imaging, laboratory and diagnostic studies. Pertinent findings as below. WBCs 12.6 Hemoglobin 9.6, stable Electrolytes stable Creatinine 0.80
[2024-12-19 23:46] VITALS: PULSE 75; RESP 18
[2024-12-20 07:23] VITALS: BP 130/79; TEMP 97.7; O2SAT 94
[2024-12-20] MEDS: METOPROLOL SUCC 25MG EXT REL TAB PO SCH (09:24)
--- NOTE | 2024-12-20 09:57 | Discharge Summary ---
Date of Service December 20, 2024 Admission HPI Per Admitting Provider This is a 63-year-old female known to me the presents chronic persistent back and leg pain of failing course of nonoperative care is here for surgical invention. Principal Diagnosis Lumbar spondylosis with radiculopathy Discharge Data Allergies Allergy/AdvReac Type Severity Reaction Status Date / Time Sulfa (Sulfonamide Allergy Unknown Rash Verified 12/17/24 09:51 Antibiotics) Yeast Allergy Unknown Gastrointestinal Verified 12/17/24 09:51 Upset Consultations 12/17/24 15:51 Consult Hospitalist Routine Procedures Performed Operation Date: 12/17/24 10:25 Actual Procedures p Decompression L2-L4 Fusion L2-S1(Not Applicable) - Haresh Lowry DO s Hardware Removal L5-S1,(Not Applicable) - Haresh Lowry DO Ordered Studies 12/17/24 10:25 FL lumbar spine 2-3V Routine Hospital Course (1) Multilevel lumbosacral spondylosis with radiculopathy: Patient 1 lumbar decompression fusion tolerated [facility] orthopedic for postoperative. Postoperatively progressed appropriately. EMILY drain decreasing. And improvement of her strength. Pain well-controlled. Subsidy discharged home. Discharge orders instructions from the chart for further review. Total Time Total Time Spent Total Time Spent (In Minutes): 20 minutes Discharge Plan Discharge Items Patient Disposition: Home - Self-Care Reason For Visit: Spondylolisthesis Lumbar Region, Foot Drop Left Discharge Diagnosis: Lumbar spondylosis with radiculopathy Activity: As commented below Non-emergency contact: Primary Care Provider Call non-emergency contact if: you have any medication questions Follow-up/Referrals: Shelley Reddy MD [Primary Care Provider] - Diet: Regular Addtl Attending Provider Instructions: ACTIVITY RECOMMENDATIONS: SELF CARE INSTRUCTIONS AFTER THORACIC/LUMBAR FUSIONS 1. You may walk to your tolerance. It is good exercise for your legs and back. Expect some back and intermittent leg aches and pains. 2. You may perform "counter-top" level activities (make a sandwich, zoila with a project, etc.). 3. No bending or lifting of more than 10 pounds or back twisting of any nature (roll like a log when turning in bed). 4. You may ride in a car for 20-30 minutes at a time. No driving until after your first visit with your doctor. 5. Frequent changes of position and restricting sitting to 30 minutes at a time will help limit the amount of back spasms and stiffness you may experience. 6. You may discontinue the use of ambulatory aids (cane, crutches, etc.) once your strength and confidence allow. 7. You may repulping supervisor the shower and let water strike your incision when you arrive home at least once daily. Do not take a tub bath, sit in a hot tub or go into a swimming pool until after your first recheck in the office. 8. You may resume previous diet. SPECIAL CARE INSTRUCTIONS: VERY IMPORTANT TO READ AND REVIEW A. Your surgical incision has been closed with a cosmetic suture under the skin that will dissolve in about 6 weeks. In 14 days, you can use a pair of clean scissors and cut the suture that is left outside of the skin at the ends of your incision. 1. The small skin tapes can be removed 7 days after surgery if they have not fallen off by that point. 2. You may keep the wound open to air as much as possible to promote healing after post-op day number 5 unless told otherwise by your doctor. 3. If you think the wound looks like it is becoming infected (redness or worsening drainage) and/or you are experiencing fever, chill or worsening back pain and muscle spasms, contact the office so that we may evaluate you as soon as possible. B. Complications are uncommon, but please contact us if you have any signs or symptoms of: 1. wound infection (fever higher than 102.5 degrees F, redness, separation of wound, drainage, or increasing pain from the incision) 2. blood clots in legs (pain, swelling, redness and warmth in legs) 3. urinary tract infection (fever higher than 102.5 degrees F, burning upon urination or increased frequency of urination) 4. nerve problems (inability to walk on your toes or heels, numbness, loss of bowel or bladder control) 5. any other symptoms that concern you C. Please call the office at if you have any concerns or questions about your operation or recovery. D. No smoking! Smoking drastically decreases the chance of a solid fusion. E. Do not take any anti-inflammatory medications (Indocin, Advil, Motrin, Aspirin, Naprosyn, etc.) as these may inhibit the chance of a solid fusion. Tylenol is okay to take for pain. MANAGING PAIN AFTER SPINAL SURGERY 1. Narcotic medication is intended for short-term use and will be provided for surgical pain. Surgical pain usually lasts for a period of 4-6 weeks. Narcotic medication includes Percocet, Vicodin, Darvocet, Tylenol #3 or Lortab. 2. Longer-term pain is more appropriately treated with non-narcotic medication such as Tylenol ES. 3. Muscle spasm is not appropriately treated with narcotics. Muscle relaxers such as Soma, Flexeril or Skelaxin can be used along with Tylenol ES. 4. Remember that we all live with some "aches and pains". This is not unusual or uncommon after an injury or as we get older. a. Back pain is expected and may include muscle spasms for 4 to 6 weeks after surgery. The pain should gradually improve. If the pain worsens for no apparent reason, please contact the office. b. Intermittent leg pain may also be experienced and should not be concerned about unless it worsens for no apparent reason. If so, please contact the office. 5. We will provide appropriate medication within the normal guidelines of their prescribed use. We will also be very cautious and aware of potential abuse and extended duration of patients' medication needs. a. Pain medications are for your comfort and to assist with sleep and rest so that the tissue can heal. They are not provided in order to return to normal activity and should not be used through the day. To do so or worsening pain at night can result from ongoing tissue damage and development of tolerance to the prescribed medicine. 6. Please allow 2-3 days to process refills. Prescriptions will not be mailed but must be picked up at the office. FOLLOW UP VISIT: Keep your scheduled follow-up appointment. Any questions, please call the office at . Pending Studies at Discharge: No Stand-Alone Forms: My [employer], Smoking Cessation Medications and DC Order Prescriptions: New oxycodone 5 mg tablet 5 mg PO Q6H PRN (Reason: pain) Qty: 30 0RF Continued albuterol sulfate 2.5 mg /3 mL (0.083 %) Solution For Nebulization 2.5 mg INHALATION QID PRN (Reason: Shortness Of Breath) omeprazole 20 mg Tablet,Delayed Release (Dr/Ec) 40 mg PO HS gabapentin 400 mg capsule 400 mg PO BID Rx Instructions: qam and noon gabapentin 100 mg capsule 200 mg PO HS Rx Instructions: 1 hour prior to sleep, along with 400mg metoprolol succinate 25 mg tablet extended release 24 hr 25 mg PO QAM gabapentin 400 mg capsule 400 mg PO HS Rx Instructions: Take 400mg + 200mg to total 600mg albuterol sulfate 90 mcg/actuation HFA aerosol inhaler 2 puff INHALATION Q4H PRN (Reason: Shortness Of Breath Or Wheezing) melatonin 3 mg Tablet 10 mg PO HS methylprednisolone [Medrol (Rodolfo)] 4 mg tablets,dose pack See Rx Instructions .ROUTE .COMPLEX Qty: 21 0RF Patient Comments: will complete 12/01/24 Rx Instructions: 4 mg by mouth as directed on packaging metformin 500 mg Tablet 500 mg PO BID ibuprofen 800 mg Tablet 800 mg PO HS acetaminophen 500 mg Capsule 500 mg PO UD PRN (Reason: Pain) furosemide 20 mg Tablet 20 mg PO QAM Discharge Orders: Discharge Order (Routine); Ordered 12/20/24 Ordered By: Haresh Lowry Admission Data Admit Date/Time: 12/17/24 14:30 Attending Provider: Haresh Lowry Admit Provider: Haresh Lowry Primary Care Provider: Shelley Reddy Other Providers: Radha,Home Health; Renetta Michael
--- NOTE | 2024-12-20 15:08 | Hospitalist Progress Note ---
Date of Service December 20, 2024 Assessment & Plan (1) Multilevel lumbosacral spondylosis with radiculopathy: (2) Acute postoperative anemia due to expected blood loss: (3) S/P spinal surgery: (4) HTN (hypertension): Plan: With some postoperative mild hypotension (5) Prediabetes: Plan Patient doing well postoperatively Medically ready for discharge as planned per attending. Admission and Anticipated Discharge Date Admission Date: December 17, 2024 Subjective Patient seen prior to discharge. Dressed and ready to go home. States that has a she had a good night Physical Exam Physical Exam: Constitutional: Alert HEENT: Mucous membranes moist. Lungs: Clear to auscultation, decreased, no wheezes rales or rhonchi CV: S1-S2, regular Abdomen: Soft, Extremities: No significant edema Neuro: No focal deficits Psych: Cooperative, normal mood Results & Data Results & Data Vital Signs (Past 12 Hours) Vital Signs Temp Pulse Resp BP Pulse Ox O2 Del Method 12/20/24 07:22 36.5 C 75 18 130/79 94 Room Air
== END 2024-12-20 13:18 | disposition home health service (06) | DRG 427 ==
LOC: ASU 09:45 → 3W 14:30